=== PATIENT | female | born 1985 | race Caucasian/White ===

== ENCOUNTER 2018-02-03 17:47 | Emergency (ER) | payer MEDICAID, SELFPAY ==
[2018-02-03 17:49] VITALS: BP 113/76; PULSE 98; RESP 16; TEMP 36.7; O2SAT 98; BMI 39.7
--- NOTE | 2018-02-03 18:21 | ED.DCSUM_ITS ---
- ER Visit Summary Date of Service: 02/03/18 Chief Complaint: Nausea, vomiting diarrhea History of Present Illness: The patient is a 33 F no significant past medical history. Has had a prior appendectomy and hysterectomy. Patient states that last night she has somewhat some within several hours started having no one else at the same sob and no one else with vomiting. She denies fever. She denies dysuria. Currently she denies any significant abdominal pain. She states she has been able to hold down p.o. fluids today. Still complaining of nausea. Denies any abdominal trauma. Physical Examination: Well-appearing younger female. Vital signs. He does not look septic or toxic. No acute distress. H EENT exam unremarkable. Neck nontender no lymphadenopathy. Lungs clear to auscultation bilaterally. Heart regular rhythm no murmur. Abdomen is soft, nontender, nondistended. Normal bowel sounds. No peritoneal signs. No hernias or masses. No signs of obstruction. Moving all 4 extremities. Neurovascular intact. Back nontender. Neurologic exam normal. Test Results: None Emergency Department Course and Treatment: Patient clinically looks well does not look dehydrated. She and I discussed options. We will try oral Zofran and p.o. fluid challenge if she can do that she is comfortable being discharged home. Treatment Plan: [] Disposition: Discharge Impression: Acute nausea, vomiting and diarrhea secondary to viral syndrome Cannot rule out food poisoning. This note was generated with [employer] dictation software. It may contain incorrect words, spelling, and punctuation that were not noted in review of the chart prior to signing ED Disposition - Plan for ED Patient: Chief Complaint: Nausea/Vomiting Referrals: Darryl Stewart [Primary Care Provider] -
--- NOTE | 2018-02-03 18:21 | ED.DEP ---
ED Disposition - Plan for ED Patient: Disposition: Home or Assisted Living Chief Complaint: Nausea/Vomiting Instructions: ED Food Poison Or Gastroenteritis Prescriptions: Ondansetron [Zofran Odt] 8 mg PO Q8H PRN PRN #7 PRN Reason: Nausea Referrals: Darryl Stewart [Primary Care Provider] - 3-5 Days if not improving Additional Instructions: Zofran as needed for nausea. Plenty fluids and rest. Follow-up your doctor if not improving or return to ER feeling worse. This very well could be a viral gastroenteritis it is still possible be food poisoning but there is no way to prove that in the emergency department. Both are treated with fluids, bland diet and nausea medications.
[2018-02-03] MEDS: Ondansetron ODT 4 MG Tablet 8 MG PO (18:29)
[2018-02-03 19:56] VITALS: RESP 16
== END 2018-02-03 20:05 | disposition home or self-care (01) ==
PROVIDERS: Emergency Provider Emergency Medicine; PCP Nurse Practitioner Family
DX: A08.4 Viral intestinal infection, unspecified (principal); Z72.0 Tobacco use; Z90.710 Acquired absence of both cervix and uterus
CPT/HCPCS: 99282; J2405

== ENCOUNTER 2018-03-31 20:49 | Emergency (ER) | payer MEDICAID, SELFPAY ==
[2018-03-31 20:51] VITALS: BP 132/81; PULSE 97; RESP 18; TEMP 36.5; O2SAT 97; BMI 39.5
--- NOTE | 2018-03-31 20:55 | RAD_ITS ---
STUDY: X-RAY - RIGHT SHOULDER REASON FOR EXAM: Female, 33 years old. Injury and pain TECHNIQUE: Three view(s) of the RIGHT shoulder were obtained. COMPARISON: None. FINDINGS: The glenohumeral joint is within normal limits. The acromioclavicular joint is normal in appearance. No acute abnormalities are seen in the visualized clavicle. No acute abnormalities are seen in the visualized humerus. The soft tissues are unremarkable. There are old fractures in the lateral right third and fourth ribs. RAD/Shoulder min 2 Views IMPRESSION: No acute abnormalities are seen in the right shoulder. Electronically Signed: Renée Shea MD at 21:51 EDT Tel Direct: [phone], Service support ,
--- NOTE | 2018-03-31 22:22 | ED.VISSUMM ---
- ER Visit Summary Date of Service: 03/31/18 Chief Complaint: Right shoulder injury History of Present Illness: The patient is a 33 F who has right shoulder pain. Yesterday she was picking up a grandfather clock and hurt her right shoulder. It is worse with movement. She tried Tylenol without any relief. She has no history of any injuries or surgeries to the shoulder Physical Examination: Vital signs reviewed. Right shoulder exam reveals tenderness over the trapezius muscle. She has no bony tenderness. Range of motion is painful. She has 2+ radial pulses Test Results: Shoulder x-ray reveals no acute findings Emergency Department Course and Treatment: She will be treated with naproxen. She will be given the same for home. She will follow-up with her PCP Treatment Plan: [] Disposition: Discharge Impression: Right trapezius strain This note was generated with [email or web address] dictation software. It may contain incorrect words, spelling, and punctuation that were not noted in review of the chart prior to signing ED Disposition - Plan for ED Patient: Chief Complaint: Upper Extremity Injury Referrals: Mary Rodriguez NP-C [Primary Care Provider] -
--- NOTE | 2018-03-31 22:24 | ED.DEP ---
ED Disposition - Plan for ED Patient: Disposition: Home or Assisted Living Chief Complaint: Upper Extremity Injury Instructions: ED Shoulder Pain [facility] Prescriptions: Naproxen [Naprosyn] 500 mg PO BID PRN #20 tab Cyclobenzaprine [Flexeril] 10 mg PO TID PRN #20 tab PRN Reason: Muscle Spasm Referrals: Mary Rodriguez, COMIC ILLUSTRATOR-C [Primary Care Provider] -
[2018-03-31] MEDS: Naproxen 500 MG Tablet PO (22:35)
[2018-03-31 22:43] VITALS: RESP 16
== END 2018-03-31 22:43 | disposition home or self-care (01) ==
LOC: ED 22:31
PROVIDERS: Emergency Provider Emergency Medicine
DX: S46.811A Strain of other muscles, fascia and tendons at shoulder and upper arm level, right arm, initial encounter (principal); X50.0XXA Overexertion from strenuous movement or load, initial encounter; Y93.9 Activity, unspecified; Y92.9 Unspecified place or not applicable; Y99.9 Unspecified external cause status; Z72.0 Tobacco use
CPT/HCPCS: 73030; 99283

== ENCOUNTER → 2018-04-11 14:54 | Outpatient (CLI) | payer MEDICAID, SELFPAY ==
--- NOTE | 2018-04-11 15:00 | US_ITS ---
STUDY: THYROID ULTRASOUND REASON FOR EXAM: Female, 33 years old. Nodule on clinical exam. TECHNIQUE: Ultrasound evaluation of the thyroid was performed with real-time and static benito-scale imaging. COMPARISON: None. FINDINGS: RIGHT LOBE: The right lobe of the thyroid gland measures 4.9 x 1.9 x 1.7 cm. There is a homogeneous echotexture. Upper and mid pole solid nodules measuring 0.6 x 0.6 x 0.3 cm and 0.5 x 0.4 x 0.3 cm respectively. LEFT LOBE: The left lobe of the thyroid gland measures 4.5 x 1.6 x 1.4 cm. There is a homogeneous echotexture. Lower pole solid nodule measuring 0.4 x 0.4 x 0.3 cm. ISTHMUS: The isthmus measures 5 mm which is mildly enlarged. . The regional lymph nodes are normal. US/Thyroid IMPRESSION: Mild thyromegaly. Subcentimeter solid nodules in both lobes. Electronically Signed: Ronald Reno MD at 3:38 EDT , Service support ,
== END ==
DX: E04.9 Nontoxic goiter, unspecified (principal)
CPT/HCPCS: 76536

== ENCOUNTER → 2018-05-31 07:04 | Outpatient (CLI) | payer MEDICAID, SELFPAY ==
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
== END ==
PROVIDERS: Referring Provider Orthopaedic Surgery; Visit Provider Orthopaedic Surgery
DX: G56.03 Carpal tunnel syndrome, bilateral upper limbs (principal)
CPT/HCPCS: 95886; 95913

== ENCOUNTER 2018-09-22 18:12 | Emergency (ER) | payer MEDICAID, SELFPAY ==
[2018-09-22 18:13] VITALS: BP 132/80; PULSE 105; RESP 17; TEMP 36.7; O2SAT 97; BMI 40.4
[2018-09-22 20:11] VITALS: BP 126/90; PULSE 88; RESP 18; O2SAT 97
--- NOTE | 2018-09-22 21:07 | ED.VISSUMM ---
- ER Visit Summary Date of Service: 09/22/18 Chief Complaint: Back pain History of Present Illness: The patient is a 33 F who presents with back pain that has been getting worse over the past 1-1/2 weeks. Patient states she was doing housework the pain is gradually gotten worse. Patient states pain is over the left lower lumbar area and radiates down to her left posterior thigh. Patient states she did have some numbness in her left leg twice this week which has resolved. Patient denies any changes in her bowel or bladder. Patient denies any saddle anesthesia. Patient denies abdominal pain. Physical Examination: Vital signs are stable. Patient is afebrile. Patient is in no acute distress. Musculoskeletal exam reveals tenderness over the left lumbar paraspinal muscles. There is no midline tenderness. There is no bony crepitance or step-off. Range of motion was limited in all motion secondary to pain. Strength is 5/5 bilaterally. There are no sensory deficits. There is no calf tenderness noted. The remaining physical exam is within normal limits. Emergency Department Course and Treatment: Patient was given an injection of morphine here. Patient was given a prescription for prednisone. Patient was instructed to follow-up with her primary care physician in 5-7 days. Patient understood and was agreeable with the plan. All questions were answered. Disposition: Discharge home Impression: Sciatica This note was generated with [employer] dictation software. It may contain incorrect words, spelling, and punctuation that were not noted in review of the chart prior to signing ED Disposition - Plan for ED Patient: Disposition: Home or Assisted Living Diagnosis: Sciatica of left side Instructions: ED Sciatica Prescriptions: Prednisone [Deltasone] 60 mg PO DAILY #15 tab Referrals: Lisa Fitzpatrick [Primary Care Provider] -
[2018-09-22] MEDS: Morphine 4 MG/ML Syringe IM (21:22)
[2018-09-22 21:27] VITALS: PULSE 74; RESP 18
== END 2018-09-22 21:47 | disposition home or self-care (01) ==
PROVIDERS: Emergency Provider Emergency Medicine
DX: M54.32 Sciatica, left side (principal); Z72.0 Tobacco use
CPT/HCPCS: 96372; 99282

== ENCOUNTER 2019-01-02 14:09 | Emergency (ER) | payer MEDICAID, SELFPAY ==
[2019-01-02 14:10] VITALS: BP 126/78; PULSE 109; RESP 16; TEMP 36.7; O2SAT 98; BMI 37.2
--- NOTE | 2019-01-02 14:34 | CT_ITS ---
STUDY: CT ABDOMEN AND PELVIS WITHOUT CONTRAST REASON FOR EXAM: Female, 33 years old. Several day history of abdominal pain and vaginal bleeding. RADIATION DOSAGE (If Supplied By Facility): CTDIvol = ( 14.73 ) mGy, DLP = ( 766.60 ) mGycm TECHNIQUE: Transaxial images were obtained from the dome of the diaphragm to the symphysis pubis without oral contrast, and without intravenous contrast. Sagittal and coronal images were reconstructed. Individualized dose optimization techniques were used for this CT. COMPARISON: None. FINDINGS: The visualized lung bases are unremarkable. The visualized portions of the heart are within normal limits. Normal liver. Normal gallbladder and extrahepatic biliary system. Normal spleen. Normal pancreas. Normal bilateral adrenal glands. 3 mm calculus in the lower pole calyx of the right kidney. Normal left kidney. Normal visualized stomach. Normal small intestine. Normal colon. There are surgical clips in the region of the appendix consistent with a prior appendectomy. Normal abdominal aorta. Normal inferior vena cava. There is borderline retroperitoneal lymphadenopathy with enlarged nodes no greater than 10mm in the short axis diameter. Normal urinary bladder. Normal abdominal wall. Normal osseous structures. CT/Abdomen/Pelvis without Cont IMPRESSION: 3 mm calculus in the lower pole calyx of the right kidney. Prior appendectomy. Electronically Signed: Vince Gonsalves, at 15:38 EDT , Service support ,
[2019-01-02] MEDS: oxyCODONE 5 MG Tablet PO (14:51)
[2019-01-02] MEDS: Ondansetron ODT 4 MG Tablet PO (14:58)
[2019-01-02 15:21] LABS: Bacteria 0 SEEN /hpf (None Seen); Mucous, Urine 0 SEEN /hpf (<or=2+); Red Blood Cells-Urine 0 SEEN /hpf (0-5)
[2019-01-02 15:26] LABS: Color, Urine Yellow (Yellow); Glucose, Dipstick Normal (Normal); Ketone-Dipstick Negative (Negative); Leukocyte Esterase-Dipstick 100 /ul (Negative); Nitrite-Dipstick Negative (Negative); Occult Blood-Urine 10 /ul (Negative); Protein-Dipstick 15 mg/dl (Negative); Urine Bilirubin Dipstick Negative (Negative); Urine Clarity Sl. Cloudy (Clear); Urine Urobilinogen Normal (Normal)
[2019-01-02 15:36] LABS: Squamous Epithelial Cells - UA 0-5 SEEN /hpf (5-10); White Blood Cells 5-10 SEEN /hpf (0-5)
--- NOTE | 2019-01-02 15:57 | ED.VISSUMM ---
- ER Visit Summary Date of Service: 01/02/19 Chief Complaint: [place] coloration when I wipe History of Present Illness: The patient is a 33 F patient reports a pink discoloration when she wipes after using the restroom. She also reports increased urinary frequency and lower abdominal pain. Patient has a history of UTIs and kidney stones. She is not on blood thinners. She is status post partial hysterectomy. Physical Examination: Afebrile vital signs unremarkable except for heart rate of 109. The patient appears well alert and oriented. No acute distress. Abdomen nontender. Back nontender. Skin appears normal. Test Results: Urinalysis shows signs of infection with increased white cells and leukocyte esterase. CT shows a 3 mm stone in the right lower pole. No obstruction or other pertinent findings. Emergency Department Course and Treatment: Patient treated with oxycodone and Zofran while awaiting results. Work-up is concerning for UTI, cystitis. Patient will be treated with Macrobid. Prescription for Zofran. Follow-up with primary care for recheck. Treatment Plan: As above Disposition: DC Impression: 1. UTI cystitis This note was generated with [employer] software. It may contain incorrect words, spelling, and punctuation that were not noted in review of the chart prior to signing ED Disposition - Plan for ED Patient: Referrals: Lisa Fitzpatrick [Primary Care Provider] -
--- NOTE | 2019-01-02 15:58 | ED.DEP ---
ED Disposition - Plan for ED Patient: Instructions: ED UTI Cystitis Female Prescriptions: Ondansetron [Zofran Odt] 4 mg PO Q8H PRN PRN #10 tab PRN Reason: Nausea Nitrofurantoin Macrocrystals [Macrobid] 100 mg PO Q12 #10 cap Referrals: Lisa Fitzpatrick [Primary Care Provider] -
[2019-01-02] MEDS: Nitrofurantoin Macrocrystals 100 MG Capsule PO (16:21)
== END 2019-01-02 16:22 | disposition home or self-care (01) ==
LOC: ED 15:12
PROVIDERS: Emergency Provider Emergency Medicine
DX: N30.91 Cystitis, unspecified with hematuria (principal); Z72.0 Tobacco use; Z87.442 Personal history of urinary calculi; Z87.440 Personal history of urinary (tract) infections; Z90.710 Acquired absence of both cervix and uterus
CPT/HCPCS: 74176; 81001; 99283

== ENCOUNTER 2019-01-07 09:53 | Emergency (ER) | payer MEDICAID, SELFPAY ==
[2019-01-07 09:54] VITALS: BP 133/78; PULSE 104; RESP 18; TEMP 36.6; O2SAT 99; BMI 30.9
--- NOTE | 2019-01-07 10:26 | ED.VIS.GEN ---
History of Present Illness <Beckie Vazquez - Last Filed: 03/25/19 11:21> Informant: Patient Onset: Yesterday Context: Gradual Onset Timing: Continuous Current Severity: Moderate Maximum Severity: Moderate Worsened by: Nothing Relieved by: Nothing Narrative: She was treated Wednesday for a UTI and was told she had a 3 mm stone in her right kidney. She does have a history of kidney stones. She finished her Macrobid 5-day course and continues to have dysuria. She denies fever or chills. She has nausea without vomiting. She denies flank pain. She developed right lower quadrant pain last evening consistent with previous kidney stone. She is status post partial hysterectomy and appendectomy. Prior similar symptoms: Yes - Kidney stone Recent Illness/Hospitalization: No - ED evaluation 6 days ago <Ana Lane - Last Filed: 03/26/19 15:53> Chief Complaint: Flank Pain Past Medical History <Beckie Vazquez - Last Filed: 03/25/19 11:21> Past Medical History: - - Kidney stone and UTI Surgical History: appendectomy, hysterectomy, - - Bilateral tubal ligation Lives: With Family Smoking Status: Current every day smoker Alcohol: None Drugs: None <Ana Lane - Last Filed: 03/26/19 15:53> - Allergies and Home Meds Allergies/Adverse Reactions: Allergies hydrocodone [From [place]] Allergy (Verified 01/07/19 09:56) Rash Penicillins Allergy (Verified 01/07/19 09:56) Rash diclofenac Adverse Reaction (Verified 01/07/19 09:56) Other MIGRAINE promethazine [From [place]] Adverse Reaction (Verified 01/07/19 09:56) Vomiting Primary Care Physician: Lisa Fitzpatrick [Primary Care Provider] - Review of Systems All systems negative except as indicated General: Denies: Chills, Fever, Sweats Eyes: Denies: Visual changes - bilaterally, Diplopia ENT: Denies: Rhinorrhea, Sore throat Cardiovascular: Denies: Chest pain, Palpitations Respiratory: Denies: Dyspnea, Cough, Dyspnea on exertion Gastrointestinal: Reports: Abdominal pain, Nausea. Denies: Vomiting, Diarrhea, Melena, Hematochezia Genitourinary: Reports: Dysuria. Denies: Hematuria, Frequency Musculoskeletal: Denies: Back pain, Extremity Pain Skin: Denies: Rash, Wounds Neurological: Denies: Headache, Weakness, Numbness <Ana Lane - Last Filed: 03/26/19 15:53> Physical Exam Vital Signs/Narrative: Vital Signs Temp Pulse Resp BP Pulse Ox 01/07/19 09:54 98 F 104 H 18 133/78 H 99 General: Well nourished, Well developed, No Acute Distress Head: Normocephalic, Atraumatic Eyes: Perrl, EOMI ENT: Moist mucous membranes, No rhinorrhea Neck: Supple, Nontender Cardiovascular: Regular rate, Regular rhythm, No murmurs Respiratory: No distress, CTA bilaterally, Chest nontender Abdomen: Soft, Nondistended, Tender. Negative for: Guarding, Rebound tenderness, Inguinal hernia Back: Nontender, Normal Inspection. Negative for: CVA tenderness Extremities: Nontender, No edema Skin: Normal color, No rash Neurological: Alert, Oriented x3, Cranial nerves II-XII grossly intact, Normal Strength, Normal Sensation Psychological: Normal affect, Normal Mood <Ana Lane - Last Filed: 03/26/19 15:53> Diagnostic/Tx/Re-eval - Medical Decision Making Dr. Vazquez patient seen as above with Ana Lane, physical exam really shows no acute abnormalities abdomen soft nontender we had ordered the CT to evaluate for condition she needed to leave as above at this time and plan is to review those studies and arrange for her management see the chart for full details <Beckie Vazquez - Last Filed: 03/25/19 11:21> CT abdomen pelvis noncontrast reveals no significant change in the right kidney calculus. - Medical Decision Making [place] is a 33-year-old female who presents with right lower quadrant pain. She was seen here Wednesday and diagnosed with UTI. She was placed on Macrobid and Zofran. She was told she had a renal stone. She does have a history of kidney stones. She thinks maybe the kidney stone is trying to pass. She denies fever or chills. She had nausea without vomiting. Denies dysuria or vaginal discharge. She is status post partial hysterectomy and appendectomy. Urinalysis was contaminated and a urine culture is pending. Laboratory data is unremarkable other than potassium 3.2. Currently pending CT abdomen pelvis. There was a delay in this reading and patient is aware. She has to go to work and is requesting discharge before 130 this afternoon. She is aware that her urine culture is pending that if it comes back positive she will receive a phone call need to be treated with antibiotics. There was a small amount of yeast in her urine and she denies discharge or vaginal itching. She was instructed if these things develop that she should try [id number] treatment for vaginal yeast infection. Differential diagnosis includes: kidney stone, ovarian cyst, adhesions. She has never had ovarian cyst and has no pain to the lower pelvic area. She is status post appendectomy. Toradol improved her pain and she will be prescribed Naprosyn for home. She was discharged home in stable condition and remained he dynamically stable and nontoxic in appearance. She is agreeable to discharge home. <Ana Lane - Last Filed: 03/26/19 15:53> ED Disposition <Beckie Vazquez - Last Filed: 03/25/19 11:21> <Ana Lane - Last Filed: 03/26/19 15:53> - Plan for ED Patient: Disposition: Home or Assisted Living Diagnosis: Abdominal pain Instructions: KIDNEY STONE w/ Colic Prescriptions: Naproxen [Naprosyn] 500 mg PO BID PRN #20 tab Prescription Printed Referrals: Lisa Fitzpatrick [Primary Care Provider] -
[2019-01-07 10:33] LABS: Absolute Lymphocyte Count 3.03 X10^3/ul (0.83-4.51); Absolute Neutrophil Count 5.3 X10^3/uL (2.0-7.7); Basophil# 0.04 X10^3/uL; Basophil% 0.4 % (0-1); Eosinophil# 0.16 X10^3/uL; Eosinophils% 1.7 % (0-5); Hematocrit 46.7 % (37-47); Hemoglobin 16.1 g/dl (12.0-15.0); Lymphocyte # 3.03 X10^3/ul (4.0); Lymphocyte % 32.1 % (19-41); Mean Corp Hgb Conc 34.5 g/gl (32-36); Mean Corpuscular Volume 87.1 fL (81-99); Mean Platelet Vol. 10.4 fl (6.2-12.0); Monocyte# 0.89 X10^3/uL; Monocyte% 9.4 % (0-10); Neutrophil % 56.3 % (47-70); POSITIVE COUNT NO; POSITIVE DIFFERENTIAL NO; POSITIVE MORPHOLOGY NO; Platelet Count 327 K/mm3 (150-450); RBC Distribution Width CV 12.8 % (11.6-14.6); RBC Distribution Width SD 40.7 fl (35.1-43.9); Red Blood Count 5.36 M/mm3 (4.2-5.4); White Blood Count 9.4 K/mm3 (4.4-11.0)
[2019-01-07] MEDS: 0.9% Normal Saline 1,000 ML 1000 ML IV (10:46)
[2019-01-07] MEDS: Ondansetron 4 MG/2 ML Vial IV (10:46)
[2019-01-07] MEDS: Ketorolac 15 MG/ML Vial IV (10:46)
[2019-01-07 10:49] LABS: Anion Gap 9 (5-15); BUN 5 mg/dL (7-18); BUN/Creat Ratio 6.3 RATIO (10-20); Calcium,Total 8.9 mg/dL (8.5-10.1); Chloride 107 mmol/L (98-107); EST Glomerular Filtration Rate 88 mL/min (>60); Est Glom Filt Rate - Afr Amer 106 mL/min (>60); Estimated Creatinine Clearance 86.37 ml/min; Glucose 82 mg/dL (74-106); Potassium 3.2 mmol/L (3.5-5.1); Sodium Level 142 mmol/L (136-145)
[2019-01-07 10:58] LABS: Mucous, Urine 0 SEEN /hpf (<or=2+)
[2019-01-07 11:03] LABS: Color, Urine Yellow (Yellow); Glucose, Dipstick Normal (Normal); Ketone-Dipstick 5 mg/dl (Negative); Leukocyte Esterase-Dipstick 500 /ul (Negative); Nitrite-Dipstick Negative (Negative); Occult Blood-Urine 25 /ul (Negative); Protein-Dipstick 15 mg/dl (Negative); Urine Bilirubin Dipstick Negative (Negative); Urine Clarity Cloudy (Clear); Urine Urobilinogen 1 mg/dl (Normal)
--- NOTE | 2019-01-07 11:06 | CT_ITS ---
STUDY: CT ABDOMEN AND PELVIS WITHOUT CONTRAST REASON FOR EXAM: Female, 33 years old. RADIATION DOSAGE (If Supplied By Facility): CTDIvol = ( 18.66 ) mGy, DLP = ( 960.22 ) mGycm TECHNIQUE: Transaxial images were obtained from the dome of the diaphragm to the symphysis pubis without oral contrast, and without intravenous contrast. Sagittal and coronal images were reconstructed. Individualized dose optimization techniques were used for this CT. COMPARISON: January 02, 2019 FINDINGS: The visualized lung bases are unremarkable. The visualized portions of the heart are within normal limits. Normal liver. Normal gallbladder and extrahepatic biliary system. Normal spleen. Normal pancreas. Normal bilateral adrenal glands. The right kidney again revealed tiny calcification in the lower calyx that did not change since the last exam. No evidence of obstructive uropathy noted. The left kidney is unremarkable.. Normal visualized stomach. Normal small intestine. Normal colon. The appendix is absent. Normal abdominal aorta. Normal inferior vena cava. Normal retroperitoneum. No free fluid or free air within the peritoneal cavity Normal urinary bladder. Normal abdominal wall. Normal osseous structures. CT/Abdomen/Pelvis without Cont IMPRESSION: No significant change in the tiny calcification noted in the lower calyx of the right kidney since the study January 02, 2019. Electronically Signed: Trice Desouza, at 13:26 EDT Tel , Service support ,
[2019-01-07 11:13] LABS: Bacteria 3+ /hpf (None Seen); Red Blood Cells-Urine 0-5 SEEN /hpf (0-5); Squamous Epithelial Cells - UA 5-10 SEEN /hpf (5-10); Trichomonas 0-5 SEEN /hpf (None Seen); White Blood Cells 5-10 SEEN /hpf (0-5); Yeast-Urine 1+ /hpf (None Seen)
[2019-01-07 13:38] VITALS: BP 123/86; PULSE 80; RESP 16
== END 2019-01-07 13:39 | disposition home or self-care (01) ==
PROVIDERS: Emergency Provider Nurse Practitioner
DX: R10.31 Right lower quadrant pain (principal); R30.0 Dysuria; R11.0 Nausea; F17.200 Nicotine dependence, unspecified, uncomplicated; Z87.442 Personal history of urinary calculi; Z90.710 Acquired absence of both cervix and uterus
CPT/HCPCS: 74176; 80048; 81001; 85025; 87086; 87088; 96361; 96374; 96375; 99283; A4216; J2405

== ENCOUNTER 2019-02-27 17:15 | Emergency (ER) | payer MEDICAID, SELFPAY ==
[2019-02-27 17:17] VITALS: BP 112/76; PULSE 103; RESP 18; TEMP 36.4; O2SAT 95; BMI 30.9
--- NOTE | 2019-02-27 17:25 | RAD_ITS ---
STUDY: X-RAY - RIGHT HAND REASON FOR EXAM: Female, 34 years old. Fall TECHNIQUE: 3 view(s) of the hand. COMPARISON: None. FINDINGS: There is no evidence of fracture or dislocation. There are no significant degenerative changes. There are no radiodense foreign bodies. RAD/Hand Min 3 Views IMPRESSION: No fracture or dislocation. Electronically Signed: Hamlet Dukes, at 17:42 EDT Tel , Service support ,
== END 2019-02-27 18:03 | disposition left against medical advice (07) ==
LOC: ED 18:28
PROVIDERS: Emergency Provider Emergency Medicine
DX: Z04.3 Encounter for examination and observation following other accident (principal)
CPT/HCPCS: 73130

== ENCOUNTER 2020-10-04 21:21 | Emergency (ER) | payer MEDICAID, SELFPAY ==
[2020-10-04 21:21] VITALS: BP 158/89; PULSE 105; RESP 16; TEMP 36; O2SAT 99; BMI 36.0
[2020-10-04] MEDS: Clindamycin HCl 150 MG Capsule 450 MG PO (21:48)
[2020-10-04] MEDS: Ibuprofen 600 MG Tablet PO (21:48)
--- NOTE | 2020-10-04 21:49 | ED.VIS.GEN ---
History of Present Illness Chief Complaint: Dental Informant: Patient Onset: Days - 2 Narrative: Worsening left lower dental pain over the past 2 days with cold sensitivities. No fevers. History of known cavities. Has had extractions of other teeth in the past. Has a dental appointment in 2 weeks. Tobacco history. Allergy to penicillin. Prior similar symptoms: Yes Past Medical History - Allergies and Home Meds Allergies/Adverse Reactions: Allergies hydrocodone [From [place]] Allergy (Verified 10/04/20 21:23) Rash Penicillins Allergy (Verified 10/04/20 21:23) Rash diclofenac Adverse Reaction (Verified 10/04/20 21:23) Other MIGRAINE promethazine [From Phenergan] Adverse Reaction (Verified 10/04/20 21:23) Vomiting [facility] - Past Medical History: - - Anxiety, depression Surgical History: appendectomy, hysterectomy, - - Bilateral tubal ligation Smoking Status: Current every day smoker Review of Systems General: Denies: Chills, Fever, Sweats Eyes: Denies: Visual changes - bilaterally, Diplopia ENT: Reports: - - Dental pain. Denies: Rhinorrhea, Sore throat Cardiovascular: Denies: Chest pain, Palpitations Respiratory: Denies: Dyspnea, Cough, Dyspnea on exertion Gastrointestinal: Denies: Abdominal pain, Nausea, Vomiting, Diarrhea, Melena, Hematochezia Genitourinary: Denies: Dysuria, Hematuria, Frequency Musculoskeletal: Denies: Back pain, Extremity Pain Skin: Denies: Rash, Wounds Neurological: Denies: Headache, Weakness, Numbness Physical Exam Vital Signs/Narrative: Vital Signs Temp Pulse Resp BP Pulse Ox 10/04/20 21:21 96.8 F L 105 H 16 158/89 H 99 Inital Vital Signs reviewed: Yes General: Well nourished, Well developed, No Acute Distress Head: Normocephalic, Atraumatic Eyes: Perrl, EOMI ENT: Moist mucous membranes, No rhinorrhea, - - Dental decay of 2 teeth lateral to the lower incisors. There is no focal abscess, no sublingual edema. Airway patent. No trismus. Neck: Supple, Nontender Cardiovascular: Regular rate, Regular rhythm, No murmurs Respiratory: No distress, CTA bilaterally, Chest nontender Abdomen: Soft, Nontender, Nondistended, Normal bowel sounds Back: Nontender, Normal Inspection Extremities: Nontender, No edema Skin: Normal color, No rash Neurological: Alert, Oriented x3, Cranial nerves II-XII grossly intact, Normal Strength, Normal Sensation Psychological: Normal affect, Normal Mood Diagnostic/Tx/Re-eval - Medical Decision Making Patient nontoxic, dental caries with sensitivities. Started on clindamycin and ibuprofen. Prescription sent to the pharmacy. Discussed keeping follow-up with her dentist for definitive treatment. ED Disposition - Plan for ED Patient: Disposition: Home or Assisted Living Diagnosis: Dental caries Instructions: ED Dental Cavity, ED Dental Pain Prescriptions: Clindamycin [Cleocin] 450 mg PO TID 10 Days #90 capsule Transmission Status: Pending to [id number] Clindamycin [Cleocin] 450 mg PO TID #90 capsule Ibuprofen 600 mg PO 4X/DAY PRN #20 tablet PRN Reason: Pain 1-10 Or Fever Transmission Status: Pending to [id number] Ibuprofen 600 mg PO 4X/DAY PRN #20 tablet PRN Reason: Pain 1-10 Or Fever [facility],Lisa Figueroa [Primary Care Provider] - Additional Instructions: follow up with your dentist as scheduled.
== END 2020-10-04 22:13 | disposition home or self-care (01) ==
PROVIDERS: Emergency Provider Emergency Medicine
DX: K02.9 Dental caries, unspecified (principal); F17.200 Nicotine dependence, unspecified, uncomplicated; Z88.0 Allergy status to penicillin
CPT/HCPCS: 99283

== ENCOUNTER 2020-11-04 10:35 | Outpatient (RCR) | payer MEDICAID, SELFPAY | END 2020-11-15 23:59 | LOC: LABSPEC 10:35 | PROVIDERS: Referring Provider Family Medicine; Visit Provider Family Medicine | DX: Z03.818 Encounter for observation for suspected exposure to other biological agents ruled out (principal) | CPT/HCPCS: 87635; U0002 ==

== ENCOUNTER 2020-11-29 14:13 | Emergency (ER) | payer MEDICAID, SELFPAY ==
[2020-11-29 14:15] VITALS: BP 130/86; PULSE 83; RESP 17; TEMP 36.4; O2SAT 97; BMI 36.2
--- NOTE | 2020-11-29 14:18 | RAD_ITS ---
STUDY: X-RAY - LEFT ELBOW REASON FOR EXAM: Female, 35 years old. Injury due to a recent fall. TECHNIQUE: 3 view(s) of the elbow. COMPARISON: None. FINDINGS: Normal visualized humerus, radius and ulna. Normal radiocapitellar and ulnotrochlear articulations. The soft tissue structures are unremarkable. RAD/Elbow min 3 Views IMPRESSION: Normal x-ray examination of the elbow. Electronically Signed: Vince Gonsalves MD at 15:00 EDT , Service support ,
--- NOTE | 2020-11-29 15:24 | EDS_ITS ---
HPI History of Present Illness Chief Complaint: Upper Extremity Injury Informant: patient Narrative Narrative: 35-year-old female states she sustained a fall couple days ago when she stepped into a pothole sustaining injury to her ankle and fell forward landing on the left elbow. Since that time she notes painful range of motion and swelling. She notes an abrasion. [facility] Medical History (Updated 11/29/20 @ 15:[address] Tin Maynard DO) Anxiety Arthritis Depression Fatigue Home Medications NK 11/29/20 [History Last Taken Unknown] Allergy/AdvReac Type Severity Reaction Status Date / Time hydrocodone [From [place]] Allergy Rash Verified 11/29/20 14:15 Penicillins Allergy Rash Verified 11/29/20 14:15 diclofenac AdvReac Other Verified 11/29/20 14:15 promethazine [From Phenergan] AdvReac Vomiting Verified 11/29/20 14:15 Family History Father Arthritis Hypertension Mother Thyroid disorder Cancer Lung Daughter Asthma Surgical History History of endometrial ablation History of partial hysterectomy Hx of appendectomy Hx of tubal ligation Social History Smoking Status: Current every day smoker second hand exposure: Yes alcohol intake: current alcohol intake frequency: holidays/special occasions only substance use type: does not use caffeine: Yes 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 of 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 ROS ROS ED Constitutional Constitutional ED: Denies chills or weight loss Eyes Eyes: Denies change in vision or diplopia ENT ENT ED: Denies ear pain, rhinorrhea or sore throat Cardiovascular Cardiovascular: Denies chest pain, orthopnea, palpitations or racing heartbeat Respiratory/Chest Respiratory/Chest: Denies cough, dyspnea or orthopnea Gastrointestinal Gastrointestinal: Denies abdominal pain, diarrhea, nausea or vomiting Genitourinary Genitourinary ED: Denies dysuria, hematuria or urinary frequency Musculoskeletal Musculoskeletal: Reports other Details: See HPI ; Denies arthralgias or myalgias Integumentary Denies abscess or rash Neurologic Neurologic: Denies headache(s) or weakness Psychiatric Psychiatric: Denies anxiety, depression, suicidal ideation or suicidal thoughts Endocrine Endocrinology: Denies polydipsia, polyphagia or polyuria Allergic/Immunologic Allergic/Immunologic ED: Denies mouth swelling, tongue swelling or urticaria EXAM Physical Exam Const Vital Signs: 11/29/20 14:15 Temperature 97.6 F L Temperature Source Oral Pulse Rate 83 Respiratory Rate 17 Blood Pressure 130/86 H Blood Pressure Mean 100 Pulse Ox 97 Oxygen Delivery Method Room Air Positive well nourished and well developed General Appearance ED: well developed HEENT Reports normocephalic, head/scalp atraumatic and moist mucous membranes Eyes PERRL and EOMs intact bilaterally Neck no lymphadenopathy, supple and no JVD Resp normal respiratory effort and clear to auscultation bilaterally Cardio regular rate, regular rhythm and no murmurs GI normal to inspection, nondistended, normoactive bowel sounds and non-tender Palpation: soft Back/Spine no CVA tenderness and normal ROM Extremity Extremity Narrative: There is some swelling superficial healing abrasion fusion over the posterior lateral aspect of the left elbow. No fibular head tenderness. Neurovascular intact distally General Extremety ED: Negative for edema General Extremity: Negative for edema Neuro oriented x3 and CN's II-XII intact bilaterally Sensorium / Orientation: alert Motor Exam: strength 5/5 throughout Psych mental status grossly normal Mood & Affect: Negative for depressed or tearful Skin no rashes or lesions noted and no wounds MDM MDM MDM Narrative Medical decision making narrative: My interpretation of the plain films of the left elbow is no acute fracture no joint effusion. Radiology concurs. Patient will be discharged home with supportive care return if worsening or concerns follow-up 10 to 14 days if not improved Radiography Diagnostic Testing: Radiology Impression Elbow X-Ray 11/29/20 14:18 IMPRESSION: Normal x-ray examination of the elbow. Electronically Signed: Vince Gonsalves MD at 15:00 EDT , Service support , Discharge Plan Triage Chief Complaint: Upper Extremity Injury ED Provider: Tin Maynard Dx/Rx/DC Orders Clinical Impression: Contusion of elbow, left Instructions: ED Contusion, Elbow Prescriptions: No Action NK RF: 0 [facility] - 10-14 Days if not better Disposition Disposition: Home, self care
== END 2020-11-29 15:33 | disposition home or self-care (01) ==
PROVIDERS: Emergency Provider Emergency Medicine
DX: S50.02XA Contusion of left elbow, initial encounter (principal); W17.2XXA Fall into hole, initial encounter; Y93.9 Activity, unspecified; Y92.9 Unspecified place or not applicable; Y99.9 Unspecified external cause status; M19.90 Unspecified osteoarthritis, unspecified site; F32.9 Major depressive disorder, single episode, unspecified; F41.9 Anxiety disorder, unspecified; F17.200 Nicotine dependence, unspecified, uncomplicated
CPT/HCPCS: 73080; 99282

== ENCOUNTER → 2021-01-17 12:34 | Outpatient (CLI) | payer MEDICAID, SELFPAY ==
--- NOTE | 2021-01-17 12:35 | US_ITS ---
STUDY: THYROID ULTRASOUND REASON FOR EXAM: Female, 35 years old. GOITER TECHNIQUE: Ultrasound evaluation of the thyroid was performed with real-time and static benito-scale imaging. COMPARISON: Comparison is made with prior study dated 04/11/2018. FINDINGS: RIGHT LOBE: The right lobe of the thyroid gland measures 4.4 cm x 1.4 cm x 1.8 cm. There is a homogeneous echotexture. Stable hypoechoic solid nodules in the upper and mid pole regions of the lobe. The upper pole nodule measures 5 mm x 3 mm x 3 mm. The lower pole nodule measures 5 mm x 4 mm x 4 mm. This is essentially unchanged. There is evidence of intranodular blood flow. LEFT LOBE: The left lobe of the thyroid gland measures 4 cm x 1.2 cm x 1.1 cm. There is a homogeneous echotexture. Stable 6 mm x 4 mm x 4 mm hypoechoic solid nodule in the lower pole. ISTHMUS: The isthmus measures 2 mm. The regional lymph nodes are normal. US/Thyroid IMPRESSION: Stable examination. Electronically Signed: Vince Gonsalves MD at 15:12 EDT , Service support ,
[2021-01-17 13:47] LABS: Absolute Lymphocyte Count 3.69 X10^3/uL (0.83-4.51); Basophil# 0.04 X10^3/uL; Basophil% 0.3 % (0-1); Eosinophil# 0.09 X10^3/uL; Eosinophils% 0.8 % (0-5); Hematocrit 47.5 % (37-47); Lymphocyte # 3.69 X10^3/ul (0.83-4.51); Lymphocyte % 31.3 % (19-41); Mean Corp Hgb Conc 33.7 g/dL (32-36); Mean Corpuscular Hgb 29.9 pg (27.0-32.0); Mean Corpuscular Volume 88.8 fL (81-99); Mean Platelet Vol. 11.4 fl (6.2-12.0); Monocyte# 0.95 X10^3/uL; Monocyte% 8.1 % (0-10); NRBC Flagged by Analyzer 0 % (0-5); Neutrophil % 59.2 % (47-70); Platelet Count 277 K/mm3 (150-450); RBC Distribution Width CV 12.1 % (11.6-14.6); RBC Distribution Width SD 39.4 fl (35.1-43.9); Red Blood Count 5.35 M/mm3 (4.2-5.4); White Blood Count 11.8 K/mm3 (4.4-11.0)
[2021-01-17 14:16] LABS: Erythrocyte Sedimentation Rate 21 mm/hr (0-30)
[2021-01-17 14:20] LABS: AST(SGOT) 33 U/L (15-37); Alanine Aminotransfer ALT/SGPT 48 U/L (13-56); Albumin, Serum 3.8 g/dL (3.2-5.0); Alkaline Phosphatase 101 U/L (45-117); Anion Gap 8 (5-15); BUN 7 mg/dL (7-18); BUN/Creat Ratio 8.7 RATIO (10-20); Calcium,Total 8.7 mg/dL (8.5-10.1); Chloride 107 mmol/L (98-107); Creatinine, Serum 0.81 mg/dL (0.55-1.02); EST Glomerular Filtration Rate 86 mL/min (>60); Est Glom Filt Rate - Afr Amer 104 mL/min (>60); Globulin 3.7 g/dL (2.2-4.2); Glucose 82 mg/dL (74-106); Potassium 3.5 mmol/L (3.5-5.1); Protein, Total 7.5 g/dL (6.4-8.2); Sodium Level 139 mmol/L (136-145); T4 Free Direct 0.97 ng/dL (0.76-1.46); Thyroid Stim Hormone (TSH) 1.46 uIU/mL (0.358-3.74)
[2021-01-19 08:36] LABS: Thyroid Peroxidase AB < 9 IU/mL (0-34)
== END ==
PROVIDERS: Referring Provider Nurse Practitioner Adult Health; Visit Provider Nurse Practitioner Adult Health
DX: E04.9 Nontoxic goiter, unspecified (principal); G43.009 Migraine without aura, not intractable, without status migrainosus
CPT/HCPCS: 36415; 76536; 80053; 84439; 84443; 85025; 85652; 86376

== ENCOUNTER 2021-01-20 07:21 | Emergency (ER) | payer MEDICAID, SELFPAY ==
[2021-01-20 07:22] VITALS: BP 118/74; PULSE 80; RESP 18; TEMP 36.3; O2SAT 98; BMI 34.9
--- NOTE | 2021-01-20 08:13 | ED.VIS.DENTA ---
HPI History of Present Illness Chief Complaint: Dental Informant: patient Narrative Narrative: Patient is a 36-year-old female presenting with left lower jaw swelling and pain. She states she woke up with it yesterday but worsened today. She could not sleep At night. She does have a history of bad teeth and is working with a dentist to try to get her bottom teeth extracted. She is already has full dentures on the top. She is allergic to penicillin. Denies any difficulty swallowing. It hurts to move her jaw or mouth.'s not having any issues handling her secretions. States her voice sounds normal. No fever or chills. No nausea or vomiting. Took Tylenol last night. No other complaints at this time. [facility] Medical History (Updated 11/29/20 @ 15:[address] Tin Maynard DO) Anxiety Arthritis Depression Fatigue Home Medications NK 11/29/20 [History Last Taken Unknown] Allergy/AdvReac Type Severity Reaction Status Date / Time hydrocodone [From [place]] Allergy Rash Verified 01/20/21 07:24 Penicillins Allergy Rash Verified 01/20/21 07:24 diclofenac AdvReac Other Verified 01/20/21 07:24 promethazine [From Phenergan] AdvReac Vomiting Verified 01/20/21 07:24 Family History Father Arthritis Hypertension Mother Thyroid disorder Cancer Lung Daughter Asthma Surgical History History of endometrial ablation History of partial hysterectomy Hx of appendectomy Hx of tubal ligation Social History Smoking Status: Current every day smoker tobacco type: cigarettes second hand exposure: Yes alcohol intake: current alcohol intake frequency: holidays/special occasions only substance use type: does not use caffeine: Yes 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 of 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 ROS ROS ED Constitutional Constitutional ED: Denies chills or fever(s) Eyes Eyes: Denies change in vision ENT ENT ED: Reports other Details: Left lower jaw swelling/pain ; Denies ear pain or sore throat Cardiovascular Cardiovascular: Denies chest pain Respiratory/Chest Respiratory/Chest: Denies dyspnea Gastrointestinal Gastrointestinal: Denies nausea or vomiting Musculoskeletal Musculoskeletal: Denies arthralgias or myalgias Integumentary Denies rash Neurologic Neurologic: Denies headache(s) or weakness Psychiatric Psychiatric: Denies depression EXAM Physical Exam Const Vital Signs: 01/20/21 07:22 Temperature 97.3 F L Temperature Source Temporal Pulse Rate 80 Respiratory Rate 18 Blood Pressure 118/74 Blood Pressure Mean 88 Pulse Ox 98 Oxygen Delivery Method Room Air Positive well nourished and well developed General Appearance ED: well developed HEENT HEENT Narrative: Edema and tenderness to palpation along the left mandible/chin. No obvious area of fluctuance or overlying erythema. Face and Sinus: Negative for sinuses nontender Mouth ED: Yes lips normal and Yes tongue normal Mouth: lips normal and tongue normal Teeth and Gingiva: abnormal tooth and associated gingiva Positive for tenderness and other (Patient only has 4 bottom front teeth. All of the molars have subsequently been removed. They are decayed with multiple old appearing fractures. No obvious surrounding abscess.) Throat: posterior oropharynx normal Eyes PERRL and EOMs intact bilaterally Neck no lymphadenopathy, supple and no JVD General: Negative for anterior neck swelling or submandibular swelling Lymph Lymphatic: no lymphadenopathy noted Chest Wall inspection of chest normal Resp normal respiratory effort and clear to auscultation bilaterally Cardio regular rate, regular rhythm and no murmurs Extremity normal to inspection Neuro oriented x3 Neuro Narrative: No acute deficits noted Sensorium / Orientation: alert Skin no rashes or lesions noted MDM MDM MDM Narrative Medical decision making narrative: Patient evaluated for now 2 days of left lower jaw pain and swelling. Is seem to be associated with likely dental infection. No obvious abscess. No airway compromise. Sublingual mucosa is soft and I do not suspect Jj's angina. Patient is otherwise well-appearing. She is normal vital signs. Started on clindamycin as she is allergic to penicillin. Given Motrin for anti-inflammatory/pain control. Given a work note for today and tomorrow per her request. Impression 1. Dental abscess 2. Left lower jaw pain Discharge Plan Triage Chief Complaint: Dental ED Provider: Magdalena Denis Dx/Rx/DC Orders Instructions: ED Dental Abscess Prescriptions: No Action NK RF: 0 Primary Care Provider: Lisa Bhatti Referrals: [facility] Lisa Gaines [Primary Care Provider] - Disposition Disposition: Home, Self Care
[2021-01-20] MEDS: Ibuprofen 600 MG Tablet PO (08:24)
[2021-01-20] MEDS: Clindamycin HCl 150 MG Capsule 300 MG PO (08:24)
[2021-01-20 08:28] VITALS: BP 139/66; PULSE 72; RESP 15; O2SAT 98
== END 2021-01-20 08:30 | disposition home or self-care (01) ==
PROVIDERS: Emergency Provider Emergency Medicine
DX: K04.7 Periapical abscess without sinus (principal); R68.84 Jaw pain; M19.90 Unspecified osteoarthritis, unspecified site; F17.210 Nicotine dependence, cigarettes, uncomplicated; Z88.0 Allergy status to penicillin
CPT/HCPCS: J3490

== ENCOUNTER 2021-01-20 20:11 | Emergency (ER) | payer MEDICAID, SELFPAY ==
[2021-01-20 07:22] VITALS: BMI 34.9
[2021-01-20 20:12] VITALS: BP 122/85; PULSE 71; RESP 18; TEMP 36.6; O2SAT 98; BMI 34.8
--- NOTE | 2021-01-20 20:50 | ED.VIS.DENTA ---
HPI History of Present Illness Chief Complaint: Dental Informant: patient and friend Onset/Context/Timing Onset: Yesterday Context: Gradual Onset Current Severity: Severe Maximum Severity: Severe Narrative Narrative: Patient presents secondary to dental pain. Patient reports left lower dental pain that started yesterday. She was seen in the emergency room this morning and given clindamycin and ibuprofen. Patient states since leaving the ER swelling has worsened. She has been unable to get pain under control. [facility] Medical History Anxiety Arthritis Depression Home Medications oxycodone-acetaminophen [Percocet] 1 tab PO Q6H PRN 3 Days #10 tab 01/20/21 [Rx Last Taken Unknown] Allergy/AdvReac Type Severity Reaction Status Date / Time hydrocodone [From [place]] Allergy Rash Verified 01/20/21 20:15 Penicillins Allergy Rash Verified 01/20/21 20:15 diclofenac AdvReac Other Verified 01/20/21 20:15 promethazine [From Phenergan] AdvReac Vomiting Verified 01/20/21 20:15 Family History Father Arthritis Hypertension Mother Thyroid disorder Cancer Lung Daughter Asthma Surgical History History of endometrial ablation History of partial hysterectomy Hx of appendectomy Hx of tubal ligation Social History Smoking Status: Current every day smoker tobacco type: cigarettes second hand exposure: Yes alcohol intake: current alcohol intake frequency: holidays/special occasions only substance use type: does not use caffeine: Yes 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 of 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 ROS ROS ED Constitutional Constitutional ED: Denies chills or fever(s) Eyes Eyes: Denies change in vision ENT ENT ED: Reports other Details: Dental pain with facial swelling ; Denies sore throat Cardiovascular Cardiovascular: Denies chest pain Respiratory/Chest Respiratory/Chest: Denies cough or dyspnea Gastrointestinal Gastrointestinal: Denies abdominal pain, diarrhea, nausea or vomiting Genitourinary Genitourinary ED: Denies dysuria Musculoskeletal Musculoskeletal: Denies back pain Integumentary Denies rash Neurologic Neurologic: Denies headache(s) or weakness Psychiatric Psychiatric: Denies anxiety or depression Endocrine Endocrinology: Denies polydipsia or polyuria Allergic/Immunologic Allergic/Immunologic ED: Denies urticaria EXAM Physical Exam Const Vital Signs: 01/20/21 20:12 Temperature 97.8 F Temperature Source Oral Pulse Rate 71 Respiratory Rate 18 Blood Pressure 122/85 H Blood Pressure Mean 97 Pulse Ox 98 Oxygen Delivery Method Room Air Positive well nourished and well developed General Appearance ED: well developed HEENT Reports normocephalic, head/scalp atraumatic and TM's clear HEENT Narrative: Patient does have edema noted along the left mandible. No erythema. Intraoral examination reveals decayed teeth to the gumline along the left mandibular surface with surrounding gum edema. There is no trismus. There is no evidence of Jj's angina. Tympanic Membrane ED: Yes TM's clear Eyes PERRL and EOMs intact bilaterally Neck supple Chest Wall inspection of chest normal and palpation of chest normal Resp normal respiratory effort and clear to auscultation bilaterally Cardio regular rate and regular rhythm GI normal to inspection, nondistended, normoactive bowel sounds Palpation: soft Back/Spine no CVA tenderness Extremity normal to inspection Neuro oriented x3 and no sensory deficits noted Sensorium / Orientation: alert Motor Exam: strength 5/5 throughout Psych mental status grossly normal Skin no rashes or lesions noted MDM [facility] Treatment and Re-Evaluation Comments:: Patient is given oxycodone here for pain control. At this time she was just started on antibiotics today I do not feel further imaging studies are needed at this time. We did discuss Jj's angina and the importance of monitoring for this at home. She voices understanding and agreement. She will be written a prescription for Percocet to help with pain. Discharge Plan Triage Chief Complaint: Dental ED Provider: Renée Marie Dx/Rx/DC Orders Clinical Impression: Odontalgia Instructions: ED Dental Pain Prescriptions: New oxycodone-acetaminophen [Percocet] 5-325 mg tablet 1 tab PO Q6H PRN (Reason: pain) 3 Days Qty: 10 RF: 0 Primary Care Provider: Lisa Bhatti Referrals: [facility] Lisa Gaines [Primary Care Provider] - Activity Restrictions/Additional Instructions: Dental list provided. Disposition Disposition: Home, Self Care Discharge Date/Time: 01/20/21 21:00
[2021-01-20] MEDS: oxyCODONE 5 MG Tablet 10 MG PO (20:58)
== END 2021-01-20 21:00 | disposition home or self-care (01) ==
PROVIDERS: Emergency Provider Emergency Medicine
DX: K04.7 Periapical abscess without sinus (principal); R68.84 Jaw pain; K08.89 Other specified disorders of teeth and supporting structures; M19.90 Unspecified osteoarthritis, unspecified site; F17.210 Nicotine dependence, cigarettes, uncomplicated; Z88.0 Allergy status to penicillin
CPT/HCPCS: 99282; 99283

== ENCOUNTER → 2021-05-12 11:53 | Outpatient (CLI) | payer MEDICAID, SELFPAY ==
--- NOTE | 2021-05-12 12:31 | RAD_ITS ---
STUDY: X-RAY CHEST REASON FOR EXAM: Female, 36 years old. ABN WEIGHT LOSS TECHNIQUE: PA and lateral views of the chest. COMPARISON: None. FINDINGS: The lungs are clear and expanded. There is no demonstrated pleural abnormality. Normal size heart. Normal mediastinum and vivian. Normal visualized pulmonary arteries. Normal visualized aortic arch and descending thoracic aorta. Normal visualized thoracic spine. Normal visualized ribs, clavicles, and shoulders. There is no demonstrated abnormality of the visualized soft tissue structures of the upper abdomen. RAD/Chest PA and Lateral IMPRESSION: Normal x-ray examination of the chest. Electronically Signed: John Santizo MD at 8:11 EDT Tel , Service support ,
[2021-05-12 13:47] LABS: Absolute Lymphocyte Count 3.28 X10^3/uL (0.83-4.51); Absolute Neutrophil Count 7.1 X10^3/uL (2.0-7.7); Basophil# 0.06 X10^3/uL; Basophil% 0.5 % (0-1); Eosinophil# 0.16 X10^3/uL; Eosinophils% 1.4 % (0-5); Hematocrit 47.7 % (37-47); Lymphocyte # 3.28 X10^3/ul (0.83-4.51); Lymphocyte % 28.9 % (19-41); Mean Corp Hgb Conc 33.5 g/dL (32-36); Mean Corpuscular Hgb 30.4 pg (27.0-32.0); Mean Corpuscular Volume 90.7 fL (81-99); Mean Platelet Vol. 11.4 fl (6.2-12.0); Monocyte# 0.66 X10^3/uL; Monocyte% 5.8 % (0-10); NRBC Flagged by Analyzer 0 % (0-5); Neutrophil # 7.13 X10^3/uL (2.7-7.7); Platelet Count 304 K/mm3 (150-450); RBC Distribution Width CV 12.9 % (11.6-14.6); RBC Distribution Width SD 43.5 fl (35.1-43.9); Red Blood Count 5.26 M/mm3 (4.2-5.4); White Blood Count 11.3 K/mm3 (4.4-11.0)
[2021-05-12 14:17] LABS: ALB/GLOB Ratio 0.9 RATIO (0.9-2.4); AST(SGOT) 18 U/L (15-37); Alanine Aminotransfer ALT/SGPT 30 U/L (13-56); Albumin, Serum 3.5 g/dL (3.2-5.0); Alkaline Phosphatase 105 U/L (45-117); Anion Gap 7 (5-15); BUN 6 mg/dL (7-18); Calcium,Total 8.6 mg/dL (8.5-10.1); Chloride 110 mmol/L (98-107); Creatinine, Serum 0.75 mg/dL (0.55-1.02); EST Glomerular Filtration Rate 93 mL/min (>60); Est Glom Filt Rate - Afr Amer 113 mL/min (>60); Glucose 86 mg/dL (74-106); Lipase 194 U/L (73-393); Potassium 3.2 mmol/L (3.5-5.1); Protein, Total 7.5 g/dL (6.4-8.2); Sodium Level 139 mmol/L (136-145); T4 Free Direct 0.87 ng/dL (0.76-1.46); Thyroid Stim Hormone (TSH) 1.65 uIU/mL (0.358-3.74)
[2021-05-14 17:07] LABS: Endomysial Antibody IgA Negative (Negative)
[2021-05-14 21:10] LABS: Deamidated Gliadin IgA 3 units (0-19); Deamidated Gliadin IgG 1 units (0-19); Immunoglobulin A 99 mg/dL (87-352); t-Transglutaminase IgA <2 U/mL (0-3)
== END ==
PROVIDERS: Referring Provider Nurse Practitioner Adult Health; Visit Provider Nurse Practitioner Adult Health
DX: R63.4 Abnormal weight loss (principal)
CPT/HCPCS: 36415; 71046; 80053; 82784; 83516; 83690; 84439; 84443; 85025; 86255

== ENCOUNTER → 2021-05-13 | Outpatient (CLI) | payer MEDICAID, SELFPAY | END | disposition home or self-care (01) | LOC: LABSPEC 10:31 | PROVIDERS: Referring Provider Nurse Practitioner Adult Health; Visit Provider Nurse Practitioner Adult Health | DX: R63.4 Abnormal weight loss (principal) | CPT/HCPCS: 82274; 87177; 87209 ==

== ENCOUNTER → 2021-05-27 08:26 | Outpatient (CLI) | payer MEDICAID, SELFPAY ==
--- NOTE | 2021-05-27 08:29 | US_ITS ---
STUDY: ABDOMINAL ULTRASOUND REASON FOR EXAM: Female, 36 years old. EPIGASTRIC PAIN TECHNIQUE: Transabdominal ultrasound was performed with real-time and static benito scale imaging. TECHNICAL QUALITY: Adequate. COMPARISON: None. FINDINGS: Liver: The liver measures 16.3 cm. There is increased echogenicity consistent with fatty infiltration. The bile ducts are within normal limits. There is hepatic color flow. The direction of portal flow is hepatopetal. There is no demonstrated mass lesion. Portal vein measurement: Gallbladder: Normal distended gallbladder. The gallbladder wall measures 2.3 mm. There is a negative sonographic Plaza''s sign. There is no pericholecystic fluid. There are no gallstones. 2 small gallbladder polyps are seen. The larger measures 3 mm x 3 mm x 3 mm. Common Bile Duct (C.B.D.): The common bile duct measures 4.2 mm. Pancreas: Normal size of the head, body and tail of the pancreas. There is normal echogenicity of the pancreas. There is no demonstrated pancreatic mass or cyst. Spleen: Normal size of the spleen. The spleen measures 10.4 cm x 4.7 cm x 4.4 cm. Right Kidney: Normal size of the right kidney. The right kidney measures 13.6 cm x 5 cm x 4.6 cm. Normal renal cortex. The right cortex measures 1.4 cm. There is no demonstrated renal mass or cyst. There is no right hydronephrosis. There is a 5 mm x 4 mm x 4 mm nonobstructive calculus. Left Kidney: Normal size of the left kidney. The left kidney measures 12.7 cm x 4.2 cm x 5.7 cm. Normal renal cortex. The left cortex measures 1.9 cm. There is no demonstrated renal mass or cyst. There is no left hydronephrosis. Aorta: Unremarkable I.V.C.: The IVC is patent. There is no ascites. US/Abdomen Complete IMPRESSION: There are 2 small gallbladder polyps. Nonobstructive 5 mm x 4 mm x 4 mm calculus in the right kidney. Electronically Signed: Vince Gonsalves MD at 13:18 EST , Service support ,
== END ==
PROVIDERS: Referring Provider Nurse Practitioner Adult Health; Visit Provider Nurse Practitioner Adult Health
DX: R10.13 Epigastric pain (principal)
CPT/HCPCS: 76700

== ENCOUNTER → 2021-06-16 12:35 | Outpatient (CLI) | payer MEDICAID, SELFPAY ==
[2021-06-16 13:28] LABS: Potassium 3.8 mmol/L (3.5-5.1)
== END ==
PROVIDERS: Visit Provider Nurse Practitioner Adult Health
DX: E87.6 Hypokalemia (principal)
CPT/HCPCS: 36415; 84132

== ENCOUNTER → 2021-06-20 10:01 | Outpatient (CLI) | payer MEDICAID, SELFPAY ==
--- NOTE | 2021-06-20 10:04 | NM_ITS ---
CLINICAL: 36-year-old female with reported history of epigastric pain. RADIONUCLIDE HEPATOBILIARY SCINTIGRAPHY COMPARISON: Abdominal ultrasound report 05/27/2021 FINDINGS: Following the intravenous administration of 5.5 mCi of 99m Tc Mebrofenin, hepatobiliary images reveal: 1. Relatively prompt and homogeneous radiopharmaceutical concentration is noted by a normal sized liver. No parenchymal defects are identified. 2. Gallbladder activity is identified at 10 minutes post radiopharmaceutical administration. 3. Small intestinal tract is observed at 15 minutes following tracer injection. 4. Washout of the radiopharmaceutical by the hepatic parenchyma appears qualitatively normal. Cholecystokinin (0.02 ug/kg) was administered intravenously over a 30-minute period. The post CCK gallbladder ejection fraction calculated at 21 minutes following Cholecystokinin administration was noted to be 18.0 % (normal greater than 35%) and 9.0% at 29 minutes following cholecystagogue infusion. There is scintigraphic evidence of post cholecystokinin duodenal-gastric reflux. During 30 minutes of post CCK imaging, there is scintigraphic evidence of refilling of the gallbladder. NV/Hepatobilliary Img w/Pharm Int IMPRESSION: 1. ABNORMAL 99m Tc Mebrofenin hepatobiliary imaging examination with Cholecystokinin. A. A gallbladder ejection fraction calculated to be less than 35% following the administration of Cholecystokinin is consistent with the presence of functional hepatobiliary disease (gallbladder and/or sphincter of Oddi dyskinesia) and/or organic hepatobiliary disease (chronic acalculous cholecystitis and/or cystic duct syndrome) in patients with intermediate to high pretest probabilities of hepatobiliary illness. (Topher Rodriguez et al, Journal of Nuclear Medicine 32:1695, 1990). B. There is scintigraphic evidence of post CCK duodenal-gastric reflux. (Randy et al, Nucl Med Liat [place] Press pg. 35, 1980). C. Refilling of the gallbladder following CCK administration may represent the presence of Sphincter of Oddi dysfunction. Correlation with Sphincter of Oddi manometry may be of benefit. (Nicole, J Nucl Med 38:1824, 1997). Electronically Signed: John Marina DO at 12:54 EST Tel , Service support ,
== END ==
PROVIDERS: Referring Provider Nurse Practitioner Adult Health; Visit Provider Nurse Practitioner Adult Health
DX: R12 Heartburn (principal); R19.7 Diarrhea, unspecified; R63.4 Abnormal weight loss
CPT/HCPCS: 78227; A9537; J2805

== ENCOUNTER 2021-08-21 09:09 | Day surgery (SDC) | payer MEDICAID, SELFPAY ==
[2021-08-21] MEDS: Lactated Ringers 1,000 ML 15 ML IV (09:15)
[2021-08-21 09:28] VITALS: BP 112/63; PULSE 65; RESP 16; TEMP 36.4; O2SAT 98; BMI 34.3
--- NOTE | 2021-08-21 10:15 | EGD_PTH ---
PATIENT: CLINTON HAYWARD LOC: [facility] U#:[id number] AGE/SX: 36/F ROOM: RE08/21/[address]: Dr. Sharif Pérez DO : 1985 BED: DIS: 08/21/2021 SPEC #: [id number] RECD: 08/21/21 12:20 STATUS: MAHI AVRIL #: [id number] OSCAR: 08/21/21 10:[address]: Sharif Pérez DEPT: SURGICAL PATHOLOGY RECD BY: Carlene Tsang ENTERED: 08/21/21 13:14 SP TYPE: EGD BIOPSY OT DR: Carmita Gonzalez, STOCKHOLDER-C [facility] Tissues: A - Duodenum, NOS B - Duodenum, NOS C - Gastric mucous membrane D - Esophagus, NOS Procedures: Special Stain Group II Surgery Specimen Level IV Alcian Blue/PAS (control) HEADER OPERATION: EGD ([facility]) PRE-OP DIAGNOSIS: Abdominal pain TISSUE SUBMITTED: A ? Second portion duodenum biopsy, B ? Submucosal lesion duodenum biopsy, C ? Gastric body biopsy, D ? Distal esophagus biopsy MICROSCOPIC DIAGNOSIS A. 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 B. Submucosal lesion duodenum biopsy: Gastric metaplasia. C. Gastric body biopsy: Mild chronic inflammation. D. Distal esophagus biopsy: Junctional mucosa with mild chronic inflammation. No evidence of goblet cell metaplasia. See Comment. AASHISH/aashish 08/22/21 COMMENT D. Alcian blue/PAS stain with matched control supports the diagnosis. MICROSCOPIC DESCRIPTION Slides are reviewed. GROSS DESCRIPTION A. Received is one container labeled with the patient name and designated second portion duodenum. The specimen consists of multiple irregular fragments of light barrett soft tissue that together measure 0.8 x 0.5 x 0.1 cm. The specimen is totally submitted in one cassette. B. Received is one container labeled with the patient name and designated submucosal lesion duodenum. The specimen consists of multiple irregular fragments of light barrett soft tissue that together measure 0.6 x 0.6 0.1 cm. The specimen is totally submitted in one cassette. C. Received is one container labeled with the patient name and designated gastric body. The specimen consists of one irregular fragment of light barrett soft tissue that measures 0.6 x 0.3 x 0.1 cm. The specimen is totally submitted in one cassette. D. Received is one container labeled with the patient name and designated distal esophagus. The specimen consists of two irregular fragments of light barrett soft tissue that together measure 0.8 x 0.3 x 0.1 cm. The specimen is totally submitted in one cassette. /AM:jason 08/21/21 TC:3 CPT:[id number]
--- NOTE | 2021-08-21 10:15 | PCM.HP.BLA ---
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 Her initial symptoms began with abdominal pain, worsening upper and diarrhea after eating. She says that her weight has been stable. She has not had any antibiotics recently. She was referred by [facility] for evaluation of diarrhea for two years, heartburn, epigastric pain, 5-6BM per day usually following PO intake. PCP placed her on a 40mg PPI QD which resolved emesis with weight loss. Diarrhea continues off and on and may be related to foods but is unable to decipher because she doesn?t feel well after PO intake. US abdomen performed 05/27/21. Liver measures 16.3cm with fatty infiltration. Two gallbladder polyps, negative Plaza?s sign. Nonobstructive calculus in right kidney. Hepatobiliary scan performed 05/27/21. With gallbladder ejection fraction less than 35% consistent with functional hepatobiliary disease. Evidence of CCK duodenal gastric reflux. 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 ROS Const Constitutional: Positive for fatigue and weight change ENT ENT: Positive for nasal congestion, hoarseness and sore throat Gastro GI: Positive for abdominal pain, bloating, change in bowel habits, constipation, diarrhea and nausea/dyspepsia Musc Musculoskeletal: Positive for back pain, numbness, stiffness and tingling Neuro Neurology: Positive for numbness and tingling Endo Endocrine: Positive for fatigue and weight change Omi/Lymp Hematologic/Lymphatic: Positive for easy bruising Exam Const General: cooperative and comfortable Nutritional Appearance: average body habitus and well nourished [facility] Head: normal to inspection Ears: hearing grossly normal bilaterally Nose: external nose normal Face and sinus: normal facial exam Mouth: oral mucosae normal Throat: posterior oropharynx normal Eyes General: appearance normal, both eyes and all related structures Neck Neck: normal visual inspection Chest Chest palpation & inspection: normal inspection of the chest and normal palpation of entire chest wall Resp Effort & Inspection: normal respiratory effort Auscultation: Bilateral: Clear to Auscultation Cardio Palpation: normal PMI Rate: regular rate Rhythm: regular rhythm GI Inspection: normal to inspection Auscultation: normal bowel sounds Percussion: normal to percussion Palpation: no hepatosplenomegaly Skin General: no rashes or lesions noted Neuro General: patient alert Extrem General: normal to inspection Psych Affect: normal affect Quality Reporting Tobacco Screening ([facility] 138) Smoking Status: Current every day smoker Assessment and Plan Assessment and Plan (1) Abdominal pain: Status: Acute Orders: Orders: EGD Today Plan - Dr. Olguin Friend, DO: Interval diagnosis for abdominal pain in the setting of worsening heartburn and diarrhea does include dumping syndrome, hypergastrinemia, atrophic gastritis resulting in hypergastrinemia, eosinophilic gastroenteritis or peptic ulcer disease. I feel that she would benefit from an upper endoscopy to evaluate her upper GI tract. We will does possible sphincter of Oddi syndrome. 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 I told her that this is a functional bowel disease given the fact that if there is no pancreatic enzyme elevation, ductal dilation or increase liver enzymes she would likely not benefit from an empiric sphincterotomy. Also due to the fact that she had a very good response with proton pump inhibitor makes me think that it involves more the upper GI tract than the sphincter. As did we get an upper endoscopy if the test is negative then I will get an MRCP with possible cholecystokinin to evaluate her for sphincter of Oddi syndrome. Also explained to her that the patients that tend to have severe pancreatitis or complications associated with sphincter of Oddi syndrome type III are young women. She was okay with this plan and we will continue current PPI therapy. I have re-examined the patient. There are no clinical changes since date of exam.
--- NOTE | 2021-08-21 10:52 | OP.CCLET_ITS ---
[facility]20[facility] for Cliff [facility] This procedure was performed on August. My impressions and recommendations are as follows: Impressions : - LA Grade A reflux esophagitis. Biopsied. - Congestive gastropathy. Biopsied. - Enlarged gastric folds. Biopsied. - Scalloped mucosa was found in the duodenum. Biopsied. - A single duodenal polyp. Biopsied. Recommendations : - Discharge patient to home. - Resume previous diet. - Continue present medications. - Await pathology results. - Repeat upper endoscopy in 1 year for surveillance. - Return to GI office. My findings are described in the full procedure note, which is enclosed. If I can be of further assistance, please feel free to contact me at . Sincerely, Sharif Pérez, 08/21/2021 10:51:45 AM This report has been signed electronically.
--- NOTE | 2021-08-21 10:52 | OP.EGD_ITS ---
Patient Name: Cliff Solomon Procedure Date: 08/21/2021 10:21 AM Date of : 1985 Age: 36 Procedure: Upper GI endoscopy Indications: Abdominal pain in the right upper quadrant Providers: Sharif Pérez DO Medicines: See the Anesthesia note for documentation of the administered medications Patient Profile: This is a 36 year old female. Refer to note in patient chart for documentation of history and physical. Patient has symptoms of acute right upper quadrant abdominal pain. Complications: No immediate complications. Procedure: Pre-Anesthesia Assessment: - Prior to the procedure, a History and Physical was performed, and patient medications and allergies were reviewed. The patient is competent. The risks and benefits of the procedure and the sedation options and risks were discussed with the patient. All questions were answered and informed consent was obtained. Patient identification and proposed procedure were verified by the physician in the pre-procedure area. Mental Status Examination: alert and oriented. Airway Examination: normal oropharyngeal airway and neck mobility. Respiratory Examination: clear to auscultation. CV Examination: normal. Prophylactic Antibiotics: The patient does not require prophylactic antibiotics. Prior Anticoagulants: The patient has taken no previous anticoagulant or antiplatelet agents. ASA Grade Assessment: II - A patient with mild systemic disease. After reviewing the risks and benefits, the patient was deemed in satisfactory condition to undergo the procedure. The anesthesia plan was to use moderate sedation / analgesia (conscious sedation). Immediately prior to administration of medications, the patient was re-assessed for adequacy to receive sedatives. The heart rate, respiratory rate, oxygen saturations, blood pressure, adequacy of pulmonary ventilation, and response to care were monitored throughout the procedure. The physical status of the patient was re-assessed after the procedure. After obtaining informed consent, the endoscope was passed under direct vision. Throughout the procedure, the patient's blood pressure, pulse, and oxygen saturations were monitored continuously. The gastroscope was introduced through the mouth, and advanced to the second part of duodenum. The upper GI endoscopy was accomplished without difficulty. The patient tolerated the procedure well. Moderate Sedation: Moderate (conscious) sedation was administered by the endoscopy nurse and supervised by the endoscopist. The patient's oxygen saturation, heart rate, blood pressure and response to care were monitored. Total physician intraservice time was 15 minutes. Scope In: 10:29:00 AM Scope Out: 10:41:50 AM Total Procedure Duration Time 0 hours 12 minutes 50 seconds Findings: LA Grade A (one or more mucosal breaks less than 5 mm, not extending between tops of 2 mucosal folds) esophagitis with no bleeding was found 34 to 35 cm from the incisors. Biopsies were taken with a cold forceps for histology. Verification of patient identification for the specimen was done. Estimated blood loss was minimal. Diffuse moderately congested mucosa was found in the gastric body. Biopsies were taken with a cold forceps for histology. Verification of patient identification for the specimen was done. Estimated blood loss was minimal. Diffuse prominent gastric folds were found in the stomach. Biopsies were taken with a cold forceps for histology. Verification of patient identification for the specimen was done. Estimated blood loss was minimal. Diffuse moderately scalloped mucosa was found in the duodenal bulb, in the first portion of the duodenum and in the second portion of the duodenum. Biopsies were taken with a cold forceps for histology. Verification of patient identification for the specimen was done. Estimated blood loss was minimal. A single 9 mm sessile polyp with no bleeding was found in the duodenal bulb. Biopsies were taken with a cold forceps for histology. Verification of patient identification for the specimen was done. Estimated blood loss was minimal. Impression: - LA Grade A reflux esophagitis. Biopsied. - Congestive gastropathy. Biopsied. - Enlarged gastric folds. Biopsied. - Scalloped mucosa was found in the duodenum. Biopsied. - A single duodenal polyp. Biopsied. Recommendation: - Discharge patient to home. - Resume previous diet. - Continue present medications. - Await pathology results. - Repeat upper endoscopy in 1 year for surveillance. - Return to GI office. Procedure Code(s): --- Professional --- 42307, Esophagogastroduodenoscopy, flexible, transoral; with biopsy, single or multiple 82544, 59, Moderate sedation services provided by the same physician or other qualified health resident care director performing the diagnostic or therapeutic service that the sedation supports, requiring the presence of an independent trained observer to assist in the monitoring of the patient's level of consciousness and physiological status; initial 15 minutes of intraservice time, patient age 5 years or older CPT copyright 2017 [employer]. All rights reserved. The codes documented in this report are preliminary and upon police investigator review may be revised to meet current compliance requirements. Sharif Pérez DO 08/21/2021 10:51:45 AM This report has been signed electronically. Number of Addenda: 1 Note Initiated On: 08/21/2021 10:21 AM Addendum Number: 1 Addendum Date: 04/06/2022 6:55:02 AM MAC was used for sedation during this procedure. Sharif Pérez DO 04/06/2022 6:55:05 AM This report has been signed electronically.
[2021-08-21 10:53] VITALS: BP 102/64; PULSE 61; RESP 16; O2SAT 95
[2021-08-21 10:56] VITALS: BP 112/63; BP 98/62; PULSE 59; RESP 16; O2SAT 98
[2021-08-21 11:03] VITALS: BP 112/63; BP 96/59; PULSE 78; RESP 16; O2SAT 96
[2021-08-21 11:05] VITALS: BP 112/63; BP 90/57; PULSE 67; RESP 16; TEMP 36.6; O2SAT 95
[2021-08-21 11:10] VITALS: BP 103/69; BP 112/63
== END 2021-08-21 23:59 | disposition home or self-care (01) ==
LOC: EN 09:10 → AC 09:11
PROVIDERS: Visit Provider Internal Medicine Gastroenterology
PROC: 0DJ08ZZ Inspection of Upper Intestinal Tract, Via Natural or Artificial Opening Endoscopic (ICD-10-PCS; CPT 43235; principal; 2021-08-21 10:10)
DX: K21.00 Gastro-esophageal reflux disease with esophagitis, without bleeding (principal); K31.7 Polyp of stomach and duodenum; K29.50 Unspecified chronic gastritis without bleeding; K31.9 Disease of stomach and duodenum, unspecified; M19.90 Unspecified osteoarthritis, unspecified site; F32.A Depression, unspecified; F41.9 Anxiety disorder, unspecified; Z79.899 Other long term (current) drug therapy; F17.200 Nicotine dependence, unspecified, uncomplicated; Z20.822 Contact with and (suspected) exposure to COVID-19
CPT/HCPCS: 43239; 87426; 88305; 88313; C9803; J7120; J2405

== ENCOUNTER 2021-08-25 08:03 | Outpatient (CLI) | payer MEDICAID, SELFPAY ==
--- NOTE | 2021-08-25 08:04 | MRI_ITS ---
STUDY: MR MRCP WITHOUT CONTRAST REASON FOR EXAM: Female, 36 years old. sphincter oddi TECHNIQUE: Standard MRCP technique was utilized. 3-D postprocessing images were reviewed. COMPARISON: None. FINDINGS: Gall Bladder: Normal with no distention or demonstrated fixed intraluminal filling defect. Cystic duct: Normal with no demonstrated fixed filling defect. Intrahepatic ducts: Normal visualized intrahepatic ducts with no demonstrated fixed filling defect, dilation or stricture. Common hepatic duct: Normal with no demonstrated fixed filling defect, dilation or stricture. Common bile duct: Normal with no demonstrated fixed filling defect, dilation or stricture. Pancreatic duct: Normal with no demonstrated fixed filling defect, dilation or stricture. MRI/MRCP Abdomen without Contrast IMPRESSION: Normal MR Cholangiopancreatography (MRCP). Electronically Signed: Phi Marcos MD at 16:55 EST ,
== END 2021-08-25 23:59 | disposition home or self-care (01) ==
LOC: MRI 08:04
PROVIDERS: Visit Provider Internal Medicine Gastroenterology
DX: K83.4 Spasm of sphincter of Oddi (principal)
CPT/HCPCS: 74181

== ENCOUNTER 2021-12-09 14:02 | Day surgery (SDC) | payer MEDICAID, SELFPAY ==
[2021-12-09] VITALS (7 sets, daily range): BP systolic 98–124; BP diastolic 53–79; PULSE 68–81; RESP 16–18; TEMP 36.2–36.5; O2SAT 83–100; BMI 36.7
--- NOTE | 2021-12-09 | EGD_PTH ---
PATIENT: CLINTON HAYWARD LOC: EN U#:[id number] AGE/SX: 36/F ROOM: RE12/09/[address]: Dr. Sharif Pérez DO : 1985 BED: DIS: 12/09/2021 SPEC #: [id number] RECD: 12/09/21 17:31 STATUS: MAHI AVRIL #: [id number] OSCAR: 12/09/21 00:[address]: Sharif Pérez DEPT: SURGICAL PATHOLOGY RECD BY: Bud Leyva ENTERED: 12/10/21 11:46 SP TYPE: EGD BIOPSY OTHR DR: [facility] Tissues: Duodenum, NOS Procedures: Surgery Specimen Level IV HEADER OPERATION: EGD ([facility] [place] [place]) polypectomy PRE-OP DIAGNOSIS: Sphincter of Oddi dysfunction TISSUE SUBMITTED: Duodenal polyp MICROSCOPIC DIAGNOSIS Duodenal polyp, polypectomy: Well-differentiated neuroendocrine tumor (carcinoid tumor). See cancer summary in the comment section. SJ:margie 12/11/2021 COMMENT DUODENUM AND AMPULLA NEUROENDOCRINE TUMOR CANCER SUMMARY Procedure: Polypectomy Tumor site: Duodenum, not specified Histologic type: G1, well differentiated neuroendocrine tumor Mitotic rate: no obvious mitoses are noted. Ki-67 labeling index: <1% Tumor size: 1 x 0.5 x 0.5 cm Tumor focality: Unifocal Tumor extent: Invades submucosa Lymphvascular invasion: Not identified Perineural invasion: Not identified Margins: All margins are negative for tumor. The tumor is <0.1 mm from the closest deep margin. Regional lymph nodes: No lymph nodes submitted or found. Distant metastasis: Not applicable Additional pathologic findings: Sara gland hyperplasia. PATHOLOGIC STAGE: pT1 pNx pMx The above summary is in compliance with [employer] [place] [employer] (CAP) Cancer Protocols Checklist and [place] Joint Committee on Cancer (AJCC), Staging Manual, 8th Ed. Immunohistochemistry ([id number]) supports the above diagnosis. This case has been reviewed in consultation with Dr. Villarreal who concurs with the above diagnosis. MICROSCOPIC DESCRIPTION Slides are reviewed. GROSS DESCRIPTION Received in fixative is one container labeled with the patient's name and designated duodenal polyp. The specimen consists of a pink-red polyp measuring 1.2 x 1 x 0.8 cm. The apparent base is inked. The specimen is serially sectioned to reveal [id number]-lvbix yellow, solid nodule measuring 1 x 0.5 x 0.5 cm. The entire specimen is submitted in one cassette. / SJ:rg 12/10/2021 TC:5 [facility]: [id number] ADDENDUM ADDENDUM ADDENDUM ADDENDUM ADDENDUM ADDENDUM ADDENDUM ADDENDUM ADDENDUM ADDENDUM ADDENDUM ADDENDUM ADDENDUM ADDENDUM ADDENDUM ADDENDUM 04/13/2022 09:51 ADDENDUM 04/13/2022 09:51 ADDENDUM 04/13/2022 09:51 ADDENDUM 04/13/2022 09:51 ADDENDUM 04/13/2022 09:51 This addendum is added to incorporate an outside pathology consultation report. The case was examined at [facility] (#[id number]) and the following diagnosis was rendered. Duodenal polyp, polypectomy: Well differentiated neuroendocrine tumor, grade 1 (size 0.6 x 0.6 cm measured on microscopic image). Proliferation index as measured with Ki67: <1% Tumor invades mucosa and submucosa. Tumor is 0.1 mm from the closest deep margin. Lymphvascular and perineural invasion are not identified. Pathologic stage: pT1 pNx pMx Please see complete above mentioned consultation report in EMR
--- NOTE | 2021-12-09 | IMM_PTH ---
PATIENT: CLINTON HAYWARD LOC: DONNY U#:[id number] AGE/SX: 36/F ROOM: RE12/09/[address]: Dr. Sharif Pérez DO : 1985 BED: DIS: 12/09/2021 SPEC #: [id number] RECD: 12/11/21 10:05 STATUS: MAHI REHerman #: [id number] OSCAR: 12/09/21 00:[address]: Sharif Pérez DEPT: IMMUNOHISTOCHEMISTRY RECD BY: Rosa Quevedo ENTERED: 12/11/21 10:06 SP TYPE: IMMUNO OTHR DR: [facility] Tissues: Duodenum, NOS Procedures: Synapto (add) CD45 (add) CD56 (add) CHROMO (add) CK20 (add) CK7 (add) CK8 (add) KI-67 (add) Pankeratin (initial) PHYSICIAN & INSTITUTION [place] [id number] SPECIMEN INFORMATION: Tissue Source: Duodenal polyp Clinical Info: Sphincter of Oddi dysfunction Specimen Number: [id number] CPT code: 95286, 14498 x8 METHODOLOGY: Deparaffinized sections of prefer/formalin-fixed tissue or PAP/DQ stained slides are incubated with monoclonal/polyclonal antibodies/oligonucleotide probes. Localization is made via biotin free immunoperoxidase method. Appropriate controls are performed and reacted as expected. Results on target cell population are indicated in the following table: RESULTS: ANTIBODY / CLONE RESULT AE1-3 (AE1/AE3/PCK26) positive CK7 (OV-TL12/30) positive CK8 ([id number]) positive CK20 (KS20.8) negative CD45 (RP2/18) negative CD56 (123C3.D5) positive Chromo (LK2H10) positive Synapto (polyclonal) positive Ki-67 (30-9) positive, low, <1% These tests were developed and their performance characteristics determined by [facility]. They may not have been cleared or approved by the U.S. Food and Drug Administration. The FDA has determined that such clearance or approval is not necessary. The above immunohistochemical/dualISH markers are ordered and reviewed by the Pathologist. INTERPRETATION: Duodenal polyp, polypectomy: Well differentiated neuroendocrine tumor (carcinoid tumor). GIDEON:margie 12/12/2021
--- NOTE | 2021-12-09 14:11 | PCM.HP.BLA ---
History and Physical Date of Admission: 12/09/21 CLINTON PAK, is a 36 F who presents to the office today for Follow up visit. Clinton established with this clinic 07.21.21 for evaluation of diarrhea (5-6times a day, usually following PO intake), heartburn, epigastric pain with onset 2018. She was started on PPI therapy which helped with everything but diarrhea. US abdomen performed 05.27.21. Liver measures 16.3cm with fatty infiltration. Two gallbladder polyps, negative Plaza?s sign. Nonobstructive calculus in right kidney. Hepatobiliary scan performed 05.27.21. With gallbladder ejection fraction less than 35% consistent with functional hepatobiliary disease. Evidence of CCK duodenal gastric reflux. 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 EGD performed 08.21.21 finding LA Grade A reflux esophagitis; congested gastropathy; enlarged gastric folds; scalloped mucosa in duodenum; single duodenal polyp. Duodenal biopsy revealed gastric metaplasia. Inflammation of esophagus and gastric body. MRCP performed 08.25.21 finding a normal MRCP. EGD EUS performed 10.14.21 at [facility] finding 10mm mucosal nodule in distal duodenal bulb with questionable central umbilication, possibly related previous biopsies. EUS found oval intramural (subepithelial), hypoechoic lesion in apex of duodenal bulb appearing to originate from deep mucosa measuring 10mm in maximum thickness and 7mm in diameter. Biopsy found changes consistent with nodular peptic duodenitis. Plan last visit 09.04.21: Abdominal pain ? Recommend EGD with submucosal lift, pancreatic enzymes, possible gastric emptying study. Metaplasia has low incidence of cancer but would like it removed entirely. Continues to have emesis and generally feeling unwell. Frequency has reduced to a couple times a week as opposed to daily, because of decrease emesis she is also able to eat more. Creon started and this has been somewhat helpful; she is taking one capsule with meals. Recently started on Vraylar. Continues to take Zofran PRN which is helpful. Exam Const General: cooperative and comfortable Nutritional Appearance: average body habitus and well nourished [facility] Head: normal to inspection Ears: hearing grossly normal bilaterally Nose: external nose normal Face and sinus: normal facial exam Mouth: oral mucosae normal Throat: posterior oropharynx normal Eyes General: appearance normal, both eyes and all related structures Neck Neck: normal visual inspection Chest Chest palpation & inspection: normal inspection of the chest and normal palpation of entire chest wall Resp Effort & Inspection: normal respiratory effort Auscultation: Bilateral: Clear to Auscultation Cardio Palpation: normal PMI Rate: regular rate Rhythm: regular rhythm GI Inspection: normal to inspection Auscultation: normal bowel sounds Percussion: normal to percussion Palpation: no hepatosplenomegaly Skin General: no rashes or lesions noted Neuro General: patient alert Extrem General: normal to inspection Psych Affect: normal affect Quality Reporting Tobacco Screening ([facility] 138) Smoking Status: Current every day smoker Assessment and Plan Assessment and Plan (1) Sphincter of Oddi dysfunction: Status: Acute Plan - Dr. 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 I would not perform an ERCP with sphincterotomy on her because of the likelihood that it would get better with pure sphincterotomy is not likely. This would increase her risk of post ERCP pancreatitis even more. She will have to be medicines for functional bowel disease. (2) Abdominal pain: Status: Acute Plan - Dr. Sharif Pérez, DO: Abdominal pain possibly secondary to a ball-valve effect of the large duodenal polyp that is obstructing the level of the pyloric sphincter. We will remove it with an upper endoscopy. (3) Duodenitis: Status: Acute Plan - Buffy Bonds: Duodenal mass determined to be nodular peptic duodenitis seen during EUS with [facility]. Plan - Dr. Sharif Pérez, DO: She is on medical therapy for duodenitis. We will continue that Plan Details Other Medications: New: ondansetron HCl 4 mg PO Q8H PRN 45 tabs 3RF nausea and vomiting I have re-examined the patient. There are no clinical changes since date of exam.
[2021-12-09] MEDS: Lactated Ringers 1,000 ML 15 ML IV (14:44)
--- NOTE | 2021-12-09 16:51 | OP.EGD_ITS ---
Patient Name: Cliff Solomon Procedure Date: 12/09/2021 3:45 PM Date of : 1985 Age: 36 Procedure: Upper GI endoscopy Indications: Epigastric abdominal pain Providers: Sharif Pérez DO Medicines: Monitored Anesthesia Care Patient Profile: This is a 36 year old female. Refer to note in patient chart for documentation of history and physical. Patient has symptoms of acute abdominal cramping, chronic abdominal distention and acute epigastric abdominal pain. Complications: No immediate complications. Procedure: Pre-Anesthesia Assessment: - Prior to the procedure, a History and Physical was performed, and patient medications and allergies were reviewed. The risks and benefits of the procedure and the sedation options and risks were discussed with the patient. All questions were answered and informed consent was obtained. Patient identification and proposed procedure were verified by the physician in the pre-procedure area. Mental Status Examination: alert and oriented. Airway Examination: normal oropharyngeal airway and neck mobility. Respiratory Examination: clear to auscultation. CV Examination: normal. Prophylactic Antibiotics: The patient does not require prophylactic antibiotics. Prior Anticoagulants: The patient has taken no previous anticoagulant or antiplatelet agents. After reviewing the risks and benefits, the patient was deemed in satisfactory condition to undergo the procedure. The anesthesia plan was to use moderate sedation / analgesia (conscious sedation). Immediately prior to administration of medications, the patient was re-assessed for adequacy to receive sedatives. The heart rate, respiratory rate, oxygen saturations, blood pressure, adequacy of pulmonary ventilation, and response to care were monitored throughout the procedure. The physical status of the patient was re-assessed after the procedure. After obtaining informed consent, the endoscope was passed under direct vision. Throughout the procedure, the patient's blood pressure, pulse, and oxygen saturations were monitored continuously. The Endoscope was introduced through the mouth, and advanced to the second part of duodenum. The upper GI endoscopy was accomplished without difficulty. The patient tolerated the procedure well. Scope In: 4:24:54 PM Scope Out: 4:35:35 PM Total Procedure Duration Time 0 hours 10 minutes 41 seconds Findings: The examined esophagus was normal. A small hiatal hernia was present. A single 5 mm sessile polyp with no bleeding was found in the duodenal bulb. The polyp was removed with a hot snare. Resection and retrieval were complete. Verification of patient identification for the specimen was done. Estimated blood loss was minimal. Impression: - Normal esophagus. - Small hiatal hernia. - A single duodenal polyp. Resected and retrieved. Recommendation: - Written discharge instructions were provided to the patient. - The signs and symptoms of potential delayed complications were discussed with the patient. - Patient has a contact number available for emergencies. - Return to normal activities tomorrow. - Resume previous diet. - Continue present medications. - Await pathology results. - Repeat upper endoscopy for surveillance. - Return to GI clinic. Procedure Code(s): --- Professional --- 61250, Esophagogastroduodenoscopy, flexible, transoral; with removal of tumor(s), polyp(s), or other lesion(s) by snare technique CPT copyright 2017 [employer] [place] [employer]. All rights reserved. 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 Sharif Pérez DO 12/09/2021 4:50:37 PM This report has been signed electronically. Number of Addenda: 1 Note Initiated On: 12/09/2021 3:45 PM Addendum Number: 1 Addendum Date: 04/17/2022 6:09:39 AM MAC was used as sedation for this procedure. Sharif Pérez DO 04/17/2022 6:09:43 AM This report has been signed electronically.
--- NOTE | 2021-12-09 16:51 | OP.CCLET_ITS ---
[facility] for Cliff Solomon [facility] This procedure was performed on Thursday, December 09, 2021. My impressions and recommendations are as follows: Impressions : - Normal esophagus. - Small hiatal hernia. - A single duodenal polyp. Resected and retrieved. Recommendations : - Written discharge instructions were provided to the patient. - The signs and symptoms of potential delayed complications were discussed with the patient. - Patient has a contact number available for emergencies. - Return to normal activities tomorrow. - Resume previous diet. - Continue present medications. - Await pathology results. - Repeat upper endoscopy for surveillance. - Return to GI clinic. My findings are described in the full procedure note, which is enclosed. If I can be of further assistance, please feel free to contact me at . Sincerely, Sharif Friend, 12/09/2021 4:50:37 PM This report has been signed electronically.
== END 2021-12-09 17:20 | disposition home or self-care (01) ==
LOC: EN 14:04 → AC 14:07
PROVIDERS: Visit Provider Internal Medicine Gastroenterology
PROC: 0DJ08ZZ Inspection of Upper Intestinal Tract, Via Natural or Artificial Opening Endoscopic (ICD-10-PCS; CPT 43235; principal; 2021-12-09 15:10)
DX: D3A.010 Benign carcinoid tumor of the duodenum (principal); K44.9 Diaphragmatic hernia without obstruction or gangrene; F17.200 Nicotine dependence, unspecified, uncomplicated
CPT/HCPCS: 43251; 88305; 88341; 88342; J7120

== ENCOUNTER → 2021-12-13 | Outpatient (CLI) | payer MEDICAID, SELFPAY ==
--- NOTE | 2021-12-13 11:25 | RAD_ITS ---
STUDY: X-RAY - ABDOMEN/PELVIS REASON FOR EXAM: Female, 36 years old. bloating TECHNIQUE: AP supine and upright views of the abdomen and pelvis. COMPARISON: None. FINDINGS: Normal visualized lung bases. There is an unremarkable bowel gas pattern. There is no demonstrated free abdominal air. The visualized liver, spleen and kidneys are grossly normal in size and morphology. Normal soft tissue structures. Normal visualized osseous structures. RAD/Abd Inc Decub and/or Erect IMPRESSION: Normal x-ray examination of the abdomen and pelvis. Electronically Signed: John Santizo MD at 14:53 EDT ,
== END | disposition home or self-care (01) ==
LOC: RAD 11:18
PROVIDERS: Visit Provider Internal Medicine Gastroenterology
DX: R10.9 Unspecified abdominal pain (principal); R14.0 Abdominal distension (gaseous)
CPT/HCPCS: 74019

== ENCOUNTER → 2022-01-26 | Outpatient (CLI) | payer MEDICAID, SELFPAY ==
--- NOTE | 2022-01-26 06:35 | CT_ITS ---
STUDY: CT CHEST, ABDOMEN T PELVIS WITH CONTRAST REASON FOR EXAM: Female, 37 years old. Neuroendocrine tumor. Prior appendectomy. Prior hysterectomy. RADIATION DOSAGE (If Supplied By Facility): CTDIvol = ( 19.60 ) mGy, DLP = ( 2137.28 ) mGycm TECHNIQUE: Transaxial imaging was performed following intravenous administration of Oral and amp;amp; IV Readi-CAT and amp;amp; 100mL Isovue-300. Individualized dose optimization techniques were used for this CT. COMPARISON: No relevant priors. FINDINGS: CHEST Mildly enlarged right lobe of the thyroid. Small benign-appearing bilateral axillary lymph nodes. The lungs are normal. There is no demonstrated pleural abnormality. Normal heart and pericardium. Normal mediastinum. Normal hilar regions. Normal unenhanced pulmonary arteries. Normal aorta arch and descending thoracic aorta. Normal osseous structures. Hepatomegaly. Diffuse fatty infiltration of the liver. ABDOMEN Hepatomegaly. Diffuse fatty infiltration of the liver. Normal liver. Normal gallbladder and extrahepatic biliary system. Normal spleen. Normal pancreas. Normal bilateral adrenal glands. Normal right kidney. Normal left kidney. Incidental note is made of a left retroaortic renal vein. Normal visualized stomach. Normal small intestine. Normal colon. There are surgical clips in the region of the appendix consistent with a prior appendectomy. Normal abdominal aorta. Normal inferior vena cava. Normal retroperitoneum. Normal abdominal wall. Normal osseous structures. PELVIS Normal urinary bladder. The patient is status post hysterectomy. Normal visualized small intestine. Normal visualized colon. There is no pelvic fluid. There is no pelvic lymphadenopathy or mass lesion. Normal visualized pelvic arteries. Normal abdominal wall. Normal osseous structures. CT/CT Chest, Abd, Pel w/Contrast IMPRESSION: Normal enhanced CT chest, abdomen T pelvis examination. Electronically Signed: Vince Gonsalves MD at 8:46 EDT ,
== END | disposition home or self-care (01) ==
LOC: CT 06:31
PROVIDERS: Visit Provider Internal Medicine Gastroenterology
DX: D3A.8 Other benign neuroendocrine tumors (principal)
CPT/HCPCS: 71260; 74177; Q9967

== ENCOUNTER 2022-01-28 12:07 | Emergency (ER) | payer MEDICAID, SELFPAY ==
[2022-01-28 12:09] VITALS: BP 129/83; PULSE 98; RESP 16; TEMP 36.3; O2SAT 99; BMI 37.8
--- NOTE | 2022-01-28 12:17 | EX.ED.DYSGE1 ---
HPI History of Present Illness Chief Complaint: Allergic Reaction Detail of Chief Complaint: Rash/allergic reaction Informant: patient Narrative Narrative: Patient presents to the emergency department complaint of a rash to her entire body that started after having IV contrast 2 days ago. Patient states that she has had allergy to IV dye before but just not as severe reaction. She has been taken Benadryl for the itching. She denies lip or tongue swelling. She denies difficulty breathing. She denies recent illness otherwise. Prior similar symptoms: Yes PFSH [facility] Medical History (Updated 01/28/22 @ 12:[address] Aby Jaquez, DO) Anxiety Arthritis Depression Easy bruising Gastric reflux History of edema Injury of head and neck Leg cramps Marijuana use Migraine headache Restless legs Smoker Wears dentures Home Medications escitalopram oxalate 10 mg tablet (Lexapro) 10 mg PO QHS 08/18/21 [History Last Taken Unknown] omeprazole 40 mg capsule,delayed release 40 mg PO DAILY 08/18/21 [History Last Taken 12/09/21 09:30] sumatriptan succinate 100 mg tablet (Imitrex) 100 mg PO Q2H PRN MIRGRAINES 08/18/21 [History Last Taken Unknown] topiramate 50 mg tablet (Topamax) 25 mg PO DAILY 08/18/21 [History Last Taken Unknown] topiramate 50 mg tablet (Topamax) 50 mg PO QHS 08/18/21 [History Last Taken Unknown] lipase 3,000-protease 9,500-amylase 15,000 unit capsule, delayed rel (Creon) 1 cap PO TID 30 days #90 caps 09/04/21 [Rx Last Taken Unknown] ondansetron HCl 4 mg tablet 4 mg PO Q8H PRN nausea and vomiting #45 tabs 10/30/21 [Rx Last Taken Unknown] hydroxyzine HCl 25 mg tablet 25 mg PO TID PRN itching #14 tabs 01/28/22 [Rx Last Taken Unknown] prednisone 20 mg tablet 20 mg PO BID #10 tabs 01/28/22 [Rx Last Taken Unknown] Allergy/AdvReac Type Severity Reaction Status Date / Time hydrocodone [From [place]] Allergy Rash Verified 12/09/21 14:34 Iodinated Contrast Media Allergy Rash Verified 01/28/22 12:08 [CONTRASTS] Penicillins Allergy Rash Verified 12/09/21 14:34 diclofenac AdvReac Other Verified 12/09/21 14:34 promethazine [From Phenergan] AdvReac Vomiting Verified 12/09/21 14:34 Family History Father Arthritis Hypertension Mother Thyroid disorder Cancer Lung Daughter Asthma Surgical History History of endometrial ablation History of partial hysterectomy Hx of appendectomy Hx of tubal ligation Social History Smoking Status: Current every day smoker tobacco type: cigarettes second hand exposure: Yes alcohol intake: current alcohol intake frequency: holidays/special occasions only substance use type: does not use caffeine: Yes what type of 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 ROS ROS ED Review of Systems ROS Unobtainable: other Constitutional Constitutional ED: Reports lethargy; Denies chills, fever(s), sweats or weight loss Eyes Eyes: Denies blurry vision, change in vision or diplopia ENT ENT ED: Denies rhinorrhea or sore throat Cardiovascular Cardiovascular: Reports chest pain and racing heartbeat; Denies orthopnea Respiratory/Chest Respiratory/Chest: Reports dyspnea and dyspnea on exertion; Denies cough, orthopnea or sputum Gastrointestinal Gastrointestinal: Denies abdominal pain, diarrhea, nausea or vomiting Genitourinary Genitourinary ED: Denies dysuria, hematuria or urinary frequency Musculoskeletal Musculoskeletal: Denies arthralgias, back pain, myalgias or neck pain Integumentary Reports rash; Denies abscess or Abrasions Neurologic Neurologic: Denies headache(s) or weakness Psychiatric Psychiatric: Denies anxiety, depression or suicidal thoughts Endocrine Endocrinology: Denies polydipsia, polyphagia or polyuria Hematologic/Lymphatic Hematologic/Lymphatic: Denies easy bleeding, easy bruising or lymphadenopathy Allergic/Immunologic Allergic/Immunologic ED: Denies mouth swelling, tongue swelling or urticaria EXAM Physical Exam Const Vital Signs: 01/28/22 12:09 01/28/22 12:16 Temperature 97.3 F L Temperature Source Temporal Pulse Rate 98 Respiratory Rate 16 Respiratory Effort Normal Respiratory Depth Normal Respiratory Pattern Normal Blood Pressure 129/83 H Blood Pressure Mean 98 Pulse Ox 99 Oxygen Delivery Method Room Air Positive well nourished and well developed General Appearance ED: well developed and NAD HEENT Reports TM's clear and moist mucous membranes normocephalic and atraumatic; Negative for trauma or tenderness Tympanic Membrane ED: Yes TM's clear Eyes PERRL and EOMs intact bilaterally General Eye ED: Negative for pale conjunctiva or scleral icterus Neck no lymphadenopathy, supple and no JVD General: Negative for tenderness Chest Wall inspection of chest normal and palpation of chest normal Chest: Negative for tenderness Resp normal respiratory effort and clear to auscultation bilaterally Effort and Inspection: Negative for respiratory distress or pain with movement Auscultation: Negative for rhonchi, wheezes or diminished lung sounds Cardio regular rate, regular rhythm, S1 normal heart sound, S2 normal heart sound and no murmurs Peripheral Pulses: pulses 2+ throughout GI normal to inspection, nondistended, normoactive bowel sounds, soft to palpation, non-tender, non-distended and no masses Back/Spine no CVA tenderness and no thoracic nor lumbar tenderness Extremity normal to inspection General Extremety ED: Negative for edema General Extremity: Negative for edema Neuro oriented x3, CN's II-XII intact bilaterally, no sensory deficits noted and gait normal Sensorium / Orientation: awake, alert, oriented to person, oriented to place and oriented to time Motor Exam: strength 5/5 throughout and strength abnormal Psych mental status grossly normal Skin no wounds Skin Narrative: Patient has a fine erythematous rash involving the entire body that is fine macular and blanches with palpation. No mucosal involvement. No vesicles noted. No petechiae or purpura noted. MDM MDM MDM Narrative Medical decision making narrative: I suspect patient has allergic reaction to IV dye. Patient was started on prednisone and Atarax for itching. Patient to follow-up with primary care physician in 3 to 5 days. She is advised to return if lip or tongue swelling, difficulty breathing, or condition worsen anyway. Discharge Plan Triage Chief Complaint: Allergic Reaction ED Provider: Aby Jaquez Dx/Rx/DC Orders Clinical Impression: Allergic drug rash Instructions: ED ADVERSE DRUG REACTION Allergic Prescriptions: New prednisone 20 mg tablet 20 mg PO BID Qty: 10 0RF hydroxyzine HCl 25 mg tablet 25 mg PO TID PRN (Reason: itching) Qty: 14 0RF No Action Creon 3,000-9,500- 15,000 unit capsule,delayed release(DR/EC) 1 cap PO TID 30 Days Qty: 90 2RF Rx Instructions: do not exceed 10,000 unit/kg lipase per 24 hrs ondansetron HCl 4 mg tablet 4 mg PO Q8H PRN (Reason: nausea and vomiting) Qty: 45 3RF sumatriptan succinate [Imitrex] 100 mg Tablet 100 mg PO Q2H PRN (Reason: MIRGRAINES) omeprazole 40 mg Capsule,Delayed Release(Dr/Ec) 40 mg PO DAILY escitalopram oxalate [Lexapro] 10 mg Tablet 10 mg PO QHS topiramate [Topamax] 50 mg Tablet 25 mg PO DAILY topiramate [Topamax] 50 mg Tablet 50 mg PO QHS Primary Care Provider: [facility] Lisa Gaines Referrals: [facility] Lisa Gaines [Primary Care Provider] - Disposition Disposition: Home, Self Care
[2022-01-28] MEDS: hydrOXYzine 10 MG Tablet 25 MG PO (12:29)
[2022-01-28] MEDS: predniSONE 20 MG Tablet 40 MG PO (12:30)
== END 2022-01-28 12:32 | disposition home or self-care (01) ==
LOC: ED 12:28
PROVIDERS: Emergency Provider Emergency Medicine; Visit Provider Emergency Medicine
DX: L27.0 Generalized skin eruption due to drugs and medicaments taken internally (principal); T50.905A Adverse effect of unspecified drugs, medicaments and biological substances, initial encounter; F41.9 Anxiety disorder, unspecified; F32.A Depression, unspecified; M19.90 Unspecified osteoarthritis, unspecified site; K21.9 Gastro-esophageal reflux disease without esophagitis; G25.81 Restless legs syndrome; F17.210 Nicotine dependence, cigarettes, uncomplicated; Z79.899 Other long term (current) drug therapy; Z79.52 Long term (current) use of systemic steroids; Z91.041 Radiographic dye allergy status
CPT/HCPCS: 99284

== ENCOUNTER → 2022-03-11 | Outpatient (CLI) | payer MEDICAID, SELFPAY ==
[2022-03-11 12:51] LABS: Erythrocyte Sedimentation Rate 26 mm/hr (0-30)
[2022-03-11 12:55] LABS: Absolute Lymphocyte Count 3.35 X10^3/uL (0.83-4.51); Absolute Neutrophil Count 8.5 X10^3/uL (2.0-7.7); Basophil# 0.05 X10^3/uL; Basophil% 0.4 % (0-1); Eosinophil# 0.15 X10^3/uL; Eosinophils% 1.1 % (0-5); Hematocrit 45.3 % (37-47); Hemoglobin 15.3 g/dL (12.0-15.0); Lymphocyte # 3.35 X10^3/ul (0.83-4.51); Lymphocyte % 25.4 % (19-41); Mean Corp Hgb Conc 33.8 g/dL (32-36); Mean Corpuscular Hgb 30.2 pg (27.0-32.0); Mean Corpuscular Volume 89.5 fL (81-99); Mean Platelet Vol. 10.3 fl (6.2-12.0); Monocyte# 1.08 X10^3/uL; Monocyte% 8.2 % (0-10); NRBC Flagged by Analyzer 0 % (0-5); Neutrophil # 8.45 X10^3/uL (2.7-7.7); Neutrophil % 64.2 % (47-70); Platelet Count 341 K/mm3 (150-450); RBC Distribution Width CV 12.7 % (11.6-14.6); RBC Distribution Width SD 41.6 fl (35.1-43.9); Red Blood Count 5.06 M/mm3 (4.2-5.4); White Blood Count 13.2 K/mm3 (4.4-11.0)
[2022-03-11 13:35] LABS: ALB/GLOB Ratio 0.9 RATIO (0.9-2.4); AST(SGOT) 17 U/L (15-37); Alanine Aminotransfer ALT/SGPT 32 U/L (13-56); Albumin, Serum 3.5 g/dL (3.2-5.0); Alkaline Phosphatase 61 U/L (45-117); Anion Gap 4 (5-15); BUN 5 mg/dL (7-18); BUN/Creat Ratio 6.8 RATIO (10-20); Calcium,Total 8.7 mg/dL (8.5-10.1); Chloride 112 mmol/L (98-107); Creatinine, Serum 0.73 mg/dL (0.55-1.02); EST Glomerular Filtration Rate 95 mL/min (>60); Est Glom Filt Rate - Afr Amer 115 mL/min (>60); Glucose 93 mg/dL (74-106); Potassium 3.5 mmol/L (3.5-5.1); Protein, Total 7.5 g/dL (6.4-8.2); Sodium Level 140 mmol/L (136-145)
[2022-03-13 16:23] LABS: Gastrin, Serum < 10 pg/mL (0-115)
== END | disposition home or self-care (01) ==
LOC: LAB 11:33
PROVIDERS: Visit Provider Nurse Practitioner Adult Health
DX: D3A.8 Other benign neuroendocrine tumors (principal)
CPT/HCPCS: 36415; 80053; 82941; 85025; 85652; 86140

== ENCOUNTER → 2022-05-21 | Outpatient (CLI) | payer MEDICAID, SELFPAY ==
--- NOTE | 2022-05-21 09:53 | US_ITS ---
STUDY: ABDOMINAL ULTRASOUND - ELASTOGRAPHY REASON FOR VISIT: Female, 37 years old. Fatty infiltration of the liver. TECHNIQUE: Liver stiffness measurements were obtained on a [employer] RS 85 ultrasound machine using a CA 1-7 probe following the SRU guidelines. 3 measurements were obtained using a 2-D-SWE method. The IQR/M was 14% suggesting a quality data set. TECHNICAL QUALITY: Adequate. COMPARISON: Comparison is made with prior study done earlier in the day. FINDINGS: Liver: There is fatty infiltration of the liver. Median liver stiffness measured 8.2 kPa. US/Elastography Parenchyma/Organ IMPRESSION: Liver stiffness measures 8.2 kPa compatible with F2-F3 (Mild to moderate liver fibrosis) Metavir score. Electronically Signed: Vince Gonsalves MD at 14:00 EDT ,
--- NOTE | 2022-05-21 09:53 | US_ITS ---
STUDY: ABDOMINAL ULTRASOUND - RIGHT UPPER QUADRANT REASON FOR VISIT: Female, 37 years old fatty liver -- elastography TECHNIQUE: Ultrasound evaluation of the right upper quadrant was performed with real-time and static benito-scale imaging. TECHNICAL QUALITY: Adequate. COMPARISON: Comparison is made with prior study dated 05/27/2021. FINDINGS: Liver: The liver measures 17.6 cm. There is increased echogenicity consistent with fatty infiltration. The bile ducts are within normal limits. There is hepatic color flow. The direction of portal flow is hepatopetal. There is no demonstrated mass lesion. Gallbladder: Normal distended gallbladder. The gallbladder wall measures 1 mm. There is a negative sonographic Plaza''s sign. There is no pericholecystic fluid. There are no gallstones. Common Bile Duct (C.B.D.): The common bile duct measures 3 mm. Pancreas: Normal size of the head, body and tail of the pancreas. There is normal echogenicity of the pancreas. There is no demonstrated pancreatic mass or cyst. Right Kidney: Normal size of the right kidney. The right kidney measures 12.2 cm x 5.1 cm x 4.3 cm. Normal renal cortex. The right cortex measures 1.1 cm. There is no demonstrated renal mass or cyst. There is no right hydronephrosis. US/Abdomen Limited IMPRESSION: Fatty infiltration of the liver. Electronically Signed: Vince Gonsalves MD at 13:59 EDT ,
== END | disposition home or self-care (01) ==
LOC: US 09:52
PROVIDERS: Referring Provider Nurse Practitioner Adult Health; Visit Provider Nurse Practitioner Adult Health
DX: K76.0 Fatty (change of) liver, not elsewhere classified (principal)
CPT/HCPCS: 76705; 76981

== ENCOUNTER → 2022-07-02 | Outpatient (CLI) | payer MEDICAID, SELFPAY ==
[2022-07-02 12:00] LABS: Ammonia < 10.0 umol/L (11-32)
[2022-07-02 13:02] LABS: Absolute Lymphocyte Count 3.43 X10^3/uL (0.83-4.51); Basophil# 0.05 X10^3/uL; Basophil% 0.3 % (0-1); Eosinophil# 0.08 X10^3/uL; Eosinophils% 0.5 % (0-5); Hematocrit 48.9 % (37-47); Hemoglobin 16.1 g/dL (12.0-15.0); Lymphocyte # 3.43 X10^3/ul (0.83-4.51); Lymphocyte % 21.7 % (19-41); Mean Corp Hgb Conc 32.9 g/dL (32-36); Mean Corpuscular Hgb 29.9 pg (27.0-32.0); Mean Corpuscular Volume 90.7 fL (81-99); Mean Platelet Vol. 11.3 fl (6.2-12.0); Monocyte# 1.17 X10^3/uL; Monocyte% 7.4 % (0-10); NRBC Flagged by Analyzer 0 % (0-5); Neutrophil # 10.99 X10^3/uL (2.7-7.7); Neutrophil % 69.6 % (47-70); Platelet Count 345 K/mm3 (150-450); RBC Distribution Width CV 12.4 % (11.6-14.6); RBC Distribution Width SD 40.9 fl (35.1-43.9); Red Blood Count 5.39 M/mm3 (4.2-5.4); White Blood Count 15.8 K/mm3 (4.4-11.0)
[2022-07-02 13:03] LABS: Erythrocyte Sedimentation Rate 28 mm/hr (0-30)
[2022-07-02 13:27] LABS: Hemoglobin A1c 5.3 % (3.8-5.6)
[2022-07-02 13:31] LABS: AST(SGOT) 16 U/L (15-37); Alanine Aminotransfer ALT/SGPT 31 U/L (13-56); Albumin, Serum 4.1 g/dL (3.2-5.0); Alkaline Phosphatase 68 U/L (45-117); Anion Gap 7 (5-15); BUN 6 mg/dL (7-18); BUN/Creat Ratio 6.6 RATIO (10-20); Calcium,Total 9.2 mg/dL (8.5-10.1); Chloride 103 mmol/L (98-107); Creatinine, Serum 0.91 mg/dL (0.55-1.02); EST Glomerular Filtration Rate 74 mL/min (>60); Est Glom Filt Rate - Afr Amer 90 mL/min (>60); Ferritin 107 ng/mL (8-252); Globulin 4.1 g/dL (2.2-4.2); Glucose 109 mg/dL (74-106); LDH 168 U/L (84-246); Potassium 2.8 mmol/L (3.5-5.1); Protein, Total 8.2 g/dL (6.4-8.2); Sodium Level 138 mmol/L (136-145)
[2022-07-02 13:54] LABS: HIV - WCH Non-Reactive (Nonreactive)
[2022-07-06 14:07] LABS: Anti-Centromere B Ab <0.2 AI (0.0-0.9); Anti-Chromatin <0.2 AI (0.0-0.9); Anti-Jo <0.2 AI (0.0-0.9); Anti-Scleroderma-70 AB <0.2 AI (0.0-0.9); RNP Ab <0.2 AI (0.0-0.9); SJOGREN'S Anti-SS-A test < 0.2 AI (0.0-0.9); SJOGREN'S Anti-SS-B test < 0.2 AI (0.0-0.9); Smith Ab <0.2 AI (0.0-0.9)
[2022-07-06 19:03] LABS: Anti-Mitochondrial AB <20.0 Units (0.0-20.0); Anti-dsDNA Ab 4 IU/mL (0-9)
[2022-07-07 16:05] LABS: Magnesium 2.7 mg/dL (1.6-2.6)
[2022-07-08 08:10] LABS: Angiotensin Convert Enzyme 31 U/L (14-82); Ceruloplasmin 24.9 mg/dL (19.0-39.0); Cytoplasmic Ab (C-ANCA) <1:20 titer (Neg:<1:20); HEPATITIS B SURFACE AG Negative (Negative); Hep C Antibodies <0.1 s/co ratio (0.0-0.9); Hepatitis A IgM Antibody Negative (Negative); Hepatitis B Core AB IgM Negative (Negative)
[2022-07-08 14:03] LABS: AFP, Tumor Marker 2.3 ng/mL (0.0-6.4); Anti-Smooth Muscle ABS 11 Units (0-19); Copper, Serum or Plasma 104 ug/dL (80-158); Haptoglobin 389 mg/dL (33-278); Perinuclear Ab (P-ANCA) <1:20 titer (Neg:<1:20)
== END | disposition home or self-care (01) ==
LOC: LAB 11:15
PROVIDERS: Referring Provider Nurse Practitioner Adult Health; Visit Provider Nurse Practitioner Adult Health
DX: K76.0 Fatty (change of) liver, not elsewhere classified (principal)
CPT/HCPCS: 36415; 80053; 80074; 82105; 82140; 82164; 82390; 82525; 82728; 83010; 83036; 83516; 83615; 83735; 85025; 85610; 85652; 86140; 86225; 86235; 86256; 86703

== ENCOUNTER 2022-07-30 11:59 | Emergency (ER) | payer MEDICAID, SELFPAY ==
[2022-07-30 11:59] VITALS: BP 156/98; PULSE 98; RESP 16; TEMP 36.3; O2SAT 99; BMI 36.8
--- NOTE | 2022-07-30 12:31 | EDS_ITS ---
HPI History of Present Illness Chief Complaint: Upper Extremity Injury Informant: patient Narrative Narrative: Right hand dominant, presents with worsening right shoulder pain over the past 3 days. History of rotator cuff issues since 2014. States manages at home. Symptoms worsen after using platform hola at work. No direct injuries. Pain worse with arm movement. Using Tylenol and naproxen at this morning no improvement of symptoms. She has appoint with her PCP office this coming Wednesday. She is tolerated oxycodone in the past. Multiple allergies however able to take naproxen for which she took. Has not seen orthopedist. She uses medical marijuana for history of traumatic bone fracture in the past with no surgical intervention. States was in an accident 28 bones fracture per patient. No history of gastric ulcers or kidney injury. 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 Depression Easy bruising Gastric reflux History of edema Injury of head and neck Leg cramps Marijuana use Migraine headache Neuroendocrine cancer Restless legs Smoker Wears dentures Home Medications omeprazole 40 mg capsule,delayed release 40 mg PO QAM #90 caps 05/14/22 [Rx Last Taken Unknown] ursodiol 250 mg tablet 250 mg PO BID #180 tabs 06/05/22 [Rx Last Taken Unknown] vitamin E (dl, acetate) 180 mg (400 unit) capsule 180 mg PO BID #180 caps 06/05/22 [Rx Last Taken Unknown] naproxen 500 mg tablet 500 mg PO BID PRN #20 tabs 07/30/22 [Rx Last Taken Unknown] oxycodone-acetaminophen 5 mg-325 mg tablet (Percocet) 1 tab PO Q6H PRN pain 3 days #12 tabs 07/30/22 [Rx Last Taken Unknown] Allergy/AdvReac Type Severity Reaction Status Date / Time hydrocodone [From [place]] Allergy Rash Verified 07/30/22 12:05 Iodinated Contrast Media Allergy Rash Verified 07/30/22 12:05 [CONTRASTS] Penicillins Allergy Rash Verified 07/30/22 12:05 diclofenac AdvReac Other Verified 07/30/22 12:05 promethazine [From Phenergan] AdvReac Vomiting Verified 07/30/22 12:05 Family History Father Arthritis Hypertension Mother Thyroid disorder Cancer Lung Daughter Asthma Aunt Cancer unknown type Grandmother Cancer unknown type Surgical History History of endometrial ablation History of partial hysterectomy Hx of appendectomy Hx of tubal ligation Social History household members: spouse and children number of children: 2 current occupation: starting new job tomorrow at [employer] Smoking Status: Current every day smoker tobacco type: cigarettes Tobacco: How many years used: 15 second hand exposure: Yes alcohol intake: current alcohol intake frequency: holidays/special occasions only substance use type: does not use and marijuana caffeine: Yes Type: carbonated beverages and tea seatbelt use: always ROS ROS ED Constitutional Constitutional ED: Denies chills, fever(s) or sweats Eyes Eyes: Denies change in vision ENT ENT ED: Denies dysphagia or sore throat Cardiovascular Cardiovascular: Denies chest pain, leg edema, palpitations or racing heartbeat Respiratory/Chest Respiratory/Chest: Denies cough, dyspnea or dyspnea on exertion Gastrointestinal Gastrointestinal: Denies abdominal pain, diarrhea, nausea or vomiting Genitourinary Genitourinary ED: Denies dysuria, hematuria or urinary frequency Musculoskeletal Musculoskeletal: Reports extremity pain; Denies back pain or neck pain Integumentary Denies rash or wounds Neurologic Neurologic: Denies headache(s), paresthesias or weakness EXAM Physical Exam Const Vital Signs: 07/30/22 11:59 Temperature 97.4 F L Temperature Source Temporal Pulse Rate 98 Respiratory Rate 16 Blood Pressure 156/98 H Blood Pressure Mean 117 Pulse Ox 99 Oxygen Delivery Method Room Air Positive well nourished and well developed General Appearance ED: well developed and NAD HEENT Reports moist mucous membranes normocephalic and atraumatic Eyes PERRL, EOMs intact bilaterally and conjunctivae normal General Eye ED: Yes normal appearance of both eyes Neck no lymphadenopathy and supple General: Negative for tenderness Chest Wall Chest: Negative for tenderness Resp normal respiratory effort and normal air movement Effort and Inspection: symmetric chest movement; Negative for respiratory distress Cardio regular rate, regular rhythm and no murmurs Peripheral Pulses: pulses 2+ throughout GI normal to inspection, nondistended, normoactive bowel sounds and non-tender Palpation: Negative for guarding or rebound tenderness present Back/Spine no CVA tenderness and no thoracic nor lumbar tenderness Extremity Extremity Narrative: Upper extremity: No clavicular pain. No shoulder deformities. No rash. Positive empty can and pain with external rotation against resistance. Negative speeds test. No elbow tenderness. Neuro vas intact distally. General Extremety ED: Negative for edema or tenderness General Extremity: Negative for edema Neuro oriented x3 and no sensory deficits noted Sensorium / Orientation: awake and alert Skin no rashes or lesions noted and no wounds MDM MDM MDM Narrative Medical decision making narrative: Patient exam concerns for more rotator cuff injury. Muscle skeletal strain. No clinical concerns for dislocation or fractures. There is no rash no redness concerns for any cellulitis or shingles. Discussed for images however would only show bony changes she declines at this time. She is started on oxycodone. Prescription for naproxen and oxycodone to use as needed. She has an appointment with her PCP this coming Wednesday. She is given orthopedic follow- up for further outpatient management. Work note given. All questions were answered. Discharge Plan Triage Chief Complaint: Upper Extremity Injury ED Provider: Hiram Stokes Dx/Rx/DC Orders Clinical Impression: Injury of right rotator cuff, Pain in right shoulder Instructions: ED Rotator Cuff Tear Prescriptions: New oxycodone-acetaminophen [Percocet] 5-325 mg tablet 1 tab PO Q6H PRN (Reason: pain) 3 Days Qty: 12 0RF naproxen 500 mg tablet 500 mg PO BID PRN Qty: 20 0RF No Action omeprazole 40 mg capsule,delayed release(DR/EC) 40 mg PO QAM Qty: 90 3RF vitamin E (dl, acetate) 180 mg (400 unit) capsule 180 mg PO BID Qty: 180 3RF ursodiol 250 mg tablet 250 mg PO BID Qty: 180 3RF [facility]: Lambert Yanez MD [Med Staff - Active Staff] [facility] - [facility] appointment Disposition Disposition: Home, Self Care Discharge Date/Time: 07/30/22 12:40
[2022-07-30] MEDS: oxyCODONE 5 MG Tablet PO (12:35)
[2022-07-30 12:37] VITALS: RESP 18
== END 2022-07-30 12:40 | disposition home or self-care (01) ==
PROVIDERS: Emergency Provider Emergency Medicine; Visit Provider Emergency Medicine
DX: S46.001A Unspecified injury of muscle(s) and tendon(s) of the rotator cuff of right shoulder, initial encounter (principal); F17.210 Nicotine dependence, cigarettes, uncomplicated; X58.XXXA Exposure to other specified factors, initial encounter
CPT/HCPCS: 99283

== ENCOUNTER 2022-09-04 07:55 | Outpatient (RCR) | payer MEDICAID, SELFPAY ==
--- NOTE | 2022-09-04 09:37 | HP.PTEVAL_ITS ---
Patient's Visit Information CLINTON HAYWARD is a 37 year old F referred to Physical Therapy by Dr. Lambert Yanez MD with a diagnosis of PAIN IN RIGHT SHOULDER ,IMPINGEMENT SYNDROME OF RIGHT SHOULDER. Date of Evaluation: 09/04/22 Physical Therapist: Leoncio Green, PT, Cert MDT, OCS - Visit Plan Frequency: 2x /Week Duration: 4 Weeks Plan: PT INTERVENTIONS MODALITIES FOR PAIN ,GRADED RTC/SCAPULAR STRENGTHENING AND POSTURAL EX'S - Subjective This 37 y/o female presents therapy for right shoulder pain. This patient has recently has had shoulder pain ~ 2months progressively worse seemed not to get better. Initially ,8 years ago patient recall had incident felt pop thought RTC. Most recently ,went to ER recommended PT and tried cortisone injection . Try PT ~ 6weeks then possible MRI if not better. Patient located pain global shoulder. Alleviating rest. Aggravating factors raising arm OH ,lifting ,ADLS's . Patient has work restriction 10# ,3 weeks off work. Reaching behind back . Patient has difficulty sleeping. Denies paresthesia/tingling. No pain meds ,X-rays -. Patient goals is to have no pain. SOCIAL: single. VOCATION: [employer] - Pain Right Shoulder Pain Intensity (Out of 10): 7 Pain Intensity Range: 10 - Objective POSTURE: mild forward posture. NEURO: denies paresthesia/tingling. PALAPTION: unremarkable. AROM: shoulder flexion 110 degrees pain ,90 degrees abduction ,ER 90 degrees ,IR pelvis. MMT: ( peak force) infraspinatus 10.7 ,supraspinatus 9.7 ,subscapularis 12.7 ,deltoid 11.2 - Special Tests R Shoulder External Rotation Lag Test - RC Tear: Negative R Shoulder Lift Off Test - Subscapular Tear: Negative R Shoulder Drop Sign - IS Test: Negative R Shoulder Empty Can - SS: Positive R Shoulder Belly Press - SupScap: Positive R Shoulder Neer - Impingement: Positive R Shoulder Sahni Dipak - Impingement: Positive R Shoulder Speeds Test - Labrum/Biceps: Negative - Balance/Special Test Scores Quick DASH Score: 55.0000 - Goals Goal 1:: I with HEP for shoulder Goal Time Frame: 4-6 Weeks Goal 2:: Patient to demonstrate 50% improvement with function and less pain Goal Time Frame: 4-6 Weeks Goal 3:: Patient to improve improve AROM shoulder flexion abduction 140 degrees with ADLS' Goal Time Frame: 4-6 Weeks Goal 4:: Patient to increase peak force RTC and deltoid by 5-10 to improve ADLS. Goal Time Frame: 4-6 Weeks Goal 5:: Patient to improve quick dash bu7 5 points to improve QOL Goal Time Frame: 4-6 Weeks - Rehabilitation Potential Physical Therapy Diagnosis: This patient has right shoulder tendonitis/tendinopathy RTC injury with pain ,decrease ROM and strength impairs housework task at ADL's along with job demands thus benefit from PT Rehabilitation Potential: Fair - Anticipated Interventions Patient/Client Instruction: Educate patient on: Condition, Plan of Care For the Purpose of:: To decrease pain, To increase ROM, To improve muscle pe rformance and motor function, To increase tolerance to activity/condition/position, To improve ability of physical actions for home/community/work/leisure, To improve health of tissue, To decrease soft tissue restriction, To reduce risk of recurrence, To prevent re-injury, To improve tolerance to ADL's Therapeutic Exercise to Include: Strength training, Postural training, Flexibilty training, Active ROM, Scapular Strength/Stabilization Comment: RTC For the Purpose of:: To decrease pain, To increase ROM, To improve muscle performance and motor function, To improve ability to perform ADL's, To increase tolerance to activity/condition/position, To improve performance and independence with ADL's, To improve ability of physical actions for home/community/work/leisure, To decrease soft tissue restriction, To increase flexibility/ROM, To prevent re-injury TENS: Yes IF ES: Yes Cryotherapy (ice pack, ice massage): Yes Thermo therapy (hot pack): Yes Ultrasound (thermal/non thermal): Yes For the Purpose of:: To decrease pain, To increase ROM, To improve nutrient delivery to tissue, To increase oxygenation perfusion, To improve health of tissue, To decrease soft tissue restriction Thank you for the opportunity to evaluate your patient. For Medicare and Medicare HMO plans, please review the plan of care and approve it. It will need to be FAXED BACK to us at [phone] for Medicare purposes. For Medicare only, by signing this I certify the plan of care. Please let me know if there are questions or concerns regarding this plan of c are. Physician Signature: Date:
--- NOTE | 2023-02-14 19:05 | HP.PT.NRP ---
Patient Information Patient Information: CLINTON HAYWARD was seen in my office for initial evaluation on 09/04/22. The following Plan of Care was established for this patient: POC Established Initial Frequency: 2x /Week Initial Duration: 4 Weeks Anticipated Interventions Patient/Client Instruction: Educate patient on: Condition and Plan of Care For the Purpose of:: To decrease pain, To increase ROM, To improve muscle performance and motor function, To increase tolerance to activity/condition/position, To improve ability of physical actions for home/community/work/leisure, To improve health of tissue, To decrease soft tissue restriction, To reduce risk of recurrence, To prevent re-injury and To improve tolerance to ADL's Therapeutic Exercise to Include: Strength training, Postural training, Flexibilty training, Active ROM and Scapular Strength/Stabilization For the Purpose of:: To decrease pain, To increase ROM, To improve muscle performance and motor function, To improve ability to perform ADL's, To increase tolerance to activity/condition/position, To improve performance and independence with ADL's, To improve ability of physical actions for home/community/work/leisure, To decrease soft tissue restriction, To increase flexibility/ROM and To prevent re-injury TENS: Yes IF ES: Yes Cryotherapy (ice pack, ice massage): Yes Thermo therapy (hot pack): Yes Ultrasound (thermal/non thermal): Yes For the Purpose of:: To decrease pain, To increase ROM, To improve nutrient delivery to tissue, To increase oxygenation perfusion, To improve health of tissue and To decrease soft tissue restriction Last Seen Last Seen: This patient was last seen in our office . Pertinent comments regarding their Physical therapy will appear below: Patient was seen for PT for shoulder pain for HEP At this point I will be discontinuing this patient from physical therapy. I would be happy to see this patient again in the future if found appropriate by the physician. Thank you! Leoncio Green, PT, Cert MDT, OCS Balance/Gait/Functional tests Balance/Special Test Scores Quick DASH Score: 55.0000
== END 2022-09-04 19:00 | disposition home or self-care (01) ==
LOC: PT 07:55
PROVIDERS: Referring Provider Orthopaedic Surgery Sports Medicine; Visit Provider Orthopaedic Surgery Sports Medicine
DX: M75.41 Impingement syndrome of right shoulder (principal)
CPT/HCPCS: 97110; 97162

== ENCOUNTER 2022-10-14 12:53 | Emergency (ER) | payer MEDICAID, SELFPAY ==
[2022-10-14 12:54] VITALS: BP 116/93; PULSE 108; RESP 18; TEMP 35.9; O2SAT 98; BMI 36.0
--- NOTE | 2022-10-14 13:08 | EDS_ITS ---
HPI History of Present Illness Chief Complaint: Abscess Detail of Chief Complaint: Left buttock abscess Informant: patient Onset/Context/Timing Onset: Days Context: Gradual Onset Timing: Continuous Current Severity: Mild Maximum Severity: Mild Narrative Narrative: 37-year-old female history of neuroendocrine cancer. Complaining of left buttock abscess since Wednesday. Increasing in size. Painful. No fever or chills. 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 Depression Easy bruising Gastric reflux History of edema Injury of head and neck Internal impingement of right shoulder Leg cramps Marijuana use Migraine headache Neuroendocrine cancer Restless legs Right shoulder pain Smoker Wears dentures Home Medications ursodiol 250 mg tablet 250 mg PO BID #180 tabs 06/05/22 [Rx Last Taken Unknown] vitamin E (dl, acetate) 180 mg (400 unit) capsule 180 mg PO BID #180 caps 06/05/22 [Rx Last Taken Unknown] duloxetine 30 mg capsule,delayed release 30 mg PO 08/28/22 [History Last Taken Unknown] diphenoxylate-atropine 2.5 mg-0.025 mg tablet (Lomotil) 1 tab PO BID PRN diarrhea #60 tabs 10/06/22 [Rx Last Taken Unknown] dicyclomine 20 mg tablet 20 mg PO TID 10/12/22 [History Last Taken Unknown] ondansetron HCl 4 mg tablet 4 mg PO Q8H 10/12/22 [History Last Taken Unknown] pantoprazole 40 mg tablet,delayed release 40 mg PO DAILY #30 tabs 10/12/22 [Rx Last Taken Unknown] sucralfate 1 gram tablet 1 g PO QACHS #120 tabs 10/12/22 [Rx Last Taken Unknown] topiramate 25 mg tablet (Topamax) 25 mg PO DAILY 10/12/22 [History Last Taken Unknown] cephalexin 500 mg capsule 500 mg PO Q6 10 days #40 CAPSULES 10/14/22 [Rx Last Taken Unknown] Allergy/AdvReac Type Severity Reaction Status Date / Time hydrocodone [From [place]] Allergy Rash Verified 10/14/22 12:56 Iodinated Contrast Media Allergy Rash Verified 10/14/22 12:56 [CONTRASTS] Penicillins Allergy Rash Verified 10/14/22 12:56 diclofenac AdvReac Other Verified 10/14/22 12:56 promethazine [From Phenergan] AdvReac Vomiting Verified 10/14/22 12:56 Family History Father Arthritis Hypertension Mother Thyroid disorder Cancer Lung Daughter Asthma Aunt Cancer unknown type Grandmother Cancer unknown type Surgical History History of endometrial ablation History of partial hysterectomy Hx of appendectomy Hx of tubal ligation Social History household members: spouse and children number of children: 2 current occupation: starting new job tomorrow at [employer] Smoking Status: Current every day smoker tobacco type: cigarettes Tobacco: How many years used: 15 second hand exposure: Yes alcohol intake: current alcohol intake frequency: holidays/special occasions only substance use type: does not use and marijuana caffeine: Yes Type: carbonated beverages and tea seatbelt use: always ROS ROS ED ROS Narrative Denies recent illness. Review of Systems ROS Unobtainable: Denies due to encephalopathy Constitutional Constitutional ED: Denies chills or fever(s) Eyes Eyes: Denies blurry vision ENT ENT ED: Denies ear pain Cardiovascular Cardiovascular: Denies chest pain Respiratory/Chest Respiratory/Chest: Denies cough or dyspnea Gastrointestinal Gastrointestinal: Denies abdominal pain Genitourinary Genitourinary ED: Denies dysuria or hematuria Musculoskeletal Musculoskeletal: Denies arthralgias Integumentary Reports abscess Neurologic Neurologic: Denies headache(s) Psychiatric Psychiatric: Denies anxiety or depression Endocrine Endocrinology: Denies cold intolerance Hematologic/Lymphatic Hematologic/Lymphatic: Reports none Allergic/Immunologic Allergic/Immunologic ED: Denies mouth swelling or tongue swelling EXAM Physical Exam Narrative Exam Narrative: 37-year-old female no acute distress vital signs stable afebrile. H EENT exam unremarkable. Lungs clear. Heart regular rhythm no murmur. Abdomen soft nontender. Moving all 4 extremities. Neurovascular intact. Neurologically she is awake alert with no focal motor deficits. Left buttocks immediately she has about a 1 to 2 inch abscess. It is tender. It is fluctuant. Really no significant surrounding cellulitis. This will need incised and drained. Otherwise exam unremarkable. Const Vital Signs: 10/14/22 12:54 Temperature 96.7 F L Temperature Source Temporal Pulse Rate 108 H Respiratory Rate 18 Blood Pressure 116/93 H Blood Pressure Mean 100 Pulse Ox 98 Oxygen Delivery Method Room Air Positive well nourished, well developed and obese; Negative for cachectic, contractures or unkempt General Appearance ED: well developed and NAD; Negative for unkempt, cachectic, contractures, cyanotic, diaphoretic or pallor Nutritional Appearance: obese; Negative for cachectic HEENT Reports moist mucous membranes; Denies dry mucous membranes Negative for trauma or tenderness Mouth ED: No dry mucous membranes Mouth: No dry mucous membranes Eyes PERRL and EOMs intact bilaterally General Eye ED: Negative for pale conjunctiva or scleral icterus Neck no lymphadenopathy, supple and no JVD General: Negative for tenderness Lymph Lymphatic: Negative for other Chest Wall inspection of chest normal and palpation of chest normal Chest: Negative for other Resp normal respiratory effort and clear to auscultation bilaterally Effort and Inspection: Negative for retractions Auscultation: Negative for rales, rhonchi or wheezes Cardio regular rate, regular rhythm, S1 normal heart sound, S2 normal heart sound and no murmurs Palpation: Negative for palpable S3 Rate: Negative for bradycardia Rhythm: Negative for abnormal rhythm GI normal to inspection, nondistended, normoactive bowel sounds, non-tender, non- distended and no masses Inspection: Negative for abdominal distention Auscultation: normoactive bowel sounds Palpation: soft; Negative for tender or guarding Back/Spine no CVA tenderness General Back: Negative for CVA tenderness Cervical Spine: Negative for cervical spine tenderness Thoracic Spine / Upper Back: Negative for thoracic spinal tenderness Lumbar Spine / Lower Back: Negative for lumbar spinal tenderness Extremity normal to inspection General Extremety ED: Negative for edema or tenderness General Extremity: Negative for edema Neuro oriented x3 and CN's II-XII intact bilaterally Sensorium / Orientation: alert Motor Exam: strength 5/5 throughout Psych mental status grossly normal Appearance: Negative for unkempt Attitude: No agitated Mood & Affect: Negative for depressed, anxious or tearful Skin no rashes or lesions noted and no wounds Skin Narrative: Left buttock abscess 1 to 2 inches. Fluctuant. No surrounding cellulitis. General Skin Exam: Negative for elasticity normal, jaundice or pallor Lesions: No lesion noted Rashes: No rashes noted MDM MDM MDM Narrative Medical decision making narrative: 37-year-old female with a left buttock abscess that needs incised and drained. Procedures Other Procedures Procedure(s): Left buttock abscess incision and drainage. Cleaned with Shur- Clens. Local anesthetized with lidocaine. Incised and drained using 11 blade. Made about a 1 inch incision. Probed with blunt forceps. Expressed pus about 2 to 3 cc. Packed with gauze. Discharged home. Packing removal in 3 days. Keflex prescription for the next 10 days. Patient was instructed on wound care. We will follow-up. Discharge Plan Triage Chief Complaint: Abscess ED Provider: Aramis Campbell Dx/Rx/DC Orders Clinical Impression: Abscess Instructions: ED Abscess Incision And Drainage Prescriptions: New cephalexin 500 mg capsule 500 mg PO Q6 10 Days Qty: 40 0RF No Action duloxetine 30 mg capsule,delayed release(DR/EC) 30 mg PO Label Comments: TAKE 1 CAPSULE BY MOUTH ONCE DAILY diphenoxylate-atropine [Lomotil] 2.5-0.025 mg tablet 1 tab PO BID PRN (Reason: diarrhea) Qty: 60 0RF ondansetron HCl 4 mg tablet 4 mg PO Q8H topiramate [Topamax] 25 mg tablet 25 mg PO DAILY dicyclomine 20 mg tablet 20 mg PO TID sucralfate 1 gram tablet 1 g PO QACHS Qty: 120 0RF Rx Instructions: take 1 hr before meals and at bedtime pantoprazole 40 mg tablet,delayed release (DR/EC) 40 mg PO DAILY Qty: 30 5RF vitamin E (dl, acetate) 180 mg (400 unit) capsule 180 mg PO BID Qty: 180 3RF ursodiol 250 mg tablet 250 mg PO BID Qty: 180 3RF Primary [facility] - 3-5 Days if not improving Activity Restrictions/Additional Instructions: Keflex, the antibiotic, 1 pill 4 times a day for 10 days. Motrin and Tylenol for pain. Follow-up with your primary care provider if not improving. Return if worse. Hold packing out in 3 to 4 days. Warm soaks. Disposition Disposition: Home, Self Care
[2022-10-14] MEDS: Lidocaine 1% (20 ml mdv) 20 ML Vial 10 ML INFILT (13:56)
[2022-10-14 14:10] VITALS: BP 129/88; PULSE 82; RESP 16; O2SAT 98
== END 2022-10-14 14:12 | disposition home or self-care (01) ==
PROVIDERS: Emergency Provider Emergency Medicine; Visit Provider Emergency Medicine
DX: L02.31 Cutaneous abscess of buttock (principal); F17.210 Nicotine dependence, cigarettes, uncomplicated; F41.9 Anxiety disorder, unspecified; F32.A Depression, unspecified; Z79.899 Other long term (current) drug therapy; K21.9 Gastro-esophageal reflux disease without esophagitis; G43.909 Migraine, unspecified, not intractable, without status migrainosus
CPT/HCPCS: 10061; 10060; 99283

== ENCOUNTER 2022-11-20 12:18 | Day surgery (SDC) | payer MEDICAID, SELFPAY ==
[2022-11-20] VITALS (7 sets, daily range): BP systolic 95–110; BP diastolic 59–77; PULSE 74–87; RESP 16–18; TEMP 36.3–36.9; O2SAT 94–98; BMI 34.4
[2022-11-20] MEDS: Lactated Ringers 1,000 ML 15 ML IV (12:47)
--- NOTE | 2022-11-20 13:02 | HP.PCM_ITS ---
History and Physical Date of Admission: 11/20/22 ?37 F who presents to the office today accompanied by her for f/u neuroendocrine tumor of the duodenum. She saw Dr Castellanos yesterday at [facility]--tumor markers from 04/01/2022 were normal, MRI on 05/06/2022 showed no evidence of metastatic disease in the abdomen or pelvis, there is hepatic steatosis.? Dr. Castellanos recommends endoscopies every 2 to 3 years for surveillance, as well as restarting antiacid medicine. She has almost constant nausea, rare vomiting recently. Not getting heartburn or acid reflux. Upper abd cramping almost daily. She felt better when she took omeprazole 40 mg daily.? Bowels are regular, no diarrhea or constipation, no melena or hematochezia. 03/11/22 gastrin <10 normal 03/18/22 chromagranin A 40.9 normal 04/01/2022 labs at [facility]: LD normal 120, CMP normal, white count slightly high at 11.32, hemoglobin 15.5, pancreatic polypeptide 122 normal, calcitonin normal, gastrin less than 10, B12 normal 374, chromogranin A 46 normal, parietal cell antibody negative, intrinsic factor blocking antibody negative, glucagon normal Cliff established with this clinic .10.07 for evaluation of diarrhea (5-6times a day, usually following PO intake), heartburn, epigastric pain with onset 2018. She was started on PPI therapy which helped with everything but diarrhea. US abdomen performed 05.27.21. Liver measures 16.3cm with fatty infiltration. Two gallbladder polyps, negative Plaza?s sign. Nonobstructive calculus in right kidney. Hepatobiliary scan performed 05.27.21. With gallbladder ejection fraction less than 35% consistent with functional hepatobiliary disease. Evidence of CCK duodenal gastric reflux. 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 EGD performed 08.21.21 finding LA Grade A reflux esophagitis; congested gastropathy; enlarged gastric folds; scalloped mucosa in duodenum; single duodenal polyp. Duodenal biopsy revealed gastric metaplasia. Inflammation of esophagus and gastric body. MRCP performed 08.25.21 finding a normal MRCP. EGD EUS performed 10.14.21 at [facility] finding 10mm mucosal nodule in distal duodenal bulb with questionable central umbilication, possibly related previous biopsies. EUS found oval intramural (subepithelial), hypoechoic lesion in apex of duodenal bulb appearing to originate from deep mucosa measuring 10mm in maximum thickness and 7mm in diameter. Biopsy found changes consistent with nodular peptic duodenitis. EGD normal esophagus; small hiatal hernia; duodenal polyp retrieved. Duodenal polyp pathology returned as well differentiated neuroendocrine tumor with all margins of sample negative for tumor. AE1-2, CK7/8/20, CD 56, Chromo, Synapto, Ki-67 all positive. ROS Const Constitutional: No fatigue ENT ENT: No difficulty swallowing Cardio Cardiology: Positive for leg pain with exertion Gastro GI: Positive for bloating, excessive flatus, Vomiting blood/hematemesis and nausea/dyspepsia; No abdominal pain, belching, change in bowel habits, change in stool character, coffee ground emesis, constipation, cramping, diarrhea, heartburn, difficulty swallowing, feeling full early, incontinent of stools, Blood in stool, loose stools, Black,tarry stools, pain with swallowing, vomiting or other Musc Musculoskeletal: Positive for back pain, muscle weakness, stiffness, Arthritis and leg pain with exertion; No joint pain Skin Skin: No yellowing of the eye or itchy eyes Psych Psychiatric: Positive for anxiety, Positive for depression and Positive for hyperactivity Endo Endocrine: No fatigue Aller/Imm Allergy/Immunologic: No itchy eyes Omi/Lymp Hematologic/Lymphatic: Positive for easy bruising; No easy bleeding Exam Const General: cooperative, comfortable and no acute distress Nutritional Appearance: obese Orientation: alert, awake and oriented x3 Quality Reporting Tobacco Screening ([facility] 138) Smoking Status: Current every day smoker Assessment and Plan Assessment and Plan (1) Fatty liver: ?Status:?Acute ?Plan: We discussed fatty liver seen on imaging, will get liver elastography to evaluate for fibrosis, we will call her with results and recommendations May need labs, will order those if fibrosis is found on ultrasound (2) 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 Castellanos at [facility], lab work-up there and MRI were negative, so she has been discharged from that practice and last follow-up as needed later.? He recommends antiacid medication for her as well as endoscopic surveillance every 2 to 3 years.? We will plan on next EGD in approximately November 2023. ? ? ? Orders: Orders Abdomen Limited Today K76.0 - Fatty (change of) liver, not elsewhere classified ? Elastography Parenchyma/Organ Today K76.0 - Fatty (change of) liver, not elsewhere classified ? Medications: New omeprazole 40 mg? PO QAM 90 caps 3RF ? ? I have examined the patient and the H&P has been reviewed. There are no clinical changes since date of exam.
--- NOTE | 2022-11-20 13:15 | IMM_PTH ---
PATIENT: CLINTON HAYWARD LOC: EN U#:[id number] AGE/SX: 37/F ROOM: RE11/20/[address]: Dr. Sharif Pérez DO : 1985 BED: DIS: 11/20/2022 SPEC #: [id number] RECD: 11/23/22 13:12 STATUS: MAHI REHerman #: [id number] OSCAR: 11/20/22 13:[address]: Sharif Pérez DEPT: IMMUNOHISTOCHEMISTRY RECD BY: Rosa Quevedo ENTERED: 11/23/22 13:13 SP TYPE: IMMUNO OTHR DR: [facility] Tissues: B - Stomach, NOS Procedures: H Pylori (initial) PHYSICIAN & INSTITUTION [place] [id number] SPECIMEN INFORMATION: Tissue Source: B ? Gastric body Clinical Info: Carcinoid tumor, fatty liver Specimen Number: [id number] CPT code: 60760 METHODOLOGY: Deparaffinized sections of prefer/formalin-fixed tissue or PAP/DQ stained slides are incubated with monoclonal/polyclonal antibodies/oligonucleotide probes. Localization is made via biotin free immunoperoxidase method. Appropriate controls are performed and reacted as expected. Results on target cell population are indicated in the following table: RESULTS: ANTIBODY / CLONE RESULT Block B H Pylori (polyclonal) negative These tests were developed and their performance characteristics determined by [facility]. They may not have been cleared or approved by the U.S. Food and Drug Administration. The FDA has determined that such clearance or approval is not necessary. The above immunohistochemical/dualISH markers are ordered and reviewed by the Pathologist. INTERPRETATION: B. Gastric body, biopsy: Negative for Helicobacter pylori organisms. AM:margie 11/25/2022
--- NOTE | 2022-11-20 13:15 | EGD_PTH ---
PATIENT: CLINTON HAYWARD LOC: DONNY U#:[id number] AGE/SX: 37/F ROOM: RE11/20/[address]: Dr. Sharif Pérez DO : 1985 BED: DIS: 11/20/2022 SPEC #: [id number] RECD: 11/20/22 16:37 STATUS: MAHI REHerman #: [id number] OSCAR: 11/20/22 13:[address]: Sharif Pérez DEPT: SURGICAL PATHOLOGY RECD BY: Carlene Tsang ENTERED: 11/23/22 10:09 SP TYPE: EGD BIOPSY OTHR DR: Lisa [facility] Tissues: A - Duodenum, NOS B - Gastric mucous membrane Procedures: Surgery Specimen Level IV HEADER OPERATION: EGD ([facility]) PRE-OP DIAGNOSIS: Carcinoid tumor, fatty liver TISSUE SUBMITTED: A ? Duodenal biopsy, B ? Gastric body, H. pylori and path MICROSCOPIC DIAGNOSIS A. Duodenum, biopsy: Consistent with Sara?s gland hyperplasia. Minimal chronic inflammation. B. Gastric body, biopsy: Mild chronic inflammation. See comment. AM:margie 11/24/2022 COMMENT B. The results of immunohistochemistry for Helicobacter pylori will be reported separately ([id number]). MICROSCOPIC DESCRIPTION Slides are reviewed. GROSS DESCRIPTION A - Received in fixative is one container labeled with the patient's name and designated duodenum biopsy. The specimen consists of two irregular fragments of light barrett soft tissue that in aggregate measure 0.6 x 0.3 x 0.1 cm. The specimen is totally submitted in one cassette. B - Received in fixative is one container labeled with the patient's name and designated gastric body biopsy. The specimen consists of two irregular fragments of light barrett soft tissue that in aggregate measure 0.8 x 0.4 x 0.1 cm. The specimen is totally submitted in one cassette. / SJ:margie 11/23/2022 TC:3 CPT: 44421
--- NOTE | 2022-11-20 13:31 | OP.CCLET_ITS ---
11/20/2022 Lisa Figueroa [facility] Re : Upper GI endoscopy procedure for Cliff Munoz [facility] This procedure was performed on Sunday, November 20, 2022. My impressions and recommendations are as follows: Impressions : - Normal esophagus. - Chronic gastritis. Biopsied. - Multiple duodenal polyps. Resected and retrieved. - Duodenitis. Biopsied. Recommendations : - Discharge patient to home. - Resume previous diet. - Use Protonix (pantoprazole) 40 mg PO BID. - Use sucralfate tablets 1 gram PO BID. - Ursodiol 250 mg p.o. 3 times daily - Gastric emptying study - Scopolamine 1 patch every threee days - Continue present medications. My findings are described in the full procedure note, which is enclosed. If I can be of further assistance, please feel free to contact me at . Sincerely, Sharif Friend, 11/20/2022 1:30:39 PM This report has been signed electronically.
--- NOTE | 2022-11-20 13:31 | OP.EGD_ITS ---
Patient Name: Cliff Baeza Procedure Date: 11/20/2022 12:53 PM Date of : 1985 Age: 37 Procedure: Upper GI endoscopy Indications: Functional Dyspepsia Providers: Sharif Pérez DO Referring MD: Sharif Pérez DO Medicines: Monitored Anesthesia Care Patient Profile: This is a 37 year old female. Refer to note in patient chart for documentation of history and physical. Patient has symptoms of chronic epigastric abdominal pain and chronic dyspepsia. Complications: No immediate complications. Procedure: Pre-Anesthesia Assessment: - Prior to the procedure, a History and Physical was performed, and patient medications and allergies were reviewed. The patient is competent. The risks and benefits of the procedure and the sedation options and risks were discussed with the patient. All questions were answered and informed consent was obtained. Patient identification and proposed procedure were verified by the physician in the pre-procedure area. Mental Status Examination: alert and oriented. Airway Examination: normal oropharyngeal airway and neck mobility. Respiratory Examination: clear to auscultation. CV Examination: normal. Prophylactic Antibiotics: The patient does not require prophylactic antibiotics. Prior Anticoagulants: The patient has taken no previous anticoagulant or antiplatelet agents. ASA Grade Assessment: II - A patient with mild systemic disease. After reviewing the risks and benefits, the patient was deemed in satisfactory condition to undergo the procedure. The anesthesia plan was to use monitored anesthesia care (MAC). Immediately prior to administration of medications, the patient was re-assessed for adequacy to receive sedatives. The heart rate, respiratory rate, oxygen saturations, blood pressure, adequacy of pulmonary ventilation, and response to care were monitored throughout the procedure. The physical status of the patient was re-assessed after the procedure. After obtaining informed consent, the endoscope was passed under direct vision. Throughout the procedure, the patient's blood pressure, pulse, and oxygen saturations were monitored continuously. The gastroscope was introduced through the mouth, and advanced to the second part of duodenum. The upper GI endoscopy was accomplished without difficulty. The patient tolerated the procedure well. Scope In: 1:08:06 PM Scope Out: 1:13:41 PM Total Procedure Duration Time 0 hours 5 minutes 35 seconds Findings: The examined esophagus was normal. Patchy mild inflammation characterized by erosions and erythema was found in the stomach. Biopsies were taken with a cold forceps for histology. Verification of patient identification for the specimen was done. Estimated blood loss was minimal. Multiple 5 mm sessile polyps were found in the duodenal bulb. The polyp was removed with a cold snare. Resection and retrieval were complete. Verification of patient identification for the specimen was done. Estimated blood loss was minimal. Diffuse mild inflammation characterized by congestion (edema) was found in the duodenal bulb. Biopsies were taken with a cold forceps for histology. Verification of patient identification for the specimen was done. Estimated blood loss was minimal. Impression: - Normal esophagus. - Chronic gastritis. Biopsied. - Multiple duodenal polyps. Resected and retrieved. - Duodenitis. Biopsied. Recommendation: - Discharge patient to home. - Resume previous diet. - Use Protonix (pantoprazole) 40 mg PO BID. - Use sucralfate tablets 1 gram PO BID. - Ursodiol 250 mg p.o. 3 times daily - Gastric emptying study - Scopolamine 1 patch every threee days - Continue present medications. Procedure Code(s): --- Professional --- 16521, Esophagogastroduodenoscopy, flexible, transoral; with removal of tumor(s), polyp(s), or other lesion(s) by snare technique 15288, 59,51, Esophagogastroduodenoscopy, flexible, transoral; with biopsy, single or multiple CPT copyright 2017 [employer]. All rights reserved. The codes documented in this report are preliminary and upon vp home health review may be revised to meet current compliance requirements. Sharif Pérez DO 11/20/2022 1:30:39 PM This report has been signed electronically. Number of Addenda: 0 Note Initiated On: 11/20/2022 12:53 PM
== END 2022-11-20 14:27 | disposition home or self-care (01) ==
LOC: EN 12:18 → AC 12:20
PROVIDERS: Visit Provider Internal Medicine Gastroenterology
PROC: 0DJ08ZZ Inspection of Upper Intestinal Tract, Via Natural or Artificial Opening Endoscopic (ICD-10-PCS; CPT 43235; principal; 2022-11-20 13:10)
DX: K76.0 Fatty (change of) liver, not elsewhere classified (principal); K29.50 Unspecified chronic gastritis without bleeding; F17.200 Nicotine dependence, unspecified, uncomplicated; K30 Functional dyspepsia; K29.80 Duodenitis without bleeding; K31.7 Polyp of stomach and duodenum
CPT/HCPCS: 43251; 43239; 88305; 88342; J7120; J2405

== ENCOUNTER 2022-11-21 23:01 | Emergency (ER) | payer MEDICAID, SELFPAY ==
[2022-11-21 23:01] VITALS: BP 155/83; PULSE 94; RESP 16; TEMP 36.4; O2SAT 98; BMI 35.7
--- NOTE | 2022-11-21 23:11 | EX.ED.DYSGE1 ---
HPI History of Present Illness Chief Complaint: Sore Throat [facility] Medical History (Updated 11/22/22 @ 01:[address] 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 Depression Easy bruising Fatty liver Gastric reflux History of edema Injury of back Injury of head and neck Internal impingement of right shoulder Leg cramps Marijuana use Migraine headache Neuroendocrine cancer Restless legs Right shoulder pain Shortness of breath on exertion Smoker Wears dentures Home Medications ursodiol 250 mg tablet 250 mg PO BID #180 tabs 06/05/22 [Rx Last Taken Unknown] vitamin E (dl, acetate) 180 mg (400 unit) capsule 180 mg PO BID #180 caps 06/05/22 [Rx Last Taken Unknown] duloxetine 30 mg capsule,delayed release 60 mg PO QHS 08/28/22 [History Last Taken Unknown] topiramate 25 mg tablet (Topamax) 50 mg PO DAILY 10/12/22 [History Last Taken Unknown] topiramate 100 mg tablet 100 mg PO QHS 11/17/22 [History Last Taken Unknown] scopolamine base 1 mg over 3 days transdermal patch 1 patch transdermal Q3D PRN nausea and vomiting #10 ea 11/20/22 [Rx Last Taken Unknown] sucralfate 1 gram tablet (Carafate) 1 g PO BID #60 tabs 11/20/22 [Rx Last Taken Unknown] lidocaine 4 % topical spray 1 spray topical Q8H PRN PRN sore throat #113 grams 11/22/22 [Rx Last Taken Unknown] Allergy/AdvReac Type Severity Reaction Status Date / Time hydrocodone [From [place]] Allergy Rash Verified 11/21/22 23:04 Iodinated Contrast Media Allergy Rash Verified 11/21/22 23:04 [CONTRASTS] Penicillins Allergy Rash Verified 11/21/22 23:04 diclofenac AdvReac Other Verified 11/21/22 23:04 promethazine [From Phenergan] AdvReac Vomiting Verified 11/21/22 23:04 Family History Father Arthritis Hypertension Mother Thyroid disorder Cancer Lung Daughter Asthma Aunt Cancer unknown type Grandmother Cancer unknown type Surgical History (Updated 11/17/22 @ 13:44 by Mesha Caro) History of endometrial ablation History of esophagogastroduodenoscopy (EGD) History of partial hysterectomy Hx of appendectomy Hx of tubal ligation Social History household members: spouse and children number of children: 2 current occupation: starting new job tomorrow at [employer] Smoking Status: Current every day smoker tobacco type: cigarettes Tobacco: How many years used: 15 second hand exposure: Yes alcohol intake: current alcohol intake frequency: holidays/special occasions only substance use type: does not use and marijuana caffeine: Yes Type: carbonated beverages and tea seatbelt use: always EXAM Physical Exam Const Vital Signs: 11/21/22 23:01 11/22/22 00:55 11/22/22 01:19 Temperature 97.6 F L Temperature Source Temporal Pulse Rate 94 76 76 Respiratory Rate 16 16 16 Blood Pressure 155/83 H 115/88 H 115/88 H Blood Pressure Mean 107 97 Pulse Ox 98 96 96 Oxygen Delivery Method Room Air Room Air MDM MDM MDM Narrative Medical decision making narrative: HISTORY OF PRESENT ILLNESS: 37-year-old female here with sore throat status post EGD [address] Pérez. She states the pain is worse with swallowing. She denies any drooling, neck stiffness fever or difficulty with breathing. REVIEW OF SYMPTOMS: Pertinent positives: Sore throat Pertinent negatives: Denies stridor, difficulty breathing or drooling. Denies chest pain or shortness of breath. PHYSICAL EXAM: Nursing triage notes reviewed, Vital signs reviewed Constitutional: please see mdm HENT: MMM, uvula midline appears slightly irritated however not edematous, posterior oropharynx patent, no tonsillar edema or erythema. Eyes: Pupils equal round and reactive to light, Extraocular muscles intact Neck: No stridor, no JVD, full neck ROM, no crepitus Lungs: Clear to auscultation, No wheezing or rales. No increased work of breathing, no conversational dyspnea, no accessory muscle use, no nasal flaring. Patient speaking in full sentences, no drooling, no respiratory distress noted, no crepitus Heart: Regular rate and rhythm, No murmurs, No rubs and No gallops, 2+ distal pulses (radial, femoral, posterior tibial) in all extremities Abdomen: Soft, there is no tenderness, rigidity, rebound or guarding, no obvious peritoneal signs, no palpable pulsatile abdominal masses, no auscultated abdominal bruit : No CVAT Extremities: No edema Neuro: No focal neurological deficits, cranial nerves II through XII intact, 5/5 strength in all extremities. Intact sensation to light touch in all extremities, 2+ reflexes bilateral patella tendons. Normal gait. No ataxia. Skin: No rash or lesions noted MEDICAL DECISION MAKING: Chief Complaint: Sore throat External records reviewed: Status post EGD yesterday by Dr. Pérez EGD showed Normal esophagus. ? - Chronic gastritis. Biopsied. ? - Multiple duodenal polyps. Resected and ? retrieved. ? - Duodenitis. Biopsied. MDM: Patient was hemodynamically stable, afebrile, nontoxic-appearing. No crepitus to the neck or chest. I considered the following differential diagnosis: Postop pain, esophageal rupture or perforation I obtained imaging of the chest and neck to rule out signs of intracervical, mediastinal free air. X-rays were negative for such findings. This lowers my suspicion for esophageal rupture. Patient is likely suffering from postop pain. I did discuss the patient's case with Dr. Pérez her cephalometric tracer who agreed with my interpretation and recommended topical analgesics and close follow-up with him. Patient remained hemodynamically stable protecting her airway without drooling or signs of respiratory compromise while in the emergency department. She was able to tolerate p.o. She felt improvement after GI cocktail which contains viscous lidocaine. I prescribed topical lidocaine spray and recommended she take Cepacol throat lozenges as needed for ongoing pain control at home Factors affecting care: History of gastritis Social determinants of health: Current smoker History obtained from others: The patient's significant other Shared decision making: I will have a discussion with the patient and or visitors regarding risk/benefits of further testing or admission. They will be made aware of of the risk/benefits inherent in this decision they will be given the opportunity to voice understanding. Consults: Gastroenterology (Dr. Pérez) Radiography Diagnostic Testing: Clinical Impression(s) from Imaging Studies Soft Tissue Neck X-Ray 11/21/22 23:32 IMPRESSION: Unremarkable neck soft tissues. Electronically Signed: Dong Garcia MD at 0:40 EDT , Chest X-Ray 11/21/22 23:42 IMPRESSION: Chest with no acute disease. Electronically Signed: Dong Garcia MD at 23:59 EDT , Discharge Plan Triage Chief Complaint: Sore Throat ED Provider: Rajinder Hill Dx/Rx/DC Orders Clinical Impression: Acute sore throat, Post-op pain Instructions: Upper GI Endoscopy with Biopsy Prescriptions: New lidocaine 4 % aerosol,spray 1 spray topical Q8H PRN PRN (Reason: sore throat) Qty: 113 0RF No Action duloxetine 30 mg capsule,delayed release(DR/EC) 60 mg PO QHS Label Comments: TAKE 1 CAPSULE BY MOUTH ONCE DAILY topiramate [Topamax] 25 mg tablet 50 mg PO DAILY topiramate 100 mg Tablet 100 mg PO QHS vitamin E (dl, acetate) 180 mg (400 unit) capsule 180 mg PO BID Qty: 180 3RF ursodiol 250 mg tablet 250 mg PO BID Qty: 180 3RF scopolamine base 1 mg over 3 days patch 3 day 1 patch transdermal Q3D PRN (Reason: nausea and vomiting) Qty: 10 1RF sucralfate [Carafate] 1 gram tablet 1 g PO BID Qty: 60 0RF Primary Care [facility] - Activity Restrictions/Additional Instructions: Thank you for trusting us with your care today! Please take Tylenol (2 pills, 650 mg), ibuprofen (2 pills, 400 mg) every 6 hours as needed for pain and fever control. Please use topical lidocaine spray up to 3 times a day as needed for further pain control. You can also try Cepacol [id number] lozenges which have anecdotally improved symptoms. Please return to the emergency department if your symptoms change or worsen. Specifically if you develop drooling, neck stiffness, difficulty swallowing or feeling of your throat closing Please follow with your Friend for further outpatient evaluation and management. Disposition Disposition: Home, Self Care Discharge Date/Time: 11/22/22 01:20
--- NOTE | 2022-11-21 23:32 | RAD_ITS ---
INDICATION: sore throat s/p EGD r/o pneumomediastinum EXAMINATION/TECHNIQUE: X-RAY - XR Neck Soft Tissue COMPARISON: None. Findings: 2 views of the neck soft tissues. No prevertebral soft tissue thickening. Airway is unremarkable. No thickening of the epiglottis or aryepiglottic folds. No obvious radiopaque foreign body. Cervical straightening. RAD/Neck for Soft Tissue IMPRESSION: Unremarkable neck soft tissues. Electronically Signed: Dong Garcia MD at 0:40 EDT ,
--- NOTE | 2022-11-21 23:42 | RAD_ITS ---
INDICATION: SOB s/p EGD r/o pneumomedistinum EXAMINATION/TECHNIQUE: X-RAY - XR Chest 1 View COMPARISON: 05/12/2021 chest radiograph. Findings: Single frontal view of the chest. LUNG PARENCHYMA: No acute focal airspace disease or mass lesion. PLEURA: No pleural effusion. No pneumothorax. HEART/GREAT VESSELS: Cardiomediastinal silhouette is unremarkable. BONES: Osseous structures are unremarkable for age. RAD/Chest 1 View (Portable) IMPRESSION: Chest with no acute disease. Electronically Signed: Dong Garcia MD at 23:59 EDT ,
[2022-11-22] MEDS: Mag Hydrox/Al Hydrox/Simeth 30 ML UDC PO (00:32)
[2022-11-22 00:55] VITALS: BP 115/88; PULSE 76; RESP 16; O2SAT 96
[2022-11-22 01:19] VITALS: BP 115/88; PULSE 76; RESP 16; O2SAT 96
== END 2022-11-22 01:20 | disposition home or self-care (01) ==
PROVIDERS: Emergency Provider Emergency Medicine; Visit Provider Emergency Medicine
DX: J02.9 Acute pharyngitis, unspecified (principal); F17.210 Nicotine dependence, cigarettes, uncomplicated; F41.9 Anxiety disorder, unspecified; F32.A Depression, unspecified; Z79.899 Other long term (current) drug therapy; G43.909 Migraine, unspecified, not intractable, without status migrainosus; Z98.890 Other specified postprocedural states
CPT/HCPCS: 70360; 71045; 99283

== ENCOUNTER 2025-02-23 12:00 | Emergency (ER) | payer SELFPAY ==
[2025-02-23 12:01] VITALS: BP 146/82; PULSE 102; RESP 18; TEMP 36.8; O2SAT 99; BMI 34.1
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
--- NOTE | 2025-02-23 12:20 | RAD_ITS ---
PROCEDURE: HAND MIN 3 VIEWS 02/23/2025 REASON FOR EXAM: PAIN TECHNIQUE: HAND MIN 3 VIEWS Laterality: COMPARISON: None. RAD/Hand Min 3 Views IMPRESSION: A fracture of the neck of the right 5th metacarpal bone is seen, with posterome dial apex angulation present. No intra-articular extension is identified. No radiopaque foreign body is seen. Reading Location: [facility]
--- NOTE | 2025-02-23 13:15 | RAD_ITS ---
PROCEDURE: Three views right hand x-ray 02/23/2025 REASON FOR EXAM: POSTREDUCTION TECHNIQUE: HAND 2 VIEWS Laterality: COMPARISON: Hand x-ray earlier today 02/23/2025 FINDINGS: Bones: Status post reduction of 5th metacarpal fracture with near anatomical alignment. Joints: No dislocations. Soft tissues: Limited evaluation. RAD/Hand 2 Views IMPRESSION: Status post reduction of 5th metacarpal fracture with near anatomical alignment . Reading Location: [id number]
[2025-02-23 13:42] VITALS: BP 139/79; PULSE 82; RESP 18; TEMP 36.6; O2SAT 99
== END 2025-02-23 13:42 | disposition home or self-care (01) ==
PROVIDERS: Emergency Provider Emergency Medicine; Visit Provider Emergency Medicine
DX: S62.336A Displaced fracture of neck of fifth metacarpal bone, right hand, initial encounter for closed fracture (principal); F17.210 Nicotine dependence, cigarettes, uncomplicated; X58.XXXA Exposure to other specified factors, initial encounter
CPT/HCPCS: 26605; 73120; 73130; 99282

== ENCOUNTER 2025-03-30 10:03 | Emergency (ER) | payer MEDICAID, SELFPAY ==
[2025-03-30 10:03] VITALS: BP 150/83; PULSE 81; RESP 14; TEMP 36.6; O2SAT 98; BMI 35.7
--- NOTE | 2025-03-30 10:14 | CT_ITS ---
PROCEDURE: ABDOMEN/PELVIS W IV CONT ONLY 03/30/2025 REASON FOR EXAM: LLQ PAIN TECHNIQUE: Procedure Code: [id number] Modality: CT Procedure: ABDOMEN/PELVIS W IV CONT ONLY Coronal and Sagittal reconstruction series were provided. CONTRAST: Isovue 370 VOLUME: 99 mL One or more dose reduction techniques were used (e.g., Automated exposure control, adjustment of the mA and/or kV according to patient size, use of iterative reconstruction technique. RADIATION DOSE SUMMARY: CTDlvol: 21.32 mGy DLP: 11.87 mGycm COMPARISON: Previous examination dated 01/26/2022 FINDINGS: The lung bases are clear. There is no pericardial or pleural effusion. No focal consolidation present. The unenhanced appearance of the liver is remarkable for slight fatty infiltration. No focal liver mass seen. The portal and hepatic veins are patent. The gallbladder, biliary tree, pancreas and spleen are normal. The adrenal glands are unremarkable. There is a nonobstructing stone in the mid to lower pole of the right kidney. There is no hydronephrosis or urolithiasis. The urinary bladder is unremarkable. Patient is status post hysterectomy. There is no adnexal mass present. No abnormal fluid collection seen in the pelvis. There is no ascites. Osseous structures are normal. Loops of bowel are unremarkable. The patient is status post cholecystectomy. A small sliding hiatal hernia is identified. There is no evidence to suggest active or acute diverticulitis. Soft tissues around the abdominal wall appear normal CT/Abdomen/Pelvis W IV Cont ONLY IMPRESSION: No acute inflammatory process of the abdomen or pelvis. Mild fatty infiltration. Reading Location: [facility]
--- NOTE | 2025-03-30 10:29 | EX.ED.DYSGE1 ---
HPI History of Present Illness Chief Complaint: Abd Pain Narrative Narrative: Patient is a 40-year-old female with past medical history of GERD, bipolar disorder, neuroendocrine tumor, anxiety, depression who presented to the emergency department chief complaint of abdominal pain. Patient states that for the past few days she has had abdominal cramping but. That she was coming out with a virus. States that today when she woke up when she use the restroom and wiped after peeing she noted a pink tinge on the paper therefore she came here to be further evaluated. Patient states that she does not have a uterus. Denies any recent contacts. 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 Wears dentures Marijuana use Easy bruising Restless legs Migraine headache Injury of head and neck Smoker Leg cramps History of edema Anxiety Depression Arthritis Home Medications ?Medication ?Instructions ?Recorded ?Last Taken ?Type ursodiol 250 mg tablet 250 mg PO BID #180 tabs 06/05/22 Unknown Rx vitamin E (dl, acetate) 180 mg 180 mg PO BID #180 caps 06/05/22 Unknown Rx (400 unit) capsule duloxetine 30 mg capsule,delayed 60 mg PO QHS 08/28/22 Unknown History release topiramate 25 mg tablet (Topamax) 50 mg PO DAILY 10/12/22 Unknown History topiramate 100 mg tablet 100 mg PO QHS 11/17/22 Unknown History scopolamine base 1 mg over 3 days 1 patch transdermal Q3D PRN nausea 11/20/22 Unknown Rx transdermal patch and vomiting #10 ea lidocaine 4 % topical spray 1 spray topical Q8H PRN PRN sore 11/22/22 Unknown Rx throat #113 grams colestipol 1 gram tablet (Colestid) See Rx Instructions PO DAILY #60 12/07/22 Unknown Rx tabs oxycodone-acetaminophen 5 mg-325 1 tab PO Q8H PRN pain 3 days #10 02/23/25 Unknown Rx mg tablet (Percocet) tabs Allergy/AdvReac Type Severity Reaction Status Date / Time hydrocodone (From [place]) Allergy Rash Verified 03/30/25 10:03 Iodinated Contrast Media Allergy Rash Verified 03/30/25 10:03 (CONTRASTS) Penicillins Allergy Rash Verified 03/30/25 10:03 diclofenac AdvReac Other Verified 03/30/25 10:03 promethazine (From Phenergan) AdvReac Vomiting Verified 03/30/25 10:03 Family History Father Arthritis Hypertension Mother Thyroid disorder Cancer Lung Daughter Asthma Aunt Cancer unknown type Grandmother Cancer unknown type Surgical History History of esophagogastroduodenoscopy (EGD) History of partial hysterectomy History of endometrial ablation Hx of tubal ligation Hx of appendectomy Social History household members: spouse and children number of children: 2 current occupation: starting new job tomorrow at [employer] Smoking Status: Current every day smoker tobacco type: cigarettes Tobacco: How many years used: 15 second hand exposure: Yes alcohol intake: current alcohol intake frequency: holidays/special occasions only substance use type: does not use and marijuana caffeine: Yes Type: carbonated beverages and tea seatbelt use: always ROS ROS ED ROS Narrative Constitutional: Denies fevers, chills, head Cardiovascular: Denies chest pain or palpitations Respiratory: Denies coughing wheezing shortness of breath Abdomen: Complains of abdominal pain as noted above denies nausea vomiting diarrhea : Complains of hematuria as noted above denies painful urination or increased frequency Neurological: Denies any numbness, weakness, tingling Musculoskeletal: Denies back pain Skin: Denies any rashes or lesions EXAM Physical Exam Narrative Exam Narrative: General: There is lying in bed rest comfortably did not appear to be in acute distress Head: Atraumatic, normocephalic Eyes: PERRL bilaterally, EOMI bilaterally, no no conjunctival injection noted Neck: Soft, supple, trachea midline Cardiovascular: Regular rate and rhythm Respiratory: Clear to auscultation bilaterally Abdomen: Soft, nondistended, tenderness palpation left lower quadrant and suprapubic region no rebound or guarding on exam Extremities: +5/5 strength noted in the bilateral upper and lower extremity, radial pulses +2/4 in the bilateral extremities, no pedal edema on exam Neurological: Patient follow commands knew that she was at [facility] year is 2024 Skin: Warm, dry, intact no rashes or lesions noted Const Vital Signs: 03/30/25 10:03 03/30/25 12:03 Temperature 98 F Temperature Source Temporal Pulse Rate 81 78 Respiratory Rate 14 16 Blood Pressure 150/83 H 136/78 H Blood Pressure Mean 105 97 Pulse Ox 98 98 Oxygen Delivery Method Room Air Room Air MDM MDM MDM Narrative Medical decision making narrative: Patient is a 40-year-old female who presented to the emergency department the chief complaint of abdominal pain and hematuria. On the differential diagnose includes but not limited to UTI, pyelonephritis, diverticulitis, bowel obstruction. Once workup is obtained reviewed she will be reevaluated. Patient be given IV fluids. Patient also notes that she does not have an appendix. Patient does have an idler G2 iodine therefore she will be premedicated with Solu-Medrol and Benadryl. Patient's CBC was significant for leukocytosis of 13,000 however she chronically has an elevated white blood cell count according appears blood draws, hemoglobin stable at 15.5, platelet count noted to be 284. Patient sodium is 139, potassium normal at 4.2, creatinine was normal at 0.72. Patient glucose of 82, AST and ALT were normal at 14 and 9 respectively. Patient total bilirubin normal at 0.48. Patient's lipase was noted to be 52, urinalysis reviewed and showed no evidence of infection no blood. Patient CT ab pelvis IV contrast reviewed showed no acute intra-abdominal processes mild fatty infiltration. Discussed results with the patient she would like to go home at this point time. She advised to return with worsening symptoms or any concerns. She is agreeable to plan all question concerns answered she was discharged home in stable condition. Lab Data Labs: Laboratory Results - last 24 hr 03/30/25 10:34 WBC 13.8 H RBC 5.04 Hgb 15.5 H Hct 45.7 MCV 90.7 MCH 30.8 MCHC 33.9 RDW Std Deviation 41.1 RDW Coeff of [place] 12.3 Plt Count 284 MPV 9.8 Immature Gran % (Auto) 0.400 Neut % (Auto) 63.4 Lymph % (Auto) 26.8 [place] % (Auto) 8.0 Eos % (Auto) 0.9 Baso % (Auto) 0.5 Absolute Neuts (auto) 8.8 H Absolute Lymphs (auto) 3.71 Nucleated RBC % 0 Sodium 139 Potassium 4.2 Chloride 106 Carbon Dioxide 23.6 Anion Gap 9 BUN 5 Creatinine 0.72 Estim Creat Clear Calc 111.63 Est GFR (MDRD) Non-Af 109 BUN/Creatinine Ratio 7.0 L Glucose 82 Calcium 9.3 Total Bilirubin 0.48 AST 14 ALT 9 Alkaline Phosphatase 65 Total Protein 7.5 Albumin 4.2 Globulin 3.3 Albumin/Globulin Ratio 1.3 Lipase 52 Urine Color Yellow Urine Clarity Clear Urine pH 6.0 Ur Specific [place] 1.010 Urine Protein Negative Urine Glucose (UA) Normal Urine Ketones Negative Urine Occult Blood Negative Urine Nitrite Negative Urine Bilirubin Negative Urine Urobilinogen Normal Ur Leukocyte Esterase Negative Urine RBC 0 SEEN Urine WBC 0 SEEN Ur Squamous Epith Cells 0-5 SEEN Urine Bacteria 0 SEEN Urine Mucus 0 SEEN Radiography Diagnostic Testing: Clinical Impression(s) from Imaging Studies Abdomen/Pelvis CT 03/30/25 10:14 IMPRESSION: No acute inflammatory process of the abdomen or pelvis. Mild fatty infiltration. Reading Location: [facility] Discharge Plan Triage Chief Complaint: Abd Pain ED Provider: César Up Dx/Rx/DC Orders Clinical Impression: Abdominal pain, NAFLD (nonalcoholic fatty liver disease), Anxiety Prescriptions: No Action duloxetine 30 mg capsule,delayed release(DR/EC) 60 mg PO QHS Patient Comments: TAKE 1 CAPSULE BY MOUTH ONCE DAILY colestipol [Colestid] 1 gram tablet See Rx Instructions PO DAILY Qty: 60 0RF Rx Instructions: 1-2 tabs orally daily; avoid other meds 1 hr prior and 4 hrs after colestipol topiramate [Topamax] 25 mg tablet 50 mg PO DAILY topiramate 100 mg Tablet 100 mg PO QHS lidocaine 4 % aerosol,spray 1 spray topical Q8H PRN PRN (Reason: sore throat) Qty: 113 0RF oxycodone-acetaminophen [Percocet] 5-325 mg tablet 1 tab PO Q8H PRN (Reason: pain) 3 Days Qty: 10 0RF vitamin E (dl, acetate) 180 mg (400 unit) capsule 180 mg PO BID Qty: 180 3RF ursodiol 250 mg tablet 250 mg PO BID Qty: 180 3RF scopolamine base 1 mg over 3 days patch 3 day 1 patch transdermal Q3D PRN (Reason: nausea and vomiting) Qty: 10 1RF Primary Care Provider: Care Physician,No Primary [facility]errals[facility] [Non-Staff] - Activity Restrictions/Additional Instructions: Follow-up with your primary care doctor in the outpatient setting. Return with worsening symptoms or any concerns. Your blood work did not show any acute findings here today. Your CT did not show any acute findings. Your urine did not have any blood in it, and it did not show any evidence of infection. Print Language: Syriac Disposition Disposition: Home, Self Care
[2025-03-30] MEDS: DiphenhydrAMINE 50 MG/ML Syringe 25 MG IV (10:36)
[2025-03-30] MEDS: 0.9% Normal Saline (1000mL) 1,000 ML 999 ML IV (10:36)
[2025-03-30 10:43] LABS: Mucous, Urine 0 SEEN /hpf (<or=2+); Red Blood Cells-Urine 0 SEEN /hpf (0-5)
[2025-03-30 10:46] LABS: Color, Urine Yellow (Yellow); Glucose, Dipstick Normal (Normal); Hematocrit 45.7 % (37-47); Hemoglobin 15.5 g/dL (12.0-15.0); Immature Granulocytes Count 0.060 X10^3/uL (0.0-0.0); Ketone-Dipstick Negative (Negative); Leukocyte Esterase-Dipstick Negative /ul (Negative); Mean Corp Hgb Conc 33.9 g/dL (32-36); Mean Corpuscular Volume 90.7 fL (81-99); Mean Platelet Vol. 9.8 fl (6.2-12.0); NRBC Flagged by Analyzer 0 % (0-5); Nitrite-Dipstick Negative (Negative); Occult Blood-Urine Negative /ul (Negative); Platelet Count 284 K/mm3 (150-450); Protein-Dipstick Negative (Negative); RBC Distribution Width CV 12.3 % (11.6-14.6); RBC Distribution Width SD 41.1 fl (35.1-43.9); Red Blood Count 5.04 M/mm3 (4.2-5.4); Specific Gravity, Urine 1.010 (1.002-1.030); Urine Bilirubin Dipstick Negative (Negative); White Blood Count 13.8 K/mm3 (4.4-11.0)
[2025-03-30 11:00] LABS: Squamous Epithelial Cells - UA 0-5 SEEN /hpf (5-10)
[2025-03-30 11:28] LABS: Lipase 52 U/L (13-75)
--- NOTE | 2025-03-30 11:33 | CM.ED ---
Social work Reason for referral: no PCP Referral source: case find SW identified patient's lack of PCP and need for resources. SW entered patient's room, identifying self and role at [facility]. Patient accepted SW visit and confirmed not having a PCP. Patient accepted resources of [facility] Provider Directory and [facility] information, stating patient used to go to [facility]. Patient asked for SW to turn up the temperature in the room, but patient denied further needs at this time. Darlin Antunez, PRESIDENT CEO & FOUNDER, [employer]
[2025-03-30 11:43] LABS: AST(SGOT) 14 U/L (<=31); Alanine Aminotransfer ALT/SGPT 9 U/L (<=34); Albumin, Serum 4.2 g/dL (3.5-5.0); Alkaline Phosphatase 65 U/L (35-104); Anion Gap 9 (5-15); BUN 5 mg/dL (4-19); BUN/Creat Ratio 7.0 RATIO (10-20); Calcium,Total 9.3 mg/dL (7.6-11.0); Carbon Dioxide 23.6 mmol/L (21.0-32.0); Chloride 106 mmol/L (98-108); Estimated Creatinine Clearance 111.63 ml/min (50-250); Globulin 3.3 g/dL (2.2-4.2); Glucose 82 mg/dL (70-99); Potassium 4.2 mmol/L (3.3-5.1)
[2025-03-30 12:03] VITALS: BP 136/78; PULSE 78; RESP 16; O2SAT 98
[2025-03-30 12:32] VITALS: BP 134/78; PULSE 78; RESP 16; TEMP 37.1; O2SAT 99
== END 2025-03-30 12:33 | disposition home or self-care (01) ==
PROVIDERS: Emergency Provider Emergency Medicine; Visit Provider Emergency Medicine
DX: R10.9 Unspecified abdominal pain (principal); F41.9 Anxiety disorder, unspecified; F17.210 Nicotine dependence, cigarettes, uncomplicated; F32.A Depression, unspecified; Z79.899 Other long term (current) drug therapy; Z85.89 Personal history of malignant neoplasm of other organs and systems; Z98.51 Tubal ligation status; Z90.49 Acquired absence of other specified parts of digestive tract; Z90.710 Acquired absence of both cervix and uterus
CPT/HCPCS: 74177; 80053; 81001; 83690; 85025; 96361; 96374; 96375; 99283; Q9967; A4216

== ENCOUNTER 2025-05-29 13:43 | Emergency (ER) | payer SELFPAY ==
[2025-05-29 13:43] VITALS: BP 125/91; PULSE 83; RESP 18; TEMP 36.7; O2SAT 99; BMI 35.3
--- NOTE | 2025-05-29 14:47 | RAD_ITS ---
PROCEDURE: CHEST PA AND LATERAL 05/29/2025 REASON FOR EXAM: COUGH TECHNIQUE: Procedure Code: RADCXR Modality: DX Procedure: CHEST PA AND LATERAL COMPARISON: 11/21/22 FINDINGS: No focal consolidation. No pleural effusion or pneumothorax. Cardiac silhouette is within normal limits. No acute fractures. RAD/Chest PA and Lateral IMPRESSION: No focal consolidations. Reading Location: [facility]
--- NOTE | 2025-05-29 16:18 | EX.ED.DYSGE1 ---
HPI History of Present Illness Chief Complaint: Cold Sx Narrative Narrative: Patient is a 40-year-old female with past medical history of cough, congestion, bilateral ear pain and sore throat. States that this been going on for approximately 2 weeks now she states that her symptoms originally started getting better however states that she started to feel ill again prompting her to come here for further evaluation management. States that she has been coughing but states that she has not any fevers. States that she does smoke as well. Denies any drug use denies any alcohol use. Denies any sick contacts. 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 Wears dentures Marijuana use Easy bruising Restless legs Migraine headache Injury of head and neck Smoker Leg cramps History of edema Anxiety Depression Arthritis Home Medications Medication Instructions Recorded Last Taken Type ursodiol 250 mg tablet 250 mg PO BID #180 tabs 06/05/22 Unknown Rx vitamin E (dl, acetate) 180 mg 180 mg PO BID #180 caps 06/05/22 Unknown Rx (400 unit) capsule duloxetine 30 mg capsule,delayed 60 mg PO QHS 08/28/22 Unknown History release topiramate 25 mg tablet (Topamax) 50 mg PO DAILY 10/12/22 Unknown History topiramate 100 mg tablet 100 mg PO QHS 11/17/22 Unknown History scopolamine base 1 mg over 3 days 1 patch transdermal Q3D PRN nausea 11/20/22 Unknown Rx transdermal patch and vomiting #10 ea lidocaine 4 % topical spray 1 spray topical Q8H PRN PRN sore 11/22/22 Unknown Rx throat #113 grams colestipol 1 gram tablet (Colestid) See Rx Instructions PO DAILY #60 12/07/22 Unknown Rx tabs oxycodone-acetaminophen 5 mg-325 1 tab PO Q8H PRN pain 3 days #10 02/23/25 Unknown Rx mg tablet (Percocet) tabs Allergy/AdvReac Type Severity Reaction Status Date / Time hydrocodone (From [place]) Allergy Rash Verified 05/29/25 13:45 Iodinated Contrast Media Allergy Rash Verified 05/29/25 13:45 (CONTRASTS) Penicillins Allergy Rash Verified 05/29/25 13:45 diclofenac AdvReac Other Verified 05/29/25 13:45 promethazine (From Phenergan) AdvReac Vomiting Verified 05/29/25 13:45 Family History Father Arthritis Hypertension Mother Thyroid disorder Cancer Lung Daughter Asthma Aunt Cancer unknown type Grandmother Cancer unknown type Surgical History History of esophagogastroduodenoscopy (EGD) History of partial hysterectomy History of endometrial ablation Hx of tubal ligation Hx of appendectomy Social History household members: spouse and children number of children: 2 current occupation: starting new job tomorrow at [employer] Smoking Status: Current every day smoker tobacco type: cigarettes Tobacco: How many years used: 15 second hand exposure: Yes alcohol intake: current alcohol intake frequency: holidays/special occasions only substance use type: does not use and marijuana caffeine: Yes Type: carbonated beverages and tea seatbelt use: always ROS ROS ED ROS Narrative Constitutional: Denies any fevers, chills, headaches Eyes, ears, nose, throat: Complains bilateral ear pain denies double vision Cardiovascular: Denies chest pain Respiratory: Complains of cough denies shortness of breath Abdomen: Denies abdominal pain nausea vomit diarrhea : Denies urinary symptoms Neurological: Denies any numbness, weeks, tingling Musculoskeletal: Denies back pain Skin: Denies any rashes or lesions EXAM Physical Exam Narrative Exam Narrative: General: Patient lying in bed rest comfortably did not appear to be in acute distress Head: Atraumatic, normocephalic Eyes: PERRL bilaterally, EOMI bilaterally, no conjunctival injection noted, TMs visualized bilaterally she does have fluid behind them bilaterally however no evidence of otitis media Neck: Soft, supple, trachea midline Cardiovascular: Regular rate and rhythm Respiratory: Clear to auscultation bilaterally no rales rhonchi or wheezes noted Abdomen: Soft, nondistended, nontender to palpation Extremities: +5/5 strength noted in the bilateral lower extremities Neurological: Patient follow commands knew that she was at [facility] the year is 2024 Skin: Warm, dry, intact no rashes or lesions noted Const Vital Signs: 05/29/25 13:43 Temperature 98.1 F Temperature Source Oral Pulse Rate 83 Respiratory Rate 18 Blood Pressure 125/91 H Blood Pressure Mean 102 Pulse Ox 99 Oxygen Delivery Method Room Air MDM MDM MDM Narrative Medical decision making narrative: Patient is a 40-year-old female who presented to the emergency department with a chief complaint of cough, congestion, sore throat. On the differential diagnose includes but not went to upper respiratory infection secondary to viral etiology, pneumonia, strep throat. Once workup is obtained and reviewed she will be reevaluated. Patient strep test was negative. Patient chest x-ray reviewed by myself and by radiology showed no acute cardiopulmonary processes. Discussed results with the patient she would like to go home at this point in time. She is advised to follow-up with her doctor in the outpatient setting that she was referred to and return with worsening symptoms or concerns. She was encouraged to continue supportive care is likely that this is a viral illness. Radiography Diagnostic Testing: Clinical Impression(s) from Imaging Studies Chest X-Ray 05/29/25 14:47 IMPRESSION: No focal consolidations. Reading Location: [facility] Discharge Plan Triage Chief Complaint: Cold Sx Other Complaint: Ear Problem ED Provider: César Up Dx/Rx/DC Orders Clinical Impression: Acute viral pharyngitis, Cough, Rhinorrhea Prescriptions: No Action duloxetine 30 mg capsule,delayed release(DR/EC) 60 mg PO QHS Patient Comments: TAKE 1 CAPSULE BY MOUTH ONCE DAILY colestipol [Colestid] 1 gram tablet See Rx Instructions PO DAILY Qty: 60 0RF Rx Instructions: 1-2 tabs orally daily; avoid other meds 1 hr prior and 4 hrs after colestipol topiramate [Topamax] 25 mg tablet 50 mg PO DAILY topiramate 100 mg Tablet 100 mg PO QHS lidocaine 4 % aerosol,spray 1 spray topical Q8H PRN PRN (Reason: sore throat) Qty: 113 0RF oxycodone-acetaminophen [Percocet] 5-325 mg tablet 1 tab PO Q8H PRN (Reason: pain) 3 Days Qty: 10 0RF vitamin E (dl, acetate) 180 mg (400 unit) capsule 180 mg PO BID Qty: 180 3RF ursodiol 250 mg tablet 250 mg PO BID Qty: 180 3RF scopolamine base 1 mg over 3 days patch 3 day 1 patch transdermal Q3D PRN (Reason: nausea and vomiting) Qty: 10 1RF Primary Care Provider: Care Physician,No Primary Referrals: Care Physician,No Primary [Primary Care Provider, Medical] Shelly Salgado, MANAGER PRICING-C [[facility]] Activity Restrictions/Additional Instructions: Continue supportive care as you likely have a virus causing your symptoms your chest x-ray did not show any evidence of pneumonia and your strep test was negative. Return with worsening symptoms or any concerns. Follow-up with the doctor you are referred to. Print Language: Urdu Disposition Disposition: Home, Self Care D/C Safety Score for UGIB Assessment Rashida-Blatchford Bleeding Score (GBS): Stratifies upper GI bleeding patients who are "low-risk" and candidates for outpatient management. Hemoglobin, BUN, Recent Vital Signs: Pulse Rate 83 Blood Pressure 125/91 Total Risk Score: 1 Score Interpretation: Score of 0: A GBS of 0 is a “Low Risk” GI bleed, and is highly sensitive (99.6% in a 2007 retrospective study) for predicting which patients did not require any “medical intervention”: blood transfusion, endoscopy, or surgery. This was confirmed in a 2009 [facility] study where patients with a score of 0 were actually discharged and had no GI bleeding mortality at 6 month followup Score above 0: A GBS greater than zero suggests a “High Risk” GI bleed that is likely to require “medical intervention”: transfusion, endoscopy, or surgery. A higher GBS also correlated with a higher likelihood of needing intervention Scores >/= 6 are associated with >50% risk of needing intervention D/C Safety Score for LGIB Assessment Assessment Tool: Readmission and adverse event risk in patients with acute lower GI bleeding. Age, in years: 40-69 Hemoglobin and Recent Vital Signs: Pulse Rate 83 05/29/25 13:43 Blood Pressure 125/91 05/29/25 13:43 Probability of safe discharge: 99% Total Risk Score: 1 Score Interpretation: Probability Percentage of safe discharge (absence of rebleeding, blood transfusion, therapeutic intervention, 28 day readmission, or ) Score of 8 or below: Consider discharge, with appropriate precautions. Score of 9 or above: Discharge NOT recommended. Consider admission with further workup and resuscitation as necessary.
[2025-05-29 16:32] VITALS: BP 138/72; PULSE 67; RESP 16; TEMP 36.6; O2SAT 99
== END 2025-05-29 16:37 | disposition home or self-care (01) ==
PROVIDERS: Emergency Provider Emergency Medicine; Visit Provider Emergency Medicine
DX: J02.9 Acute pharyngitis, unspecified (principal); F17.210 Nicotine dependence, cigarettes, uncomplicated; Z90.710 Acquired absence of both cervix and uterus; R05.9 Cough, unspecified; J34.89 Other specified disorders of nose and nasal sinuses; Z85.068 Personal history of other malignant neoplasm of small intestine; F41.9 Anxiety disorder, unspecified; F32.A Depression, unspecified; Z79.899 Other long term (current) drug therapy; Z98.51 Tubal ligation status; Z90.49 Acquired absence of other specified parts of digestive tract
CPT/HCPCS: 71046; 87651; 99283

== ENCOUNTER 2025-06-20 15:35 | Emergency (ER) | payer SELFPAY ==
[2025-06-20 15:37] VITALS: BP 138/91; PULSE 71; RESP 18; TEMP 35.9; O2SAT 96; BMI 36.3
--- NOTE | 2025-06-20 15:45 | EDS_ITS ---
HPI History of Present Illness Chief Complaint: Back Narrative Narrative: Patient is a 40-year-old female with past medical history of bipolar disorder, GERD, marijuana use, anxiety, depression who presented to the emergency department the chief complaint of back pain. She states that on Wednesday she was wiping off her electric griddle and notes that her back spasmed she states that on Wednesday is happening again but on the opposite side. She states that the pain did not radiate down her legs she states that she has been urinating normally for self and having normal bowel movements. Patient denies any fevers denies any history of IV drug use. Denies any direct trauma. She states that she has been taking ibuprofen Tylenol for pain control which does help the pain but she notes that she feels like if she moves [address] it will spasm on her again. 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 Wears dentures Marijuana use Easy bruising Restless legs Migraine headache Injury of head and neck Smoker Leg cramps History of edema Anxiety Depression Arthritis Home Medications ?Medication ?Instructions ?Recorded ?Last Taken ?Type ursodiol 250 mg tablet 250 mg PO BID #180 tabs 05/19 03/09 Unknown Rx vitamin E (dl, acetate) 180 mg 180 mg PO BID #180 caps 06/05/22 Unknown Rx (400 unit) capsule duloxetine 30 mg capsule,delayed 60 mg PO QHS 08/28/22 Unknown History release topiramate 25 mg tablet (Topamax) 50 mg PO DAILY 10/12 Unknown History topiramate 100 mg tablet 100 mg PO QHS 11/17/22 Unkno wn History scopolamine base 1 mg over 3 days 1 patch transdermal Q3D PRN nausea 11/20/22 Unknown Rx transdermal patch and vomiting #10 ea lidocaine 4 % topical spray 1 spray topical Q8H PRN IL N sore 11/22/22 Unknown Rx throat #113 grams colestipol 1 gram tablet (Colestid) See Rx Instruction s PO DAILY #60 12/07/22 Unknown Rx tabs oxycodone-acetaminophen 5 mg-325 1 tab PO Q8H PRN pain 3 days #10 02/23/25 Unknown Rx mg tablet (Percocet) tabs cyclobenzaprine 10 mg tablet 10 mg PO TID PRN muscle s pasm #20 06/20/25 Unknown Rx tabs Allergy/AdvReac Type Severity Reaction Status Date / Time hydrocodone (From [place]) Allergy Rash Verified 06/20/25 15:37 Iodinated Contrast Media Allergy Rash Verified 06/20/25 15:37 (CONTRASTS) Penicillins Allergy Rash Verified 06/20/25 15:37 diclofenac AdvReac Other Verified 06/20/25 15:37 promethazine (From Phenergan) AdvReac Vomiting Verified 06/20/25 15:37 Family History Father Arthritis Hypertension Mother Thyroid disorder Cancer Lung Daughter Asthma Aunt Cancer unknown type Grandmother Cancer unknown type Surgical History History of esophagogastroduodenoscopy (EGD) History of partial hysterectomy History of endometrial ablation Hx of tubal ligation Hx of appendectomy Social History household members: spouse and children number of children: 2 current occupation: starting new job tomorrow at [employer] Smoking Status: Current every day smoker tobacco type: cigarettes Tobacco: How many years used: 15 second hand exposure: Yes alcohol intake: current alcohol intake frequency: holidays/special occasions only substance use type: does not use and marijuana caffeine: Yes Type: carbonated beverages and tea seatbelt use: always ROS ROS ED ROS Narrative Constitutional: Denies any fevers, chills, headaches Cardiovascular: Denies chest pain Respiratory: Denies shortness of breath Abdomen: Denies abdominal pain nausea vomit diarrhea : States that she is urinating normally for self as noted above Neurological: Denies any numbness, weakness, tingling Musculoskeletal: Complains of back pain as noted above Skin: Denies any rashes or lesions EXAM Physical Exam Narrative Exam Narrative: General: Patient was lying in bed rest comfortably did not appear to be acute distress Head: Atraumatic, normocephalic Eyes: PERRL bilaterally, EOMI bilateral, no conjunctival injection noted Neck: Soft, supple, trachea midline Cardiovascular: Regular rate and rhythm no murmurs gallops rubs noted Musculoskeletal: No tenderness to palpation in the midline of thoracic or lumbar spine no step-offs or deformities noted Extremities: +5/5 strength noted in the bilateral upper and lower extremities Neurological: Patient following commands that she was at [facility] years 2024 sensation grossly intact no saddle anesthesia noted Skin: Warm, dry, tact no rashes lesions noted Const Vital Signs: 06/20/25 15:37 Temperature 96.7 F L Temperature Source Oral Pulse Rate 71 Respiratory Rate 18 Blood Pressure 138/91 H Blood Pressure Mean 106 Pulse Ox 96 Oxygen Delivery Method Room Air MDM MDM MDM Narrative Medical decision making narrative: Patient is a 40-year-old female who presented to the emergency department chief complaint of back pain on the differential diagnosis includes but not limited to muscle spasms, musculoskeletal strain, fracture although low suspicion for this as she had no direct trauma or injuries. Patient was advised to continue to rotate Tylenol and ibuprofen [id number] and she will be given a prescription for muscle relaxers and was advised to not operate anything under the influence this medication. At this point time do not believe she warrants any imaging. She was encouraged to follow-up with her doctor in outpatient setting and return with worsening symptoms or concerns. She is agreeable to plan all question concerns answered she was discharged home in stable condition Discharge Plan Triage Chief Complaint: Back ED Provider: César Up Dx/Rx/DC Orders Clinical Impression: Back pain, Musculoskeletal strain, Back spasm Prescriptions: New cyclobenzaprine 10 mg tablet 10 mg PO TID PRN (Reason: muscle spasm) Qty: 20 0RF No Action duloxetine 30 mg capsule,delayed release(DR/EC) 60 mg PO QHS Patient Comments: TAKE 1 CAPSULE BY MOUTH ONCE DAILY colestipol [Colestid] 1 gram tablet See Rx Instructions PO DAILY Qty: 60 0RF Rx Instructions: 1-2 tabs orally daily; avoid other meds 1 hr prior and 4 hrs after colestipol topiramate [Topamax] 25 mg tablet 50 mg PO DAILY topiramate 100 mg Tablet 100 mg PO QHS lidocaine 4 % aerosol,spray 1 spray topical Q8H PRN PRN (Reason: sore throat) Qty: 113 0RF oxycodone-acetaminophen [Percocet] 5-325 mg tablet 1 tab PO Q8H PRN (Reason: pain) 3 Days Qty: 10 0RF vitamin E (dl, acetate) 180 mg (400 unit) capsule 180 mg PO BID Qty: 180 3RF ursodiol 250 mg tablet 250 mg PO BID Qty: 180 3RF scopolamine base 1 mg over 3 days patch 3 day 1 patch transdermal Q3D PRN (Reason: nausea and vomiting) Qty: 10 1RF Primary Care Provider: Care Physician,No Primary Referrals: Care Physician,No Primary [Primary Care Provider, Medical] Shelly Salgado, SALES SERVICE PROFESSIONAL-C [[facility], [facility]] Activity Restrictions/Additional Instructions: Continue to rotate Tylenol and ibuprofen [id number] when you do this you can take something every 3 hours for pain max dose of Tylenol in 24 hours 4000 mg max dose of ibuprofen in 24 hours 3200 mg. Use muscle relaxers as prescribed do not operate anything under the influence of this medication as it will make you sleepy and drowsy. Return with worsening symptoms or anything concerns Print Language: Azeri Disposition Disposition: Home, Self Care
[2025-06-20 16:17] VITALS: BP 142/84; PULSE 72; RESP 15; TEMP 36.4; O2SAT 100
--- OUTSIDE RECORDS SUMMARY | 2025-06-20 17:53 | XMS RPT_ITS | CCD ---
Author Organization [facility] [place] Care Team Providers Care Body Welder Name Role Phone No, Physician Unavailable Unavailable April Bahena Unavailable Unavailable April Bahena Unavailable Unavailable GABRIEL, VIKTORIA Unavailable Unavailable PHYSICIAN, NONE Unavailable Unavailable PHYSICIAN, NONE Unavailable Unavailable Edith GILLETTE Unavailable Unavailable APRIL BAHENA Unavailable Unavailable NO, PHYSICIAN Unavailable Unavailable Carmita Gonzalez CNP Unavailable [phone] Carmita Gonzalez CNP Primary Care Provider Carmita Gonzalez Unavailable [facility], Flinton Henry Primary Care Pro vider Friend, Dr. Olguin Attending Provider [phone] [address] Olguin Referring Provider [phone] Friend, Dr. Olguin Other Provider [phone] RHIANNA Gonzalez Other Provider [phone] [place] [address], Lisa Figueroa Referring Provid er [facility], Flintonelissa Figueroa Primary Care Pro vider [facility], Lisa Figueroa Referring Provid er FriendDr. Olguin Attending Provider [phone] FriendDr[address] Olguin Other Provider [phone] [facility], Flinton Henry Primary Care Pro vider [facility], Flintonelissa Figueroa Referring Provid er Dr. Sharif Pérez Attending Provider Tobias LABORER ELECTROPLATING, LABORER ELECTROPLATING-C Eloisa Dickens Attending Provider [phone] Renée Alamo RN Unavailable [facility], [place]our S Unavailable Renée Alamo RN Unavailable Unavailable [facility], [place]our S Unavailable Scooter Castellanos MD Unavailable Friend Sharif PARKS Unavailable Unavailable [facility], [facility] Primary Care Pro vider [facility], [facility] Referring Provid er Tobias LABORER ELECTROPLATING, LABORER ELECTROPLATING-C Eloisa Dickens Attending Provider [phone] Dr. Jenna Newby Attending Provider Tobias LABORER ELECTROPLATING, LABORER ELECTROPLATING-C Eloisa Dickens Referring Provider [phone] [facility], [facility] Primary Care Pro vider [facility], [facility] Referring Provid er Tobias LABORER ELECTROPLATING, LABORER ELECTROPLATING-C Eloisa Dickens Attending Provider [phone] Carmita Gonzalez Unavailable [facility], [facility] Primary Care Pro vider [facility], [facility] Referring Provid er MD Lambert Yanez Attending Provider Dr. Demar Stringer Attending Provider Tobias LABORER ELECTROPLATING, LABORER ELECTROPLATING-C Eloisa Dickens Attending Provider [phone] Dr. Deborah Scott Attending Provider FriendDr. Olguin Attending Provider [phone] FriendDr. Olguin Other Provider Carlos JOHNSON, Carmita K Unavailable Carlos JOHNSON, Carmita K Primary Care Provider Shelly Salgado NP Unavailable [facility], [facility] Primary Care Pro vider [facility], [facility] Referring Provid er Dr. Deborah Scott Attending Provider [phone] Tobias LABORER ELECTROPLATING, LABORER ELECTROPLATINGJoanC Eloisa Dickens Attending Provider SUKRITHAN, SCOOTER K Attending Unavailable SELF, SELF Referring Unavailable SUKRITHAN, SCOOTER K Attending Unavailable SELF, SELF Referring Unavailable RAYMOND, HANSEL Referring Unavailable RAYMOND, HANSEL Attending Unavailable SUKRITHAN, SCOOTER K Referring Unavailable SUKRITHAN, SCOOTER K Attending Unavailable JASON, QI L Attending Unavailable SUKRITHAN, SCOOTER K Referring Unavailable SUKRITHAN, SCOOTER K Referring Unavailable JASON, QI L Attending Unavailable Unavailable Primary Care Provider OLY Hernandez Attending [facility], [facility] Primary Care Pro vider Dr. Karl Grover MD Emergency Provider Dr. Karl Grover MD Attending Provider Dr. César Up DO Emergency Provider Care Physician, No Primary Primary Care Provider [facility] Primary [facility] Unavailable Karl Grover Attending Unavailable Care Physician, No Primary Primary Care Unava ilable César Up Attending Unavailable César Up Attending Unavailable Care Physician, No Primary Primary Care Unava ilable Allergies Allergy Classification Reported Allergen(s) Allergy Type Date of Onset Reaction(s) Facility (5 sources) acetaminophen / HYDROcodone; Translations: [HYDROCODONE-ACET AMINOPHEN] Propensity to adverse reactions to drug [address] [facility] Work Phone: (20 sources) promethazine; Translations: [PROMETHAZINE] Propensity to adverse reactions to drug [address] [facility] Work Phone: (17 sources) diclofenac; Translations: [DICLOFENAC] Drug Allergy 7 Other (See Comments) [facility] Work Phone: Comment on above: MIGRAINE (17 sources) Penicillins; Translations: [PENICILLINS] Propensity to adverse reactions to drug 6 [facility] Work Phone: (15 sources) HYDROcodone Drug Allergy 2 [facility] Work Phone: (11 sources) Iodinated Contrast Media; Translations: [Iodinated Contrast Media] Allergy to substance 2 [facility] (3 sources) Diatrizoate Drug Allergy 2 [facility] (2 sources) Fluconazole Propensity to adverse reactions 5 [facility] (2 sources) Penicillins Propensity to adverse reactions 5 [facility] (1 source) Diclofenac Drug Allergy 5 [facility] (1 source) HYDROcodone Drug Allergy 5 [facility] (1 source) Penicillins Drug allergy (disorder) 5 [facility] (1 source) Promethazine Drug Allergy 5 [facility] Medications Current Medications Medication Drug Class(es) Dates Sig (Normalized) Sig (Original) acetaminophen 500 mg oral tablet (1 source) take 500 tablets by mouth every six hours acetaminophen (TYLENOL) 500 MG tablet Take 500 mg by mouth every 6 (six) hours as needed for pain. Active acetaminophen 325 mg / oxyCODONE hydrochloride 5 mg oral tablet (8 sources) Opioid Agonist Start: 02-23-2025 take 1 tablet by mouth every eight hours as needed for pain Oxycodone-Acetamino phen (Percocet) 5-325 mg tablet Active 1 {tbl} PO Q8H as needed for pain 10 3 0 February 23, 2025 Fracture of fifth metacarpal bone of right hand Start: 07-30-2022 End: 08-28-2022 Oxycodone-Acetaminophen (Per cocet) 5-325 mg tablet Discontinued 1 {tbl} PO EVERY 6 HOURS as needed for pain 12 3 0 July 30, 2022 August 28, 2022 10:22am Rotator cuff arthropathy of right shoulder Other specific arthropathies, not elsewhere classified, right shoulder baclofen 20 mg oral tablet (1 source) gamma-Aminobutyric Acid-ergic Agonist Start: 04-20-2017 End: 05-20-2017 take 1 tablet by mouth three times daily baclofen (LIORESAL) 20 MG tablet Take 1 (one) tablet (20 mg total) by mouth 3 (three) times a day. 90 tablet 0 04/20/2017 05/20/2017 Active colestipol hydrochloride 1000 mg oral tablet (3 sources) Bile Acid Sequestrant Start: 12-07-2022 take 1-2 tablets by mouth once daily Colestipol (Colestid) 1 gram tablet Active 0 PO DAILY 60 0 December 07, 2022 12:00am 1-2 tabs orally daily; avoid other meds 1 hr prior and 4 hrs after colestipol dicyclomine hydrochloride 20 mg oral tablet (1 source) Anticholinergic Start: 10-12-2022 take 20 mg by mouth three times daily Dicyclomine Active 20 MG PO THREE TIMES A DAY October 12, 2022 12:00am DULoxetine 30 mg delayed release oral capsule (6 sources) Serotonin and Norepinephrine Reuptake Inhibitor Start: 08-28-2022 take 2 capsules by mouth at bedtime Duloxetine 30 mg capsule,delayed release(DR/EC) Active 60 mg PO AT BEDTIME August 28, 2022 1:00am Start: 08-28-2022 take 60 mg by mouth at bedtime Duloxetine Active 60 MG PO AT BEDTIME August 28, 2022 1:00am Start: 04-20-2017 End: 04-20-2018 take 1 capsule by mouth once daily DULoxetine (CYMBALTA) 30 MG capsule Take 1 (one) capsule (30 mg total) by mouth daily. 30 capsule 11 04/20/2017 04/20/2018 Active Lidocaine (4 sources) Antiarrhythmic, Amide Local Anesthetic Start: 11-22-2022 Lidocaine 4 % aerosol,spray Active 1 NMA TOPICAL EVERY 8 HOURS NEEDED as needed for sore throat 113 0 November 22, 2022 1:03am Start: 11-22-2022 apply 1 spray(s) top ically every eight hours as needed Lidocaine Active 1 SPRAY TOPICAL EVERY 8 HOURS NEEDED 113 November 22, 2022 1:03am medicinal cannabis (MEDICINAL MARIJUANA) (3 sources) nabumetone 500 mg oral tablet (1 source) Nonsteroidal Anti-inflammatory Drug Start: 04-20-20 End: 04-20-20 take 1 tablet by mouth twice daily nabumetone (RELAFEN) 500 MG tablet Take 1 (one) tablet (500 mg total) by mouth 2 (two) times a day. 60 tablet 11 04/20/2017 04/20/2018 Active [place] (Nk) (1 source) Start: 03-13-20 [place] (Nk) Active March 13, 2022 12:00am 72 hr scopolamine 0.0139 mg/hr transdermal system (5 sources) Anticholinergic Start: 11-21-19 Scopolamine Base 1 mg over 3 days patch 3 day Active 1 NMA TD Every 3 Days as needed for nausea and vomiting 04 18November 20, 2022 12:00am Start: 11-20-2022 Scopolamine Ba se Active 1 PATCH TD Q3D November 20, 2022 12:00am topiramate 100 mg oral tablet (20 sources) Start: 11-17-2022 take 1 tablet by mouth at bedtime Topiramate 100 mg Tablet Active 100 mg PO AT BEDTIME November 17, 2022 12:00am Start: 10-12-2022 take 2 tablets by mo uth once daily Topiramate (Topamax) 25 mg tablet Active 50 mg PO DAILY October 12, 2022 12:00am Start: 08-18-2021 End: 03-11-2022 Topiramate (Topamax) 50 mg T ablet Discontinued 25 mg PO DAILY August 18, 2021 1:00am March 11, 2022 11:23am Start: 06-02-2021 End: 03-11-2022 take 1 tablet by mouth at bedtime Topiramate (Topamax) 50 mg Tablet Discontinued 50 mg PO AT BEDTIME August 18, 2021 1:00am March 11, 2022 11:23am ursodiol 250 mg oral tablet (6 sources) Bile Acid Start: 06-05-2022 take 1 tablet by mouth twice daily Ursodiol 250 mg tablet Active 250 mg PO TWICE A DAY 180 June 05, 2022 1:00am vitamin e 180 mg oral capsule (6 sources) Start: 06-05-2022 take 1 capsule by mouth twice daily Vitamin E (Dl, Acetate) 180 mg (400 unit) capsule Active 180 mg PO TWICE A DAY 180 June 05, 2022 1:00am Completed/Discontinued Medications Medication Drug Class(es) Dates Sig (Normalized) Sig (Original) amylase 72452 unt / lipase 3000 unt / protease 9500 unt delayed release oral capsule (12 sources) Start: 09-04-2021 End: 03-11-2022 take 1 capsule by mouth every twenty-four hours Gkpbxo-Avljmioo-Aw ylase (Creon) 3,000-9,500- 15,000 unit capsule,delayed release(DR/EC) Discontinued 1 NMA PO THREE TIMES A DAY 90 30 2 September 04, 2021 1:00am March 11, 2022 11:23am do not exceed 10,000 unit/kg lipase per 24 hrs clindamycin 150 mg oral capsule (12 sources) Lincosamide Antibacterial Start: 10-04-2020 End: 10-14-2020 take 3 capsules by mouth three times daily Clindamycin Hcl 150 MG capsule Discontinued 450 mg PO THREE TIMES A DAY 90 10 October 04, 2020 12:00am October 13, 2020 12:00am October 14, 2020 12:03am Start: 10-04-2020 End: 10-14-2020 take 450 mg by mouth three times daily Clindamycin Hcl Discontinued 450 MG PO THREE TIMES A DAY 90 October 04, 2020 12:00am October 14, 2020 12:03am cyclobenzaprine hydrochloride 10 mg oral tablet (12 sources) Muscle Relaxant Start: 03-31-2018 End: 04-27-2018 take 1 tablet by mouth three times daily as needed for muscle spasms Cyclobenzaprine 10 MG tablet Discontinued 10 mg PO THREE TIMES A DAY as needed for Muscle Spasm March 31, 2018 12:00am April 27, 2018 10:19am escitalopram 10 mg oral tablet (15 sources) Serotonin Reuptake Inhibitor Start: 06-04-2021 End: 03-11-2022 take 1 tablet by mouth at bedtime Escitalopram Oxalate (Lexapro) 10 mg Tablet Discontinued 10 mg PO AT BEDTIME August 18, 2021 1:00am March 11, 2022 11:23am gadoterate Meglumine (DOTAREM) 5 MMOL/10ML injection 3-60 mL (1 source) Start: 05-06-2022 End: 05-06-2022 gadoterate Meglumine (DOTAREM) 5 MMOL/10ML injection 3-60 mL hydroCHLOROthiazide 25 mg oral tablet (1 source) Thiazide Diuretic Start: 02-19-2022 End: 04-01-2022 hydroCHLOROthiazide 25 MG tablet Take by mouth daily as needed. 0 02/19/2022 04/01/2022 Discontinued (Patient Preference) hydrOXYzine pamoate 25 mg oral capsule (12 sources) Antihistamine Start: 02-04-2022 End: 04-01-2022 hydrOXYzine pamoate 25 MG capsule Take by mouth at bedtime as needed. 0 02/04/2022 04/01/2022 Discontinued (Patient Preference) Start: 01-28-2022 End: 04-01-2022 take 1 tablet by mouth three times daily as needed Hydroxyzine Hcl 25 mg tablet Discontinued 25 mg PO THREE TIMES A DAY as needed for itching 14 January 28, 2022 12:00am March 11, 2022 11:23am ketoconazole 20 mg/ml topical cream (1 source) Azole Antifungal Start: 01-14-2022 End: 04-01-2022 ketoconazole 2 % Cream cream APPLY TO THE AFFECTED AREA TWICE DAILY UNTIL RASH IS GONE (THIS WILL USUALLY TAKE 2-4 WEEKS) USE FOR AT LEAST ONE WEEK AFTER RASH DISAPPEARS. 0 01/14/2022 04/01/2022 Discontinued (Patient Preference) methocarbamol 750 mg oral tablet (1 source) Muscle Relaxant End: 04-20-2017 take 1 tablet by mouth three times daily methocarbamol (ROBAXIN) 750 MG tablet Take 750 mg by mouth 3 (three) times a day 2 tabs tid . 04/20/2017 Discontinued naproxen 500 mg oral tablet (19 sources) Nonsteroidal Anti-inflammatory Drug Start: 07-30-2022 End: 08-28-2022 take 1 tablet by mouth twice daily as needed Naproxen 500 mg tablet Discontinued 500 mg PO TWICE DAILY NEEDED July 30, 2022 1:00am August 28, 2022 10:21am Start: 03-31-2018 End: 04-27-2018 take 1 tablet by mouth twice daily as needed Naproxen 500 MG tablet Discontinued 500 mg PO TWICE DAILY NEEDED March 31, 2018 12:00am April 27, 2018 10:19am End: 04-20-2017 take 1 tablet by mouth twice daily as needed naproxen (NAPROSYN) 500 MG tablet Take 500 mg by mouth 2 (two) times a day as needed. 04/20/2017 Discontinued omeprazole 40 mg delayed release oral capsule (20 sources) Proton Pump Inhibitor Start: 06-08-2021 End: 10-12-2022 take 1 capsule by mouth once daily Omeprazole 40 mg Capsule,Delayed Release(Dr/Ec) Discontinued 40 mg PO DAILY August 18, 2021 1:00am March 11, 2022 11:23am ondansetron 4 mg oral tablet (13 sources) Serotonin-3 Receptor Antagonist Start: 10-30-2021 End: 04-01-2022 take 1 tablet by mouth every eight hours as needed for nausea and vomiting Ondansetron Hcl 4 mg tablet Discontinued 4 mg PO Q8H as needed for nausea and vomiting 45 3 October 30, 2021 12:00am March 11, 2022 11:23am potassium chloride 20 meq extended release oral tablet (8 sources) Start: 08-28-2022 End: 10-12-2022 Potassium Chloride 20 mEq tablet extended release Discontinued 20 meq PO August 28, 2022 1:00am October 12, 2022 2:57pm Start: 05-15-2021 potassium chlo ride (K-TAB) 10 mEq tablet predniSONE 20 mg oral tablet (11 sources) Start: 01-28-2022 End: 04-01-2022 take 1 tablet by mouth twice daily Prednisone 20 mg tablet Discontinued 20 mg PO TWICE A DAY 10 January 28, 2022 12:00am March 11, 2022 11:23am 10 ml sodium chloride 9 mg/ml injection (1 source) Start: 05-06-2022 End: 05-06-2022 sodium chloride (PF) 0.9 % injection 1-250 mL sucralfate 1000 mg oral tablet (5 sources) Aluminum Complex Start: 11-20-2022 End: 12-07-2022 take 1 tablet by mouth twice daily Sucralfate (Carafate) 1 gram tablet Discontinued 1 g PO TWICE A DAY 60 November 20, 2022 12:00am December 07, 2022 10:55am SUMAtriptan 100 mg oral tablet (15 sources) Serotonin-1b and Serotonin-1d Receptor Agonist Start: 08-18-2021 End: 03-11-2022 take 1 tablet by mouth every two hours as needed Sumatriptan Succinate (Imitrex) 100 mg Tablet Discontinued 100 mg PO Q2H as needed for MIRGRAINES August 18, 2021 1:00am March 11, 2022 11:23am Start: 05-04-2021 SUMAtriptan (I MITREX) 50 mg tablet Problems Active Problems Problem Classification Problem Date Documented Da te Episodic/Chronic Abdominal pain (20 sources) Abdominal pain; Translations: [Unspecified abdominal pain] Onset: 04-02-2025 Episodic Allergic reactions (10 sources) Eruption due to drug; Translations: [Generalized skin eruption due to drugs and medicaments taken internally] 02-05-2022 Episodic Anxiety disorders (12 sources) Anxiety; Translations: [Anxiety disorder, unspecified] 01-07-2019 Chronic Biliary tract disease (16 sources) Dysfunction of sphincter of Oddi; 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] Chronic Biliary tract disease (12 sources) Poorly functioning gallbladder; Translations: [Other specified diseases of gallbladder] 10-13-2022 Episodic Comment on above: 18% ejection fractio n from a HIDA scan in 2020 Calculus of urinary tract (1 source) Kidney stone; Translations: [Calculus of kidney] Episodic Cancer; other and unspecified primary (5 sources) History of neuroendocrine malignant neoplasm; Translations: [Personal history of malignant neoplasm of other organs and systems] 10-06-2022 Episodic Cancer; other and unspecified primary (7 sources) Personal history of malignant neoplasm of other organs and systems; Translations: [Personal history of malignant neuroendocrine tumor] 10-06-2022 Episodic Disorders of teeth and jaw (20 sources) Dental caries; Translations: [Dental caries, unspecified] 10-05-2020 Episodic Fracture of upper limb (2 sources) Unspecified fracture of fifth metacarpal bone, right hand, initial encounter for closed fracture; Translations: [Fracture of fifth metacarpal bone of right hand] 02-23-2025 Episodic Gastritis and duodenitis (20 sources) Duodenitis; Translations: [Duodenitis, without mention of hemorrhage] Episodic Headache; including migraine (12 sources) Headache; Translations: [Headache] 04-01-2017 Episodic Malaise and fatigue (4 sources) Chronic fatigue syndrome; Translations: [Chronic fatigue, unspecified] Onset: 04-20-2017 04-20-2017 Chronic Malaise and fatigue (12 sources) Fatigue; Translations: [Other fatigue] 01-20-2021 Episodic Malignant neoplasm without specification of site (5 sources) Malignant neuroendocrine tumor; Translations: [Other malignant neuroendocrine tumors] Onset: 05-13-2022 Chronic Mood disorders (12 sources) Depressive disorder; Translations: [Depression] 01-07-2019 Chronic Nausea and vomiting (12 sources) Nausea and vomiting; Translations: [Nausea with vomiting, unspecified] 10-06-2022 Episodic Osteoarthritis (12 sources) Arthritis; Translations: [Unspecified osteoarthritis, unspecified site] 01-07-2019 Chronic Other and unspecified benign neoplasm (8 sources) Neuroendocrine tumor; Translations: [Other benign neuroendocrine tumors] 01-05-2022 Episodic Other and unspecified benign neoplasm (7 sources) Other benign neuroendocrine tumors; Translations: [Benign carcinoid tumor of unknown primary site] Episodic Comment on above: Duodenum Other and unspecified benign neoplasm (5 sources) Carcinoid tumor of small intestine; Translations: [Benign carcinoid tumor of the small intestine, unspecified portion] 03-18-2022 Episodic Other and unspecified benign neoplasm (3 sources) Benign carcinoid tumor of the small intestine, unspecified portion; Translations: [Benign carcinoid tumor of the small intestine, unspecified portion] Episodic Other and unspecified benign neoplasm (2 sources) Neoplasm of small intestine; Translations: [Benign carcinoid tumor of the small intestine, unspecified portion] 03-18-2022 Episodic Other connective tissue disease (5 sources) Internal impingement of right shoulder; Translations: [Impingement syndrome of right shoulder] 08-28-2022 Episodic Other connective tissue disease (2 sources) Impingement syndrome of right shoulder; Translations: [Other affections of shoulder region, not elsewhere classified] 08-28-2022 Episodic Other disorders of stomach and duodenum (19 sources) Mass of duodenum; Translations: [Other specified disorders of stomach and duodenum] 10-30-2021 Episodic Other gastrointestinal disorders (5 sources) Diarrhea; Translations: [Diarrhea, unspecified] 10-06-2022 Episodic Other gastrointestinal disorders (7 sources) Diarrhea, unspecified; Translations: [Diarrhea] 10-06-2022 Episodic Other injuries and conditions due to external causes (6 sources) Injury of right rotator cuff; Translations: [Unspecified injury of muscle(s) and tendon(s) of the rotator cuff of right shoulder, initial encounter] 08-07-2022 Episodic Other liver diseases (7 sources) Steatosis of liver; Translations: [Fatty (change of) liver, not elsewhere classified] 05-14-2022 Chronic Other liver diseases (8 sources) Fatty (change of) liver, not elsewhere classified; Translations: [Other chronic nonalcoholic liver disease] Chronic Other nervous system disorders (4 sources) Postoperative pain ; Translations: [Other acute postprocedural pain] 11-22-2022 Episodic Other non-traumatic joint disorders (6 sources) Rotator cuff arthropathy of right shoulder; Translations: [Other specific arthropathies, not elsewhere classified, right shoulder] 07-30-2022 Chronic Other non-traumatic joint disorders (5 sources) Shoulder pain; Translations: [Pain in right shoulder] 08-28-2022 Episodic Other non-traumatic joint disorders (8 sources) Pain in right shoulder; Translations: [Pain in joint, shoulder region] 08-28-2022 Episodic Other nutritional; endocrine; and metabolic disorders (3 sources) Obese class II; Translations: [Obesity, unspecified] Onset: 04-01-2022 04-01-2022 Chronic Other upper respiratory infections (4 sources) Pain in throat; Translations: [Acute pharyngitis, unspecified] 11-22-2022 Episodic Residual codes; unclassified (12 sources) History of endometrial ablation; Translations: [Other specified postprocedural states] 10-30-2021 Episodic Comment on above: 2009 Skin and subcutaneous tissue infections (5 sources) Abscess; Translations: [Cutaneous abscess, unspecified] 10-22-2022 Episodic Spondylosis; intervertebral disc disorders; other back problems (16 sources) Neck pain; Translations: [Cervicalgia] Onset: 04-20-2017 04-20-2017 Episodic Sprains and strains (4 sources) Sprain of left knee; Translations: [Sprain of unspecified site of left knee, initial encounter] Onset: 01-29-2025 01-29-2025 Episodic Superficial injury; contusion (16 sources) Contusion of elbow; Translations: [Contusion of left elbow, initial encounter] Onset: 01-29-2025 11-29-2020 Episodic Unclassified (2 sources) Venipuncture; Translations: [Venipuncture] Onset: 04-01-2022 Past or Other Problems Problem Classification Problem Date Documented Da te Episodic/Chronic Crushing injury or internal injury (4 sources) Contusion of spleen; Translations: [Contusion of lung] Onset: 01-27-2016 01-27-2016 Episodic Mood disorders (3 sources) Mood disorders Onset: 04-01-2022 Resolved: 05-13-2022 04-01-2022 Other connective tissue disease (1 source) Pain in right hand; Translations: [Pain in right hand] Onset: 02-27-2025 Episodic Other fractures (9 sources) Closed fracture of sixth cervical vertebra; Translations: [Fracture of thoracic spine] Onset: 01-23-2016 01-23-2016 Episodic Unclassified (2 sources) Sprain of left knee 01-29-2025 Unclassified (2 sources) Contusion of left knee 01-29-2025 Results Test Name Value Interpretation Reference Range Facility Chest PA and Lateralon 05-29 Chest PA and Lateral [facility] [address] [place] [address] Chest PA and Lateral MR#: [id number] Acct: [id number] Name: CLINTON HAYWARD Rep #: [id number] : 1985 F 40 From: Gen [place] PCP: Care Physician,No Primary Status: REG ER Study: Chest PA and Lateral Date of Exam: 05/29/25 Exam# [id number] Ordering Dr: Césra Up DO PROCEDURE: CHEST PA AND LATERAL 05/29/2025 REASON FOR EXAM: COUGH TECHNIQUE: Procedure Code: RADCXR Modality: DX Procedure: CHEST PA AND LATERAL COMPARISON: 11/21/22 FINDINGS: No focal consolidation. No pleural effusion or pneumothorax. Cardiac silhouette is within normal limits. No acute fractures. RAD/Chest PA and Lateral IMPRESSION: No focal consolidations. Reading Location: [facility] CC: Dr. César Up DO; No Primary Care Physician Technology Project Manager: Signed Normal [facility] Summary on 05-29-2025 Emergency Department Summary [facility] Medical Records Department [address] [place] [address] Emergency Department Summary 05/29/25 MR#: [id number] Acct: [id number] Name: CLINTON HAYWARD Rep #: [id number] : 1985 40 From: César Up DO PCP: Care Physician,No Primary Status:REG ER Location: ED HPI History of Present Illness Chief Complaint: Cold Sx Narrative Narrative: Patient is a 40-year-old female with past medical history of cough, congestion, bilateral ear pain and sore throat. States that this been going on for approximately 2 weeks now she states that her symptoms originally started getting better however states that she started to feel ill again prompting her to come here for further evaluation management. States that she has been coughing but states that she has not any fevers. States that she does smoke as well. Denies any drug use denies any alcohol use. Denies any sick contacts. 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 Wears dentures Marijuana use Easy bruising Restless legs Migraine headache Injury of head and neck Smoker Leg cramps History of edema Anxiety Depression Arthritis Home Medications ???Medication ???Instructions ???Recorded ???Last Taken ???Type ursodiol 250 mg tablet 250 mg PO BID #180 tabs 06/05/22 U nknown Rx vitamin E (dl, acetate) 180 mg 180 mg PO BID #180 caps 06/05/22 U nknown Rx (400 unit) capsule duloxetine 30 mg capsule,delayed 60 mg PO QHS 08/28/22 Unknown Hist ory release topiramate 25 mg tablet (Topamax) 50 mg PO DAILY 10/12/22 Unknown H istory topiramate 100 mg tablet 100 mg PO QHS 11/17/22 Unknown His tory scopolamine base 1 mg over 3 days 1 patch transdermal Q3D PRN nause a 11/20/22 Unknown Rx transdermal patch and vomiting #10 ea lidocaine 4 % topical spray 1 spray topical Q8H PRN PRN sore 0 11/22/22 Unknown Rx throat #113 grams colestipol 1 gram tablet (Colestid) See Rx Instructions PO DAILY #6 0 12/07/22 Unknown Rx tabs oxycodone-acetaminophen 5 mg-325 1 tab PO Q8H PRN pain 3 days #10 0 02/23/25 Unknown Rx mg tablet (Percocet) tabs Allergy/AdvReac Type Severity Reaction Status Date / Time hydrocodone (From [facility]) Allergy Rash Verified 05/29/25 13:45 Iodinated Contrast Media Allergy Rash Verified 05/29/25 13:45 (CONTRASTS) Penicillins Allergy Rash Verified 05/29/25 13:45 diclofenac AdvReac Other Verified 05/29/25 13:45 promethazine (From Phenergan) AdvReac Vomiting Verified 05/29/25 13:45 Family History Father Arthritis Hypertension Mother Thyroid disorder Cancer Lung Daughter Asthma Aunt Cancer unknown type Grandmother Cancer unknown type Surgical History History of esophagogastroduodenoscopy (EGD) History of partial hysterectomy History of endometrial ablation Hx of tubal ligation Hx of appendectomy Social History household members: spouse and children number of children: 2 current occupation: starting new job tomorrow at [employer] Smoking Status: Current every day smoker tobacco type: cigarettes Tobacco: How many years used: 15 second hand exposure: Yes alcohol intake: current alcohol intake frequency: holidays/special occasions only substance use type: does not use and marijuana caffeine: Yes Type: carbonated beverages and tea seatbelt use: always ROS ROS ED ROS Narrative Constitutional: Denies any fevers, chills, headaches Eyes, ears, nose, throat: Complains bilateral ear pain denies double vision Cardiovascular: Denies chest pain Respiratory: Complains of cough denies shortness of breath Abdomen: Denies abdominal pain nausea vomit diarrhea : Denies urinary symptoms Neurological: Denies any numbness, weeks, tingling Musculoskeletal: Denies back pain Skin: Denies any rashes or lesions EXAM Physical Exam Narrative Exam Narrative: General: Patient lying in bed rest comfortably did not appear to be in acute distress Head: Atraumatic, normocephalic Eyes: PERRL bilaterally, EOMI bilaterally, no conjunctival injection noted, TMs visualized bilaterally she does have fluid behind them bilaterally however no evidence of otitis media Neck: Soft, supple, trachea midline Cardiovascular: Regular rate and rhythm Respiratory: Clear to auscultation bilaterally no rales rhonchi or wheezes noted Abdomen: Soft, nondistended, nontender to palpation Extremities: +5/5 strength not (more content not included)... Normal [facility] M100.677on 05-29-2025 M100.677 Negative Normal [facility] Comment on above: Performed By: #### M 100.677 #### [facility] [address] [facility]. [place], [place], [address] Abdomen/Pelvis W IV Cont ONL Yon 03-30-2025 Abdomen/Pelvis W IV Cont ONLY [facility] Imaging Services [address] [place], [place] [address] Abdomen/Pelvis W IV Cont ONLY MR#: [id number] Acct: [id number] Name: CLINTON HAYWARD Rep #: [id number] : 1985 F 40 From: Max holman MD PCP: Care Physician,No Primary Status: REG ER Study: Abdomen/Pelvis W IV Cont ONLY Date of Exam: Exam# [id number] Ordering Dr: César Up DO PROCEDURE: ABDOMEN/PELVIS W IV CONT ONLY 03/30/2025 REASON FOR EXAM: LLQ PAIN TECHNIQUE: Procedure Code: [id number] Modality: CT Procedure: ABDOMEN/PELVIS W IV CONT ONLY Coronal and Sagittal reconstruction series were provided. CONTRAST: Isovue 370 VOLUME: 99 mL One or more dose reduction techniques were used (e.g., Automated exposure control, adjustment of the mA and/or kV according to patient size, use of iterative reconstruction technique. RADIATION DOSE SUMMARY: CTDlvol: 21.32 mGy DLP: 11.87 mGycm COMPARISON: Previous examination dated 01/26/2022 FINDINGS: The lung bases are clear. There is no pericardial or pleural effusion. No focal consolidation present. The unenhanced appearance of the liver is remarkable for slight fatty infiltration. No focal liver mass seen. The portal and hepatic veins are patent. The gallbladder, biliary tree, pancreas and spleen are normal. The adrenal glands are unremarkable. There is a nonobstructing stone in the mid to lower pole of the right kidney. There is no hydronephrosis or urolithiasis. The urinary bladder is unremarkable. Patient is status post hysterectomy. There is no adnexal mass present. No abnormal fluid collection seen in the pelvis. There is no ascites. Osseous structures are normal. Loops of bowel are unremarkable. The patient is status post cholecystectomy. A small sliding hiatal hernia is identified. There is no evidence to suggest active or acute diverticulitis. Soft tissues around the abdominal wall appear normal CT/Abdomen/Pelvis W IV Cont ONLY IMPRESSION: No acute inflammatory process of the abdomen or pelvis. Mild fatty infiltration. Reading Location: [facility] CC: Dr. César Up, DO; No Primary Care Physician Technology Project Manager: Signed Normal [facility] Absolute lymphocyte countOrd ered By: César Up on 03-30-2025 Lymphocytes Auto (Unsp spec) [#/Vol] 3.71 10*3/uL 0.83-4.51 [facility] Absolute neutrophil countOrd ered By: César Up on 03-30-2025 Neutrophils (Bld) [#/Vol] 8.8 10*3/uL High 2.0-7.7 [facility] Anion gap in Serum or Plasma Ordered By: César Up on 03-30-2025 Anion gap [Moles/Vol] 9 mmol/L 5-15 [facility] Automated lymphocyte count a s percentage of total leukocytesOrdered By: César Up on 03-30-2025 Lymphocytes/100 WBC Auto (Unsp spec) 26.8 % 19-41 [facility] BUN/creatinine ratioOrdered By: César Up on 03-30-2025 Urea nitrogen/Creatinine [Mass ratio] 7.0 mg/mg Low 10-20 [facility] Basophil percentageOrdered B y: César Up on 03-30-2025 Basophils/100 WBC (Bld) 0.5 % 0-1 [facility] Bilirubin Test strip Ql (U)O rdered By: César Up on 03-30-2025 Bilirubin Ql (U) Negative Negative [facility] Bilirubin, totalOrdered By: César Up on 03-30-2025 Bilirubin [Mass/Vol] 0.48 mg/dL 0.00-1.30 [facility] CBC W/Diff, Automatedon 03-19 Absolute Lymph 3.71 X10 3/uL Normal 0.83-4.51 [facility] Comment on above: Performed By: #### L 100.0100, L500.4050, L501.2450 #### [facility] [address] [place], [address] Absolute Neut 8.8 X10 3/uL High 2.0-7.7 [facility] Comment on above: Performed By: #### L 100.0100, L500.4050, L501.2450 #### [facility] [address] [place], [address] Basophils/100 WBC (Bld) 0.5 % Normal 0-1 [facility] Comment on above: Performed By: #### L 100.0100, L500.4050, L501.2450 #### [facility] [address] [place], [address] Eosinophils/100 WBC (Bld) 0.9 % Normal 0-5 [facility] Comment on above: Performed By: #### L 100.0100, L500.4050, L501.2450 #### [facility] [address] [place], [address] Erythrocyte distribution width (RBC) [Ratio] 12.3 % Normal 11.6-14.6 [facility] Comment on above: Performed By: #### L 100.0100, L500.4050, L501.2450 #### [facility] [address] [place], [address] Hematocrit (Bld) [Volume fraction] 45.7 % Normal 37-47 [facility] Comment on above: Performed By: #### L 100.0100, L500.4050, L501.2450 #### [facility] [address] [place], [address] Hemoglobin (Bld) [Mass/Vol] 15.5 g/dL High 12.0-15.0 [facility] Comment on above: Performed By: #### L 100.0100, L500.4050, L501.2450 #### [facility] [address] [place], [address] IG% 0.400 Normal 0.0-0.9 [facility] Comment on above: Result Comment: IG% - Immature Granulocytes (promyelocytes, myelocytes and metamyelocytes) > 1% indicates that a LEFT SHIFT is Present. Performed By: #### L 100.0100, L500.4050, L501.2450 #### [facility] [address] [place], [address] Lymphocytes/100 WBC (Bld) 26.8 % Normal 19-41 [facility] Comment on above: Performed By: #### L 100.0100, L500.4050, L501.2450 #### [facility] [address] [place], [address] MCH (RBC) [Entitic mass] 30.8 pg Normal 27.0-32.0 [facility] Comment on above: Performed By: #### L 100.0100, L500.4050, L501.2450 #### [facility] [address] [place], [address] MCHC (RBC) [Mass/Vol] 33.9 g/dL Normal 32-36 [facility] Comment on above: Performed By: #### L 100.0100, L500.4050, L501.2450 #### [facility] [address] [place], [address] MCV (RBC) [Entitic vol] 90.7 fL Normal 81-99 [facility] Comment on above: Performed By: #### L 100.0100, L500.4050, L501.2450 #### [facility] [address] [place], [address] Monocytes/100 WBC (Bld) 8.0 % Normal 0-10 [facility] Comment on above: Performed By: #### L 100.0100, L500.4050, L501.2450 #### [facility] [address] [place], [address] Neutrophils/100 WBC (Bld) 63.4 % Normal 47-70 [facility] Comment on above: Performed By: #### L 100.0100, L500.4050, L501.2450 #### [facility] [address] [place], [address] Nucleated RBC (Bld) [#/Vol] 0 10*3/uL Normal 0-5 [facility] Comment on above: Performed By: #### L 100.0100, L500.4050, L501.2450 #### [facility] [address] [place], [address] Platelet mean volume (Bld) [Entitic vol] 9.8 fL Normal 6.2-12.0 [facility] Comment on above: Performed By: #### L 100.0100, L500.4050, L501.2450 #### [facility] [address] [place], [address] Platelets (Bld) [#/Vol] 284 10*3/uL Normal 150-450 [facility] Comment on above: Performed By: #### L 100.0100, L500.4050, L501.2450 #### [facility] [address] [place], [address] RBC (Bld) [#/Vol] 5.04 10*6/uL Normal 4.2-5.4 [facility] Comment on above: Performed By: #### L 100.0100, L500.4050, L501.2450 #### [facility] [address] [place], [address] RDW SD 41.1 fl Normal 35.1-43.9 [facility] Comment on above: Performed By: #### L 100.0100, L500.4050, L501.2450 #### [facility] [address] [place], [address] WBC (Bld) [#/Vol] 13.8 10*3/uL High 4.4-11.0 [facility] Comment on above: Performed By: #### L 100.0100, L500.4050, L501.2450 #### [facility] [address] [place], [address] Carbon dioxide, total [Moles /volume] in Central venous bloodOrdered By: César Up on 03-30-2025 CO2 [Moles/Vol] 23.6 mmol/L 21.0-32.0 [facility] Chloride assayOrdered By: Bakari Up on 03-30-2025 Chloride [Moles/Vol] 106 mmol/L 98-108 [facility] Comprehensive Metabolic Prof ilon 03-30-2025 Albumin [Mass/Vol] 4.2 g/dL Normal 3.5-5.[address] [facility] Comment on above: Performed By: #### L 100.0100, L500.4050, L501.2450 ####[facility] [address] [place], [address] Albumin/Globulin [Mass ratio] 1.3 {ratio} Normal 0.9-2.4 [facility] Comment on above: Performed By: #### L 100.0100, L500.4050, L501.2450 ####[facility] [address] [place], [address] ALK PHOS 65 U/L Normal 35-104 [facility] Comment on above: Performed By: #### L 100.0100, L500.4050, L501.2450 ####[facility] [address] [place], [address] ALT [Catalytic activity/Vol] 9 U/L Normal <=34 [facility] Comment on above: Performed By: #### L 100.0100, L500.4050, L501.2450 ####[facility] [address] [place], [address] AST [Catalytic activity/Vol] 14 U/L Normal <=31 [facility] Comment on above: Performed By: #### L 100.0100, L500.4050, L501.2450 ####[facility] [address] [place], [address] Bilirubin [Mass/Vol] 0.48 mg/dL Normal 0.00-1.30 [facility] Comment on above: Performed By: #### L 100.0100, L500.4050, L501.2450 ####[facility] [address] [place], [address] BUN/CRE 7.0 RATIO Low 10-20 [facility] Comment on above: Performed By: #### L 100.0100, L500.4050, L501.2450 ####[facility] [address] [place], [address] Calcium [Mass/Vol] 9.3 mg/dL Normal 7.6-11.[address] [facility] Comment on above: Performed By: #### L 100.0100, L500.4050, L501.2450 ####[facility] [address] [place], [address] Chloride [Moles/Vol] 106 mmol/L Normal 98-108 [facility] Comment on above: Performed By: #### L 100.0100, L500.4050, L501.2450 ####[facility] [address] [place], [address] CO2 [Moles/Vol] 23.6 mmol/L Normal 21.0-32.0 [facility] Comment on above: Performed By: #### L 100.0100, L500.4050, L501.2450 ####[facility] [address] [place], [address] Creatinine [Mass/Vol] 0.72 mg/dL Normal 0.70-1.20 [facility] Comment on above: Performed By: #### L 100.0100, L500.4050, L501.2450 ####[facility] [address] [place], [address] ECRCL 111.63 ml/min Normal 50-250 [facility] Comment on above: Performed By: #### L 100.0100, L500.4050, L501.2450 ####[facility] [address] [place], [address] GAP 9 Normal 5-15 [facility] Comment on above: Performed By: #### L 100.0100, L500.4050, L501.2450 ####[facility] [address] [place], [address] GFR/1.73 sq M.predicted among non-blacks MDRD (S/P/Bld) [Vol rate/Area] 109 mL/min/{1.73_m2} Normal >60 [facility] Comment on above: Result Comment: mL/m in/1.73m2 CKD-EPI Creatinine Equation (2020) Performed By: #### L 100.0100, L500.4050, L501.2450 ####[facility] [address] [place], [address] Globulin (S) [Mass/Vol] 3.3 g/dL Normal 2.2-4.2 [facility] Comment on above: Performed By: #### L 100.0100, L500.4050, L501.2450 ####[facility] [address] [place], [address] Glucose [Mass/Vol] 82 mg/dL Normal 70-[address] [facility] Comment on above: Performed By: #### L 100.0100, L500.4050, L501.2450 ####[facility] [address] [place], [address] Potassium [Moles/Vol] 4.2 mmol/L Normal 3.3-5.1 [facility] Comment on above: Performed By: #### L 100.0100, L500.4050, L501.2450 ####[facility] [address] [place], [address] Sodium [Moles/Vol] 139 mmol/L Normal 133-[address] [facility] Comment on above: Performed By: #### L 100.0100, L500.4050, L501.2450 ####[facility] [address] [place], [address] T PROT 7.5 g/dL Normal 5.9-8.4 [facility] Comment on above: Performed By: #### L 100.0100, L500.4050, L501.2450 ####[facility] [address] [place], [address] Urea nitrogen [Mass/Vol] 5 mg/dL Normal 4-19 [facility] Comment on above: Performed By: #### L 100.0100, L500.4050, L501.2450 ####[facility] [address] [place], [address] Emergency Department Summary on 03-30-2025 Emergency Department Summary [facility] Medical Records Department [address] [place] [address] Emergency Department Summary 03/30/25 MR#: [id number] Acct: [id number] Name: CLINTON HAYWARD Rep #: [id number] : 1985 40 From: César Up DO PCP: Care Physician,No Primary Status:REG ER Location: ED HPI History of Present Illness Chief Complaint: Abd Pain Narrative Narrative: Patient is a 40-year-old female with past medical history of GERD, bipolar disorder, neuroendocrine tumor, anxiety, depression who presented to the emergency department chief complaint of abdominal pain. Patient states that for the past few days she has had abdominal cramping but. That she was coming out with a virus. States that today when she woke up when she use the restroom and wiped after peeing she noted a pink tinge on the paper therefore she came here to be further evaluated. Patient states that she does not have a uterus. Denies any recent contacts. 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 Wears dentures Marijuana use Easy bruising Restless legs Migraine headache Injury of head and neck Smoker Leg cramps History of edema Anxiety Depression Arthritis Home Medications ???Medication ???Instructions ???Recorded ???Last Taken ???Type ursodiol 250 mg tablet 250 mg PO BID #180 tabs 06/05/22 U nknown Rx vitamin E (dl, acetate) 180 mg 180 mg PO BID #180 caps 06/05/22 U nknown Rx (400 unit) capsule duloxetine 30 mg capsule,delayed 60 mg PO QHS 08/28/22 Unknown Hist ory release topiramate 25 mg tablet (Topamax) 50 mg PO DAILY 10/12/22 Unknown H istory topiramate 100 mg tablet 100 mg PO QHS 11/17/22 Unknown His tory scopolamine base 1 mg over 3 days 1 patch transdermal Q3D PRN nause a 11/20/22 Unknown Rx transdermal patch and vomiting #10 ea lidocaine 4 % topical spray 1 spray topical Q8H PRN PRN sore 0 11/22/22 Unknown Rx throat #113 grams colestipol 1 gram tablet (Colestid) See Rx Instructions PO DAILY #6 0 12/07/22 Unknown Rx tabs oxycodone-acetaminophen 5 mg-325 1 tab PO Q8H PRN pain 3 days #10 0 02/23/25 Unknown Rx mg tablet (Percocet) tabs Allergy/AdvReac Type Severity Reaction Status Date / Time hydrocodone (From [facility]) Allergy Rash Verified 03/30/25 10:03 Iodinated Contrast Media Allergy Rash Verified 03/30/25 10:03 (CONTRASTS) Penicillins Allergy Rash Verified 03/30/25 10:03 diclofenac AdvReac Other Verified 03/30/25 10:03 promethazine (From Phenergan) AdvReac Vomiting Verified 03/30/25 10:03 Family History Father Arthritis Hypertension Mother Thyroid disorder Cancer Lung Daughter Asthma Aunt Cancer unknown type Grandmother Cancer unknown type Surgical History History of esophagogastroduodenoscopy (EGD) History of partial hysterectomy History of endometrial ablation Hx of tubal ligation Hx of appendectomy Social History household members: spouse and children number of children: 2 current occupation: starting new job tomorrow at [employer] Smoking Status: Current every day smoker tobacco type: cigarettes Tobacco: How many years used: 15 second hand exposure: Yes alcohol intake: current alcohol intake frequency: holidays/special occasions only substance use type: does not use and marijuana caffeine: Yes Type: carbonated beverages and tea seatbelt use: always ROS ROS ED ROS Narrative Constitutional: Denies fevers, chills, head Cardiovascular: Denies chest pain or palpitations Respiratory: Denies coughing wheezing shortness of breath Abdomen: Complains of abdominal pain as noted above denies nausea vomiting diarrhea : Complains of hematuria as noted above denies painful urination or increased frequency Neurological: Denies any numbness, weakness, tingling Musculoskeletal: Denies back pain Skin: Denies any rashes or lesions EXAM Physical Exam Narrative Exam Narrative: General: There is lying in bed rest comfortably did not appear to be in acute distress Head: Atraumatic, normocephalic Eyes: PERRL bilaterally, EOMI bilaterally, no no conjunctival injection noted Neck: Soft, supple, trachea midline Cardiovascular: Regular rate and rhythm Respiratory: Clear to auscultation bilaterally Abdomen: Soft, nondistended, tenderness palpation left lower quadrant and suprapubic region no rebound or guarding on exam Extremities: +5/5 strength noted in the (more content not included)... Normal [facility] Eosinophil percentageOrdered By: César Up on 03-30-2025 Eosinophils/100 WBC (Bld) 0.9 % 0-5 [facility] Erythrocyte distribution wid th ratioOrdered By: César Up on 03-30-2025 Erythrocyte distribution width (RBC) [Ratio] 12.3 % 11.6-14.6 [facility] Erythrocyte distribution wid th standard deviationOrdered By: César Up on 03-30-2025 Erythrocyte distribution width (RBC) [Ratio] 41.1 fl 35.1-43.9 [facility] Glomerular filtration rate ( GFR) estimation/1.73 sq m using serum, plasma, or whole bOrdered By: César Up on 03-30-2025 GFR/1.73 sq M.predicted among non-blacks MDRD (S/P/Bld) [Vol rate/Area] 109 mL/min/{1.73_m2} >60 [facility] Comment on above: mL/min/1.73m2 CKD-EP I Creatinine Equation (2020) Hematocrit Auto (Bld) [Volum e fraction]Ordered By: César Up on 03-30-2025 Hematocrit (Bld) [Volume fraction] 45.7 % 37-47 [facility] Hemoglobin measurementOrdere d By: César Up on 03-30-2025 Hemoglobin (Bld) [Mass/Vol] 15.5 g/dL High 12.0-15.0 [facility] Immature granulocytes/100 WB C Auto (Bld)Ordered By: César Up on 03-30-2025 Immature granulocytes/100 WBC (Bld) 0.400 % 0.0-0.9 [facility] Comment on above: IG% - Immature Granu locytes (promyelocytes, myelocytes and metamyelocytes) > 1% indicates that a LEFT SHIFT is Present. Ketones Test strip Ql (U)Ord ered By: César Up on 03-30-2025 Ketones Ql (U) Negative Negative [facility] - Chemistry and C hemistry - challengeOrdered By: César Up on 03-30-2025 AST [Catalytic activity/Vol] 14 U/L <32 [facility] Lipaseon 03-30-2025 Lipase [Catalytic activity/Vol] 52 U/L Normal 13-75 [facility] Comment on above: Result Comment: Plea se note: LIPASE revised reference range effective 22. New Lipase methodology. Expected to produce lower values than the previous assay method. NEW Reference Range: 13 - 75 U/L Performed By: #### L 100.0100, L500.4050, L501.2450 #### [facility] [place], [address] Lipase measurementOrdered By : César Up on 03-30-2025 Lipase [Catalytic activity/Vol] 52 U/L 13-75 [facility] Comment on above: Please note:LIPASE r evised reference range effective 22. New Lipase methodology. Expected to produce lower values than the previous assay method. NEW Reference Range: 13 - 75 U/L MCV (mean corpuscular volume ) determinationOrdered By: César Up on 03-30-2025 MCV (RBC) [Entitic vol] 90.7 fL 81-99 [facility] Mean corpuscular hemoglobin (MCH) determinationOrdered By: César Up on 03-30-2025 MCH (RBC) [Entitic mass] 30.8 pg 27.0-32.0 [facility] Mean corpuscular hemoglobin concentration (MCHC) determinationOrdered By: César Up on 03-30-2025 MCHC (RBC) [Mass/Vol] 33.9 g/dL 32-36 [facility] Mean platelet volume determi nationOrdered By: César Up on 03-30-2025 Platelet mean volume (Bld) [Entitic vol] 9.8 fL 6.2-12.0 [facility] Microscopic analysis of urin e for red blood cells (RBC)Ordered By: César Up on 03-30-2025 Microscopic analysis of urine for red blood cells (RBC) 0 SEEN /hpf 0-5 [facility] Monocyte percentageOrdered B y: César Up on 03-30-2025 Monocytes/100 WBC (Bld) 8.0 % 0-10 [facility] Mucus LM Ql (Urine sed)Order ed By: César Up on 03-30-2025 Mucus Ql (Urine sed) 0 SEEN /hpf [facility] Neutrophil percentageOrdered By: César Up on 03-30-2025 Neutrophils/100 WBC (Bld) 63.4 % 47-70 [facility] Nitrite Test strip Ql (U)Ord ered By: César Up on 03-30-2025 Nitrite Ql (U) Negative Negative [facility] Nucleated red blood cell per centageOrdered By: César Up on 03-30-2025 Nucleated RBC/100 WBC (Bld) [Ratio] 0 % 0-5 [facility] Platelet countOrdered By: Bakair Up on 03-30-2025 Platelets (Bld) [#/Vol] 284 10*3/uL 150-450 [facility] Potassium measurement (mass/ volume)Ordered By: César Up on 03-30-2025 Potassium (Unsp spec) [Mass/Vol] 4.2 mmol/L 3.3-5.1 [facility] Protein Test strip Ql (U)Ord ered By: César Up on 03-30-2025 Protein Ql (U) Negative Negative [facility] RBC Auto (Bld) [#/Vol]Ordere d By: César Up on 03-30-2025 RBC (Bld) [#/Vol] 5.04 10*6/uL 4.2-5.4 [facility] Serum creatinine measurement (mass/volume)Ordered By: César Up on 03-30-2025 Creatinine [Mass/Vol] 0.72 mg/dL 0.70-1.20 [facility] Serum globulin measurementOr dered By: César Up on 03-30-2025 Globulin (S) [Mass/Vol] 3.3 g/dL 2.2-4.2 [facility] Serum glucose measurement (m ass/volume)Ordered By: César Up on 03-30-2025 Glucose [Mass/Vol] 82 mg/dL 70-[address] [facility] Serum or plasma alanine bolden otransferase (ALT) measurementOrdered By: César Up on 03-30-2025 ALT [Catalytic activity/Vol] 9 U/L <35 [facility] Serum or plasma albumin karla urement (mass/volume)Ordered By: César Up on 03-30-2025 Albumin [Mass/Vol] 4.2 g/dL 3.5-5.[address] [facility] Serum or plasma albumin/glob ulin mass ratioOrdered By: César Up on 03-30-2025 Albumin/Globulin [Mass ratio] 1.3 {ratio} 0.9-2.4 [facility] Serum or plasma alkaline cayd sphatase measurementOrdered By: César Up on 03-30-2025 ALP [Catalytic activity/Vol] 65 U/L 35-104 [facility] Serum or plasma calcium karla urement (mass/volume)Ordered By: César Up on 03-30-2025 Calcium [Mass/Vol] 9.3 mg/dL 7.6-11.[address] [facility] Serum or plasma urea nitroge n measurement (mass/volume)Ordered By: César Up on 03-30-2025 Urea nitrogen [Mass/Vol] 5 mg/dL 4-19 [facility] Sodium levelOrdered By: Rodrigo Up on 03-30-2025 Sodium [Moles/Vol] 139 mmol/L 133-[address] [facility] Squamous epithelial cells de tection in urine sediment by light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 SPECIMEN Ordering Facility: [facility] Address: [address] [place] [address], [place] [address] Performed By: #### 2 4323-8, #### [facility] CLIA [id number] [address] [facility] [place] [address] [place] Absolute lymphocyte counton 07-02-2022 Lymphocytes Auto (Unsp spec) [#/Vol] 3.43 10*3/uL 0.83-4.51 [facility] Work Phone: Atypical perinuclear antineu trophil cytoplasmic antibodies measurementon 07-02-2022 Neutrophil cytoplasmic Ab.perinuclear.atypic al IF (S) [Titer] <1:20 titer Neg:<1:20 [facility] Work Phone: [phone] Comment on above: The atypical pANCA p attern has been observed in asignificant percentage of patients with ulcerative colitis,primary sclerosing cholangitis and autoimmune hepatitis. Basophil percentageon 2021 Basophil percentage < 10.0 umol/L 11-32 [facility] Work Phone: Basophil percentage < 0.2 AI 0.0-0.9 [facility] Work Phone: Basophils/100 WBC (Bld) 0.3 % 0-1 [facility] Work Phone: Bilirubin [Mass/Vol] 0.70 mg/dL 0.20-1.00 [facility] Work Phone: Comment on above: For patients on eltr ombopag therapy, use of Dimension [place] TBIL is not recommended. Chloride [Moles/Vol] 103 mmol/L 98-107 [facility] Work Phone: Eosinophils/100 WBC (Bld) 0.5 % 0-5 [facility] Work Phone: Glucose [Mass/Vol] 109 mg/dL 74-[address] [facility] Work Phone: [phone] Comment on above: Fasting Glucose resu lt from 100 to 125 mg/dL suggests IMPAIRED HOMEOSTASIS per A.D.A. criteria. Neutrophils (Bld) [#/Vol] 11.0 10*3/uL 2.0-7.7 [facility] Work Phone: Neutrophils/100 WBC (Bld) 69.6 % 47-70 [facility] Work Phone: Potassium [Moles/Vol] 2.8 mmol/L 3.5-5.1 [facility] Work Phone: Protein [Mass/Vol] 8.2 g/dL 6.4-8.2 [facility] Work Phone: [phone] Sodium [Moles/Vol] 138 mmol/L 136-145 [facility] Work Phone: WBC (Bld) [#/Vol] 15.8 10*3/uL 4.4-11.0 [facility] Work Phone: Blood erythrocytes count (nu mber/volume)on 07-02-2022 RBC (Bld) [#/Vol] 5.39 10*6/uL 4.2-5.4 [facility] Work Phone: [phone] Blood hemoglobin measurement (mass/volume)on 07-02-2022 Hemoglobin (Bld) [Mass/Vol] 16.1 g/dL 12.0-15.0 [facility] Work Phone: Blood lymphocytes/100 leukoc yteson 07-02-2022 Lymphocytes/100 WBC (Bld) 21.7 % 19-41 [facility] Work Phone: [phone] Blood monocytes/100 leukocyt eson 07-02-2022 Monocytes/100 WBC (Bld) 7.4 % 0-10 [facility] Work Phone: Blood platelet mean volumeon 07-02-2022 Platelet mean volume (Bld) [Entitic vol] 11.3 fL 6.2-12.0 [facility] Work Phone: Determination of erythrocyte mean corpuscular volume (MCV)on 07-02-2022 MCV (RBC) [Entitic vol] 90.7 fL 81-99 [facility] Work Phone: [phone] Erythrocyte sedimentation ra viviana 07-02-2022 ESR (Bld) [Velocity] 28 mm/h 0-30 [facility] Work Phone: HIV 1 and HIV-2 antibody ass ay with HIV-1 p24 antigen detectionon 07-02-2022 HIV 1+2 Ab+HIV1 p24 Ag IA Ql Non-Reactive Nonreactive [facility] Work Phone: Hematocrit Auto (Bld) [Volum e fraction]on 07-02-2022 Hematocrit (Bld) [Volume fraction] 48.9 % 37-47 [facility] Work Phone: INR in Blood by Coagulation assayon 07-02-2022 INR Coag (Bld) [Relative time] 1.0 {INR} [facility] Work Phone: Laboratory - Chemistry and C hemistry - challengeon 07-02-2022 ALP [Catalytic activity/Vol] 68 U/L 45-117 [facility] Work Phone: ALT [Catalytic activity/Vol] 31 U/L 13-56 [facility] Work Phone: CO2 [Moles/Vol] 28.0 mmol/L 21.0-32.0 [facility] Work Phone: Globulin (S) [Mass/Vol] 4.1 g/dL 2.2-4.2 [facility] Work Phone: [phone] Magnesium [Mass/Vol] 2.7 mg/dL 1.6-2.6 [facility] Work Phone: Urea nitrogen/Creatinine [Mass ratio] 6.6 mg/mg 10-20 [facility] Work Phone: Laboratory - Coagulationon 1 09-02-2021 PT Coag (PPP) [Time] 13.0 s 11.7-14.9 [facility] Work Phone: Laboratory - Hematology and Cell countson 07-02-2022 Erythrocyte distribution width (RBC) [Entitic vol] 40.9 fL 35.1-43.9 [facility] Work Phone: [phone] Erythrocyte distribution width (RBC) [Ratio] 12.4 % 11.6-14.6 [facility] Work Phone: Immature granulocytes/100 WBC (Bld) 0.500 % 0.0-0.9 [facility] Work Phone: Comment on above: IG% - Immature Granu locytes (promyelocytes, myelocytes and metamyelocytes) > 1% indicates that a LEFT SHIFT is Present. MCH (RBC) [Entitic mass] 29.9 pg 27.0-32.0 [facility] Work Phone: Nucleated RBC/100 WBC (Bld) [Ratio] 0 % 0-5 [facility] Work Phone: MCHC Auto (RBC) [Mass/Vol]on 07-02-2022 MCHC (RBC) [Mass/Vol] 32.9 g/dL 32-36 [facility] Work Phone: No Panel Informationon 07-02 Centromere B Antibody <0.2 AI 0.0-0.9 [facility] Work Phone: Ceruloplasmin 24.9 mg/dL 19.0-39.0 [facility] Work Phone: Estimated GFR (MDRD) Amer 90 mL/min >60 [facility] Work Phone: Comment on above: GFR Calc Estimated GFR (MDRD) Non-Af Amer 74 mL/min >60 [facility] Work Phone: Comment on above: Non- GFR Calc Haptoglobin 389 mg/dL 33-278 [facility] Work Phone: Comment on above: Performed at: CB - [address] [id number] Director: Aleksander Bolivar PhD, Phone: [phone] at: - Lab[address] [id number] Director: Andrew Walker MD, Phone: [phone] Hepatitis A IgM Antibody Negative Negative [facility] Work Phone: Hepatitis B Core IgM Antibody Negative Negative [facility] Work Phone: Hepatitis C Antibody (EIA) <0.1 s/co ratio 0.0-0.9 [facility] Work Phone: Hepatitis C Antibody Comment Comment . [facility] Work Phone: Comment on above: NegativeNot infected with HCV, unless recent infection issuspected or other evidence exists to indicate HCVinfection. [employer] Antibody <0.2 AI 0.0-0.9 [facility] Work Phone: Platelets bldon 07-02-2022 Platelets (Bld) [#/Vol] 345 10*3/uL 150-450 [facility] Work Phone: Serum DNA double strand anti body assay (units/volume)on 07-02-2022 DNA double strand Ab Qn (S) 4 [IU]/mL 0-9 [facility] Work Phone: Comment on above: Negative <5 Equivoca l 5 - 9 Positive >9 Serum Tsering-1 antibody assay (u nits/volume)on 07-02-2022 Tsering-1 extractable nuclear Ab Qn (S) <0.2 AI 0.0-0.9 [facility] Work Phone: Serum Scl-70 extractable nuc lear antibody assay (units/volume)on 07-02-2022 SCL-70 extractable nuclear Ab Qn (S) <0.2 AI 0.0-0.9 [facility] Work Phone: Serum Cho extractable nucl ear antibody detectionon 07-02-2022 Cho extractable nuclear Ab Ql (S) <0.2 AI 0.0-0.9 [facility] Work Phone: Serum classic neutrophil cyt oplasmic antibody assay (units/volume)on 07-02-2022 Neutrophil cytoplasmic Ab.classic Qn (S) <1:20 titer Neg:<1:20 [facility] Work Phone: Serum mitochondria antibody detectionon 07-02-2022 Mitochondria Ab Ql (S) <20.0 Units 0.0-20.0 [facility] Work Phone: Comment on above: Negative 0.0 - 20.0 Equivocal 20.1 - 24.9 Positive >24.9Mitochondrial (M2) Antibodies are found in 90-96% ofpatients with primary biliary cirrhosis.Performed at: [facility] [id number] Director: Aleksander Bolivar PhD, Phone: [phone] Serum or plasma C reactive p rotein measurement (mass/volume)on 07-02-2022 CRP [Mass/Vol] 15.90 mg/L 0.0-3.0 [facility] Work Phone: Comment on above: C-Reactive Protein ( CRP) provides useful information for thediagnosis, therapy and monitoring of inflammatory processesand associated diseases. For the evaluation of Relative Riskfor Cardiovascular Disease, a High Sensitivity CRP (HSCRP)should be ordered. Serum or plasma actin IgG an tibody assay (units/volume)on 07-02-2022 Actin IgG Qn 11 Units 0-19 [facility] Work Phone: Comment on above: Negative 0 - 19 Weak positive 20 - 30 Moderate to strong positive >30 Actin Antibodies are found in 52-85% of patients with autoimmune hepatitis or chronic active hepatitis and in 22% of patients with primary biliary cirrhosis. Serum or plasma albumin karla urement (mass/volume)on 07-02-2022 Albumin [Mass/Vol] 4.1 g/dL 3.2-5.[address] [facility] Work Phone: Serum or plasma albumin/glob ulin mass ratioon 07-02-2022 Albumin/Globulin [Mass ratio] 1.0 {ratio} 0.9-2.4 [facility] Work Phone: Serum or plasma rtqup-5-tudu protein tumor marker measurement (units/volume)on 07-02-2022 AFP.tumor marker Qn 2.3 ng/mL 0.0-6.4 [facility] Work Phone: Comment on above: [employer] El ectrochemiluminescence Immunoassay(ECLIA)Values obtained with different assay methods or kits cannotbe used interchangeably. Results cannot be interpreted asabsolute evidence of the presence or absence of malignantdisease.This test is not interpretable in females. Serum or plasma angiotensin converting enzyme measurement (enzymatic activity/volume)on 07-02-2022 Angiotensin converting enzyme [Catalytic activity/Vol] 31 U/L 14-82 [facility] Work Phone: Serum or plasma calcium karla urement (mass/volume)on 07-02-2022 Calcium [Mass/Vol] 9.2 mg/dL 8.5-10.1 [facility] Work Phone: Serum or plasma creatinine m easurement (mass/volume)on 07-02-2022 Creatinine [Mass/Vol] 0.91 mg/dL 0.55-1.02 [facility] Work Phone: Comment on above: The validity of the calculated GFR & GFRAA in patients over 70 years has not been determined. Clinical correlation is essential. Serum or plasma ferritin luis surement (mass/volume)on 07-02-2022 Ferritin [Mass/Vol] 107 ng/mL 8-252 [facility] Work Phone: Serum or plasma hepatitis B virus surface antigen detection by immunoassayon 07-02-2022 HBV surface Ag IA Ql Negative Negative [facility] Work Phone: Serum or plasma urea nitroge n measurement (mass/volume)on 07-02-2022 Urea nitrogen [Mass/Vol] 6 mg/dL 7-18 [facility] Work Phone: Serum perinuclear neutrophil cytoplasmic antibody titer by immunofluorescenceon 07-02-2022 Neutrophil cytoplasmic Ab.perinuclear IF (S) [Titer] <1:20 titer Neg:<1:20 [facility] Work Phone: Comment on above: The presence of posi tive fluorescence exhibiting P-ANCA orC- ANCA patterns alone is not specific for the diagnosis ofWegener's Granulomatosis (WG) or microscopic polyangiitis.Decisions about treatment should not be based solely onANCA IFA results. The International ANCA Group Consensusrecommends follow up testing of positive sera with both MA-3 and MPO-ANCA enzyme immunoassays. As many as 5% serumsamples are positive only by EIA. Ref. AM J Clin Mtrutx7069;111:507-513. Thin prep Papanicolaou smear with manual screeningon 07-02-2022 Thin prep Papanicolaou smear with manual screening 16 U/L 15-37 [facility] Work Phone: Thin prep Papanicolaou smear with manual screening 7 5-15 [facility] Work Phone: Thin prep Papanicolaou smear with manual screening 168 U/L 84-246 [facility] Work Phone: Thin prep Papanicolaou smear with manual screening 104 ug/dL 80-158 [facility] Work Phone: Comment on above: Detection Limit = 5 Whole blood hemoglobin A1c/t otal hemoglobin ratio (mass fraction)on 07-02-2022 HbA1c (Bld) [Mass fraction] 5.3 % 3.8-5.6 [facility] Work Phone: Comment on above: Normal < 5.7 % Predi abetic 5.7 - 6.4 % Diabetic >or= 6.5 % Please note range changes. MRI ABDOMEN/PELVIS WITHOUT A ND WITH CONTRASTon 05-06-2022 MRI ABDOMEN/PELVIS WITHOUT AND WITH CONTRAST EXAM: MRI ABDOMEN/PELVIS WITHOUT AND WITH CONTRAST (MRI ABDOMEN AND PELVIS WITH AND WITHOUT CONTRAST), 05/06/2022 09:33 AM CLINICAL INDICATIONS: neuroendocrine tumor; C7A.8:Neuroendocrine cancer per chart review, duodenal polypectomy with pathology showing NET COMPARISON: MR abdomen from August 25, 2021. TECHNIQUE: Multiplanar, multisequence MRI scanning was performed of the abdomen and pelvis before and after the administration of intravenous contrast. CONTRAST: gadoterate Meglumine (DOTAREM) 5 MMOL/10ML injection 3-60 mL; Route of Administration: Intravenous; Dose: 21 mL. FINDINGS: Abdomen: Liver: Liver is normal in morphology with diffuse steatosis. No focal lesions. Portal vein is patent. Gallbladder and biliary tree: The gallbladder is well distended with bile. No gallbladder wall thickening or pericholecystic fluid. The common bile duct and intrahepatic biliary tree are normal in caliber. Spleen: Spleen is normal in size and signal characteristics. No focal lesions. Pancreas: Pancreas is normal in morphology and signal characteristics. No focal lesions or ductal dilatation. Adrenals: Adrenal glands are unremarkable. Kidneys: Kidneys are normal in size and signal. There is no hydronephrosis. Retroperitoneal/Lymph Nodes/Vasculature: No abdominal/retroperitoneal adenopathy is identified. Abdominal aorta and its visualized branches are patent. Mesenteric vasculature is patent. Retroaortic left renal vein, a normal variant. GI Tract: Bowel is normal in caliber with no evidence of obstruction. Stomach and duodenum are suboptimally evaluated due to underdistention. Within these limitations, no focal mass. Pelvis: Bladder: Bladder distends normally. Pelvic Organs: Uterus is surgically absent. The ovaries and the adnexa are unremarkable. Osseous Structures: Visualized bony structures reveal normal marrow signal. IMPRESSION: 1. No evidence of metastatic disease in the abdomen or pelvis. 2. Hepatic steatosis. Normal [facility] IMPRESSION: 1. No evidence of metastatic disease in the abdomen or pelvis. 2. Hepatic steatosis. OLOGY EXAM: MRI ABDOMEN/PE LVIS WITHOUT AND WITH CONTRAST (MRI ABDOMEN AND PELVIS WITH AND WITHOUT CONTRAST), 05/06/2022 09:33 AM CLINICAL INDICATIONS: neuroendocrine tumor; C7A.8:Neuroendocrine cancer per chart review, duodenal polypectomy with pathology showing NET COMPARISON: MR abdomen from August 25, 2021. TECHNIQUE: Multiplanar, multisequence MRI scanning was performed of the abdomen and pelvis before and after the administration of intravenous contrast. CONTRAST: gadoterate Meglumine (DOTAREM) 5 MMOL/10ML injection 3-60 mL; Route of Administration: Intravenous; Dose: 21 mL. FINDINGS: Abdomen: Liver: Liver is normal in morphology with diffuse steatosis. No focal lesions. Portal vein is patent. Gallbladder and biliary tree: The gallbladder is well distended with bile. No gallbladder wall thickening or pericholecystic fluid. The common bile duct and intrahepatic biliary tree are normal in caliber. Spleen: Spleen is normal in size and signal characteristics. No focal lesions. Pancreas: Pancreas is normal in morphology and signal characteristics. No focal lesions or ductal dilatation. Adrenals: Adrenal glands are unremarkable. Kidneys: Kidneys are normal in size and signal. There is no hydronephrosis. Retroperitoneal/Lymph Nodes/Vasculature: No abdominal/retroperitoneal adenopathy is identified. Abdominal aorta and its visualized branches are patent. Mesenteric vasculature is patent. Retroaortic left renal vein, a normal variant. GI Tract: Bowel is normal in caliber with no evidence of obstruction. Stomach and duodenum are suboptimally evaluated due to underdistention. Within these limitations, no focal mass. Pelvis: Bladder: Bladder distends normally. Pelvic Organs: Uterus is surgically absent. The ovaries and the adnexa are unremarkable. Osseous Structures: Visualized bony structures reveal normal marrow signal. RADIOLOGY Cecelia Garcia MD - 05/06/2022 EXAM: MRI ABDOMEN/PELVIS WITHOUT AND WITH CONTRAST (MRI ABDOMEN AND PELVIS WITH AND WITHOUT CONTRAST), 05/06/2022 09:33 AM CLINICAL INDICATIONS: neuroendocrine tumor; C7A.8:Neuroendocrine cancer per chart review, duodenal polypectomy with pathology showing NET COMPARISON: MR abdomen from August 25, 2021. TECHNIQUE: Multiplanar, multisequence MRI scanning was performed of the abdomen and pelvis before and after the administration of intravenous contrast. CONTRAST: gadoterate Meglumine (DOTAREM) 5 MMOL/10ML injection 3-60 mL; Route of Administration: Intravenous; Dose: 21 mL. FINDINGS: Abdomen: Liver: Liver is normal in morphology with diffuse steatosis. No focal lesions. Portal vein is patent. Gallbladder and biliary tree: The gallbladder is well distended with bile. No gallbladder wall thickening or pericholecystic fluid. The common bile duct and intrahepatic biliary tree are normal in caliber. Spleen: Spleen is normal in size and signal characteristics. No focal lesions. Pancreas: Pancreas is normal in morphology and signal characteristics. No focal lesions or ductal dilatation. Adrenals: Adrenal glands are unremarkable. Kidneys: Kidneys are normal in size and signal. There is no hydronephrosis. Retroperitoneal/Lymph Nodes/Vasculature: No abdominal/retroperitoneal adenopathy is identified. Abdominal aorta and its visualized branches are patent. Mesenteric vasculature is patent. Retroaortic left renal vein, a normal variant. GI Tract: Bowel is normal in caliber with no evidence of obstruction. Stomach and duodenum are suboptimally evaluated due to underdistention. Within these limitations, no focal mass. Pelvis: Bladder: Bladder distends normally. Pelvic Organs: Uterus is surgically absent. The ovaries and the adnexa are unremarkable. Osseous Structures: Visualized bony structures reveal normal marrow signal. IMPRESSION IMPRESSION: 1. No evidence of metastatic disease in the abdomen or pelvis. 2. Hepatic steatosis. [facility] Radiology Study observation (narrative) [facility] MRI ABDOMEN/PELVIS WITHOUT A ND WITH CONTRASTOrdered By: Cecelia Garcia on 05-06-2022 [facility] Work Phone: PANCREATIC POLYPEPTIDEon Pancreatic polypeptide [Mass/Vol] 122 pg/mL <249 [facility] Comment on above: ADDITIONAL INFORMATION This test was developed and its performance characteristics determined by [facility] in a manner consistent with CLIA requirements. This test has not been cleared or approved by the U.S. Food and Drug Administration. Test Performed by: [place] [address] [employer] Policy Analyst: Kamaljit Obrien M.D. Ph.D.; CLIA# [id number] [facility] GLUCAGONon 04-03-2022 Glucagon [Mass/Vol] 35 pg/mL <=80 U [facility] Comment on above: ADDITIONAL INFORMATION Proven glucagonomas have analyte concentrations 10 fold or more above the reference range. This test was developed and its performance characteristics determined by [facility] in a manner consistent with CLIA requirements. This test has not been cleared or approved by the U.S. Food and Drug Administration. Test Performed by: [place] [address] [employer] Policy Analyst: Kamaljit Obrien M.D. Ph.D.; CLIA# [id number] [facility] ANTI PARIETAL ANTIBODYOrdere d By: Javier Mcdowell on 04-02-2022 Interpretation and review of laboratory results Normal [facility] Parietal cell Ab IF Ql (S) Negative Negative [facility] CHROMOGRANIN Aon 04-02-2022 Chromogranin A [Mass/Vol] 46 ng/mL <93 [facility] Comment on above: ADDITIONAL INFORMATION This test was developed and its performance characteristics determined by [facility] in a manner consistent with CLIA requirements. This test has not been cleared or approved by the U.S. Food and Drug Administration. In some immunoassays, the presence of unusually high concentrations of analyte may result in a high-dose hook effect. This may result in a lower or even normal measured analyte concentration. If the reported result is inconsistent with the clinical presentation, the laboratory should be alerted for troubleshooting. For diagnostic purposes, these immunoassay results should always be assessed in conjunction with the patients medical history, clinical examination and other findings. The testing method is a homogeneous time-resolved immunofluorescent assay manufactured by [employer] and performed on the [employer] Kryptor Compact Plus. Values obtained with different assay methods or kits may be different and cannot be used interchangeably. Test results cannot be interpreted as absolute evidence for the presence or absence of malignant disease. Test Performed by: [place] [address] [employer] Policy Analyst: Kamaljit Obrien M.D. Ph.D.; CLIA# [id number] [facility] INTRINSIC FACTOR ANTIBODYon 04-02-2022 Annotation comment [Interpretation] Narrative SEE COMMENTS [facility] Comment on above: Intrinsic Factor Blo cking Antibody (IFBA) antibodies are absent in approximately 50% of individuals with pernicious anemia (PA). The absence of elevated IFBA antibodies does not rule out the presence of PA; further studies such as gastrin testing may be indicated. Test Performed by: [place] [address] [employer] Policy Analyst: Kamaljit Obrien M.D. Ph.D.; CLIA# [id number] Intrinsic factor blocking Ab Ql (S) Negative Negative [facility] ANTI PARIETAL ANTIBODYon 09- 14-2022 Parietal Cell Antibody Negative Normal Negative [facility] Comment on above: Performed By: #### P CA #### [facility] (DEFAULT) [address] [address] CALCITONINon 04-01-2022 Calcitonin (Body fld) [Mass/Vol] <2.0 <5.0 pg/mL [facility] This test was perfor med on the Immulite 2000 Immunoassay platform by [employer] which is a two-site chemiluminescent immunoassay. It is important to note that assays using different manufacturers and/or methods may not be comparable. [facility] Calcitonin <2.0 Normal <5.0 [facility] Comment on above: Order Comment: This test was performed on the Immulite 2000 Immunoassay platform by [employer] which is a two-site chemiluminescent immunoassay. It is important to note that assays using different manufacturers and/or methods may not be comparable. Performed By: #### C ALCIT #### [facility] (DEFAULT) [address] [address] CBC AND ELECTRONIC DIFFon Basophils (Bld) [#/Vol] 0.07 10*3/uL Normal 0.00-0.15 [facility] Comment on above: Performed By: #### L [id number] #### [facility] (DEFAULT) [address] [address] Basophils/100 WBC (Bld) 0.6 % Normal [facility] Comment on above: Performed By: #### L [id number] #### [facility] (DEFAULT) [address] [address] DIFF STATUS Electronic Differential Normal [facility] Comment on above: Performed By: #### L [id number] #### [facility] (DEFAULT) [address] [address] Eosinophils (Bld) [#/Vol] 0.18 10*3/uL Normal 0.00-0.42 [facility] Comment on above: Performed By: #### L [id number] #### [facility] (DEFAULT) [address] [address] Eosinophils/100 WBC (Bld) 1.6 % Normal [facility] Comment on above: Performed By: #### L [id number] #### [facility] (DEFAULT) [address] [address] Hematocrit (Bld) [Volume fraction] 46.2 % High 34.9-44.3 [facility] Comment on above: Performed By: #### L [id number] #### [facility] (DEFAULT) [address] [place] [address] Hemoglobin (Bld) [Mass/Vol] 15.5 g/dL High 11.4-15.2 [facility] Comment on above: Performed By: #### L [id number] #### [facility] (DEFAULT) [address] [address] Immature Grans % 0.4 % Normal [facility] Comment on above: Performed By: #### L [id number] #### [facility] (DEFAULT) [address] [address] Immature Grans Absolute 0.05 K/uL Normal <=0.08 [facility] Comment on above: Performed By: #### L [id number] #### [facility] (DEFAULT) [address] [address] Lymphocytes (Bld) [#/Vol] 3.43 10*3/uL Normal 1.16-3.51 [facility] Comment on above: Performed By: #### L [id number] #### [facility] (DEFAULT) [address] [address] Lymphocytes/100 WBC (Bld) 30.3 % Normal [facility] Comment on above: Performed By: #### L [id number] #### [facility] (DEFAULT) [address] [address] MCV (RBC) [Entitic vol] 90.1 fL Normal 79.6-97.7 [facility] Comment on above: Performed By: #### L [id number] #### [facility] (DEFAULT) [address] [address] Mean Cell Hgb 30.2 pg Normal 25.9-33.9 [facility] Comment on above: Performed By: #### L [id number] #### [facility] (DEFAULT) [address] [address] Mean Cell Hgb Conc 33.5 g/dL Normal 31.4-35.9 [facility] Comment on above: Performed By: #### L [id number] #### [facility] (DEFAULT) [address] [address] Monocytes (Bld) [#/Vol] 0.80 10*3/uL Normal 0.22-0.87 [facility] Comment on above: Performed By: #### L [id number] #### [facility] (DEFAULT) [address] [address] Monocytes/100 WBC (Bld) 7.1 % Normal [facility] Comment on above: Performed By: #### L [id number] #### [facility] (DEFAULT) [address] [address] Nucleated RBC 0.0 /100 WBC Normal <=0.2 [facility] Comment on above: Performed By: #### L [id number] #### [facility] (DEFAULT) [address] [address] Platelet mean volume (Bld) [Entitic vol] 9.8 fL Normal 8.5-12.2 [facility] Comment on above: Performed By: #### L [id number] #### [facility] (DEFAULT) [address] [address] Platelets (Bld) [#/Vol] 332 10*3/uL Normal 150-393 [facility] Comment on above: Performed By: #### L [id number] #### [facility] (DEFAULT) [address] [address] RBC (Bld) [#/Vol] 5.13 10*6/uL High 3.91-5.04 [facility] Comment on above: Performed By: #### L [id number] #### [facility] (DEFAULT) [address] [place] [address] RBC Distribution 13.0 % Normal 10.8-14.9 [facility] Comment on above: Performed By: #### L [id number] #### [facility] (DEFAULT) [address] [place] [address] Segs + Bands Auto 60.0 % Normal [facility] Comment on above: Performed By: #### L [id number] #### [facility] (DEFAULT) [address] [place] [address] Segs + Bands,Absolute Auto 6.79 K/uL Normal 1.64-7.28 [facility] Comment on above: Performed By: #### L [id number] #### [facility] (DEFAULT) [address] [place] [address] WBC (Bld) [#/Vol] 11.32 10*3/uL High 3.99-11.19 [facility] Comment on above: Performed By: #### L [id number] #### [facility] (DEFAULT) [address] [place] [address] Basophils (Bld) [#/Vol] 0.07 10*3/uL 0.00 - 0.15 K/uL [facility] Basophils/100 WBC (Bld) 0.6 % [facility] Differential cell count method Nom (Bld) Electronic Differential [facility] Eosinophils (Bld) [#/Vol] 0.18 10*3/uL 0.00 - 0.42 K/uL [facility] Eosinophils/100 WBC (Bld) 1.6 % [facility] Erythrocyte distribution width (RBC) [Ratio] 13.0 % 10.8 - 14.9 % [facility] Hematocrit (Bld) [Volume fraction] 46.2 % High 34.9 - 44.3 % [facility] Hemoglobin (Bld) [Mass/Vol] 15.5 g/dL High 11.4 - 15.2 g/dL [facility] Immature granulocytes (Bld) [#/Vol] 0.05 10*3/uL <=0.08 [facility] Immature granulocytes/100 WBC (Bld) 0.4 % [facility] Interpretation and review of laboratory results Abnormal [facility] Lymphocytes (Bld) [#/Vol] 3.43 10*3/uL 1.16 - 3.51 K/uL [facility] Lymphocytes/100 WBC (Bld) 30.3 % [facility] MCH (RBC) [Entitic mass] 30.2 pg 25.9 - 33.9 pg [facility] MCHC (RBC) [Mass/Vol] 33.5 g/dL 31.4 - 35.9 g/dL [facility] MCV (RBC) [Entitic vol] 90.1 fL 79.6 - 97.7 fL [facility] Monocytes (Bld) [#/Vol] 0.80 10*3/uL 0.22 - 0.87 K/uL [facility] Monocytes/100 WBC (Bld) 7.1 % [facility] Neutrophils (Bld) [#/Vol] 6.79 10*3/uL 1.64 - 7.28 K/uL [facility] Nucleated RBC/100 WBC (Bld) [Ratio] 0.0 % <=0.2 /100 WBC [facility] Platelet mean volume (Bld) [Entitic vol] 9.8 fL 8.5 - 12.2 fL [facility] Platelets (Bld) [#/Vol] 332 10*3/uL 150 - 393 K/uL [facility] RBC (Bld) [#/Vol] 5.13 10*6/uL High [facility] Segmented neutrophils/100 WBC (Bld) 60.0 % [facility] WBC (Bld) [#/Vol] 11.32 10*3/uL High 3.99 - 11 .19 K/uL [facility] CHROMOGRANIN Aon 04-01-2022 Chromogranin A 46 ng/mL Normal <93 [facility] Comment on above: Result Comment: ADDITIONAL INFORMATION This test was developed and its performance characteristics determined by [facility] in a manner consistent with CLIA requirements. This test has not been cleared or approved by the U.S. Food and Drug Administration. In some immunoassays, the presence of unusually high concentrations of analyte may result in a high-dose hook effect. This may result in a lower or even normal measured analyte concentration. If the reported result is inconsistent with the clinical presentation, the laboratory should be alerted for troubleshooting. For diagnostic purposes, these immunoassay results should always be assessed in conjunction with the patients medical history, clinical examination and other findings. The testing method is a homogeneous time-resolved immunofluorescent assay manufactured by [employer] and performed on the [employer] Comp[employer] Plus. Values obtained with different assay methods or kits may be different and cannot be used interchangeably. Test results cannot be interpreted as absolute evidence for the presence or absence of malignant disease. Test Performed by: [place] [address] [employer] Policy Analyst: Kamaljit Obrien M.D. Ph.D.; CLIA# [id number] Performed By: #### Y CHGRA #### [facility] (DEFAULT) [address] [place] [address] COMPREHENSIVE METABOLIC PANE Seth 04-01-2022 Albumin [Mass/Vol] 4.5 g/dL Normal 3.5-5.0 [facility] Comment on above: Performed By: ###Rubi Dean MPN, LDO #### [facility] (DEFAULT) [address] [place] [address] ALP [Catalytic activity/Vol] 47 U/L Normal 32-126 [facility] Comment on above: Performed By: #### Jermaine MPN, LDO #### [facility] (DEFAULT) [address] [place] [address] ALT [Catalytic activity/Vol] 17 U/L Normal 9-48 [facility] Comment on above: Performed By: #### C MPN, LDO #### [facility] (DEFAULT) [address] [place] [address] Anion gap [Moles/Vol] 9 mmol/L Normal 7-17 [facility] Comment on above: Performed By: #### C MPN, LDO #### [facility] (DEFAULT) [address] [place] [address] AST [Catalytic activity/Vol] 14 U/L Normal 10-39 [facility] Comment on above: Performed By: #### C MPN, LDO #### [facility] (DEFAULT) [address] [place] [address] Bilirubin [Mass/Vol] 0.6 mg/dL Normal <1.5 [facility] Comment on above: Performed By: #### C MPN, LDO #### [facility] (DEFAULT) [address] [place] [address] Calcium [Mass/Vol] 9.6 mg/dL Normal 8.6-10.5 [facility] Comment on above: Performed By: #### C MPN, LDO #### [facility] (DEFAULT) [address] [place] [address] Chloride [Moles/Vol] 106 mmol/L Normal 98-108 [facility] Comment on above: Performed By: #### C MPN, LDO #### [facility] (DEFAULT) [address] [place] [address] CO2 [Moles/Vol] 28 mmol/L Normal 21-31 [facility] Comment on above: Performed By: #### C MPN, LDO #### [facility] (DEFAULT) [address] [place] [address] Creatinine [Mass/Vol] 0.76 mg/dL Normal 0.50-1.20 [facility] Comment on above: Performed By: #### C MPN, LDO #### [facility] (DEFAULT) [address] [place] [address] eGFR, CKD-EPI, Female >90 Normal >=60 [facility] Comment on above: Result Comment: Repo rted eGFR is based on the CKD-EPI 2020 equation using creatinine, age, and sex. Performed By: #### C MPN, LDO #### [facility] (DEFAULT) [address] [place] [address] Glucose [Mass/Vol] 83 mg/dL Normal 70-99 [facility] Comment on above: Performed By: #### C MPN, LDO #### [facility] (DEFAULT) [address] [place] [address] Osmolality [Osmolality] 289 mosm/kg Normal 278-305 [facility] Comment on above: Performed By: #### C MPN, LDO #### [facility] (DEFAULT) [address] [place] [address] Potassium [Moles/Vol] 4.1 mmol/L Normal 3.5-5.0 [facility] Comment on above: Performed By: #### C MPN, LDO #### [facility] (DEFAULT) [address] [place] [address] Protein [Mass/Vol] 7.8 g/dL Normal 6.4-8.3 [facility] Comment on above: Performed By: #### C MPN, LDO #### [facility] (DEFAULT) [address] [place] [address] Sodium [Moles/Vol] 139 mmol/L Normal 135-145 [facility] Comment on above: Performed By: #### C MPN, LDO #### [facility] (DEFAULT) [address] [place] [address] Urea nitrogen [Mass/Vol] 9 mg/dL Normal 7-25 [facility] Comment on above: Performed By: #### C MPN, LDO #### [facility] (DEFAULT) [address] [place] [address] Urea nitrogen/Creatinine [Mass ratio] 12 mg/mg Normal [facility] Comment on above: Performed By: #### C MPN, LDO #### [facility] (DEFAULT) [address] [place] [address] Albumin [Mass/Vol] 4.5 g/dL 3.5 - 5.0 g/dL [facility] ALP [Catalytic activity/Vol] 47 U/L 32 - 126 U/L [facility] ALT [Catalytic activity/Vol] 17 U/L 9 - 48 U/L [facility] Anion gap [Moles/Vol] 9 mmol/L 7 - 17 mmol/L [facility] AST [Catalytic activity/Vol] 14 U/L 10 - 39 U/L [facility] Bilirubin [Mass/Vol] 0.6 mg/dL <1.5 [facility] Calcium [Mass/Vol] 9.6 mg/dL 8.6 - 10. 5 mg/dL [facility] Chloride [Moles/Vol] 106 mmol/L 98 - 10 8 mmol/L [facility] CO2 [Moles/Vol] 28 mmol/L 21 - 31 mmol/L [facility] Creatinine [Mass/Vol] 0.76 mg/dL 0.50 - 1.20 mg/dL [facility] GFR/1.73 sq M.predicted CKD-EPI (S/P/Bld) [Vol rate/Area] >90 >=60 mL/min/1.73m 2 [facility] Comment on above: Reported eGFR is bas ed on the CKD-EPI 2020 equation using creatinine, age, and sex. Glucose [Mass/Vol] 83 mg/dL 70 - 99 mg/dL [facility] Osmolality Calc [Osmolality] [facility] Potassium [Moles/Vol] 4.1 mmol/L 3.5 - 5.0 mmol/L [facility] Protein [Mass/Vol] 7.8 g/dL 6.4 - 8.3 g/dL [facility] Sodium [Moles/Vol] 139 mmol/L 135 - 145 mmol/L [facility] Urea nitrogen [Mass/Vol] 9 mg/dL 7 - 25 mg/dL [facility] Urea nitrogen/Creatinine [Mass ratio] 12 mg[facility] GASTRIN - NON-STIMULATEDOrde red By: Bud Jj on 04-01-2022 Gastrin [Mass/Vol] <10 <122 pg/mL [facility] GASTRIN - NON-STIMULATEDon 0 04-01-2022 Gastrin, Non-Stimulated <10 Normal <122 [facility] Comment on above: Performed By: #### G STR #### [facility] (DEFAULT) [address] [place] [address] GLUCAGONon 04-01-2022 Glucagon 35 pg/mL Normal <=80 [facility] Comment on above: Result Comment: ADDITIONAL INFORMATION Proven glucagonomas have analyte concentrations 10 fold or more above the reference range. This test was developed and its performance characteristics determined by [facility] in a manner consistent with CLIA requirements. This test has not been cleared or approved by the U.S. Food and Drug Administration. Test Performed by: [place] [address] [employer] Policy Analyst: Kamaljit Obrien M.D. Ph.D.; CLIA# [id number] Performed By: #### Y GLP #### [facility] (DEFAULT) [address] [place] [address] INTRINSIC FACTOR ANTIBODYon 04-01-2022 INTRINSIC FACTOR BLOCK AB COMMNT SEE COMMENTS Normal [facility] Comment on above: Result Comment: Intr insic Factor Blocking Antibody (IFBA) antibodies are absent in approximately 50% of individuals with pernicious anemia (PA). The absence of elevated IFBA antibodies does not rule out the presence of PA; further studies such as gastrin testing may be indicated. Test Performed by: [place] [address] [employer] Policy Analyst: Kamaljit Obrien M.D. Ph.D.; CLIA# [id number] Performed By: #### Y INTR #### [facility] (DEFAULT) [address] [address] Intrinsic Factor Blocking Antibody Negative Normal Negative [facility] Comment on above: Performed By: #### Y INTR #### [facility] (DEFAULT) [address] [address] LACTATE DEHYDROGENASEon 03-19 LD Total 120 U/L Normal 100-190 [facility] Comment on above: Performed By: #### C MPN, LDO #### [facility] (DEFAULT) [address] [address] Interpretation and review of laboratory results Normal [facility] LDH Lactate to pyruvate reaction [Catalytic activity/Vol] 120 U/L 100 - 190 U/L [facility] No Panel InformationOrdered By: Bud Jj on 04-01-2022 Interpretation and review of laboratory results Normal [facility] No Panel Informationon 04-01 [facility] PANCREATIC POLYPEPTIDEon Pancreatic Polypeptide 122 pg/mL Normal <249 [facility] Comment on above: Result Comment: ADDITIONAL INFORMATION This test was developed and its performance characteristics determined by [facility] in a manner consistent with CLIA requirements. This test has not been cleared or approved by the U.S. Food and Drug Administration. Test Performed by: [place] [address] [employer] Policy Analyst: Kamaljit Obrien M.D. Ph.D.; CLIA# [id number] Performed By: #### P CA #### [facility] (DEFAULT) [address] [address] VITAMIN B12on 04-01-2022 Cobalamin (Vitamin B12) [Mass/Vol] 374 pg/mL 211 - 911 pg/mL [facility] Comment on above: Testing of Methylmal onic Acid and Intrinsic Factor Blocking Antibody are recommended if clinical suspicion for pernicious anemia due to B12 deficiency is high for patients with intermediate B12 levels (211 to 400 pg/mL) to rule out spurious heterophile antibodies. Interpretation and review of laboratory results Normal [facility] Cobalamin (Vitamin B12) [Mass/Vol] 374 pg/mL Normal [phone] [facility] Comment on above: Result Comment: Test ing of Methylmalonic Acid and Intrinsic Factor Blocking Antibody are recommended if clinical suspicion for pernicious anemia due to B12 deficiency is high for patients with intermediate B12 levels (211 to 400 pg/mL) to rule out spurious heterophile antibodies. Performed By: #### B 12B #### [facility] (DEFAULT) [address] [place] [address] No Panel Informationon 03-18 Miscellaneous Test See comment [facility] Work Phone: Comment on above: TEST RESULT LIMITSCh romogranin A 40.9 ng/mL 0.0-101.8Chromogranin A performed by [employer] KRYPTOR methodology. Values obtained with different assay methods or kits cannot be used interchangeably.This test was developed and its performance characteristicsdetermined by [employer]. It has not been cleared or approvedby the U.S. Food and Drug Administration. TESTING PERFORMED AT [facility]. ORIGINAL REPORT ON FILE IN LAB CONTAINS ADDITIONAL TEST SITE INFORMATION. Absolute lymphocyte counton 03-11-2022 Lymphocytes Auto (Unsp spec) [#/Vol] 3.35 10*3/uL 0.83-4.51 [facility] Work Phone: Basophil percentageon 2021 Basophils/100 WBC (Bld) 0.4 % 0-1 [facility] Work Phone: [phone] Bilirubin [Mass/Vol] 0.80 mg/dL 0.20-1.00 [facility] Work Phone: Comment on above: For patients on eltr ombopag therapy, use of Dimension [place] TBIL is not recommended. Chloride [Moles/Vol] 112 mmol/L 98-107 [facility] Work Phone: [phone] Eosinophils/100 WBC (Bld) 1.1 % 0-5 [facility] Work Phone: [phone] Glucose [Mass/Vol] 93 mg/dL 74-[address] [facility] Work Phone: [phone] Neutrophils (Bld) [#/Vol] 8.5 10*3/uL 2.0-7.7 [facility] Work Phone: [phone] Neutrophils/100 WBC (Bld) 64.2 % 47-70 [facility] Work Phone: [phone] Potassium [Moles/Vol] 3.5 mmol/L 3.5-5.1 [facility] Work Phone: [phone] Protein [Mass/Vol] 7.5 g/dL 6.4-8.[address] [facility] Work Phone: [phone] Sodium [Moles/Vol] 140 mmol/L 136-[address] [facility] Work Phone: [phone] WBC (Bld) [#/Vol] 13.2 10*3/uL 4.4-11.0 [facility] Work Phone: [phone] Blood erythrocytes count (nu mber/volume)on 03-11-2022 RBC (Bld) [#/Vol] 5.06 10*6/uL 4.2-5.4 [facility] Work Phone: Blood hemoglobin measurement (mass/volume)on 03-11-2022 Hemoglobin (Bld) [Mass/Vol] 15.3 g/dL 12.0-15.0 [facility] Work Phone: Blood lymphocytes/100 leukoc yteson 03-11-2022 Lymphocytes/100 WBC (Bld) 25.4 % 19-41 [facility] Work Phone: Blood monocytes/100 leukocyt eson 03-11-2022 Monocytes/100 WBC (Bld) 8.2 % 0-10 [facility] Work Phone: Blood platelet mean volumeon 03-11-2022 Platelet mean volume (Bld) [Entitic vol] 10.3 fL 6.2-12.0 [facility] Work Phone: Determination of erythrocyte mean corpuscular volume (MCV)on 03-11-2022 MCV (RBC) [Entitic vol] 89.5 fL 81-99 [facility] Work Phone: Erythrocyte sedimentation ra viviana 03-11-2022 ESR (Bld) [Velocity] 26 mm/h 0-30 [facility] Work Phone: Hematocrit Auto (Bld) [Volum e fraction]on 03-11-2022 Hematocrit (Bld) [Volume fraction] 45.3 % 37-47 [facility] Work Phone: Laboratory - Chemistry and C hemistry - challengeon 03-11-2022 ALP [Catalytic activity/Vol] 61 U/L 45-117 [facility] Work Phone: ALT [Catalytic activity/Vol] 32 U/L 13-56 [facility] Work Phone: CO2 [Moles/Vol] 24.0 mmol/L 21.0-32.0 [facility] Work Phone: Globulin (S) [Mass/Vol] 4.0 g/dL 2.2-4.2 [facility] Work Phone: Urea nitrogen/Creatinine [Mass ratio] 6.8 mg/mg 10-20 [facility] Work Phone: Laboratory - Hematology and Cell countson 03-11-2022 Erythrocyte distribution width (RBC) [Entitic vol] 41.6 fL 35.1-43.9 [facility] Work Phone: Erythrocyte distribution width (RBC) [Ratio] 12.7 % 11.6-14.6 [facility] Work Phone: Immature granulocytes/100 WBC (Bld) 0.700 % 0.0-0.9 [facility] Work Phone: Comment on above: IG% - Immature Granu locytes (promyelocytes, myelocytes and metamyelocytes) > 1% indicates that a LEFT SHIFT is Present. MCH (RBC) [Entitic mass] 30.2 pg 27.0-32.0 [facility] Work Phone: Nucleated RBC/100 WBC (Bld) [Ratio] 0 % 0-5 [facility] Work Phone: MCHC Auto (RBC) [Mass/Vol]on 03-11-2022 MCHC (RBC) [Mass/Vol] 33.8 g/dL 32-36 [facility] Work Phone: No Panel Informationon 03-11 Estimated GFR (MDRD) Amer 115 mL/min >60 [facility] Work Phone: Comment on above: GFR Calc Estimated GFR (MDRD) Non-Af Amer 95 mL/min >60 [facility] Work Phone: Comment on above: Non- GFR Calc Platelets bldon 03-11-2022 Platelets (Bld) [#/Vol] 341 10*3/uL 150-450 [facility] Work Phone: Serum or plasma C reactive p rotein measurement (mass/volume)on 03-11-2022 CRP [Mass/Vol] 12.20 mg/L 0.0-3.0 [facility] Work Phone: Comment on above: C-Reactive Protein ( CRP) provides useful information for thediagnosis, therapy and monitoring of inflammatory processesand associated diseases. For the evaluation of Relative Riskfor Cardiovascular Disease, a High Sensitivity CRP (HSCRP)should be ordered. Serum or plasma albumin karla urement (mass/volume)on 03-11-2022 Albumin [Mass/Vol] 3.5 g/dL 3.2-5.[address] [facility] Work Phone: Serum or plasma albumin/glob ulin mass ratioon 03-11-2022 Albumin/Globulin [Mass ratio] 0.9 {ratio} 0.9-2.4 [facility] Work Phone: Serum or plasma calcium karla urement (mass/volume)on 03-11-2022 Calcium [Mass/Vol] 8.7 mg/dL 8.5-10.[address] [facility] Work Phone: Serum or plasma creatinine m easurement (mass/volume)on 03-11-2022 Creatinine [Mass/Vol] 0.73 mg/dL 0.55-1.02 [facility] Work Phone: Comment on above: The validity of the calculated GFR & GFRAA in patients over 70 years has not been determined. Clinical correlation is essential. Serum or plasma gastrin karla urement (mass/volume)on 03-11-2022 Gastrin [Mass/Vol] < 10 pg/mL 0-[address] [facility] Work Phone: Comment on above: Siemens Immulite 200 0 Immunochemiluminometric assay (ICMA)Values obtained with different assay methods or kits cannotbe used interchangeably. Results cannot be interpreted asabsolute evidence of the presence or absence of malignantdisease.Performed at: - [address] [id number] Director: Andrew Walker MD, Phone: [phone] Serum or plasma urea nitroge n measurement (mass/volume)on 03-11-2022 Urea nitrogen [Mass/Vol] 5 mg/dL 7-18 [facility] Work Phone: Thin prep Papanicolaou smear with manual screeningon 03-11-2022 Thin prep Papanicolaou smear with manual screening 17 U/L 15-37 [facility] Work Phone: Thin prep Papanicolaou smear with manual screening 4 5-15 [facility] Work Phone: CORONAVIRUS 2018, SCREEN ASY MPTOMATICon 11-11-2021 DATE OF SYMPTOM ONSET [YYYYMMDD]? Canceled Normal [facility] Comment on above: Order Comment: TEST CORONAVIRUS 2018, SCREEN ASYMPTOMATIC WAS CANCELLED, 11/11/2021 10:06 testing not completed. Performed By: #### C OVSC #### [facility] [address] [place] [address] SARS-CoV-2 (COVID-19) RNA ALEJANDRA+probe Ql (Unsp spec) Canceled Normal [facility] Comment on above: Order Comment: TEST CORONAVIRUS 2018, SCREEN ASYMPTOMATIC WAS CANCELLED, 11/11/2021 10:06 testing not completed. Result Comment: . This assay is designed to detect the N, ORF1ab and/or S genes of SARS-CoV-2 via nucleic acid amplification. A Negative (NOT DETECTED) result does not preclude 2019-nCoV infection since the adequacy of sample collection and/or low viral burden may result in presence of viral nucleic acids below the clinical sensitivity of this test method. Negative (NOT DETECTED) result should not be used as the sole basis for treatment or other patient management decisions. Rather negative results should be combined with clinical observations, patient history, and epidemiological information to make patient management decisions. Fact sheet for providers: https://www.fda.gov/media/224393/download Fact sheet for patients: https://www.fda.gov/media/413489/download This test has received FDA Emergency Use Authorization (EUA) and has been verified by [facility] ([facility]). This test is only authorized for the duration of time that circumstances exist to justify the authorization of the emergency use of in vitro diagnostic tests for the detection of SARS-CoV-2 virus and/or diagnosis of COVID-19 infection under section 564(b)(1) of the Act, 21 U.S.C. 360bbb-3(b)(1), unless the authorization is terminated or revoked sooner. [facility] is certified under CLIA-88 as qualified to perform high complexity testing. Testing is performed in the [facility] laboratories located at [address] [place] [address]. Performed By: #### C OVUT #### [facility] [id number] [place] [address]. [address] Surgical Pathology Dep artmenton 10-14-2021 [facility] Surgical Pathology Department Name CLINTON SOLOMON Pathologist: MADHURI NELSON MD Date of Procedure: 10/14/2021 Date Received: 10/14/2021 Date Reported 10/17/2021 Submitting Physician: ASHLEY VILLASEÑOR MD Location: [facility] Other External # FINAL DIAGNOSIS A. 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 SEE NOTE. Note: Deeper levels were obtained and examined. Electronically Signed Out By MADHURI NELSON MD/RFA By the signature on this report, the individual or group listed as making the Final Interpretation/Diagnosis certifies that they have reviewed this case. Clinical History: duodenal mucosal mass /polyp found on endoscope Specimens Submitted As: A: DUODENUM BULB NODULE BIOPSY, COLD FORCEPS Gross Description: Received in formalin, labeled with the patient's name and hospital number and duodenum bulb BX, are multiple fragments of barrett, soft tissue aggregating to 0.8 x 0.5 x 0.2 cm. The specimen is submitted in toto in one cassette. RCC rcc/10/15/2021 [facility] Department of Pathology [address] [place] [address] Normal [facility] Comment on above: Performed By: #### A #### [facility] Surgical Pathology Department [address] [place] [address] CORONAVIRUS 2019, SCREEN ASY MPTOMATICon 10-14-2021 SARS-CoV-2 (COVID-19) RNA ALEJANDRA+probe Ql (Unsp spec) Not detected Normal Not Detected [facility] Comment on above: Result Comment: . This test has received FDA Emergency Use Authorization (EUA) and has been verified by [facility]. This test is only authorized for the duration of time that circumstances exist to justify the authorization of the emergency use of in vitro diagnostic tests for the detection of SARS-CoV-2 virus and/or diagnosis of COVID-19 infection under section 564(b)(1) of the Act, 21 U.S.C. 360bbb-3(b)(1), unless the authorization is terminated or revoked sooner. [facility] is certified under CLIA-88 as qualified to perform high complexity testing. Testing is performed in the [facility] laboratory located at [address] [place] [address]. SARS-CoV-2/Flu/RSV Multiplex Test: Fact sheet for providers: https://www.fda.gov/media/998698/download Fact sheet for patients: https://www.fda.gov/media/889816/download Performed By: #### C OVSC #### [facility] [address] [place] [address] Lab Specimen Source Nasal, Nasopharyngeal Normal [facility] Comment on above: Performed By: #### C OVSC #### [facility] [address] [place] [address] Coronavirus 2019 RNA by PCR, Screening Asymptomticon 10-14-2021 Coronavirus 2019 RNA by PCR, Screening Asymptomtic Not detected Normal See Below -Gastroen terology-[facility] [address] DO Work Phone: Comment on above: SOURCE: Nasal, Nasop haryngealReference Range: Not Detected.This test has received FDA Emergency Use Authorization (EUA) and has been verified by [facility]. This test is only authorized for the duration of time that circumstances exist to justify the authorization of the emergency use of in vitro diagnostic tests for the detection of SARS-CoV-2 virus and/or diagnosis of COVID-19 infection under section 564(b)(1) of the Act, 21 U.S.C. 360bbb-3(b)(1), unless the authorization is terminated or revoked sooner. [facility] is certified under CLIA-88 as qualified to perform high complexity testing. Testing is performed in the [facility] laboratory located at [address] [place] [address].SARS-CoV-2/Flu/RSV Multiplex Test: Fact sheet for providers: https://www.fda.gov/media/801231/downloadFact sheet for patients: https://www.fda.gov/media/775272/download Covid 19 Resultson 2 SARS-CoV-2 (COVID-19) RNA ALEJANDRA+probe Ql (Unsp spec) NEGATIVE COVID-19 Test Coronaviruses are common world-wide and are the cause of many common colds. SARS-COV2 is a new coronavirus that began circulating worldwide in 2019 so we are calling it COVID-19. It has been estimated that four out of five patients with COVID-19 will recover at home without the need for medical attention. Symptoms of COVID-19 may include cough, fever, shortness of breath, loss of taste or smell and other flu-like symptoms including chills, sore muscles, sore throat, and headache. Severe illness is more common in older people and people with other health problems such as high blood pressure, obesity, and immune system problems. If the test is positive, you have COVID-19. You will be contacted by the ordering physicians office and instructed to remain on home isolation, in accordance with CDC guidelines. You may also be contacted by the [facility] to see if any of your close contacts may have been exposed to the virus and need to quarantine. If the test is negative, you likely do not have COVID-19 at this time, but you still may have a different illness that can spread to other people (like Influenza, or the Flu) and could still be at risk for getting COVID-19. We recommend that you stay away from other people to limit the spread of illness until your symptoms are improving and you are fever-free for 24 hours without the use of fever lowering medications such as acetaminophen or ibuprofen. No test is 100% accurate so if you are still concerned you may have COVID-19, talk to your doctor about the need to continue to stay away from others. Medicines Unless your provider told you not to use the following: Acetaminophen (Tylenol and others) is generally safe. Anti-inflammatory medications, such as Ibuprofen (Advil or Motrin) or Naproxen (Aleve) can also be used. Ohrv-srr-udgxuio cough and cold medicines can be used according to the instructions on the package. Some ikjf-ers-bisdeqt medicines also contain acetaminophen. Make sure you are not taking more than your recommended dose. For those not hospitalized, there is no specific treatment available for this illness. Antibiotics do not treat Coronaviruses. Follow-Up Follow up with your doctor by scheduling a virtual visit or consider follow-up at one of our urgent care fever clinics. If you are having difficulty breathing, or are very weak and having difficulty standing, this is a medical emergency. Call 911 or have someone take you to the nearest emergency room immediately. If possible, wear a facemask. Additional guidance from the CDC for patients who tested POSITIVE for COVID-19 How to isolate: Isolate yourself in a specific room at home and limit your contact with others. Use a separate bathroom from other members of the household, when possible. Leave home only to get essential medical care. Do not go to work, school or public areas. Avoid using public transportation, ride-sharing, or taxis. Restrict contact with pets and other animals. If you must care for your pet or be around animals while you are sick, wash your hands before and after your interaction and wear a facemask. Make sure that shared spaces in the home have good airflow, such as by an air conditioner or an opened window, weather permitting. Personal Hygiene Procedures: Wear a face mask when in the same room as other people or pets. If a face mask interferes with your breathing, others should wear a mask when sharing space with you. Frequent hand-washing: wash your hands with soap and water for at least 20 seconds. If soap and water are not available, use alcohol-based hand pediatric speech language pathologist. Avoid touching your eyes, nose, and mouth with unwashed hands. Household Hygiene Procedures: Avoid sharing personal household items such as dishes, glassware, cups, eating utensils, towels or bedding with other people or pets in your home. After use, these items should be washed with soap and hot water. Disinfect all high-touch surfaces every day with antibacterial cleaning solutions such as Lysol wipes, bleach, cleansers, etc. High-touch surfaces include tabletops, doorknobs, bathroom fixtures, toilets, phones, keyboards, tablets and bedside tables. Immediately clean any surfaces that may have blood, poop or body fluids on them, using antibacterial cleaning solutions such as Lysol wipes, bleach, cleansers, etc. If clothing or bedding come into contact with blood, poop or body fluids, they should be washed immediately. Follow the directions on the laundry detergent and clothing labels but hot water is recommended when possible. Stopping home isolation precautions: If possible, consult your doctor before stopping home isolation precautions. According to the CDC, you can discontinue home isolation precautions when you have met both of these criteria: Your fever and respiratory symptoms have been gone for 24 edwina (more content not included)... Normal [facility] No Panel Informationon 10-14 [email or web address]?={[email or web address] [id number]} [facility] [place] [facility] [address] DO Work Phone: [facility] [place] [facility] [address] DO Work Phone: Name CLINTON SOLOMON Pathologist: MADHURI NELSON MD Date of Procedure: 10/14/2021 Date Received: [facility] [place] [facility] [address] DO Work Phone: Order Reconciliationon 10-14 Order Reconciliation Page 1 Discharge Reconciliation Document Reconciliation Type: Discharge requested on behalf of Ashley Villaseñor (Physician) done by Ashley Villaseñor) Discharge - Reconciliation: 14-Oct-2021 09:40 by: Ashley Villaseñor) Home Medications EnteredHOME MEDICATIONS AT DISCHARGE DateReconciliation Comment/ Additional Information Creon 14-Oct-2021 09:17 Creon 14-Oct-2021 09:17 Creon is continued as Creon Lexapro 10 mg oral tablet 1 tab(s) orally once a day 14-Oct-2021 09:15 Lexapro 10 mg oral tablet 1 tab(s) orally once a day 14-Oct-2021 09:15 Lexapro 10 mg oral tablet is continued as Lexapro 10 mg oral tablet omeprazole 40 mg oral delayed release capsule 1 cap(s) orally once a day 14-Oct-2021 09:15 omeprazole 40 mg oral delayed release capsule 1 cap(s) orally once a day 14-Oct-2021 09:15 omeprazole 40 mg oral delayed release capsule is continued as omeprazole 40 mg oral delayed release capsule Topamax 25 mg oral tablet 1 tab(s) orally 2 times a day 14-Oct-2021 09:17 Topamax 25 mg oral tablet 1 tab(s) orally 2 times a day 14-Oct-2021 09:17 Topamax 25 mg oral tablet is continued as Topamax 25 mg oral tablet Vraylar 3 mg oral capsule 1 cap(s) orally once a day 14-Oct-2021 09:16 Vraylar 3 mg oral capsule 1 cap(s) orally once a day 14-Oct-2021 09:16 Vraylar 3 mg oral capsule is continued as Vraylar 3 mg oral capsule All Active Home Medications at time of Discharge Reconciliation: 14-Oct-2021 09:40 Creon Lexapro 10 mg oral tablet 1 tab(s) orally once a day omeprazole 40 mg oral delayed release capsule 1 cap(s) orally once a day Topamax 25 mg oral tablet 1 tab(s) orally 2 times a day Vraylar 3 mg oral capsule 1 cap(s) orally once a day Normal [facility] Upper EUSon 10-14-2021 Upper EUS PATIENTNAME Patient Name: Clinton Solomon EXAMDATE Procedure Date: 10/14/2021 9:33 AM PATIENTID PATIENTACCOUNTNUM PATIENTDOB Date of : 1985 PATIENTROOM Site: [place] [address] ETHNICITY Ethnicity: Not or RACE Race: White PROVDR Attending MD: Ashley Villaseñor MD ENDOPROCEDURENAME Procedure: Upper EUS INDICATION Indications: Duodenal mucosal mass/polyp found on endoscopy PTPROFILE Patient Profile: This is a 36 year old female. Refer to note in patient chart for documentation of history and physical. PRIMARYPROVIDER Providers: Ashley Villaseñor MD (Doctor) Gastroenterology, Triston Webb, JANELL (Nurse) , Javier Avila, RN (Nurse) , Radha Draling RN (Nurse) EDREFPROVIDER Referring MD: Sharif Pérez CURRENT_MEDS Medicines: Monitored Anesthesia Care COMPLIC Complications: No immediate complications. ENDOPROCEDURETEXT Procedure: Pre-Anesthesia Assessment: - Prior to the procedure, a History and Physical was performed, and patient medications and allergies were reviewed. The patient is competent. The risks and benefits of the procedure and the sedation options and risks were discussed with the patient. All questions were answered and informed consent was obtained. Patient identification and proposed procedure were verified by the physician, the nurse and the mortar carrier in the procedure room. Mental Status Examination: alert and oriented. Airway Examination: normal oropharyngeal airway and neck mobility. Respiratory Examination: clear to auscultation. CV Examination: normal. Prophylactic Antibiotics: The patient does not require prophylactic antibiotics. Prior Anticoagulants: The patient has taken no anticoagulant or antiplatelet agents. ASA Grade Assessment: II - A patient with mild systemic disease. After reviewing the risks and benefits, the patient was deemed in satisfactory condition to undergo the procedure. The anesthesia plan was to use monitored anesthesia care (MAC). Immediately prior to administration of medications, the patient was re-assessed for adequacy to receive sedatives. The heart rate, respiratory rate, oxygen saturations, blood pressure, adequacy of pulmonary ventilation, and response to care were monitored throughout the procedure. The physical status of the patient was re-assessed after the procedure. After obtaining informed consent, the endoscope was passed under direct vision. Throughout the procedure, the patient's blood pressure, pulse, and oxygen saturations were monitored continuously. The radial ultrasound endoscope was introduced through the mouth, and advanced to the duodenum for ultrasound examination from the stomach and duodenum. The endoscope was introduced through the mouth, and advanced to the second part of duodenum. The upper EUS was accomplished without difficulty. The patient tolerated the procedure well. FINDING Findings: ENDOSCOPIC FINDING: : The Z-line was found 39 cm from the incisors. No gross lesions were noted in the entire examined stomach. The cardia and gastric fundus were normal on retroflexion. Localized nodular mucosa was found in the duodenal bulb. A single 10 mm mucosal nodule with a localized distribution was found in the distal duodenal bulb. Theer was questionable central umbilication, unclear if related to prior biopsies. Biopsies were taken in tunnelled fashion with a cold forceps for histology. ENDOSONOGRAPHIC FINDING: : An oval intramural (subepithelial) lesion was found in the apex of the duodenal bulb. The lesion was hypoechoic. Endosonographically, the lesion appeared to originate from within the deep mucosa (Layer 2). The lesion measured 10 mm (in maximum thickness). The lesion also measured 7 mm in diameter. The outer margins were well defined. No lymphadenopathy seen. EBL Estimated Blood Loss: Estimated blood loss: none. IMPRESS Impression: EGD: - Z-line, 39 cm from the incisors. - No gross lesions in the entire stomach. - Nodular mucosa in the duodenal bulb. - Mucosal nodule found in the distal duodenal. Biopsied in stacked/tunnelled fashion. EUS: - An intramural (subepithelial) lesion was found in the apex of the duodenal bulb. The lesion appeared to originate from within the deep mucosa (Layer 2), measuring 10 mm. ENDORECOMMENDATION Recommendation: - The patient will be observed post-procedure, until all discharge criteria are met. - Patient has a contact number available for emergencies. The signs and symptoms of potential delayed complications were discussed with the patient. Return to normal activities tomorrow. Written discharge instructions were provided to the patient. - Written discharge instructions were provided to the patient. - Resume previous diet. - Continue present medications. - Await path results. - Pending patholgy results, consider surveill (more content not included)... Normal [facility] CORONAVIRUS 2018, SCREEN ASY MPTOMATICon 10-06-2021 Lab Specimen Source Nasal, Nasopharyngeal Normal [facility] Comment on above: Order Comment: TEST CORONAVIRUS 2018, SCREEN ASYMPTOMATIC WAS CANCELLED, 11/11/2021 10:06 testing not completed. Performed By: #### C OVSC #### [facility] [address] [place] [address] No Panel Informationon 08-20 SARS-CoV-2 Antigen (Rapid) [facility] Work Phone: CNOVon 06-09-2021 CNOV Office Visit (UROLAE ) -- CLINTON SOLOMON ([id number]) 1985 F Date Time Provider Department 06/09/21 10:40 AM ORIN JULIO During your visit today, we recorded the following information about you: Weight Height 86.2 kg 1.626 m Orin Julio APRN.CNP 06/10/2021 12:17 PM Signed NEW PATIENT OFFICE VISIT HISTORY OF PRESENT ILLNESS Clinton Solomon is a 36 year old female with h/o kidney stones who presents today as a new patient for f/u kidney stones. She has a h/o kidney stones - has passed multiple stones spontaneously. Patient reports she was seen at [facility] and recently had renal ultrasound? She was told to follow up with urology for kidney stones. She denies flank pain. No gross hematuria. No dysuria. No records to review will sigh release and follow up as needed and pending results. Discussed dietary stone prevention. Taking topamax Will await records LAB RESULTS No results found for: CREAT No results found for: PSA No results found for: COLOR, CLARITY, UGLUC, UBILI, UKET, SPGR, UHB, UPH, UPROT, UROBILINOGEN, NITRITES, LEUKEST MEDICATIONS: escitalopram oxalate (LEXAPRO) 10 mg tablet omeprazole (PRILOSEC) 40 mg capsule SUMAtriptan (IMITREX) 50 mg tablet topiramate (TOPAMAX) 50 mg tablet potassium chloride (K-TAB) 10 mEq tablet REVIEW OF SYSTEMS CONSTITUTIONAL: Patient reports no recent fever or weight loss CARDIOVASCULAR: No chest pain, palpitations or ankle edema. RESPIRATORY: No wheezing, frequent cough or shortness of breath GENITOURINARY: See HPI HISTORIES No past medical history on file. No family history on file. No past surgical history on file. SOCIAL HISTORY Social History Tobacco Use - Smoking status: Current Every Day Smoker - Smokeless tobacco: Never Used Substance Use Topics - Alcohol use: Not Currently - Drug use: Yes Types: Marijuana PHYSICAL EXAMINATION General appearance: Well appearing, alert, in no acute distress, well-hydrated, well nourished.. BACK: no pain to palpation over spine or costovertebral angles. MUSCULOSKELETAL: Negative for joint pain or swelling. RESPIRATORY: Normal respiratory effort. SKIN: Normal color, no rash, no lesions.. : See HPI Medical Decision Making: Problems: Low: Stable chronic illness Data: Unique test(s) ordered: 1 Assessment requiring an independent historian(s) Risk: Minimal: Minimal risk from testing/treatment Medical Decision Making Level: 3 - Low ASSESSMENT/PLAN: 1. Kidney stones - ICD9: 592.0, ICD10: N20.0 - will await records follow up pending results and as needed Orin Julio APRN.BRUSHER WARP Referring Provider: CARMITA GONZALEZ [[id number]] Allergies As of Date: 06/09/2021 (Not on File) Date Reviewed: 06/09/2021 Reviewed by: Leslie Pepper MA - Fully Assessed Reason for Visit: Kidney Stones [47642] Cmt: 5mm Visit Diagnosis:Kidney stones [N20.0] Order(s):UA DIP, URINE (POC) [[id number]] Order #: [id number]. #:[id number] -LAB Prescriptions as of 06/10/2021 - escitalopram oxalate (LEXAPRO) 10 mg tablet - omeprazole (PRILOSEC) 40 mg capsule - SUMAtriptan (IMITREX) 50 mg tablet - topiramate (TOPAMAX) 50 mg tablet - potassium chloride (K-TAB) 10 mEq tablet Problem List As Of Date: 06/09/2021 (None) Disposition: Return if symptoms worsen or fail to improve. Follow-up and Disposition History for Encounter Date Provider Department Center 06/09/2021 [id number] JULIO Srini W Exch Encounter Status:Closed by ORIN JULIO on 06/10/21 [facility] UA DIP, URINE (POC)on 2020 BILIRUBIN UA (POCT) Negative Negative [facility] CLARITY UA (POCT) Clear [facility] COLOR UA (POCT) Yellow [facility] GLUCOSE UA (POCT) Negative Negative mg/dL [facility] HEMOGLOBIN/BLOOD UA (POCT) Negative Negative [facility] KETONE UA (POCT) Negative Negative mg/dL [facility] LEUKOCYTES UA (POCT) Negative Negative [facility] NITRITE UA (POCT) Negative Negative [facility] PH UA (POCT) 7.5 4.5 - 8.0 [facility] Protein Ql (U) Negative Negative mg/dL [facility] SPECIFIC GRAVITY UA (POCT) 1.020 1.005 - 1.030 [facility] UROBILINOGEN UA (POCT) 0.2 E.U./dL Normal E.U./dL [facility] CNCOon 01-22-2021 CNCO [address] Normal [facility] CNPNon 01-22-2021 CNPN Telephone (SPAGWO) -- CLINTON SAUNDERS ([id number]) 1985 F Date Time Provider Department 01/22/21 AG SPINE SPAGWO During your visit today, we recorded the following information about you: Ashley Mace 01/22/2021 9:25 AM Signed Received a referral from [facility] in [place] for migraines. Left a voicemail for patient to call back to schedule and sent ATC letter. Ashley Mace Allergies As of Date: 01/22/2021 (Not on File) Date Reviewed: Never Reviewed Reason for Visit: New Patient [172] Problem List As Of Date: 01/22/2021 (None) Encounter Status:Closed by ASHLEY MACE on 01/22/[address] [facility] XR SPINE THORACIC 2 VIEWSon 03-30-2017 XR SPINE THORACIC 2 VIEWS ORIGINALXR SPINE THORACIC 2 VIEWS CLINICAL STATEMENT: Back pain, history of trauma. COMPARISON: None FINDINGS: No acute fracture or traumatic malalignment. The vertebral body heights are maintained. IMPRESSION: No compression deformity or significant listhesis. Interpreted By: Alvino Arroyo MDPreliminary Report By: Alvino Arroyo MDElectronically Signed By: Alvino Arroyo MD Dictated Date: 03/30/2017 3:50:39 PM Prelim Date: 03/30/2017 3:50:39 PM Sign Date: 03/30/2017 3:51:00 PM Normal [facility]) [facility] Note on 03-27-2017 [facility] Note Normal [facility] [place] Patient Summary Documentson 03-25-2017 Patient Summary Documents Normal [facility] [place] Vital Signs Date Time Vital Sign Value Performing Clinician Facility 03-30-2025 12:32-0400 Body temperature 98.7 [degF] [facility] Work Phone: 2(161)664-380702 [place] [address] 03-30-2025 12:32-0400 Diastolic blood pressure 78 mm[Hg] [facility] Work Phone: 9(543)838-378202 [place] [address] 03-30-2025 12:32-0400 Heart rate 78 /min [facility] Work Phone: 4(057)508-491502 [place] [address] 03-30-2025 12:32-0400 Respiratory rate 16 /min [facility] Work Phone: 4(576)859-210702 [place] [address] 03-30-2025 12:32-0400 SaO2% (BldA) [Mass fraction] 99 % [facility] Work Phone: 4(269)037-747602 [place] [address] 03-30-2025 12:32-0400 Systolic blood pressure 134 mm[Hg] [facility] Work Phone: 4(466)800-822702 [place] [address] 03-30-2025 10:03-0400 Body height 160.02 cm [facility] Work Phone: 6(194)148-069602 [place] [address] 03-30-2025 10:03-0400 Body mass index (BMI) [Ratio] 35.7 kg/m2 [facility] Work Phone: 3(192)324-107902 [place] [address] 03-30-2025 10:03-0400 Body weight 91.6 kg [facility] Work Phone: 2(554)862-504502 [place] [address] 02-23-2025 13:42-0400 Body temperature 98 [degF] [facility] Work Phone: 6(861)946-755902 [place] [address] 02-23-2025 13:42-0400 Diastolic blood pressure 79 mm[Hg] [facility] Work Phone: 7(570)695-732002 [place] [address] 02-23-2025 13:42-0400 Heart rate 82 /min [facility] Work Phone: 5(072)141-010802 [place] [address] 02-23-2025 13:42-0400 Respiratory rate 18 /min [facility] Work Phone: [facility] 02-23-2025 13:42-0400 SaO2% (BldA) [Mass fraction] 99 % [facility] Work Phone: [facility] 02-23-2025 13:42-0400 Systolic blood pressure 139 mm[Hg] [facility] Work Phone: 8(850)973-013696 [place] [address] 02-23-2025 12:01-0400 Body height 162.56 cm [facility] Work Phone: 1(209)308-419996 [place] [address] 02-23-2025 12:01-0400 Body mass index (BMI) [Ratio] 34.1 kg/m2 [facility] Work Phone: 4(720)542-024596 [place] [address] 02-23-2025 12:01-0400 Body weight 90.26 kg [facility] Work Phone: 8(220)373-316196 [place] [address] 01-29-2025 19:47-0400 Body height 160 cm Oly Cho MD Work Phone: [facility] 01-29-2025 19:47-0400 Body mass index (BMI) [Ratio] 31.89 kg/m2 Oly Cho MD Work Phone: [facility] 01-29-2025 19:47-0400 Body temperature 98.71 [degF] Oly Cho MD Work Phone: [facility] 01-29-2025 19:47-0400 Body weight 81.65 kg Oly Cho MD Work Phone: [facility] 01-29-2025 19:47-0400 Diastolic blood pressure 74 mm[Hg] Oly Cho MD Work Phone: [facility] 01-29-2025 19:47-0400 Heart rate 70 /min Oly Cho MD Work Phone: [facility] 01-29-2025 19:47-0400 Respiratory rate 18 /min Oly Cho MD Work Phone: [facility] 01-29-2025 19:47-0400 SaO2% (BldA) [Mass fraction] 97 % Oly Cho MD Work Phone: [facility] 01-29-2025 19:47-0400 Systolic blood pressure 116 mm[Hg] Oly Cho MD Work Phone: [facility] 12-07-2022 10:35-0400 Body height 162.56 cm [facility] Work Phone: 9(522)841-400802 [place] [address] 12-07-2022 10:35-0400 Body mass index (BMI) [Ratio] 35.6 kg/m2 [facility] Work Phone: 9(027)356-343202 [place] [address] 12-07-2022 10:35-0400 Body weight 94.34 kg [facility] Work Phone: 0(377)593-039302 [place] [address] 12-07-2022 10:35-0400 Diastolic blood pressure 74 mm[Hg] [facility] Work Phone: 9(580)110-771302 [place] [address] 12-07-2022 10:35-0400 Heart rate 76 /min [facility] Work Phone: 7(193)972-708202 [place] [address] 12-07-2022 10:35-0400 SaO2% (BldA) [Mass fraction] 96 % [facility] Work Phone: 0(359)079-793202 [place] [address] 12-07-2022 10:35-0400 Systolic blood pressure 116 mm[Hg] [facility] Work Phone: 8(516)259-246902 [place] [address] 11-22-2022 01:19-0400 Diastolic blood pressure 88 mm[Hg] [facility] Work Phone: 7(748)359-249902 [place] [address] 11-22-2022 01:19-0400 Heart rate 76 /min [facility] Work Phone: 0(456)626-512802 [place] [address] 11-22-2022 01:19-0400 Respiratory rate 16 /min [facility] Work Phone: 3(808)164-008702 [place] [address] 11-22-2022 01:19-0400 SaO2% (BldA) [Mass fraction] 96 % [facility] Work Phone: 0(331)559-678902 [place] [address] 11-22-2022 01:19-0400 Systolic blood pressure 115 mm[Hg] [facility] Work Phone: 9(061)751-555102 [place] [address] 11-21-2022 23:01-0400 Body height 162.56 cm [facility] Work Phone: 5(374)068-695602 [place] [address] 11-21-2022 23:01-0400 Body mass index (BMI) [Ratio] 35.7 kg/m2 [facility] Work Phone: 6(429)408-390702 [place] [address] 11-21-2022 23:01-0400 Body temperature 97.6 [degF] [facility] Work Phone: 4(208)812-653202 [place] [address] 11-21-2022 23:01-0400 Body weight 94.51 kg [facility] Work Phone: 1(415)327-644502 [place] [address] 11-20-2022 13:38-0400 Body temperature 98.3 [degF] [facility] Work Phone: 3(695)285-000602 [place] [address] 11-20-2022 13:38-0400 Diastolic blood pressure 71 mm[Hg] [facility] Work Phone: 7(414)161-093302 [place] [address] 11-20-2022 13:38-0400 Heart rate 74 /min [facility] Work Phone: 9(018)955-343602 [place] [address] 11-20-2022 13:38-0400 Respiratory rate 16 /min [facility] Work Phone: 4(615)083-000502 [place] [address] 11-20-2022 13:38-0400 SaO2% (BldA) [Mass fraction] 97 % [facility] Work Phone: 0(363)801-874502 [place] [address] 11-20-2022 13:38-0400 Systolic blood pressure 103 mm[Hg] [facility] Work Phone: 7(298)498-418702 [place] [address] 11-20-2022 12:38-0400 Body height 162.56 cm [facility] Work Phone: 3(540)647-024302 [place] [address] 11-20-2022 12:38-0400 Body mass index (BMI) [Ratio] 34.4 kg/m2 [facility] Work Phone: 9(032)162-439902 [place] [address] 11-20-2022 12:38-0400 Body weight 91 kg [facility] Work Phone: 6(131)080-111002 [place] [address] 10-14-2022 14:10-0400 Diastolic blood pressure 88 mm[Hg] [facility] Work Phone: 7(556)305-521702 [place] [address] 10-14-2022 14:10-0400 Heart rate 82 /min [facility] Work Phone: 7(738)891-769402 [place] [address] 10-14-2022 14:10-0400 Respiratory rate 16 /min [facility] Work Phone: 6(811)902-960902 [place] [address] 10-14-2022 14:10-0400 SaO2% (BldA) [Mass fraction] 98 % [facility] Work Phone: 1(535)878-857102 [place] [address] 10-14-2022 14:10-0400 Systolic blood pressure 129 mm[Hg] [facility] Work Phone: 2(420)230-602502 [place] [address] 10-14-2022 12:54-0400 Body mass index (BMI) [Ratio] 36 kg/m2 [facility] Work Phone: 9(628)991-575202 [place] [address] 10-14-2022 12:54-0400 Body temperature 96.7 [degF] [facility] Work Phone: 0(892)408-857802 [place] [address] 10-14-2022 12:54-0400 Body weight 95.25 kg [facility] Work Phone: 6(256)418-164602 [place] [address] 10-12-2022 14:52-0400 Body mass index (BMI) [Ratio] 37 kg/m2 [facility] Work Phone: 9(429)063-474702 [place] [address] 10-12-2022 14:52-0400 Body temperature 97.2 [degF] [facility] Work Phone: 2(230)805-801202 [place] [address] 10-12-2022 14:52-0400 Body weight 97.74 kg [facility] Work Phone: 1(252)310-797502 [place] [address] 10-12-2022 14:52-0400 Diastolic blood pressure 73 mm[Hg] [facility] Work Phone: 9(622)604-936102 [place] [address] 10-12-2022 14:52-0400 Heart rate 91 /min [facility] Work Phone: 4(154)033-389602 [place] [address] 10-12-2022 14:52-0400 Inhaled oxygen flow rate 97 L/min [facility] Work Phone: 1(141)568-431202 [place] [address] 10-12-2022 14:52-0400 Respiratory rate 19 /min [facility] Work Phone: 8(819)559-320502 [place] [address] 10-12-2022 14:52-0400 SaO2% (BldA) [Mass fraction] 97 % [facility] Work Phone: 6(797)405-982902 [place] [address] 10-12-2022 14:52-0400 Systolic blood pressure 104 mm[Hg] [facility] Work Phone: 2(492)295-971602 [place] [address] 10-06-2022 11:02-0400 Body mass index (BMI) [Ratio] 37 kg/m2 [facility] Work Phone: 6(353)543-294402 [place] [address] 10-06-2022 11:02-0400 Body weight 97.97 kg [facility] Work Phone: 8(797)014-155402 [place] [address] 10-06-2022 11:02-0400 Diastolic blood pressure 85 mm[Hg] [facility] Work Phone: 6(912)983-753302 [place] [address] 10-06-2022 11:02-0400 Heart rate 92 /min [facility] Work Phone: 2(100)968-614002 [place] [address] 10-06-2022 11:02-0400 SaO2% (BldA) [Mass fraction] 97 % [facility] Work Phone: 5(677)810-371002 [place] [address] 10-06-2022 11:02-0400 Systolic blood pressure 120 mm[Hg] [facility] Work Phone: 7(960)241-979702 [place] [address] 07-30-2022 12:37-0500 Respiratory rate 18 /min [facility] Work Phone: 4(742)778-885902 [place] [address] 07-30-2022 11:59-0500 Body height 162.56 cm [facility] Work Phone: 6(443)460-932523 [address] Work Phone: 07-30-2022 11:59-0500 Body mass index (BMI) [Ratio] 36.8 kg/m2 [facility] Work Phone: 7(602)069-345023 [address] 07-30-2022 11:59-0500 Body temperature 97.4 [degF] [facility] Work Phone: 1(787)863-766602 [place] [address] 07-30-2022 11:59-0500 Body weight 97.52 kg [facility] Work Phone: 4(214)522-040802 [place] [address] 07-30-2022 11:59-0500 Diastolic blood pressure 98 mm[Hg] [facility] Work Phone: 6(989)886-411102 [place] [address] 07-30-2022 11:59-0500 Heart rate 98 /min [facility] Work Phone: 0(124)391-534602 [place] [address] 07-30-2022 11:59-0500 SaO2% (BldA) [Mass fraction] 99 % [facility] Work Phone: 7(136)628-555702 [place] [address] 07-30-2022 11:59-0500 Systolic blood pressure 156 mm[Hg] [facility] Work Phone: 8(783)454-215823 [address] 05-14-2022 08:33-0400 Body height 162.56 cm [facility] Work Phone: 5(286)472-264896 [place] [address] Work Phone: 05-14-2022 08:33-0400 Body mass index (BMI) [Ratio] 39.6 kg/m2 [facility] Work Phone: [facility] Work Phone: 05-14-2022 08:33-0400 Body weight 104.77 kg [facility] Work Phone: [facility] Work Phone: 05-14-2022 08:33-0400 Diastolic blood pressure 84 mm[Hg] [facility] Work Phone: 7(086)930-357996 [place] [address] Work Phone: 05-14-2022 08:33-0400 Heart rate 76 /min [facility] Work Phone: [facility] Work Phone: 05-14-2022 08:33-0400 SaO2% (BldA) [Mass fraction] 97 % [facility] Work Phone: [facility] Work Phone: 05-14-2022 08:33-0400 Systolic blood pressure 126 mm[Hg] [facility] Work Phone: [facility] Work Phone: 05-13-2022 08:45-0400 Body height 162.6 cm Scooter Castellanos MD Work Phone: [facility] 05-13-2022 08:45-0400 Body mass index (BMI) [Ratio] 39.65 kg/m2 Scooter Castellanos MD Work Phone: 8(397)015-373436 [address] 05-13-2022 08:45-0400 Body temperature 98.1 [degF] Scooter Castellanos MD Work Phone: [facility] 05-13-2022 08:45-0400 Body weight 104.83 kg Scooter Castellanos MD Work Phone: [facility] 05-13-2022 08:45-0400 Diastolic blood pressure 72 mm[Hg] Scooter Castellanos MD Work Phone: [facility] 05-13-2022 08:45-0400 Heart rate 70 /min Scooter Castellanos MD Work Phone: [facility] 05-13-2022 08:45-0400 Respiratory rate 16 /min Scooter Castellanos MD Work Phone: [facility] 05-13-2022 08:45-0400 SaO2% (BldA) [Mass fraction] 98 % Scooter Castellanos MD Work Phone: [facility] 05-13-2022 08:45-0400 Systolic blood pressure 123 mm[Hg] Scooter Castellanos MD Work Phone: 8(134)518-650397 [place] [address] 05-06-2022 08:58-0400 Body height 162.6 cm Hansel Raymond PA-C Work Phone: 4(426)908-226397 [place] [address] 05-06-2022 08:58-0400 Body mass index (BMI) [Ratio] 37.76 kg/m2 Hansel Raymond PA-C Work Phone: 0(426)823-726797 [place] [address] 05-06-2022 08:58-0400 Body weight 99.79 kg Hansel Raymond PA-C Work Phone: 9(737)327-185497 [place] [address] 05-06-2022 08:58-0400 Diastolic blood pressure 78 mm[Hg] Hansel Raymond PA-C Work Phone: 5(966)062-544097 [place] [address] 05-06-2022 08:58-0400 Heart rate 83 /min Hansel Raymond PA-C Work Phone: 0(983)108-770997 [place] [address] 05-06-2022 08:58-0400 Systolic blood pressure 129 mm[Hg] Hansel Raymond PA-C Work Phone: 5(407)299-032297 [place] [address] 04-01-2022 08:11-0400 Body height 162.6 cm Scooter Castellanos MD Work Phone: 5(065)396-730097 [place] [address] 04-01-2022 08:11-0400 Body mass index (BMI) [Ratio] 39.08 kg/m2 Scooter Castellanos MD Work Phone: 0(545)652-576297 [place] [address] 04-01-2022 08:11-0400 Body temperature 98.1 [degF] Scooter Castellanos MD Work Phone: 6(073)037-841797 [place] [address] 04-01-2022 08:11-0400 Body weight 103.28 kg Scooter Castellanos MD Work Phone: [facility] 04-01-2022 08:11-0400 Diastolic blood pressure 72 mm[Hg] Scooter Castellanos MD Work Phone: [facility] 04-01-2022 08:11-0400 Heart rate 74 /min Scooter Castellanos MD Work Phone: [facility] 04-01-2022 08:11-0400 Respiratory rate 17 /min Scooter Castellanos MD Work Phone: [facility] 04-01-2022 08:11-0400 SaO2% (BldA) [Mass fraction] 97 % Scooter Castellanos MD Work Phone: [facility] 04-01-2022 08:11-0400 Systolic blood pressure 113 mm[Hg] Scooter Castellanos MD Work Phone: [facility] 03-18-2022 14:00-0400 Body mass index (BMI) [Ratio] 38.9 kg/m2 [facility] Work Phone: [facility] Work Phone: 03-18-2022 14:00-0400 Body temperature 98.7 [degF] [facility] Work Phone: [facility] Work Phone: 03-18-2022 14:00-0400 Body weight 103.07 kg [facility] Work Phone: [facility] Work Phone: 03-18-2022 14:00-0400 Diastolic blood pressure 81 mm[Hg] [facility] Work Phone: [facility] Work Phone: 03-18-2022 14:00-0400 Heart rate 94 /min [facility] Work Phone: [facility] Work Phone: 03-18-2022 14:00-0400 Respiratory rate 16 /min [facility] Work Phone: [facility] Work Phone: 03-18-2022 14:00-0400 SaO2% (BldA) [Mass fraction] 96 % [facility] Work Phone: [facility] Work Phone: 03-18-2022 14:00-0400 Systolic blood pressure 124 mm[Hg] [facility] Work Phone: [facility] Work Phone: 03-11-2022 11:08-0400 Body height 162.56 cm [facility] Work Phone: [facility] Work Phone: 03-11-2022 11:08-0400 Body mass index (BMI) [Ratio] 37.5 kg/m2 [facility] Work Phone: [facility] Work Phone: 03-11-2022 11:08-0400 Body weight 99.33 kg [facility] Work Phone: [facility] Work Phone: 03-11-2022 11:08-0400 Diastolic blood pressure 89 mm[Hg] [facility] Work Phone: [facility] Work Phone: 03-11-2022 11:08-0400 Heart rate 95 /min [facility] Work Phone: [facility] Work Phone: 03-11-2022 11:08-0400 SaO2% (BldA) [Mass fraction] 94 % [facility] Work Phone: [facility] Work Phone: 03-11-2022 11:08-0400 Systolic blood pressure 128 mm[Hg] [facility] Work Phone: [facility] Work Phone: 01-28-2022 12:09-0400 Body height 162.56 cm [facility] Work Phone: [facility] Work Phone: 01-28-2022 12:09-0400 Body mass index (BMI) [Ratio] 37.8 kg/m2 [facility] Work Phone: [facility] Work Phone: 01-28-2022 12:09-0400 Body temperature 97.3 [degF] [facility] Work Phone: [facility] Work Phone: 01-28-2022 12:09-0400 Body weight 99.79 kg [facility] Work Phone: [facility] Work Phone: 01-28-2022 12:09-0400 Diastolic blood pressure 83 mm[Hg] [facility] Work Phone: [facility] Work Phone: 01-28-2022 12:09-0400 Heart rate 98 /min [facility] Work Phone: [facility] Work Phone: 01-28-2022 12:09-0400 Respiratory rate 16 /min [facility] Work Phone: [facility] Work Phone: 01-28-2022 12:09-0400 SaO2% (BldA) [Mass fraction] 99 % [facility] Work Phone: [facility] Work Phone: 01-28-2022 12:09-0400 Systolic blood pressure 129 mm[Hg] [facility] Work Phone: [facility] Work Phone: 12-09-2021 16:59-0400 Body temperature 97.6 [degF] [facility] Work Phone: [facility] Work Phone: 05-24-2022 16:59-0400 Diastolic blood pressure 79 mm[Hg] [facility] Work Phone: [facility] Work Phone: 12-09-2021 16:59-0400 Heart rate 78 /min [facility] Work Phone: [facility] Work Phone: 12-09-2021 16:59-0400 Respiratory rate 16 /min [facility] Work Phone: [facility] Work Phone: 12-09-2021 16:59-0400 SaO2% (BldA) [Mass fraction] 100 % [facility] Work Phone: [facility] Work Phone: 12-09-2021 16:59-0400 Systolic blood pressure 124 mm[Hg] [facility] Work Phone: [facility] Work Phone: 12-09-2021 14:37-0400 Body height 162.56 cm [facility] Work Phone: [facility] Work Phone: 12-09-2021 14:37-0400 Body mass index (BMI) [Ratio] 36.7 kg/m2 [facility] Work Phone: [facility] Work Phone: 12-09-2021 14:37-0400 Body weight 97.06 kg [facility] Work Phone: [facility] Work Phone: 08-21-2021 10:10-0500 Diastolic blood pressure 69 mm[Hg] [facility] Work Phone: [facility] Work Phone: 08-21-2021 10:10-0500 Systolic blood pressure 103 mm[Hg] [facility] Work Phone: [facility] Work Phone: 08-21-2021 10:05-0500 Body temperature 97.8 [degF] [facility] Work Phone: [facility] Work Phone: 08-21-2021 10:05-0500 Heart rate 67 /min [facility] Work Phone: [facility] Work Phone: 08-21-2021 10:05-0500 Respiratory rate 16 /min [facility] Work Phone: [facility] Work Phone: 08-21-2021 10:05-0500 SaO2% (BldA) [Mass fraction] 95 % [facility] Work Phone: [facility] Work Phone: 08-21-2021 08:28-0500 Body mass index (BMI) [Ratio] 34.3 kg/m2 [facility] Work Phone: [facility] Work Phone: 08-21-2021 08:28-0500 Body weight 90.8 kg [facility] Work Phone: [facility] Work Phone: 06-09-2021 11:18-0500 Body height 162.6 cm Orin Julio APRN.BRUSHER WARP Work Phone: [facility] 06-09-2021 11:18-0500 Body weight 86.18 kg Orin Julio H[employer] WORKER.[employer]USHER WARP Work Phone: [facility] 04-20-2017 10:13-0400 BMI (Body Mass Index) 35.5 kg/m2 April Bahena [facility] Work Phone: 04-20-2017 10:13-0400 Body Temperature 98.1 [degF] April Bahena [facility] Work Phone: 04-20-2017 10:13-0400 BP Diastolic 70 mm[Hg] April Bahena [facility] Work Phone: 04-20-2017 10:13-0400 BP Systolic 98 mm[Hg] [facility] 04-20-2017 10:13-0400 Height 164.6 [facility] 04-20-2017 10:13-0400 Pulse (Heart Rate) 96 /min [facility]: 04-20-2017 10:13-0400 Pulse Oximetry 97 % [facility]: 04-20-2017 10:13-0400 Respiratory Rate 16 /min [facility]: 04-20-2017 10:13-0400 [facility] 96.16 [facility] Encounters Encounter Date Encounter Type Care Provider Facility Start: 05-29-2025 End: 05-29-2025 Emergency department patient visit No Primary Care Physician Facility:[facility] Start: 03-30-2025 End: 03-30-2025 Emergency department patient visit [facility] Work Phone: -Emergency Department Work Phone: Start: 02-23-2025 End: 02-23-2025 Emergency department patient visit [facility] Work Phone: -Emergency Department Work Phone: Start: 01-29-2025 End: 01-29-2025 Emergency department patient visit Oly Cho MD Work Phone: [facility] ED Comment on above: Sprain of left knee, initial encounter (Primary Dx); Contusion of left knee, initial encounter Start: 02-16-2023 E-mail encounter fro m caregiver Collin Ward MD Work Phone: [facility] Start: 02-16-2023 Patient encounter procedure Collin Ward MD Work Phone: Pain Management Comment on above: upcoming appointment Start: 01-14-2023 ambulatory Collin boyle MD Work Phone: Pain Management Start: 01-14-2023 E-mail encounter fro m caregiver Collin Ward MD Work Phone: [facility] Start: 12-07-2022 End: 12-07-2022 Patient encounter procedure [facility] Work Phone: [facility] Work Phone: Start: 11-21-2022 End: 11-22-2022 Emergency department patient visit [facility] Work Phone: [facility]Emergency Department Start: 11-20-2022 Non-patient / Non-visit [facility] Work Phone: [facility] Start: 11-20-2022 End: 11-20-2022 Admission to same day surgery center [facility] Work Phone: [facility]-Endoscopy Start: 11-20-2022 End: 11-20-2022 ambulatory [facility] Work Phone: [facility] Work Phone: Start: 10-27-2022 ambulatory QI GOMEZ Facility :[facility] Start: 10-26-2022 End: 10-26-2022 Patient encounter procedure [facility] Work Phone: [facility] Start: 10-14-2022 End: 10-14-2022 Emergency department patient visit [facility] Work Phone: [facility]Emergency Department Start: 10-12-2022 End: 10-12-2022 Patient encounter procedure [facility] Work Phone: [facility] Start: 10-06-2022 End: 10-06-2022 Patient encounter procedure [facility] Work Phone: [facility] Start: 09-04-2022 Registered Recurring [facility] Work Phone: [facility] Therapy Start: 08-28-2022 End: 08-28-2022 Patient encounter procedure [facility] Work Phone: [facility] Start: 07-30-2022 End: 07-30-2022 Emergency department patient visit [facility] Work Phone: [facility]-Emergency Department Start: 07-07-2022 ambulatory SCOOTER CASTELLANOS Facility:[facility] Start: 07-02-2022 End: 07-02-2022 Patient encounter procedure [facility] Work Phone: [facility]-Laboratory Start: 05-21-2022 End: 05-21-2022 ambulatory [facility] Work Phone: [facility] Work Phone: Start: 05-21-2022 End: 05-21-2022 Patient encounter procedure [facility] Work Phone: [facility], [facility] Start: 05-14-2022 End: 05-14-2022 Patient encounter procedure [facility] Work Phone: [facility] Start: 05-13-2022 ambulatory SCOOTER CASTELLANOS Facility:[facility] Start: 05-13-2022 End: 05-13-2022 Office outpatient visit 40 minutes Scooter Castellanos MD Work Phone: Division of Medical Oncology Comment on above: Neuroendocrine cance r (Primary Dx) Start: 05-06-2022 ambulatory HANSEL ANDRADE Facility:[facility] Start: 05-06-2022 End: 05-06-2022 Subsequent hospital visit by physician Hansel Andrade PA-C Work Phone: [facility] Comment on above: Delfina Start: 04-01-2022 ambulatory SCOOTER CASTELLANOS Facility:[facility] Start: 04-01-2022 ambulatory SCOOTER CASTELLANOS Facility:[facility] Start: 04-01-2022 End: 04-01-2022 Office consultation new/estab patient 80 min Scooter Castellanos MD Work Phone: Division of Medical Oncology Comment on above: Neuroendocrine cance r (Primary Dx) Start: 03-18-2022 Registered Recurring [facility] Work Phone: [facility] Start: 03-18-2022 End: 03-18-2022 Patient encounter procedure [facility] Work Phone: [facility] Start: 03-11-2022 End: 03-11-2022 ambulatory [facility] Work Phone: [facility] Work Phone: Start: 03-11-2022 End: 03-11-2022 Patient encounter procedure [facility] Work Phone: [facility] Start: 01-28-2022 End: 01-28-2022 Emergency department patient visit [facility] Work Phone: [facility]-Emergency Department Start: 01-26-2022 End: 01-26-2022 Patient encounter procedure [facility] Work Phone: [facility] Start: 01-05-2022 End: 01-05-2022 Patient encounter procedure [facility] Work Phone: [facility] Start: 12-13-2021 End: 12-13-2021 Patient encounter procedure [facility] Start: 12-09-2021 Non-patient / Non-visit [facility] Work Phone: [facility] Start: 12-09-2021 End: 12-09-2021 Admission to same day surgery center [facility] Work Phone: [facility] Start: 10-30-2021 End: 10-30-2021 Patient encounter procedure [facility] Work Phone: [facility] Start: 10-23-2021 Chart Update Carmita Gonzalez Work Phone: IG-Dultpdupkrkqowig-Bsdue enrique SJW 450 DO Work Phone: Start: 10-21-2021 AUDIT Carmita Gonzalez Work Phone: TQ-Skprvfhzpqfgktxn-Yrtcp enrique SJW 450 DO Work Phone: Start: 09-10-2021 AUDIT Ashley Villaseñor MD Work Phone: YL-Kqvofuuvnxclkyxt-Ygmjv enrique SJW 450 DO Work Phone: Start: 09-04-2021 End: 09-04-2021 Patient encounter procedure [facility] Work Phone: [facility] Start: 08-25-2021 End: 08-25-2021 Patient encounter procedure [facility] Work Phone: [facility] Start: 08-21-2021 Non-patient / Non-visit [facility] Work Phone: [facility] Start: 08-21-2021 End: 08-21-2021 Admission to same day surgery center [facility] Work Phone: [facility] Start: 06-09-2021 End: 06-09-2021 Patient encounter procedure Orin Julio APRN.BRUSHER WARP Work Phone: Urology Comment on above: Kidney stones Start: 01-22-2021 End: 01-22-2021 Telephone encounter Ag Spine Work Phone: [facility] Comment on above: New Patient Start: 05-05-2017 End: 05-07-2017 Ambulatory April Bahena Facility:[place] Start: 04-20-2017 End: 04-24-2017 Ambulatory APRIL BAHENA [facility] Start: 04-20-2017 Office outpatient ne w 45 minutes April Bahena Work Phone: [facility] Start: 03-30-2017 End: 03-31-2017 Ambulatory NONE PHYSICIAN Facility:B Start: 03-25-2017 End: 03-25-2017 Emergency department patient visit VIKTORIA GABRIEL Facility:[facility] Start: 02-19-2016 End: 02-19-2016 Ambulatory Fortino Venegas Work Phone: [facility] Procedures Date Procedure Procedure Detail Performing Clinician Start: 03-30-2025 Estimated creatinine clearance [facility] Work Phone: Start: 03-30-2025 Urnls dip stick/tablet reagent auto microscopy [facility] Work Phone: Start: 03-30-2025 Computed tomography of abdomen and pelvis with intravenous contrast [facility] Work Phone: Start: 02-23-2025 End: 02-23-2025 Plain x-ray of hand [facility] Work Phone: Start: 01-29-2025 Radiologic examination knee 3 views Oly Cho MD Work Phone: Start: 11-21-2022 Plain chest X-ray [facility] Work Phone: Start: 11-21-2022 X-ray of soft tissue of neck [facility] Work Phone: Start: 11-20-2022 Esophagogastroduodenoscopy [facility] Work Phone: Start: 08-28-2022 Plain X-ray of shoulder [facility] Work Phone: Start: 05-21-2022 Ultrasonography of abdomen [facility] Work Phone: Start: 05-21-2022 Ultrasound elastography [facility] Work Phone: Start: 05-06-2022 Mri abdomen w/o & w/contrast material Hansel Raymond PA-C Work Phone: Start: 04-01-2022 CBC AND ELECTRONIC DIFF Hansel Raymond PA- C Work Phone: Start: 04-01-2022 Complete blood count with white cell differential, automated Hansel Raymond PA-C Work Phone: Start: 04-01-2022 Comprehensive metabolic panel [facility] PA-C Work Phone: Start: 04-01-2022 Fluorescent nonnfct agt antb screen ea antibody Hansel Andrade PA-C Work Phone: Start: 01-26-2022 CT of chest and abdomen [facility] Work Phone: Start: 12-13-2021 Diagnostic radiography of abdomen, decubitus and erect [facility] Work Phone: Start: 12-09-2021 Esophagogastroduodenoscopy [facility] Work Phone: Start: 08-25-2021 Magnetic resonance cholangiopancreatography [facility] Work Phone: Start: 08-20-2021 SARS-CoV-2 Antigen (Rapid) [facility] Work Phone: Start: 06-09-2021 Urnls dip stick/tablet rgnt auto w/o microscopy Orin Julio APRN.BRUSHER WARP Work Phone: H/O: hysterectomy History of par tial hysterectomy [facility] Work Phone: Comment on above: 2010 H/O: tubal ligation Hx of tubal ligation [facility] Work Phone: Comment on above: 2008 History of appendectomy Hx of appendectom y [facility] Work Phone: Comment on above: 2004 Plan of Treatment Date Care Activity Detail Author Start: 01-19-2060 RSV Immunization for Adults (1 - 1-dose 75+ series) RSV Immunization for Adults (1 - 1-dose 75+ series) [facility] Start: 2035 Zoster Vaccines (1 o f 2) Zoster Vaccines (1 of 2) [facility] Start: 04-20-2027 Tetanus vaccination TETANUS EVERY [address] [facility] Work Phone: Start: 03-30-2025 [facility] Start: 03-19-2025 Influenza vaccination Influenza Vacc ine (#1) [facility] Start: 02-23-2025 Cltx metacarpal fx w/manipulation each bone TREAT METACARPAL FRACTURE [facility] Start: 02-23-2025 [facility] Start: 2025 Screening for malignant neoplasm of breast Mammogram [facility] Start: 03-19-2024 COVID-19 Vaccine ( season) COVID-19 Vaccine () [facility] Start: 03-19-2023 Influenza vaccination [facility] Start: 11-22-2022 [facility] Start: 11-20-2022 Egd removal tumor polyp/other lesion snare tech EGD REMOVE LESION SNARE [facility] Start: 11-20-2022 Egd transoral biopsy single/multiple EGD BIOPSY SINGLE/MULTIPLE [facility] Start: 11-20-2022 Patient discharge [facility] Start: 10-14-2022 Incision & drainage abscess complicated/multiple DRAINAGE OF SKIN ABSCESS [facility] Start: 10-06-2022 Patient referral [facility] Work Phone: Start: 08-28-2022 Patient referral [facility] Work Phone: Start: 07-19-2022 DEPRESSION ASSESSMENT DEPRESSION [facility] Start: 07-07-2022 End: 07-07-2022 ambulatory 07/07/2022 Telemed Clin Support Genetics Qi Gomez [facility] [address] [place] [id number] Division of Human Genetics Start: 05-13-2022 End: 05-13-2022 Patient encounter procedure 05/13/2022 Office Visit Oncology Scooter Castellanos MD [address] [phone] Division of Medical Oncology Start: 05-06-2022 End: 05-06-2022 Patient encounter procedure 05/06/2022 Appointment Magnetic Resonance Imaging Hansel Andrade PA-C [address] [phone] [facility] Start: 04-01-2022 End: 04-01-2023 Magnetic resonance imaging of abdomen and pelvis with contrast MRI ABDOMEN/PELVIS WITHOUT AND WITH CONTRAST Imaging Routine Neuroendocrine cancer Expected: 04/01/2022, Expires: 04/01/2023 [facility] Comment on above: Expected: 04/01/2022 , Expires: 04/01/2023 Start: 03-19-2022 Influenza vaccination INFLUENZA VACC INE (#1) [facility] Start: 03-11-2022 Patient referral [facility] Work Phone: Start: 12-09-2021 Egd removal tumor polyp/other lesion snare tech EGD REMOVE LESION SNARE [facility] Work Phone: Start: 08-21-2021 Egd transoral biopsy single/multiple EGD BIOPSY SINGLE/MULTIPLE [facility] Work Phone: Start: 03-19-2021 Influenza vaccination INFLUENZA (#1) [facility] Start: 2015 HPV TESTING HPV TESTING [facility] Start: 2015 Screening for malignant neoplasm of cervix [facility] Start: 2006 PAP TESTING PAP TESTING [facility] Start: 2006 Screening for malignant neoplasm of cervix [facility] Start: 01-19-2004 DTaP/Tdap/Td Vaccine s (1 - Tdap) DTaP/Tdap/Td Vaccines (1 - Tdap) [facility] Start: 01-19-2004 Hepatitis B Vaccines (1 of 3 - 19+ 3-dose series) Hepatitis B Vaccines (1 of 3 - 19+ 3-dose series) [facility] Start: 01-19-2004 Pneumococcal Vaccine : Pediatrics (0 to 5 Years) and At-Risk Patients (6 to 49 Years) (1 of 2 - PCV) Pneumococcal Vaccine: Pediatrics (0 to 5 Years) and At-Risk Patients (6 to 49 Years) (1 of 2 - PCV) [facility] Start: 01-19-2004 Third diphtheria, tetanus and acellular pertussis (DTaP) vaccination TDAP (ADULT) [facility] Start: 01-19-2004 Urine microalbumin profile DTAP,TDAP,TD (1 - Tdap) [facility] Start: 2003 Diabetes mellitus screening Diabetes Screening [facility] Start: 2003 HEPATITIS C SCREENING HEPATITIS C SC REENING [facility] Start: 2003 [facility]atitis [facility] Start: 2003 HIV SCREENING HIV SCREENING [facility] Start: 2003 Tetanus vaccination TETANUS [facility] Start: 01-19-2000 HIV screening HIV SCREENING DISCUSSI ON [facility] Start: 1998 Varicella vaccination Varicell a Vaccines (1 of 2 - 13+ 2-dose series) [facility] Start: 1997 Adult depression screening assessment DEPRESSION SCREENING [facility] Start: 1991 PNEUMOCOCCAL (1 - PCV) PNEUMOCOCCAL (1 - PCV) [facility] Start: 1991 PNEUMOCOCCAL VACCINE SERIES (1 - PCV) PNEUMOCOCCAL VACCINE SERIES (1 - PCV) [facility] Start: 1990 COVID-19 VACCINE (1) COVID-19 VACCIN E (1) [facility] Start: 1986 MMR Vaccines (1 of 1 - Standard series) MMR Vaccines (1 of 1 - Standard series) [facility] Start: 1985 COVID-19 VACCINE (#1) COVID-19 VACCI NE (#1) [facility] Start: 1985 HEPATITIS B (1 of 3 - 3-dose series) HEPATITIS B (1 of 3 - 3-dose series) [facility] Start: 1985 Hepatitis C antibody , confirmatory test HEPATITIS C VIRUS SCREENING [facility] Start: 1985 Hepatitis C screening HEPATITI S C VIRUS SCREENING [facility] Start: 1985 HIV screening HIV Screening [facility] Start: 1985 Lipid panel Lipid Panel [facility] Start: 1985 Screening for malignant neoplasm of cervix PAP SMEAR [facility] Work Phone: Patient Education [facility] Work Phone: [facility] referral [facility] Work Phone: [facility] Payers Date Payer Category Payer Self-pay [id number] 2022 Medicaid [employer] [place] [id number] 2022-Present [phone] [address] [address] [place] [address] Medicaid [id number] 2022 Unknown 2017 Unknown [id number] 2016 Medicaid [id number] 2016 Medicaid [id number] 1985 Unknown [id number] 1985 Unknown [id number] 1985 Unknown [id number] 1985 Unknown [id number] 1985 Unknown [id number] 1985 Unknown [id number] Medicaid [id number] Unknown [id number] Unknown [id number] Unknown [id number] Social History Date Type Detail Facility Start: 02-19-2016 End: 03-30-2025 Tobacco smoking status KSIS Current every day smoker [facility] Start: 02-19-2016 End: 01-29-2025 Cigarettes smoked current (pack per day) - Reported [facility] Work Phone: Start: 1985 Sex Assigned At Not on file O [employer] Work Phone: Start: 06-09-2021 End: 01-29-2025 Tobacco use and exposure Smokeless tobacco non-user [facility] Start: 06-09-2021 Alcohol intake Ex-drinker (finding) [facility] Exposure to SARS-CoV -2 (event) Not sure [facility] Start: 12-08-2021 End: 12-07-2022 Tobacco smoking status NHIS Unknown if ever smoked [facility] Start: 03-26-2019 None [facility] Start: 03-26-2019 With Family [facility] Start: 06-25-2021 Cigarettes [facility] Start: 1985 Sex Assigned At Female [facility] Start: 04-01-2022 End: 01-29-2025 Alcohol intake Current drinker of alcohol (finding) [facility] Start: 04-01-2022 History SDOH Alcohol Comment rarely [facility] Start: 06-09-2021 End: 01-29-2025 Tobacco use panel [facility] National Score (1-100), lower number is lower risk 56 [facility] Start: 02-05-2023 Gender identity Identifies as female gender (finding) [facility] Start: 02-05-2023 Sexual orientation Homosexual (findi ng) [facility] Start: 01-29-2025 Sex Female (finding) [facility] NEGATED: Highlighted row [facility] Goals Date Patient Goal Desired Activity /State Mental Status Date Assessment Result Facility 11-20-2022 Cognitive function Voice/Name [facility] Work Phone: 12-09-2021 Cognitive function Voice/Name [facility] Work Phone: 12-09-2021 Cognitive function Patient Orien tation Person;Place;Time [facility] Work Phone: 08-21-2021 Cognitive function Voice/Name [facility] Work Phone: Clinical Notes 01-22-2021 to 03-30-2025 Discharge InstructionsAttachmentsOly Cho MD - 01/29/2025 7:28 PM EDTGkyaw Cho MD - 01/29/2025 7:28 PM EDTTelephone Encounter - Danae Osman RN - 01/14/2023 9:02 AM EDT Note Date & Type Note Facility 03-30-2025 Discharge summary [facility] 03-30-2025 Radiology Diagnostic study note [facility] Imaging Services [address] [place], [place] [id number] Abdomen/Pelvis W IV Cont ONLY MR#: [id number] Acct: [id number] Name: CLINTON HAYWARD Rep #: [id number] : 1985 F 40 From: Kulwant Ayers MD PCP: Care Physician,No Primary Status: REG ER Study:Abdomen/Pelvis W IV Cont ONLY Date of E xam: 03/30/25 Exam# [id number] Ordering Dr: Ariel Up DO PROCEDURE: ABDOMEN/PELVIS W IV CONT ONLY 03/30/2025 REASON FOR EXAM: LLQ PAIN TECHNIQUE: Procedure Code: CTABDPELIV Modality: CT Procedure: ABDOMEN/PELVIS W IV CONT ONLY Coronal and Sagittal reconstruction series were provided. CONTRAST: Isovue 370 VOLUME: 99 mL One or more dose reduction techniques were used (e.g., Automated exposure control, adjustment of the mA and/or kV according to patient size, use of iterative reconstruction technique. RADIATION DOSE SUMMARY: CTDlvol: 21.32 mGy DLP: 11.87 mGycm COMPARISON: Previous examination dated 01/26/2022 FINDINGS: The lung bases are clear. There is no pericardial or pleural effusion. No focal consolidation present. The unenhanced appearance of the liver is remarkable for slight fatty infiltration. No focal liver mass seen. The portal and hepatic veins are patent. The gallbladder, biliary tree, pancreas and spleen are normal. The adrenal glands are unremarkable. There is a nonobstructing stone in the mid to lower pole of the right kidney. There is no hydronephrosis or urolithiasis. The urinary bladder is unremarkable. Patient is status post hysterectomy. There is no adnexal mass present. No abnormal fluid collection seen in the pelvis. There is no ascites. Osseous structures are normal. Loops of bowel are unremarkable. The patient is status post cholecystectomy. Asmall sliding hiatal hernia is identified. There is no evidence to suggest active or acute diverticulitis. Soft tissues around the abdominal wall appear normal CT/Abdomen/Pelvis W IV Cont ONLY IMPRESSION: No acute inflammatory process of the abdomen or pelvis. Mild fatty infiltration. Reading Location: [id number] CC: Dr. César Up DO; No Primary Care Physician ~ Technology Project Manager: Signed [facility] 02-23-2025 Radiology Diagnostic study note [facility] Imaging Services [address] [place] [address] Hand 2 Views MR#: [id number] Acct: [id number] Name: CLINTON HAYWARD Rep #: [id number] : 1985 F 40 From: Krishna Hedrick MD PCP: [facility] Status: REG ER Study:Hand 2 Views Date of Exam: 5 Exam# [id number] Ordering Dr: Yomaira Grover MD PROCEDURE: Three views right hand x-ray 02/23/2025 REASON FOR EXAM: POSTREDUCTION TECHNIQUE: HAND 2 VIEWS Laterality: COMPARISON: Hand x-ray earlier today 02/23/2025 FINDINGS: Bones: Status post reduction of 5th metacarpal fracture with near anatomical alignment. Joints: No dislocations. Soft tissues: Limited evaluation. RAD/Hand 2 Views IMPRESSION: Status post reduction of 5th metacarpal fracture with near anatomical alignment. Reading Location: [facility] CC: Dr. Karl Grover MD; [facility] ~ Technology Project Manager: Signed [facility] 02-23-2025 Radiology Diagnostic study note [facility] Imaging Services [address] [place] [id number] Hand Min 3 Views MR#: [id number] Acct: [id number] Name: CLINTON HAYWARD Rep #: [id number] : 1985 F 40 From: Peter Bravo MD PCP: [facility] Status: REG ER Study:Hand Min 3 Views Date of Exam: 03/12 Exam# [id number] Ordering Dr: Lali Escalante PROCEDURE: HAND MIN 3 VIEWS 02/23/2025 REASON FOR EXAM: PAIN TECHNIQUE: HAND MIN 3 VIEWS Laterality: COMPARISON: None. RAD/Hand Min 3 Views IMPRESSION: A fracture of the neck of the right 5th metacarpal bone is seen, with posteromedial apex angulation present. No intra-articular extension is identified. No radiopaque foreign body is seen. Reading Location: [place] [address] CC: ERICA Raya; [facility] ~ Technology Project Manager: Signed [facility] 01-29-2025 Hospital Discharge instructions Oly Cho MD - 01/29/2025 8:40 PM EDT Use knee immobilizer when ambulating. Use Motrin Tylenol for pain., You should come out of the knee immobilizer several times a day and do gentle range of motion and ice it. However when ambulating using the immobilizer until rechecked by sports medicine. The following attachments cannot be sent through Care Everywhere.Contusion Discharge Instructions ([place])Knee Sprain Discharge Instructions ([place])documented in this encounter [facility] 01-29-2025 Emergency department Note [facility] ED EMERGENCY DEPARTMENT ENCOUNTER Pt Name: Clinton Hayward Birthdate 1985 Date of evaluation: 01/29/2025 Provider: Oly Cho MD CHIEF COMPLAINT Chief Complaint Patient presents with Knee Pain Left knee pain s/p slip and fall on floor Wednesday. Last took Tylenol and Ibuprofen yesterday. HISTORY OF PRESENT ILLNESS (Location/Symptom, Timing/Onset,Context/Setting, Quality, Duration, Modifying Factors, Severity) Note limiting factors. Clinton Hayward is a 40 y.o. female who presents to the emergency department patient presents with left knee pain. Wednesday fell twisted knee. Complains of left knee pain. No hip pain. No ankle pain. No numbness or tingling. No other injuries or complaints. Comes in to be seen. HPI Historian is the patient Nurse's notes for past medical history, surgical history, social history were reviewed. Medications and allergies reviewed. PAST MEDICAL HISTORY Medical History[1] SURGICALHISTORY Surgical History[2] CURRENT MEDICATIONS Previous Medications No medications on file Diflucan [fluconazole], Hydrocodone-acetaminophen, Penicillins, and Phenergan [promethazine] FAMILY HISTORY Family History[3] SOCIAL HISTORY Social History[4] SCREENINGS PHYSICAL EXAM (up to 7 for level 4, 8 or more for level 5) @EDTRIAGE[facility]SS@ Appropriate PPE including n 95, gown, gloves, goggles where worn when appropriate with this patient. Physical Exam General Awake alert appropriate nontoxic in appearance. Examination left knee does have bruising ligament endpoints are limited secondary to pain. Extensor mechanism is intact. Good range of motion of the left hip. No ankle pain. Equal pulses. No calf pain. No tibial pain. DIAGNOSTIC RESULTS RADIOLOGY: Interpretation per the Radiologist below, if availableat the time of this note: XR knee 3 views left Final Result 1. Negative. Report Dictated on Electronically Signed By: April Rowan MD Electronically Signed Date/Time: 01/29/2025 8:31 PM EDT ED BEDSIDE ULTRASOUND: Performed by ED Physician - none LABS: Labs Reviewed - No data to display All other labs were within normal range or not returned as of thisdictation. EMERGENCYDEPARTMENT COURSE and DIFFERENTIAL DIAGNOSIS/MDM: Vitals: Vitals: 01/29/25 1947 BP: 116/74 Pulse: 70 Resp: 18 Temp: 37.1 C (98.7 F) TempSrc: Oral SpO2: 97% Weight: 81.6 kg (180 lb) Height: 1.6 m (5' 3) Medical Decision Making Amount and/or Complexity of Data Reviewed Radiology: ordered. EMERGENCY DEPARTMENT COURSE and DIFFERENTIAL DIAGNOSIS/MDM: Vitals: Vitals: 01/29/251946 BP: 116/74 Pulse: 70 Resp: 18 Temp: 37.1 C (98.7 F) TempSrc: Oral SpO2: 97% Weight: 81.6 kg (180 lb) Height: 1.6 m (5' 3) The patient presented with a chief complaint of left knee pain. The differential diagnosis associated with this patient's presentation includes knee contusion knee sprain ligament or tendon tear. Our workup consisted of ordering/reviewing x-ray of the left knee. Diagnoses as of 01/29/252040 Sprain of left knee, initial encounter Contusion of left knee, initial encounter Diagnostics considered but not indicated based on history, physical, testing: None External records reviewed: Outpatient records reviewed patient does see pain management in 2022 otherwise no recent visits 2023 and 2024 Radiologic diagnostics interpreted by me: film images such as CT, Ultrasound and MRI are read by the radiologist. Plain radiographic images are visualized and preliminarily interpreted by the emergency physician with the below findings: Xray(s) x-ray per my interpretation no acute fracture. Discussions with other clinicians: None Chronic conditions impacting care: Chronic fatigue Social determinants of health affecting care: Patient smokes Shared decision making: Patient agrees to treatment plan Patient's extensor mechanism is intact. She feels like it bent weird. I believe she sprained it. Treated with knee immobilizer. Patient is neurologically neurovascularly intact distally after knee immobilizer applied. Given sports medicine for follow-up. Use knee immobilizer when ambulating. Do gentle range of motion daily. Ice several times a day. ED Medications managed: Medications - No data to display Prescription drugs prescribed: PROCEDURES: Unless otherwise noted below, none Procedures IMPRESSION 1. Sprain of left knee, initial encounter 2. Contusion of left knee, initial encounter DISPOSITION/PLAN DISPOSITION Discharge 01/29/2025 08:39:41 PM PATIENT REFERRED TO: [facility] [place] [address] [place] [address] [address] [place] [address] In 1 week DISCHARGE MEDICATIONS: New Prescriptions No medications on file @[facility]([id number]:LAST:1)@ (Comment: Please notethis report has been produced using speech recognition software and may contain errors related to that system including errors in grammar, punctuation, and spelling, as well as words and phrases that may be inappropriate.If there is any questions or concerns please feel free to contact the dictating provider for clarification). Oly Cho MD (electronically signed) Attending Emergency Physician [1] History reviewed. No pertinent past medical history. [2] History reviewed. No pertinent surgical history. [3] No family history on file. [4] Social History Socioeconomic History Marital status: Tobacco Use Smoking status: Every Day Current packs/day: 0.50 Types: Cigarettes Smokeless tobacco: Never Vaping Use Vaping status: Never Used Substance and Sexual Activity Alcohol use: Yes Drug use: Yes Types: Marijuana Oly Cho MD 01/29/252041 documented in this encounter [facility] 01-29-2025 Physician Emergency department Note [facility] ED EMERGENCY DEPARTMENT ENCOUNTER Pt Name: Clinton Hayward Birthdate 1985 Date of evaluation: 01/29/2025 Provider: Oly Cho MD CHIEF COMPLAINT Chief Complaint Patient presents with Knee Pain Left knee pain s/p slip and fall on floor Wednesday. Last took Tylenol and Ibuprofen yesterday. HISTORY OF PRESENT ILLNESS (Location/Symptom, Timing/Onset,Context/Setting, Quality, Duration, Modifying Factors, Severity) Note limiting factors. Clinton Hayward is a 40 y.o. female who presents to the emergency department patient presents with left knee pain. Wednesday fell twisted knee. Complains of left knee pain. No hip pain. No ankle pain. No numbness or tingling. No other injuries or complaints. Comes in to be seen. HPI Historian is the patient Nurse's notes for past medical history, surgical history, social history were reviewed. Medications and allergies reviewed. PAST MEDICAL HISTORY Medical History[1] SURGICALHISTORY Surgical History[2] CURRENT MEDICATIONS Previous Medications No medications on file Diflucan [fluconazole], Hydrocodone-acetaminophen, Penicillins, and Phenergan [promethazine] FAMILY HISTORY Family History[3] SOCIAL HISTORY Social History[4] SCREENINGS PHYSICAL EXAM (up to 7 for level 4, 8 or more for level 5) @[facility]@ Appropriate PPE including n 95, gown, gloves, goggles where worn when appropriate with this patient. Physical Exam General Awake alert appropriate nontoxic in appearance. Examination left knee does have bruising ligament endpoints are limited secondary to pain. Extensor mechanism is intact. Good range of motion of the left hip. No ankle pain. Equal pulses. No calf pain. No tibial pain. DIAGNOSTIC RESULTS RADIOLOGY: Interpretation per the Radiologist below, if availableat the time of this note: XR knee 3 views left Final Result 1. Negative. Report Dictated on Electronically Signed By: April Rowan MD Electronically Signed Date/Time: 01/29/2025 8:31 PM EDT ED BEDSIDE ULTRASOUND: Performed by ED Physician - none LABS: Labs Reviewed - No data to display All other labs were within normal range or not returned as of thisdictation. EMERGENCYDEPARTMENT COURSE and DIFFERENTIAL DIAGNOSIS/MDM: Vitals: Vitals: 01/29/251946 BP: 116/74 Pulse: 70 Resp: 18 Temp: 37.1 C (98.7 F) TempSrc: Oral SpO2: 97% Weight: 81.6 kg (180 lb) Height: 1.6 m (5' 3) Medical Decision Making Amount and/or Complexity of Data Reviewed Radiology: ordered. EMERGENCY DEPARTMENT COURSE and DIFFERENTIAL DIAGNOSIS/MDM: Vitals: Vitals: 01/29/251946 BP: 116/74 Pulse: 70 Resp: 18 Temp: 37.1 C (98.7 F) TempSrc: Oral SpO2: 97% Weight: 81.6 kg (180 lb) Height: 1.6 m (5' 3) The patient presented with a chief complaint of left knee pain. The differential diagnosis associated with this patient's presentation includes knee contusion knee sprain ligament or tendon tear. Our workup consisted of ordering/reviewing x-ray of the left knee. Diagnoses as of 01/29/252040 Sprain of left knee, initial encounter Contusion of left knee, initial encounter Diagnostics considered but not indicated based on history, physical, testing: None External records reviewed: Outpatient records reviewed patient does see pain management in 2022 otherwise no recent visits 2023 and 2024 Radiologic diagnostics interpreted by me: film images such as CT, Ultrasound and MRI are read by the radiologist. Plain radiographic images are visualized and preliminarily interpreted by the emergency physician with the below findings: Xray(s) x-ray per my interpretation no acute fracture. Discussions with other clinicians: None Chronic conditions impacting care: Chronic fatigue Social determinants of health affecting care: Patient smokes Shared decision making: Patient agrees to treatment plan Patient's extensor mechanism is intact. She feels like it bent weird. I believe she sprained it. Treated with knee immobilizer. Patient is neurologically neurovascularly intact distally after knee immobilizer applied. Given sports medicine for follow-up. Use knee immobilizer when ambulating. Do gentle range of motion daily. Ice several times a day. ED Medications managed: Medications - No data to display Prescription drugs prescribed: PROCEDURES: Unless otherwise noted below, none Procedures IMPRESSION 1. Sprain of left knee, initial encounter 2. Contusion of left knee, initial encounter DISPOSITION/PLAN DISPOSITION Discharge 01/29/2025 08:39:41 PM PATIENT REFERRED TO: [facility] [place] [address] [place] [address] [address] [place] [address] In 1 week DISCHARGE MEDICATIONS: New Prescriptions No medications on file @[facility]([id number]:LAST:1)@ (Comment: Please notethis report has been produced using speech recognition software and may contain errors related to that system including errors in grammar, punctuation, and spelling, as well as words and phrases that may be inappropriate.If there is any questions or concerns please feel free to contact the dictating provider for clarification). Oly Cho MD (electronically signed) Attending Emergency Physician [1] History reviewed. No pertinent past medical history. [2] History reviewed. No pertinent surgical history. [3] No family history on file. [4] Social History Socioeconomic History Marital status: Tobacco Use Smoking status: Every Day Current packs/day: 0.50 Types: Cigarettes Smokeless tobacco: Never Vaping Use Vaping status: Never Used Substance and Sexual Activity Alcohol use: Yes Drug use: Yes Types: Marijuana lOy Cho MD 01/29/252041 [facility] 01-14-2023 Miscellaneous Notes Itivat message not set up, patient phoned with statement documented in this encounter [facility] 11-20-2022 Procedure note [facility] 11-20-2022 Procedure note [facility] 05-13-2022 History of Present illness Narrative Images from the original note were not included. HISTORY OF PRESENT ILLNESS: Clinton Hayward is a 37 y.o. female who is diagnosed with duodenum neuroendocrine. She comes here today for evaluation regarding diagnosis. She was in usual state of health until: 2019: Has has had diarrhea, acid reflux and epigastric pain. Started PPI and helped a little but not with the diarrhea. 05/27/2021: US abdomen: showed some fatty liver. 08/25/2021: MRCP: Normal 01/26/2022: CT Chest/A/P with contrast: c/w none: normal. Chief Complaint Patient presents with Follow-up NEC Imaging Results MRI completed 05/06/22 See above for CC. ECOG PS: 0 REVIEW OF SYSTEMS: ONC AMB Nursing Assessment 04/01/2022 Performance Status Grade 0 Fatigue Grade 0 Nausea Grade 1 Vomiting Grade 0 Anorexia Grade 0 Constipation Grade 0 Peripheral Motor Neuropathy Grade 1 Depression Grade 0 Mucositis (oral, pharyngeal) Grade 0 Dyspnea Grade 0 Pain Grade 1 Fever Grade 0 Localized Edema Grade 1 Rash Maculo-Papular Grade 0 All other systems are negative. Allergies Allergen Reactions Contrast Dye [Ivp Dye, Iodine Containing] Diclofenac Hydrocodone Penicillins Promethazine Phenegran Current Outpatient Medications Medication Sig Dispense Refill medicinal cannabis (MEDICINAL MARIJUANA) by Unknown route. No current facility-administered medications for this visit. Past Medical History: Diagnosis Date Anxiety Arthritis Depression Edema GERD (gastroesophageal reflux disease) History of cancer Carcinoid Tumor Leg cramps Migraine Restless leg Wears dentures Past Surgical History: Procedure Laterality Date EGD W/ BX 12/09/2021 EGD W/ BX 10/14/2021 EGD DIAGNOSTIC 08/21/2021 APPENDECTOMY PARTIAL HYSTERECTOMY MA ENDOMETRIAL CRYOABLATION TUBAL LIGATION Social History Socioeconomic History Marital status: Single Spouse name: Not on file Number of children: Not on file Years of education: Not on file Highest education level: Not on file Occupational History Not on file Tobacco Use Smoking status: Every Day Packs/day: 1.00 Types: Cigarettes Smokeless tobacco: Never Substance and Sexual Activity Alcohol use: Yes Comment: rarely Drug use: Yes Types: Marijuana Comment: Medical card Sexual activity: Not on file Other Topics Concern Not on file Social History Narrative Not on file Social Determinants of Health Financial Resource Strain: Not on file Food Insecurity: Not on file Transportation Needs: Not on file Physical Activity: Not on file Stress: Not on file Social Connections: Not on file Intimate Partner Violence: Not on file Housing Stability: Not on file Family History Problem Relation Age of Onset Lung Cancer Mother Thyroid Disease Mother Hypertension Father Arthritis - Osteo Father Asthma Daughter Mom was a smoker. Mom's twin sister: from cancer. Unknown. Patient has a 13 year old migraines, 15 year old with menstrual issues Big family history of cancer on both sides of family, but unknown what cancers. PHYSICAL EXAMINATION: Patient is in no acute distress. Patient is alert, oriented to person, place and time. There were no vitals taken for this visit. HEENT: Head atraumatic, normocephalic. Gross vision intact. Eyes are nonicteric. Oral cavity with moist mucous membranes, no lesions or exudates. Neck: supple, symmetrical, no adenopathy, no tenderness/mass/nodules. Lungs: Clear to auscultation bilaterally. No rales or wheezing. Heart: Regular heart rate and rhythm. Abdomen: Soft, nontender, non distended, without palpable masses. Normoactive bowel sounds present. No liver or mass are palpable. Extremities : Warm, well perfused. No cyanosis, clubbing, or edema. Positive distal pulses. Skin: Warm and dry with good skin turgor. No rash. Lymph nodes: No lymphadenopathy. Neurologic: No focal deficits, grossly intact. IMAGING STUDIES: MRI A/P 05/06/2022 1. No evidence of metastatic disease in the abdomen or pelvis. 2. Hepatic steatosis. Imaging results have been reviewed and discussed with the patient. LABS: Lab results have been reviewed and discussed with the patient. 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 female who is diagnosed with . She comes here today for evaluation regarding diagnosis. She was in usual state of health until: 2019: Has has had diarrhea, acid reflux and epigastric pain. Started PPI and helped a little but not with the diarrhea. 05/27/2021: US abdomen: showed some fatty liver. 08/25/2021: MRCP: Normal 01/26/2022: CT Chest/A/P: c/w none: normal. 03/31/2022 [facility] read on outside pathology A. Duodenal Polyp, Polypectomy: Well differentiated neuroendocrine tumor, grade 1 (Size: 0.6 cm x 0.6 cm measured on microscopic image) Proliferation index as measured with Ki67: < 1% Tumor invades mucosa and submucosa Tumor is 0.1 mm from the closest deep margin Lymphovascular and perineural invasion are not identified Pathologic stage: pT1 pNx pMx Assessment Tumor burden: Duodenal polyp, G1 Ki-67 <1 %, 1 cm x 0.5 x 0.5 cm, pT1 pNx pMx Symptom [place]: Diarrhea, reflux, epigastric pain, lack of appetite. Plan -[facility] Pathology read of outside pathology was consistent with a well differentiated neuroendocrine tumor, grade 1 (Size: 0.6 cm x 0.6 cm measured on microscopic image) pT1 pNx pMx. Ki67: < 1% -Labs today reviewed and overall normal -Tumor Markers from 04/01/2022 were normal -Her MRI A/P on 05/06/2022 showed no evidence of metastatic disease in the abdomen or pelvis. There is hepatic steatosis. -Overall, there are no concerning findings that necessitate surveillance scans -Recommend endoscopies q2-3 years for local surveillance. [facility] - Advised to follow up with GI and completed endoscopy every 2-3 years. - Patient denies acid reflux problems. Denies use of any medication at this time. Recommended to restart anti-acid medicine. No orders of the defined types were placed in this encounter. They were advised to contact the clinic with any new concerns or symptoms. Documented by Kristen Villalobos, for Scooter Castellanos MD on 05/13/2022 at 8:39 AM. All medical record entries made by the Wilfredo were at my direction and personally dictated by me, Scooter Castellanos MD I have reviewed the chart and agree that the record accurately reflects my personal performance of the history, physical exam, assessment and plan. I have also personally directed, reviewed, and agree with the discharge instructions. Scooter Castellanos M.D. Neuroendocrine/Thyroid Tumor Program [facility] documented in this encounter [facility] 05-13-2022 Instructions Elizabeth Jang RN - 05/13/2022 8:30 AM EDT Return to clinic : open documented in this encounter [facility] 04-01-2022 History of Present illness Narrative Images from the original note were not included. HISTORY OF PRESENT ILLNESS: Clinton Solomon is a 37 y.o. female who is diagnosed with duodenum neuroendocrine. She comes here today for evaluation regarding diagnosis. She was in usual state of health until: 2019: Has has had diarrhea, acid reflux and epigastric pain. Started PPI and helped a little but not with the diarrhea. 05/27/2021: US abdomen: showed some fatty liver. 08/25/2021: MRCP: Normal 01/26/2022: CT Chest/A/P with contrast: c/w none: normal. Chief Complaint Patient presents with New Patient NET. Patient reports N/V stomach issues for several years- at least since 2017/2018. November 2021 with EGD and polyp removal for pathology. Patient has 3-4 diarrhea a day. Not related to food. ECOG PS: 0 REVIEW OF SYSTEMS: ONC AMB Nursing Assessment 04/01/2022 Performance Status Grade 0 Fatigue Grade 0 Nausea Grade 1 Vomiting Grade 0 Anorexia Grade 0 Constipation Grade 0 Peripheral Motor Neuropathy Grade 1 Depression Grade 0 Mucositis (oral, pharyngeal) Grade 0 Dyspnea Grade 0 Pain Grade 1 Fever Grade 0 Localized Edema Grade 1 Rash Maculo-Papular Grade 0 All other systems are negative. Allergies Allergen Reactions Contrast Dye [Ivp Dye, Iodine Containing] Diclofenac Hydrocodone Penicillins Promethazine Phenegran Current Outpatient Medications Medication Sig Dispense Refill medicinal cannabis (MEDICINAL MARIJUANA) by Unknown route. No current facility-administered medications for this visit. Past Medical History: Diagnosis Date Anxiety Arthritis Depression Edema GERD (gastroesophageal reflux disease) History of cancer Carcinoid Tumor Leg cramps Migraine Restless leg Wears dentures Past Surgical History: Procedure Laterality Date EGD W/ BX 12/09/2021 EGD W/ BX 10/14/2021 EGD DIAGNOSTIC 08/21/2021 APPENDECTOMY PARTIAL HYSTERECTOMY MA ENDOMETRIAL CRYOABLATION TUBAL LIGATION Social History Socioeconomic History Marital status: Single Spouse name: Not on file Number of children: Not on file Years of education: Not on file Highest education level: Not on file Occupational History Not on file Tobacco Use Smoking status: Current Every Day Smoker Packs/day: 1.00 Types: Cigarettes Smokeless tobacco: Never Used Substance and Sexual Activity Alcohol use: Yes Comment: rarely Drug use: Yes Types: Marijuana Comment: Medical card Sexual activity: Not on file Other Topics Concern Not on file Social History Narrative Not on file Social Determinants of Health Financial Resource Strain: Not on file Food Insecurity: Not on file Transportation Needs: Not on file Physical Activity: Not on file Stress: Not on file Social Connections: Not on file Intimate Partner Violence: Not on file Housing Stability: Not on file Family History Problem Relation Age of Onset Lung Cancer Mother Thyroid Disease Mother Hypertension Father Arthritis - Osteo Father Asthma Daughter Mom was a smoker. Mom's twin sister: from cancer. Unknown. Patient has a 13 year old migraines, 15 year old with menstrual issues Big family history of cancer on both sides of family, but unknown what cancers. PHYSICAL EXAMINATION: Patient is in no acute distress. Patient is alert, oriented to person, place and time. Blood pressure 113/72, pulse 74, temperature 98.1 F (36.7 C), temperature source Oral, resp. rate 17, height 1.626 m (5' 4), weight 103.3 kg (227 lb 11.2 oz), SpO2 97 %. HEENT: Head atraumatic, normocephalic. Gross vision intact. Eyes are nonicteric. Oral cavity with moist mucous membranes, no lesions or exudates. Neck: supple, symmetrical, no adenopathy, no tenderness/mass/nodules. Lungs: Clear to auscultation bilaterally. No rales or wheezing. Heart: Regular heart rate and rhythm. Abdomen: Soft, nontender, non distended, without palpable masses. Normoactive bowel sounds present. No liver or mass are palpable. Extremities : Warm, well perfused. No cyanosis, clubbing, or edema. Positive distal pulses. Skin: Warm and dry with good skin turgor. No rash. Lymph nodes: No lymphadenopathy. Neurologic: No focal deficits, grossly intact. IMAGING STUDIES: See HPI Imaging results have been reviewed and discussed with the patient. LABS: Lab results have been reviewed and discussed with the patient. IMPRESSION & PLAN: The patient had many questions all that were answered to his satisfaction. He will contact the clinic with any questions or concerns. He understands and agrees to the plan. I have seen, discussed, and formulated the above treatment plan with Dr. Scooter Castellanos who agrees with the plan. See Dr. Castellanos's addendum for final treatment plan. ALFA Simmons PA-C Physician Photographic Platemaker Neuroendocrine Tumor Program [facility] Images from the original note were not included. Addendum by Dr. Castellanos: I have seen and examined the patient with Hansel Andrade PA-C and agree with the findings in her note. Hansel Andrade's note is edited by me. I have reviewed and discussed lab/imaging results with the patient. The plan was made and discussed by me with the patient and team as outlined in Hansel Andrade's note. Counselling: I discussed the current diagnosis, staging, prognosis and treatment options along with natural history of this cancer and reviewed the outside medical records at length. I explained to the patient about the spectrum of neuroendocrine neoplasms ranging from well-differentiated neuroendocrine tumors to poorly differentiated neuroendocrine carcinomas. >>I talked about the role of Octreotide in that it controls Carcinoid syndrome very well and has a tumor stabilizing effect as well. In the PROMID study, which only enrolled patients with well differentiated midgut carcinoid tumors, the median time to tumor progression in the octreotide LAR and placebo groups was 14.3 and 6 months (p=[id number]), respectively. The CLARINET study, [which enrolled patients with well-differentiated or moderately differentiated, nonfunctioning, somatostatin receptor-positive enteropancreatic neuroendocrine tumors of grade 1 or 2 (Ki-67 of <10%) with documented disease-progression status], showed a significantly prolonged PFS (median not reached vs. median of 18.0 months, P<0.001) in patients who received lanreotide vs. Placebo. Treatment options on progression also include: >>Everolimus: Now FDA approved for progressive, nonfunctional GI and lung neuroendocrine tumors (NET), based on a randomized phase III RADIANT-4 trial in which patients with advanced, progressive, well-differentiated, nonfunctional lung/GI NET were randomized (2:1) to everolimus(10mg/d) or placebo, both with best supportive care, showed a statistically significant 52% risk reduction in favor of everolimus with a clinically meaningful 7.1-month prolongation of PFS vs placebo. Most common adverse events included stomatitis, diarrhea, peripheral edema, fatigue, and rash. >>We discussed about the role of surgery that can be curative only in early stage carcinoid tumor. >> We discussed that in general systemic chemotherapy and local external beam radiation therapy have limited role in the control of Carcinoid tumor. >>PRRT: In a multicentre, randomized, phase III Study (NETTER-1) comparing Lutathera plus octreotide LAR vs Octreotide LAR alone, in patients with inoperable, progressive, somatostatin receptor positive midgut carcinoid tumors, the median PFS was not yet reached for Lutathera (estimated at approx 40 months) and was 8.4 months with 60 mg Octreotide LAR [95% CI: 5.8-11.0 months], p<0.0001, with a HR 0.21 [95% CI: 0.13-0.34]. Of the evaluable dataset of 201 patients, 19 patients (19%) reported complete and partial responses (CR+MA) in the Lutathera group vs. 3 (3%) in the Octreotide LAR 60 mg group (p<0.0004). The most common adverse events among patients in the 177Lu-Dotatate group were nausea (59%) and vomiting (47%), in the majority of cases attributable to amino acid infusions that were performed concurrently with administration of 177Lu-Dotatate, and the events resolved once the infusions were completed. Other common adverse events in the 177Lu-Dotatate group included fatigue or asthenia, abdominal pain, and diarrhea (mostly grade 1 or 2), grade 3 or 4 neutropenia, thrombocytopenia, and lymphopenia were reported in 1%, 2%, and 9% of patients, respectively, in the 177Lu-Dotatate group, and no evidence of renal toxic effects were seen in the median duration of f/u of 14 months. >>We discussed the results from [place] [id number], Prospective randomized phase II trial of pazopanib versus placebo in patients with progressive carcinoid tumors, showed that pazopanib significantly improved PFS compared to placebo (median PFS: 11.6 mo with pazopanib versus 8.5 mo with placebo, HR: 0.53, p= 0.0005). >>We also discussed data from the recent phase II TALENT study: Objective response rates with lenvatinib were 18.5% in patients with GI NET who had progressed on SSAs. >>We discussed that liver is one of most important sites of metastasis that needs good tumor control as progressive liver metastasis with high tumor burden can result in liver failure, . Treatment options for liver metastases include surgery, Transarterial chemoembolization (TACE), SIRT, and RFA. 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 female who is diagnosed with . She comes here today for evaluation regarding diagnosis. She was in usual state of health until: 2019: Has has had diarrhea, acid reflux and epigastric pain. Started PPI and helped a little but not with the diarrhea. 05/27/2021: US abdomen: showed some fatty liver. 08/25/2021: MRCP: Normal 01/26/2022: CT Chest/A/P: c/w none: normal. Assessment Tumor burden: Duodenal polyp, G1 Ki-67 <1 %, 1 cm x 0.5 x 0.5 cm, pT1 pNx pMx Symptom [place]: Diarrhea, reflux, epigastric pain, lack of appetite. Plan -[facility] read of outside pathology -Labs today including Tumor Markers: Gastrin, CgA. -Will rule out atrophic gastric: Vit B12 and serologies - Patient denies acid reflux problems. Denies use of any medication at this time. Recommended to restart anti-acid medicine. -Scans to be scheduled: MRI A/P. - Advised to follow up with GI and completed endoscopy every 2-3 years. RTC 6 weeks with labs and scans 1 week prior Scooter Castellanos M.D. Neuroendocrine/Thyroid Tumor Program [facility] and [facility] documented in this encounter [facility] 04-01-2022 Instructions [place] Jang RN - 04/01/2022 8:30 AM EDT Return to clinic : 6 weeks With provider: Dr. Castellanos Labs: Today Scans: Next available MRI A/P Referrals: Genetics Referral with Dai Gomez documented in this encounter [facility] 06-09-2021 Note HNO ID: [id number] Author: Orin Julio APRN.BRUSHER WARP Service: ? Author Type: Nurse Practitioner Type: Progress Notes Filed: 06/10/2021 12:17 PM Note Text: NEW PATIENT OFFICE VISIT HISTORY OF PRESENT ILLNESS Clinton Solomon is a 36 year old female with h/o kidney stones who presents today as a new patient for f/u kidney stones. She has a h/o kidney stones - has passed multiple stones spontaneously. Patient reports she was seen at [facility] and recently had renal ultrasound? She was told to follow up with urology for kidney stones. She denies flank pain. No gross hematuria. No dysuria. No records to review will sigh release and follow up as needed and pending results. Discussed dietary stone prevention. Taking topamax Will await records LAB RESULTS No results found for: CREAT No results found for: PSA No results found for: COLOR, CLARITY, UGLUC, UBILI, UKET, SPGR, UHB, UPH, UPROT, UROBILINOGEN, NITRITES, LEUKEST MEDICATIONS: escitalopram oxalate (LEXAPRO) 10 mg tablet omeprazole (PRILOSEC) 40 mg capsule SUMAtriptan (IMITREX) 50 mg tablet topiramate (TOPAMAX) 50 mg tablet potassium chloride (K-TAB) 10 mEq tablet REVIEW OF SYSTEMS CONSTITUTIONAL: Patient reports no recent fever or weight loss CARDIOVASCULAR: No chest pain, palpitations or ankle edema. RESPIRATORY: No wheezing, frequent cough or shortness of breath GENITOURINARY: See HPI HISTORIES No past medical history on file. No family history on file. No past surgical history on file. SOCIAL HISTORY Social History Tobacco Use - Smoking status: Current Every Day Smoker - Smokeless tobacco: Never Used Substance Use Topics - Alcohol use: Not Currently - Drug use: Yes Types: Marijuana PHYSICAL EXAMINATION General appearance: Well appearing, alert, in no acute distress, well-hydrated, well nourished.. BACK: no pain to palpation over spine or costovertebral angles. MUSCULOSKELETAL: Negative for joint pain or swelling. RESPIRATORY: Normal respiratory effort. SKIN: Normal color, no rash, no lesions.. : See HPI Medical Decision Making: Problems: Low: Stable chronic illness Data: Unique test(s) ordered: 1 Assessment requiring an independent historian(s) Risk: Minimal: Minimal risk from testing/treatment Medical Decision Making Level: 3 - Low ASSESSMENT/PLAN: 1. Kidney stones - ICD9: 592.0, ICD10: N20.0 - will await records follow up pending results and as needed Orin Julio APRN.[facility] 06-09-2021 History of Present illness Narrative NEW PATIENT OFFICE VISIT HISTORY OF PRESENT ILLNESS Clinton Solomon is a 36 year old female with h/o kidney stones who presents today as a new patient for f/u kidney stones. She has a h/o kidney stones - has passed multiple stones spontaneously. Patient reports she was seen at [facility] and recently had renal ultrasound? She was told to follow up with urology for kidney stones. She denies flank pain. No gross hematuria. No dysuria. No records to review will sigh release and follow up as needed and pending results. Discussed dietary stone prevention. Taking topamax Will await records LAB RESULTS No results found for: CREAT No results found for: PSA No results found for: COLOR, CLARITY, UGLUC, UBILI, UKET, SPGR, UHB, UPH, UPROT, UROBILINOGEN, NITRITES, LEUKEST MEDICATIONS: escitalopram oxalate (LEXAPRO) 10 mg tablet omeprazole (PRILOSEC) 40 mg capsule SUMAtriptan (IMITREX) 50 mg tablet topiramate (TOPAMAX) 50 mg tablet potassium chloride (K-TAB) 10 mEq tablet REVIEW OF SYSTEMS CONSTITUTIONAL: Patient reports no recent fever or weight loss CARDIOVASCULAR: No chest pain, palpitations or ankle edema. RESPIRATORY: No wheezing, frequent cough or shortness of breath GENITOURINARY: See HPI HISTORIES No past medical history on file. No family history on file. No past surgical history on file. SOCIAL HISTORY Social History Tobacco Use Smoking status: Current Every Day Smoker Smokeless tobacco: Never Used Substance Use Topics Alcohol use: Not Currently Drug use: Yes Types: Marijuana PHYSICAL EXAMINATION General appearance: Well appearing, alert, in no acute distress, well-hydrated, well nourished.. BACK: no pain to palpation over spine or costovertebral angles. MUSCULOSKELETAL: Negative for joint pain or swelling. RESPIRATORY: Normal respiratory effort. SKIN: Normal color, no rash, no lesions.. : See HPI Medical Decision Making: Problems: Low: Stable chronic illness Data: Unique test(s) ordered: 1 Assessment requiring an independent historian(s) Risk: Minimal: Minimal risk from testing/treatment Medical Decision Making Level: 3 - Low ASSESSMENT/PLAN: 1. Kidney stones - ICD9: 592.0, ICD10: N20.0 - will await records follow up pending results and as needed Orin Julio APRN.[facility]EX documented in this encounter [facility] 01-22-2021 Miscellaneous Notes Received a referral from [facility] in [place] for migraines. Left a voicemail for patient to call back to schedule and sent ATC letter. Ashley Mace documented in this encounter [facility] Discharge summary Note Date/Time March 30, 2025 12:25pm [facility] Medical Records Department [address] [place], [place] [address] [address] Emergency Department Summary 03/30/25 MR#: [id number] Acct: [id number] Name: CLINTON HAYWARD Rep #:[id number] : 1985 40 From: César Up DO PCP: Care Physician,No Primary Status :REG ER Location: ED HPI History of Present Illness Chief Complaint: Abd Pain Narrative Narrative: Patient is a 40-year-old female with past medical history of GERD, bipolar disorder, neuroendocrine tumor, anxiety, depression who presented to the emergency department chief complaint of abdominal pain. Patient states that forthe past few days she has had abdominal cramping but. That she was coming out with a virus. States that today when she woke up when she use the restroom and wiped after peeing she noted a pink tinge on the paper therefore she came here to be further evaluated. Patient states that she does not have a uterus. Denies any recent contacts. 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 Wears dentures Marijuana use Easy bruising Restless legs Migraine headache Injury of head and neck Smoker Leg cramps History of edema Anxiety Depression Arthritis Home Medications ?Medication ?Instructions ?Recorded ?Last Taken ?Type ursodiol 250 mg tablet 250 mg PO BID #180 tabs 05/19 03/09 Unknown Rx vitamin E (dl, acetate) 180 mg 180 mg PO BID #180 caps 06/05/22 Unknown Rx (400 unit) capsule duloxetine 30 mg capsule,delayed 60 mg PO QHS 08/28/22 Unknown History release topiramate 25 mg tablet (Topamax) 50 mg PO DAILY 10/12 Unknown History topiramate 100 mg tablet 100 mg PO QHS 11/17/22 Unkno wn History scopolamine base 1 mg over 3 days 1 patch transdermal Q3D PRN nausea 11/20/22 Unknown Rx transdermal patch and vomiting #10 ea lidocaine 4 % topical spray 1 spray topical Q8H PRN MA N sore 11/22/22 Unknown Rx throat #113 grams colestipol 1 gram tablet (Colestid) See Rx Instruction s PO DAILY #60 12/07/22 Unknown Rx tabs oxycodone-acetaminophen 5 mg-325 1 tab PO Q8H PRN pain 3 days #10 02/23/25 Unknown Rx mg tablet (Percocet) tabs Allergy/AdvReac Type Severity Reaction Status Date / Time hydrocodone (From [place]) Allergy Rash Verified 03/30/25 10:03 Iodinated Contrast Media Allergy Rash Verified 03/30/25 10:03 (CONTRASTS) Penicillins Allergy Rash Verified 03/30/25 10:03 diclofenac AdvReac Other Verified 03/30/25 10:03 promethazine (From Phenergan) AdvReac Vomiting Verified 03/30/25 10:03 Family History Father Arthritis Hypertension Mother Thyroid disorder Cancer Lung Daughter Asthma Aunt Cancer unknown type Grandmother Cancer unknown type Surgical History History of esophagogastroduodenoscopy (EGD) History of partial hysterectomy History of endometrial ablation Hx of tubal ligation Hx of appendectomy Social History household members: spouse and children number of children: 2 current occupation: starting new job tomorrow at [employer] Smoking Status: Current every day smoker tobacco type: cigarettes Tobacco: How many years used: 15 second hand exposure: Yes alcohol intake: current alcohol intake frequency: holidays/special occasions only substance use type: does not use and marijuana caffeine: Yes Type: carbonated beverages and tea seatbelt use: always ROS ROS ED ROS Narrative Constitutional: Denies fevers, chills, head Cardiovascular: Denies chest pain or palpitations Respiratory: Denies coughing wheezing shortness of breath Abdomen: Complains of abdominal pain as noted above denies nausea vomiting diarrhea : Complains of hematuria as noted above denies painful urination or increased frequency Neurological: Denies any numbness, weakness, tingling Musculoskeletal: Denies back pain Skin: Denies any rashes or lesions EXAM Physical Exam Narrative Exam Narrative: General: There is lying in bed rest comfortably did not appear to be in acute distress Head: Atraumatic, normocephalic Eyes: PERRL bilaterally, EOMI bilaterally, no no conjunctival injection noted Neck: Soft, supple, trachea midline Cardiovascular: Regular rate and rhythm Respiratory: Clear to auscultation bilaterally Abdomen: Soft, nondistended, tenderness palpation left lower quadrant and suprapubic region no rebound or guarding on exam Extremities: +5/5 strength noted in the bilateral upper and lower extremity, radial pulses +2/4 in the bilateral extremities, no pedal edema on exam Neurological: Patient follow commands knew that she was at [facility] 2024 Skin: Warm, dry, intact no rashes or lesions noted Const Vital Signs: 03/30/25 10:03 03/30/25 12:03 Temperature 98 F Temperature Source Temporal Pulse Rate 81 78 Respiratory Rate 14 16 Blood Pressure 150/83 H 136/78 H Blood Pressure Mean 105 97 Pulse Ox 98 98 Oxygen Delivery Method Room Air Room Air MDM MDM MDM Narrative Medical decision making narrative: Patient is a 40-year-old female who presented to the emergency department the chief complaint of abdominal pain and hematuria. On the differential diagnose includes but not limited to UTI, pyelonephritis, diverticulitis, bowel obstruction. Once workup is obtained reviewed she will be reevaluated. Patientbe given IV fluids. Patient also notes that she does not have an appendix. Patient does have an idler G2 iodine therefore she will be premedicated with Solu-Medrol and Benadryl. Patient's CBC was significant for leukocytosis of 13,000 however she chronicallyhas an elevated white blood cell count according appears blood draws, hemoglobinstable at 15.5, platelet count noted to be 284. Patient sodium is 139, potassium normal at 4.2, creatinine was normal at 0.72. Patient glucose of 82, AST and ALT were normal at 14 and 9 respectively. Patient total bilirubin normal at 0.48. Patient's lipase was noted to be 52, urinalysis reviewed and showed no evidence of infection no blood. Patient CT ab pelvis IV contrast reviewed showed no acute intra-abdominal processes mild fatty infiltration. Discussed results with the patient she would like to go home at this point time. She advised to return with worsening symptoms or any concerns. She is agreeable to plan all question concerns answered she was discharged home in stable condition. Lab Data Labs: Laboratory Results - last 24 hr 03/30/25 10:34 WBC 13.8 H RBC 5.04 Hgb 15.5 H Hct 45.7 MCV 90.7 MCH 30.8 MCHC 33.9 RDW Std Deviation 41.1 RDW Coeff of Moise 12.3 Plt Count 284 MPV 9.8 Immature Gran % (Auto) 0.400 Neut % (Auto) 63.4 Lymph % (Auto) 26.8 Weld % (Auto) 8.0 Eos % (Auto) 0.9 Baso % (Auto) 0.5 Absolute Neuts (auto) 8.8 H Absolute Lymphs (auto) 3.71 Nucleated RBC % 0 Sodium 139 Potassium 4.2 Chloride 106 Carbon Dioxide 23.6 Anion Gap 9 BUN 5 Creatinine 0.72 Estim Creat Clear Calc 111.63 Est GFR (MDRD) Non-Af 109 BUN/Creatinine Ratio 7.0 L Glucose 82 Calcium 9.3 Total Bilirubin 0.48 AST 14 ALT 9 Alkaline Phosphatase 65 Total Protein 7.5 Albumin 4.2 Globulin 3.3 Albumin/Globulin Ratio 1.3 Lipase 52 Urine Color Yellow Urine Clarity Clear Urine pH 6.0 Ur Specific [place] 1.010 Urine Protein Negative Urine Glucose (UA) Normal Urine Ketones Negative Urine Occult Blood Negative Urine Nitrite Negative Urine Bilirubin Negative Urine Urobilinogen Normal Ur Leukocyte Esterase Negative Urine RBC 0 SEEN Urine WBC 0 SEEN Ur Squamous Epith Cells 0-5 SEEN Urine Bacteria 0 SEEN Urine Mucus 0 SEEN Radiography Diagnostic Testing: Clinical Impression(s) from Imaging Studies Abdomen/Pelvis CT 03/30/25 10:14 IMPRESSION: No acute inflammatory process of the abdomen or pelvis. Mild fatty infiltration. Reading Location: [facility] Discharge Plan Triage Chief Complaint: Abd Pain ED Provider: César Up Dx/Rx/DC Orders Clinical Impression: Abdominal pain, NAFLD (nonalcoholic fatty liver disease), Anxiety Prescriptions: No Action duloxetine 30 mg capsule,delayed release(DR/EC) 60 mg PO QHS Patient Comments: TAKE 1 CAPSULE BY MOUTH ONCE DAILY colestipol [Colestid] 1 gram tablet See Rx Instructions PO DAILY Qty: 60 0RF Rx Instructions: 1-2 tabs orally daily; avoid other meds 1 hr prior and 4 hrs after colestipol topiramate [Topamax] 25 mg tablet 50 mg PO DAILY topiramate 100 mg Tablet 100 mg PO QHS lidocaine 4 % aerosol,spray 1 spray topical Q8H PRN PRN (Reason: sore throat) Qty: 113 0RF oxycodone-acetaminophen [Percocet] 5-325 mg tablet 1 tab PO Q8H PRN (Reason: pain) 3 Days Qty: 10 0RF vitamin E (dl, acetate) 180 mg (400 unit) capsule 180 mg PO BID Qty: 180 3RF ursodiol 250 mg tablet 250 mg PO BID Qty: 180 3RF scopolamine base 1 mg over 3 days patch 3 day 1 patch transdermal Q3D PRN (Reason: nausea and vomiting) Qty: 10 1RF Primary Care Provider: Care Physician,No Primary Referrals: [facility] [Non-Staff] - Activity Restrictions/Additional Instructions: Follow-up with your primary care doctor in the outpatient setting. Return with worsening symptoms or any concerns. Your blood work did not show any acute findings here today. Your CT did not show any acute findings. Your urine did not have any blood in it, and it did not show any evidence of infection. Print Language: [place] Islander Disposition Disposition: Home, Self Care What to do if you have Problems For any increased pain, shortness of breath, bleeding, nausea or vomiting, chestpain, or any unexpected problems, contact your Primary Care Provider. Call [facility] ([phone]) or report to the closest Emergency Room. Call 911 if necessary. 03/30/25 1225 <Electronically signed by César Up DO> [place] Signature (if applicable): CC: No Primary Care Physician ~ Signed [facility] Work Phone: Evaluation note* Diagnosis Kidney stones Calculus of kidney [facility] Diagnosis Onset Date Resolution Status Abdominal pain acute Abdominal pain acute Duodenitis acute Sphincter of Oddi dysfunction acute [facility] Work Phone: Evaluation note* Diagnosis Onset Date Resolution Status Abdominal pain acute Duodenitis acute Sphincter of Oddi dysfunction acute Neuroendocrine tumor acute [facility] Work Phone: Evaluation note* Diagnosis Onset Date Resolution Status Neuroendocrine tumor acute Neuroendocrine tumor acute [facility] Work Phone: Evaluation note* Diagnosis Neuroendocrine cancer- Primary Other malignant neoplasm without specification of site [facility] Neuroendocrine cancer Other malignant neoplasm without specification of site [facility] Diagnosis Neuroendocrine cancer- Primary Other malignant neoplasm without specification of site [facility] Diagnosis Onset Date Resolution Status Neuroendocrine tumor acute 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 acute 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 acute Fatty liver acute [facility] Work Phone: Evaluation note* Diagnosis Onset Date Resolution Status 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 acute Fatty liver acute [facility] Work Phone: Evaluation note* Diagnosis Onset Date Resolution Status Internal impingement of right shoulder acute Right shoulder pain acute Abdominal pain chronic Diarrhea chronic Dysfunctional gallbladder ch ronic History of neuroendocrine cancer chronic Nausea and vomiting chronic Epigastric pain acute Diarrhea chronic Dysfunctional gallbladder ch ronic History of neuroendocrine cancer chronic Nausea and vomiting chronic Epigastric pain acute Diarrhea chronic Dysfunctional gallbladder ch ronic History of neuroendocrine cancer chronic Nausea and vomiting chronic [facility] Work Phone: Evaluation note* Diagnosis Onset Date Resolution Status Epigastric pain acute Diarrhea chronic Dysfunctional gallbladder ch ronic History of neuroendocrine cancer chronic Nausea and vomiting chronic Gastritis, bile acid reflux chronic [facility] Work Phone: Evaluation note* Diagnosis Sprain of left knee, initial encounter- Primary Contusion of left knee, initial encounter [facility] assessment information availableWBarnesville Hospital Work Phone: History and physical note Author Sharif Pérez [facility] November 20, 2022 1:03pm Note Date/Time November 20, 2022 1:03pm [facility] Medical Records Department [address] [place] [id number] History & Physical Exam 11/20/22 1302 MR#: [id number] Acct: [id number] Name: CLINTON HAYWARD Rep #:[id number] : 1985 37 From: Sharif Pérez DO PCP: [facility] [place] [address] History and Physical Date of Admission: 11/20/22 ?37 F who presents to the office today accompanied by her for f/u neuroendocrine tumor of the duodenum. She saw Dr Castellanos yesterday at [facility]--tumor markers from 04/01/2022 were normal, MRI on 05/06/2022 showed no evidence of metastatic disease in the abdomen or pelvis, there is hepatic steatosis.? Dr. Castellanos recommends endoscopies every 2 to 3 years for surveillance, as well as restarting antiacid medicine. She has almost constant nausea, rare vomiting recently. Not getting heartburn oracid reflux. Upper abd cramping almost daily. She felt better when she took omeprazole 40 mg daily.? Bowels are regular, no diarrhea or constipation, no melena or hematochezia. 03/11/22 gastrin <10 normal 03/18/22 chromagranin A 40.9 normal 04/01/2022 labs at [facility]: LD normal 120, CMP normal, white count slightly high at 11.32, hemoglobin 15.5, pancreatic polypeptide 122 normal, calcitonin normal, gastrin less than 10, B12 normal 374, chromogranin A 46 normal, parietal cell antibody negative, intrinsic factor blocking antibody negative, glucagon normal [place] established with this clinic .10.07 for evaluation of diarrhea (5-6times aday, usually following PO intake), heartburn, epigastric pain with onset 2018. She was started on PPI therapy which helped with everything but diarrhea. US abdomen performed 05.27.21. Liver measures 16.3cm with fatty infiltration. Twogallbladder polyps, negative Plaza?s sign. Nonobstructive calculus in right kidney. Hepatobiliary scan performed 05.27.21. With gallbladder ejection fraction less than 35% consistent with functional hepatobiliary disease. Evidence of CCK duodenal gastric reflux. 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 EGD performed 08.21.21 finding LA Grade A reflux esophagitis; congested gastropathy; enlarged gastric folds; scalloped mucosa in duodenum; single duodenal polyp. Duodenal biopsy revealed gastric metaplasia. Inflammation of esophagus and gastric body. MRCP performed 08.25.21 finding a normal MRCP. EGD EUS performed 10.14.21 at [facility] finding 10mm mucosal nodule in distal duodenal bulb with questionable central umbilication, possibly related previous biopsies. EUS found oval intramural (subepithelial), hypoechoic lesion in apex of duodenal bulb appearing to originate from deep mucosa measuring 10mm in maximum thickness and 7mm in diameter. Biopsy found changes consistent with nodular peptic duodenitis. EGD normal esophagus; small hiatal hernia; duodenal polyp retrieved. Duodenal polyp pathology returned as well differentiated neuroendocrine tumor with all margins of sample negative for tumor. AE1-2, CK7/8/20, CD 56, Chromo, Synapto, Ki-67 all positive. ROS Const Constitutional: No fatigue ENT ENT: No difficulty swallowing Cardio Cardiology: Positive for leg pain with exertion Gastro GI: Positive for bloating, excessive flatus, Vomiting blood/hematemesis and nausea/dyspepsia; No abdominal pain, belching, change in bowel habits, change in stool character, coffee ground emesis, constipation, cramping, diarrhea, heartburn, difficulty swallowing, feeling full early, incontinent of stools, Blood in stool, loose stools, Black,tarry stools, pain with swallowing, vomiting or other Musc Musculoskeletal: Positive for back pain, muscle weakness, stiffness, Arthritis and leg pain with exertion; No joint pain Skin Skin: No yellowing of the eye or itchy eyes Psych Psychiatric: Positive for anxiety, Positive for depression and Positive for hyperactivity Endo Endocrine: No fatigue Aller/Imm Allergy/Immunologic: No itchy eyes Omi/Lymp Hematologic/Lymphatic: Positive for easy bruising; No easy bleeding Exam Const General: cooperative, comfortable and no acute distress Nutritional Appearance: obese Orientation: alert, awake and oriented x3 Quality Reporting Tobacco Screening ([facility] 138) Smoking Status: Current every day smoker Assessment and Plan Assessment and Plan (1) Fatty liver: ?Status:?Acute ?Plan: We discussed fatty liver seen on imaging, will get liver elastography to evaluate for fibrosis, we will call her with results and recommendations May need labs, will order those if fibrosis is found on ultrasound (2) 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 Castellanos at [facility], lab work-up there and MRI were negative, so she has been discharged from that practice and last follow-up as needed later.? He recommends antiacid medication for her as well as endoscopic surveillance every 2 to 3 years.? We will plan on next EGD in approximately November 2023. ? ? ? Orders: Orders Abdomen Limited Today K76.0 - Fatty (change of) liver, not elsewhere classified ? Elastography Parenchyma/Organ Today K76.0 - Fatty (change of) liver, not elsewhere classified ? Medications: New omeprazoleD 40 mg? PO QAM 90 caps 3RF ? ? I have examined the patient and the H&P has been reviewed. There are no clinicalchanges since date of exam. 11/20/22 1303 <Electronically signed by Sharif Pérez DO> Cosigner Signature (if applicable): CC: Sharif Pérez DO; [facility]~ Signed [facility] Work Phone: Hospital Discharge instructions Additional Instructions Thank you for trusting us with your care today! Please take Tylenol (2 pills, 650 mg), ibuprofen (2 pills, 400 mg) every 6 hours as needed for pain and fever control. Please use topical lidocaine spray up to 3 times a day as needed for further pain control. You can also try Cepacol besq-dxr-popuicx lozenges which have anecdotally improved symptoms. Please return to the emergency department if your symptoms change or worsen. Specifically if you develop drooling, neck stiffness, difficulty swallowing or feeling of your throat closing Please follow with your Dr. Pérez for further outpatient evaluation and management.[facility] Work Phone: Hospital Discharge instructionsAdditional Instructions Ice and elevate and keep the splint dry. You can take Tylenol or Motrin as needed and use the Percocet for breakthrough pain. Note that Percocet can cause nausea, sedation, and constipation so I recommend a stool softener or MiraLAX while using it. Call the orthopedic or plastic surgery office for follow-up appointment.[facility] Work Phone: Hospital Discharge instructionsAdditional Instructions Follow-up with your primary care doctor in the outpatient setting. Return with worsening symptoms or any concerns. Your blood work did not show any acute findings here today. Your CT did not show any acute findings. Your urine did not have any blood in it, and it did not show any evidence of infection.[facility] Work Phone: Reason for referral (narrative)* Consultation (Routine) - New Request Specialty Diagnoses / Procedures Referred By Maria Antonia calero Referred To Contact Genetics Diagnoses Neuroendocrine cancer Hansel Andrade PA-C [address] [address], [facility] [address] [place] [address] Referral ID Status Reason Start Date Expiration Date V isits Requested Visits Authorized [id number] New Request 04/01/2022 04/26/2023 1 1 * MRI/CAT Scan (Routine) - New Request Specialty Diagnoses / Procedures Referred By Maria Antonia calero Referred To Contact Diagnoses Neuroendocrine cancer Procedures MRI ABDOMEN/PELVIS WITHOUT AND WITH CONTRAST MA MRI, ABDOMEN, COMBO MA MRI, PELVIS, COMBO Hansel Andrade PA-C [address] [address] Referral ID Status Reason Start Date Expiration Date V isits Requested Visits Authorized [id number] New Request 04/01/2022 04/26/2023 1 1 [facility]No reason for referral information availableWBarnesville Hospital Work Phone: Instructions * Patient Instructions - April Bahena MD - 04/20/2017 11:06 AM EDT Formatting of this note may be different from the original. Problem List Items Addressed This Visit Musculoskeletal and Integument Closed nondisplaced fracture of sixth cervical vertebra with routine healing Status post fracture 12/2015. Other Chronic fatigue Chronic fatigue adds to the perception of pain. 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 The chronic fatigue adds to the whole pain syndrome. Relating in a decline of serotonin and rise of norepinephrine will start on Cymbalta 30 mg once a day. Neck pain We will arrange for the baclofen to help with neuromuscular irritability 20 mg up to 3 times a day as needed for muscle spasm Relafen 500 mg twice a day for inflammation. Take with food to watch out for GI upset. We will also set her up for physical therapy. in this encounter Assessments Diagnosis Neck pain Cervicalgia Chronic fatigue Other malaise and fatigue Closed nondisplaced fracture of sixth cervical vertebra with routine healing, unspecified fracture morphology, subsequent encounter Summary Purpose Family History No Family History Records Found Relationship Condition Age at Onset Recorded Date/T stephanie father Arthritis Unknown Hypertension Unknown mother Disorder of thyroid Unknown Malignant neoplasm Unknown daughter Asthma Unknown Relationship Condition Age at Onset Recorded Date/T stephanie father Arthritis Unknown Hypertension Unknown mother Disorder of thyroid Unknown Malignant neoplasm Unknown daughter Asthma Unknown aunt Malignant neoplasm Unknown grandmother Malignant neoplasm Unknown Advance Directives No Advanced Directives Records Found Advance Directive Response Recorded Date/ Time Living Will No December 08, 2021 9 :25am Power of Workers' Compensation Mediator No December 08, 2021 9:25am Advance Directive Response Recorded Date/ Time Living Will No January 28, 2022 12:16pm Power of Workers' Compensation Mediator No January 28 12:16pm Advance Directive Response Recorded Date/ Time Living Will No March 09 9:31am Power of Workers' Compensation Mediator No March 09 022 9:31am Advance Directive Response Recorded Date/ Time Living Will No March 09 8:31am Power of Workers' Compensation Mediator No March 09 8:31am Advance Directive Response Recorded Date/ Time Living Will No July 30 12:05pm Power of Workers' Compensation Mediator No July 30, 2022 12:05pm Advance Directive Response Recorded Date/ Time Living Will No November 17, 2022 1: 36pm Power of Workers' Compensation Mediator No November 17, 2022 1:36pm Advance Directive Response Recorded Date/ Time Living Will No November 21, 2022 11 :18pm Power of Workers' Compensation Mediator No November 21, 2022 11:18pm Advance Directive Response Recorded Date/ Time Do you have a Healthcare Power of Workers' Compensation Mediator? No February 23, 2025 12:05pm Advance Directive Response Recorded Date/ Time Do you have a Healthcare Power of Workers' Compensation Mediator? No March 30, 2025 10:14am Do you have a Healthcare Power of Workers' Compensation Mediator? No February 23, 2025 12:05pm Chief Complaint and Reason for Visit Chief Complaint Pre-Surgical Testing PAT SPHINCTER ODDI DYSFUNCTION 2 W FU PROC 2 M FU Reason for Visit Abdominal pain Abdominal pain Duodenitis Sphincter of Oddi dysfunction Chief Complaint Pre-Surgical Testing PAT SPHINCTER ODDI DYSFUNCTION 2 W FU PROC 2 M FU BLOATING/PAIN Reason for Visit Abdominal pain Abdominal pain Duodenitis Sphincter of Oddi dysfunction Chief Complaint 2 M FU BLOATING/PAIN 2 WK FU NEUROENDOCRINE TUMOR ALLERGIC REACTION Reason for Visit Abdominal pain Duodenitis Sphincter of Oddi dysfunction Neuroendocrine tumor Chief Complaint BLOATING/PAIN 2 WK FU NEUROENDOCRINE TUMOR ALLERGIC REACTION FU E ORDER Reason for Visit Neuroendocrine tumor Neuroendocrine tumor Chief Complaint NEUROENDOCRINE TUMOR ALLERGIC REACTION FU E ORDER NEW-NEUROENDROCRINE TUMOR 2 MO FU FATTY LIVER Reason for Visit Neuroendocrine tumor 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 Fatty liver Chief Complaint 2 MO FU FATTY LIVER E ORDERS RT SHOULDER Reason for Visit Carcinoid tumor dete rmined by biopsy of small intestine Fatty liver Chief Complaint RT SHOULDER RIGHT SHOULDER Rm 2 xray R SHLD/RX HERE STILL HAVING ISSUES GALLBLADDER ABSCESS MED CHECK Reason for Visit Internal impingement of right shoulder Right shoulder pain Abdominal pain Diarrhea Dysfunctional gallbladder History of neuroendocrine cancer Nausea and vomiting Epigastric pain Diarrhea Dysfunctional gallbladder History of neuroendocrine cancer Nausea and vomiting Epigastric pain Diarrhea Dysfunctional gallbladder History of neuroendocrine cancer Nausea and vomiting Chief Complaint RT SHOULDER RIGHT SHOULDER Rm 2 xray R SHLD/RX HERE STILL HAVING ISSUES GALLBLADDER ABSCESS MED CHECK SORE THROAT Reason for Visit Internal impingement of right shoulder Right shoulder pain Abdominal pain Diarrhea Dysfunctional gallbladder History of neuroendocrine cancer Nausea and vomiting Epigastric pain Diarrhea Dysfunctional gallbladder History of neuroendocrine cancer Nausea and vomiting Epigastric pain Diarrhea Dysfunctional gallbladder History of neuroendocrine cancer Nausea and vomiting Chief Complaint MED CHECK SORE THROAT 2 WK FU Reason for Visit Epigastric pain Diarrhea Dysfunctional gallbladder History of neuroendocrine cancer Nausea and vomiting Gastritis, bile acid reflux Chief Complaint Admit Date Hand Injury February 23, 2025 12: 00pm Chief Complaint Admit Date Hand Injury February 23, 2025 12: 00pm BLEEDING March 30, 2025 10:03am Reason for Referral Specialty Diagnoses / Procedures Referred By Maria Antonia calero Referred To Contact Diagnoses Neuroendocrine cancer Procedures MRI ABDOMEN/PELVIS WITHOUT AND WITH CONTRAST MA MRI, ABDOMEN, COMBO MA MRI, PELVIS, COMBO Hansel Andrade PA-C [address] [facility] [address] [place] [address] Referral ID Status Reason Start Date Expiration Date Visits Re quested Visits Authorized [id number] Closed 04/01/2022 04/26/2023 1 1 Additional Source Comments Assessment & Plan Note - April Bahena MD - 04/20/2017 11:05 AM EDTAssessment & Plan Note - April Bahena MD - 04/20/2017 11:05 AM EDT Miscellaneous Notes (unrecog nized section and content) Associated Problem(s): Neck pain We will arrange for the baclofen to help with neuromuscular irritability 20 mg up to 3 times a day as needed for muscle spasm Relafen 500 mg twice a day for inflammation. Take with food to watch out for GI upset. We will also set her up for physical therapy. Associated Problem(s): Closed nondisplaced fracture of sixth cervical vertebra with routine healing Status post fracture 12/2015. Associated Problem(s): Chronic fatigue Chronic fatigue adds to the perception of pain. 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 The chronic fatigue adds to the whole pain syndrome. Relating in a decline of serotonin and rise of norepinephrine will start on Cymbalta 30 mg once a day.in this encounter INFORMATION SOURCE (unrecogn ized section and content) DATE CREATED AUTHOR 01/07/2018 [facility] DATE CREATED AUTHOR AUTHOR'S ORGANIZ ATION 01/10/2018 [facility] DATE CREATED AUTHOR AUTHOR'S ORGANIZ ATION 01/12/2018 [facility] DATE CREATED AUTHOR AUTHOR'S ORGANIZ ATION 06/11/2021 [facility] DATE CREATED AUTHOR AUTHOR'S ORGANIZ ATION 10/26/2021 [facility] DATE CREATED AUTHOR AUTHOR'S ORGANIZ ATION 11/13/2021 [facility] DATE CREATED AUTHOR AUTHOR'S ORGANIZ ATION 12/27/2022 [facility] DATE CREATED AUTHOR AUTHOR'S ORGANIZ ATION 01/23/2023 [facility] DATE CREATED AUTHOR AUTHOR'S ORGANIZ ATION 03/26/2023 [facility] DATE CREATED AUTHOR AUTHOR'S ORGANIZ ATION 02/02/2025 [facility] DATE CREATED AUTHOR AUTHOR'S ORGANIZ ATION 05/31/2025 [facility] Source Comments (unrecognize d section and content) In the event this informatio n is protected by the Federal Confidentiality of Alcohol and Drug Abuse Patient Records regulations: The Federal rules restrict any use of the information to criminally investigate or prosecute any alcohol or drug abuse patient.[facility] Rehabilitation[facility] the event this information is protected by the Federal Confidentiality of Alcohol and Drug Abuse Patient Records regulations: The Federal rules restrict any use of the information to criminally investigate or prosecute any alcohol or drug abuse patient.[facility] RehabilitationIn the event this information is protected by the Federal Confidentiality of Alcohol and Drug Abuse Patient Records regulations: The Federal rules restrict any use of the information to criminally investigate or prosecute any alcohol or drug abuse patient.[facility] RehabilitationIn the event this information is protected by the Federal Confidentiality of Alcohol and Drug Abuse Patient Records regulations: The Federal rules restrict any use of the information to criminally investigate or prosecute any alcohol or drug abuse patient.[facility] Reason for Visit (unrecogniz ed section and content) Reason Comments New Patient Reason Comments Kidney Stones 5mm Reason Comments New Patient NET. Patient reports N/V stomach issues for several years- at least since . November 2021 with EGD and polyp removal for pathology. Specialty Diagnoses / Procedures Referred By Maria Antonia calero Referred To Contact Medical Oncology / Oncology Procedures NEW ENDOCRINE CANCER Self, Self Scooter Castellanos MD [address] [facility] [address] [place] [address] Referral ID Status Reason Start Date Expiration Date V isits Requested Visits Authorized [id number] New Request 04/01/2022 04/26/2023 1 1 Specialty Diagnoses / Procedures Referred By Maria Antonia calero Referred To Contact Diagnoses Neuroendocrine cancer Procedures MRI ABDOMEN/PELVIS WITHOUT AND WITH CONTRAST MA MRI, ABDOMEN, COMBO MA MRI, PELVIS, COMBO Hansel Andrade PA-C [address] [address] Referral ID Status Reason Start Date Expiration Date Visits Re quested Visits Authorized [id number] Closed 04/01/2022 04/26/2023 1 1 Reason Comments Follow-up NEC--here to discuss MRI results Imaging Results MRI completed Reason Comments Knee Pain Left knee pain s/p s lip and fall on floor Wednesday. Last took Tylenol and Ibuprofen yesterday. Care Teams (unrecognized sec tion and content) Body Welder Relationship Specialty Start Date End Date Carmita Gonzalez CNP [address] [place] [place], [place] [id number] PCP - General Internal Medicine 01/16/21 Carmita Gonzalez CNP [address] [place] [place], [place] [id number] Referring Internal Medicine 01/16/21 Body Welder Relationship Specialty Start Date End Date Renée Alamo, JANELL Registered Nurse 03/18/[address] [facility] [address] [place] [address] Oncologist Hematology 03/18/22 Body Welder Relationship Specialty Start Date End Date Renée Alamo RN Registered Nurse 03/18/[address] [facility] [address] [place] [address] Oncologist Hematology 03/18/22 Scooter Castellanos MD [address] [facility] [address] [place] [phone] Oncologist Medical Oncology 04/06/22 Body Welder Relationship Specialty Start Date End Date Renée Alamo RN Registered Nurse 03/18/22 Jenna Newby, [facility] [address] [place] [address] Oncologist Hematology 03/18/22 Scooter Castellanos MD [address] [facility] [address] [place] [phone] Oncologist Medical Oncology 04/06/22 Sharif Pérez DO [address] [phone] Development Advisor Gastroenterology 05/13/22 Team Status: Active Member Role Status Dates [facility] Family Provider Active [facility] Primary Care Provider A ctive Team Status: Inactive Member Role Status Dates [facility] Primary Care Provider, Referring Provider Active Lambert Yanez MD Attending Provider Active Team Status: Inactive Member Role Status Dates [facility] Primary Care Provider A ctive Dr. Demar Stringer MD Attending Provider Active Team Status: Inactive Member Role Status Dates [facility] Primary Care Provider, Referring Provider Active Eloisa Collado LABORER ELECTROPLATING, LABORER ELECTROPLATING-C Attending Provider Active Team Status: Inactive Member Role Status Dates [facility] Primary Care Provider, Referring Provider Active Dr. Deborah Scott MD Attending Provider Active Team Status: Active Member Role Status Dates [facility] Primary Care Provider, Referring Provider Active Dr. Sharif Pérez DO Attending Provider, Other Prov ider Active Team Status: Inactive Member Role Status Dates [facility] Primary Care Provider A ctive Dr. Hiram Stokes DO Attending Provider, Emergency Provide r Active Team Status: Active Member Role Status Dates [facility] Primary Care Provider A ctive Lambert Yanez MD Attending Provider, Referring Prov ider Active Team Status: Inactive Member Role Status Dates [facility] Primary Care Provider, Referring Provider Active Dr. Sharif Pérez DO Attending Provider Active Team Status: Inactive Member Role Status Dates [facility] Primary Care Provider A ctive Dr. Aramis Campbell MD Attending Provider, Emergency Pro vider Active Team Status: Inactive Member Role Status Dates [facility] Primary Care Provider A ctive Dr. Rajinder Hill , Emergency Provider Active Body Welder Relationship Specialty Start Date End Date Carmita Gonzalez [address] [place] [address] PCP - General Internal Medicine 01/16/21 Carmita Gonzalez [address] [facility] [place] [address] Referring Internal Medicine 01/16/21 Shelly Salgado, [address] [place] [address] Referring Family Medicine 12/28/22 Team Status: Inactive Member Role Status Dates [facility] Primary Care Provider A ctive Dr. 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 Relationship Specialty Start Date End Date Carmita Gonzalez [address] [facility] [place] [address] PCP - General Internal Medicine 01/16/21 Carmita Gonzalez CNP [address] [place] [address] Referring Internal Medicine 01/16/21 Shelly Salgado NP [address] [place] [address] Referring Family Medicine 12/28/22 Team Status: Active Member Role/Relationship Status Dates [facility] Primary Care Provider A ctive Team Status: Inactive Member Role/Relationship Status Dates [facility] Primary Care Provider A ctive Start: February 23, 2025 End: February 23, 2025 Dr. Karl Grover MD Emergency Provider Active Start: February 23, 2025 End: February 23, 2025 Team Status: Active Member Role/Relationship Status Dates No Primary Care Physician Primary Care Provider Active Team Status: Inactive Member Role/Relationship Status Dates [facility] Primary Care Provider A ctive Start: February 23, 2025 End: February 23, 2025 Dr. Karl Grover MD Attending Provider Active Start: February 23, 2025 End: February 23, 2025 Dr. Karl Grover MD Emergency Provider Active Start: February 23, 2025 End: February 23, 2025 Team Status: Inactive Member Role/Relationship Status Dates Dr. César Up DO Emergency Provider Active Start: March 30, 2025 End: March 30, 2025 No Primary Care Physician Primary Care Provider Active Start: March 30, 2025 End: March 30, 2025 Goals (unrecognized section and content) Goals may be documented in a n alternate sectionGoals may be documented in an alternate sectionGoals may be documented in an alternate sectionGoals may be documented in an alternate sectionGoals may be documented in an alternate sectionGoals may be documented in an alternate section FOR RECORDS PERTAINING TO PATIENTS WHO ARE OR HAVE BEEN ENROLLED IN A CHEMICAL DEPENDENCY/SUBSTANCEABUSE PROGRAM, SOME INFORMATION MAY BE OMITTED. This clinical summary was aggregated from multiple sources. Caution should be exercised in using it in the provision of clinical care. This summary normalizes information from multiple sources, and as a consequence, information in this document may materially change the coding, format and clinical context of patient data. In addition, data may be omitted in some cases. CLINICAL DECISIONS SHOULD BE BASED ON THE PRIMARY CLINICAL RECORDS. [facility] provides no warranty or guarantee of the accuracy or completeness of information in this document.
== END 2025-06-20 16:18 | disposition home or self-care (01) ==
LOC: ED 15:57
PROVIDERS: Emergency Provider Emergency Medicine; Visit Provider Emergency Medicine
DX: S39.012A Strain of muscle, fascia and tendon of lower back, initial encounter (principal); Z90.710 Acquired absence of both cervix and uterus; F17.210 Nicotine dependence, cigarettes, uncomplicated; M62.830 Muscle spasm of back; F32.A Depression, unspecified; F41.9 Anxiety disorder, unspecified; Z79.899 Other long term (current) drug therapy; Z98.51 Tubal ligation status; Z90.49 Acquired absence of other specified parts of digestive tract
CPT/HCPCS: 99282